=== PATIENT | male | born 1950 | race Caucasian/White ===

== ENCOUNTER 2021-09-25 11:48 | Inpatient (IN) | payer MEDICARE, MEDICAID, SELFPAY ==
--- NOTE | ~2021-09-25 | US_ITS ---
EXAMINATION: US RETROPERITONEAL LIMITED (RENAL ONLY) CLINICAL INFORMATION: UTI. COMPARISON: None TECHNIQUE: Multiple 2-D grayscale and duplex Doppler ultrasound images of the kidneys were obtained. FINDINGS: RIGHT KIDNEY: 10.8 x 6.7 x 6.2 cm (SAG x AP x TRV). An interpolar cyst measures 1.9 x 1.9 x 1.8 cm. Color Doppler showed no abnormal vascular flow. No hydronephrosis or nephrolithiasis. LEFT KIDNEY: 11.7 x 4.6 x 5.0 cm (SAG x AP x TRV). An exophytic cyst in the lower pole measures 3.2 x 2.5 x 2.9 cm. Color Doppler showed no abnormal vascular flow. No hydronephrosis or nephrolithiasis. US/US renal BI IMPRESSION: Bilateral renal cysts demonstrate benign features. No other significant abnormality.
--- NOTE | ~2021-09-25 | CT_ITS ---
EXAMINATION: CT HEAD WITHOUT CONTRAST CLINICAL INFORMATION: Altered mental status. COMPARISON: None available. TECHNIQUE: Contiguous axial imaging was performed from the skull base to vertex without intravenous administration of contrast. This CT examination was performed using dose optimization techniques as appropriate, variously including the following: *Automated exposure control. *Adjustment of mA and/or kV according to patient size (this includes techniques or standardized protocols for targeted exams where dose is matched to indication/reason for exam; i.e. extremities or head). *Use of iterative reconstruction technique. DLP: 813 mGy-cm FINDINGS: There is no evidence of acute intracranial hemorrhage or edematous territorial infarction. Scattered hypoattenuation in the periventricular and deep white matter are consistent with mild to moderate microangiopathy. Gage-white matter differentiation is preserved. Proportional prominence of the ventricles and sulcal spaces. No evidence for obstructive hydrocephalus. No abnormal mass effect or midline shift. No extra-axial fluid collections. Calcific atherosclerotic disease of the intracranial internal carotid and vertebral arteries. No hyperdense vessel sign. No acute soft tissue or osseous abnormalities. The mastoid air cells and paranasal sinuses are clear. The patient is edentulous. CT/CT head/brain wo con IMPRESSION: 1. No evidence of acute intracranial hemorrhage or edematous territorial infarction. 2. Mild to moderate underlying microangiopathy and generalized cerebral volume loss.
--- NOTE | ~2021-09-25 | XR_ITS ---
EXAMINATION: XR CHEST CLINICAL INFORMATION: Altered mental status COMPARISON: None TECHNIQUE: Frontal view of the chest was obtained. FINDINGS: Cardiac silhouette is normal in size. The lungs are adequately aerated. There is no lobar consolidation. No pleural effusion or pneumothorax. Linear opacity of the lateral right lung base is nonspecific but may represent scarring. Moderate degenerative changes of the spine. XR/XR chest 1V IMPRESSION: No acute pulmonary pathology.
--- NOTE | 2021-09-25 11:53 | ED_ITS ---
HPI - Altered Mental Status General Chief Complaint: Altered Mental Status Stated Complaint: AMS Time Seen by Provider: 09/25/21 11:53 Source: EMS Mode of arrival: EMS Limitations: altered mental status History of Present Illness MD complaint: altered mental status and decreased responsiveness (usually talks but is not talking) Onset (ago): day(s) (3) Timing confirmed by: caregiver Severity: moderate Consistency of symptoms: constant Context: other (hx of schizophrenia) Associated symptoms: denies other symptoms Related Data Home Medications Medication Instructions Recorded Confirmed acetaminophen 325 mg tablet 650 mg PO Q6H PRN 09/25/21 09/25/21 acetaminophen 650 mg rectal 650 mg TX Q6H PRN 09/25/21 09/25/21 suppository aluminum-mag 30 ml PO Q6H PRN 09/25/21 09/25/21 hydroxide-simethicone 200 mg-200 mg-20 mg/5 mL oral susp amlodipine 10 mg tablet 10 mg PO DAILY 09/25/21 09/25/21 aripiprazole lauroxil 882 mg/3.2 882 mg IM QMONTH 09/25/21 09/25/21 mL suspension, ext.rel. IM syringe (Aristada) atorvastatin 40 mg tablet 40 mg PO BEDTIME 09/25/21 09/25/21 atropine 1 % eye drops 2 drp OPHTHALMIC (EYE) 09/25/21 09/25/21 BID@0900,1700 bisacodyl 10 mg rectal 10 mg TX DAILY PRN 09/25/21 09/25/21 suppository clonazepam 2 mg tablet 2 mg PO DAILY PRN 09/25/21 09/25/21 clozapine 200 mg tablet 200 mg PO BID 09/25/21 09/25/21 clozapine 50 mg tablet 50 mg PO DAILY 09/25/21 09/25/21 divalproex 250 mg tablet,delayed 250 mg PO BID@0900,1800 09/25/21 09/25/21 release famotidine 20 mg tablet 20 mg PO BID@0900,1800 09/25/21 09/25/21 guaifenesin 200 mg tablet 200 mg PO Q6H PRN 09/25/21 09/25/21 levothyroxine 88 mcg tablet 88 mcg PO DAILY@0630 09/25/21 09/25/21 loratadine 10 mg tablet 10 mg PO DAILY 09/25/21 09/25/21 lorazepam 1 mg tablet 1 mg PO BID@0900,1800 09/25/21 09/25/21 magnesium hydroxide 400 mg/5 mL 30 ml PO DAILY PRN 09/25/21 09/25/21 oral suspension (Milk of Magnesia) metoprolol tartrate 50 mg tablet 50 mg PO BID@0900,1800 09/25/21 09/25/21 mirtazapine 30 mg tablet 30 mg PO BEDTIME 09/25/21 09/25/21 multivitamin with minerals 1 tab PO DAILY 09/25/21 09/25/21 naloxone 0.4 mg/mL injection 0.4 mg IM Q1M PRN 09/25/21 09/25/21 solution tamsulosin 0.4 mg capsule 0.8 mg PO BEDTIME 09/25/21 09/25/21 Allergies Allergy/AdvReac Type Severity Reaction Status Date / Time azithromycin Allergy Unknown Verified 09/25/21 12:15 Barbiturates Allergy Unknown Verified 09/25/21 12:15 erythromycin base Allergy Unknown Verified 09/25/21 12:15 fluphenazine Allergy Unknown Verified 09/25/21 12:15 haloperidol [From Haldol] Allergy Unknown Verified 09/25/21 12:15 phenobarbital Allergy Unknown Verified 09/25/21 12:15 Review of Systems Verdana 4l Review of Systems: Verdana 4d ROS unable to be obtained Verdana 4d due to altered mental status Verdana 4d PMFSH Past Medical History Source: nursing notes reviewed Medical History Anemia, unspecified Anxiety disorder, unspecified Ataxic gait Benign prostatic hyperplasia without lower urinary tract symptoms Combined forms of age-related cataract, bilateral Corns and callosities COVID-19 Diabetes Essential (primary) hypertension Functional urinary incontinence Gastro-esophageal reflux disease without esophagitis Hallux valgus (acquired), unspecified foot History of falling Hyperlipidemia, unspecified Hypothyroidism, unspecified Insomnia, unspecified Mild cognitive impairment, so stated Muscle weakness (generalized) Nail dystrophy Need for assistance with personal care Other hammer toe(s) (acquired), unspecified foot Other reduced mobility Other seasonal allergic rhinitis Patient's other noncompliance with medication regimen Personal history of (healed) traumatic fracture Personal history of COVID-19 Presbyopia Restlessness and agitation Schizophrenia Slurred speech Suicidal ideations Tinea unguium Type 2 diabetes mellitus with other circulatory complications Unspecified astigmatism, unspecified eye Unspecified osteoarthritis, unspecified site Unsteadiness on feet Social History Social History Housing: Halfway Alcohol intake: unknown Patient Tobacco Use Status: Tobacco use Unknown Use of substances other than those prescribed or required for medical reasons: Unknown Advance Directives: Yes Advance Directives Information Provided: No Advance Directives on File: No Physical Exam Verdana 4l Vital Signs: Verdana 4d Verdana 4d Vital Signs: Verdana 4d Verdana 4Bd Last Vital Signs Verdana 4d Wardrobe Stylist New 4d Wardrobe Stylist New 4d Temp 97.5 F 09/25/21 11:56 Wardrobe Stylist New 4d Pulse 120 H 09/25/21 14:03 Wardrobe Stylist New 4d Resp 17 09/25/21 14:03 BP 136/110 H 09/25/21 14:03 Pulse Ox 94 09/25/21 14:03 BMI result Body Mass Index 24.3 Appearance: Lethargic opens eyes to voice, attempts to speak, MAEBs. Mild acute distress. Eyes: Pupils equal, round and reactive to light. ENT: Pharynx dry MM Neck: Normal inspection. Neck supple. CVS: tachycardic heart rate and rhythm. Pulses normal. Respiratory: No respiratory distress. Breath sounds normal. Abdomen: Soft and nontender. Does not grimace Skin: Skin warm and dry. Normal skin color. Normal skin turgor. Extremities: No lower extremity edema. No calf ttp Neuro: Does not talk, tracks with eyes, pulls away. No motor deficit. No sensory deficit. Course Course Course Narrative: sister confirmed to RN that the patient can talk and communicate and help with ADLs this is not his baseline will admit for encephalopathy did take his metoprolol in ED with ice cream but has not taken his meds in days per SNF reports - likely cause of his HTN/tachycardia MDM - Altered Mental Status MDM Narrative Medical decision making narrative: 71 yo male with hx of schizophrenia, HTN, HLD, DM here with c/o AMS and unable to speak x 3 days from local SNF at this time will need labs, cultures, lactic acid, CXR / UA for infection. Depakote level/ammonia level. CT head for ICH/stroke. Toxic, metabolic, infecious workup ordered. RN notes from facility very limited at this time. Dispo per results and findings. Lab Data Result diagrams: 09/25/21 12:24 09/25/21 12:24 Labs: Lab Results 09/25/21 09/25/21 09/25/21 Range/Units 12:24 12:24 12:24 WBC 9.2 (4.8-10.8) X10*3/uL RBC 5.61 (4.60-5.80) X10*6/uL Hgb 16.0 (14.0-18.0) g/dl Hct 49.2 (42.0-52.0) % MCV 87.7 (80.0-98.0) fL MCH 28.5 (27.0-33.0) pg MCHC 32.5 (31.0-36.0) g/dl RDW 15.0 (11.0-16.0) % Plt Count 203 (160-400) X10*3/uL MPV 10.4 (9.4-12.4) fL Immature Gran % (Auto) 0.2 (0.0-0.4) % Neut % (Auto) 67.0 (45-73) % Lymph % (Auto) 23.8 (20-40) % [place] % (Auto) 7.8 (2-11) % Eos % (Auto) 0.0 (0-4) % Baso % (Auto) 1.2 (0-2) % Lymph # (Auto) 2.2 (1.2-4.9) X10*3/uL [place] # (Auto) 0.7 (0.1-1.2) X10*3/uL Eos # (Auto) 0.0 (0.0-0.4) X10*3/uL Baso # (Auto) 0.1 (0.0-0.2) X10*3/uL Abs Immat Gran (auto) 0.02 (0.00-0.03) X10*3/uL Absolute Neuts (auto) 6.1 (2.0-8.3) x10*3/uL Absolute Nucleated RBC 0.000 (0.0-0.012) X10*3/uL Nucleated RBC % (auto) 0.0 (0.0-0.2) /100WBC Smear Tech's Comments VERIFIED PT (9.9-13.0) SEC INR (0.9-1.1) VBG pH (7.32-7.43) VBG pCO2 mmHg VBG pO2 mmHg VBG HCO3 (22-26) mmol/L VBG O2 Saturation % VBG Base Excess mmol/L Sodium 142 (135-145) mmol/L Potassium 4.2 (3.3-5.1) mmol/L Chloride 106 (96-108) mmol/L Carbon Dioxide 21 L (22-29) mmol/L Anion Gap 19 (12-20) BUN 23 H (9-16) mg/dL Creatinine 0.95 (0.5-1.4) mg/dL Estim Creat Clear Calc 84.1 Estimated GFR > 60 Random Glucose 97 (60-115) mg/dL Lactic Acid (0.5-2.0) mmol/L Calcium 10.1 (8.4-10.2) mg/dL Magnesium 1.8 (1.6-2.6) mg/dL Total Bilirubin 0.6 (0.0-1.0) mg/dL Direct Bilirubin 0.2 (0.0-0.5) mg/dL AST 13 (5-37) U/L ALT 17 (0-40) U/L Alkaline Phosphatase 134 H (39-117) U/L Ammonia 32 (13-55) umol/L Troponin I High Sens (<3.5-35.0) ng/L Total Protein 8.4 H (6.5-8.0) g/dL Albumin 4.8 (3.5-5.0) g/dL Lipase 16 (8-78) U/L TSH 2.82 (0.32-4.0) uIU/mL Urine Color Urine Appearance Urine pH (5.0-8.0) Ur Specific [place] (1.005-1.025) Urine Protein (NEG-TRACE) MG/DL Urine Glucose (UA) (NEG) MG/DL Urine Ketones (NEG) MG/DL Urine Blood (NEG) Urine Nitrite (NEG) Ur Leukocyte Esterase (NEG) Urine RBC (0) /HPF Urine WBC (0-4) /HPF Ur Squamous Epith Cells /LPF Urine Bacteria /LPF COVID-19 ([facility]CRUZ) (Negative) COVID-19 Clin Com 09/25/21 09/25/21 09/25/21 Range/Units 12:24 12:24 12:24 WBC (4.8-10.8) X10*3/uL RBC (4.60-5.80) X10*6/uL Hgb (14.0-18.0) g/dl Hct (42.0-52.0) % MCV (80.0-98.0) fL MCH (27.0-33.0) pg MCHC (31.0-36.0) g/dl RDW (11.0-16.0) % Plt Count (160-400) X10*3/uL MPV (9.4-12.4) fL Immature Gran % (Auto) (0.0-0.4) % Neut % (Auto) (45-73) % Lymph % (Auto) (20-40) % [place] % (Auto) (2-11) % Eos % (Auto) (0-4) % Baso % (Auto) (0-2) % Lymph # (Auto) (1.2-4.9) X10*3/uL [place] # (Auto) (0.1-1.2) X10*3/uL Eos # (Auto) (0.0-0.4) X10*3/uL Baso # (Auto) (0.0-0.2) X10*3/uL Abs Immat Gran (auto) (0.00-0.03) X10*3/uL Absolute Neuts (auto) (2.0-8.3) x10*3/uL Absolute Nucleated RBC (0.0-0.012) X10*3/uL Nucleated RBC % (auto) (0.0-0.2) /100WBC Smear Tech's Comments PT (9.9-13.0) SEC INR (0.9-1.1) VBG pH (7.32-7.43) VBG pCO2 mmHg VBG pO2 mmHg VBG HCO3 (22-26) mmol/L VBG O2 Saturation % VBG Base Excess mmol/L Sodium (135-145) mmol/L Potassium (3.3-5.1) mmol/L Chloride (96-108) mmol/L Carbon Dioxide (22-29) mmol/L Anion Gap (12-20) BUN (9-16) mg/dL Creatinine (0.5-1.4) mg/dL Estim Creat Clear Calc Estimated GFR Random Glucose (60-115) mg/dL Lactic Acid 1.6 (0.5-2.0) mmol/L Calcium (8.4-10.2) mg/dL Magnesium (1.6-2.6) mg/dL Total Bilirubin (0.0-1.0) mg/dL Direct Bilirubin (0.0-0.5) mg/dL AST (5-37) U/L ALT (0-40) U/L Alkaline Phosphatase (39-117) U/L Ammonia (13-55) umol/L Troponin I High Sens 8.4 (<3.5-35.0) ng/L Total Protein (6.5-8.0) g/dL Albumin (3.5-5.0) g/dL Lipase (8-78) U/L TSH (0.32-4.0) uIU/mL Urine Color Urine Appearance Urine pH (5.0-8.0) Ur Specific [place] (1.005-1.025) Urine Protein (NEG-TRACE) MG/DL Urine Glucose (UA) (NEG) MG/DL Urine Ketones (NEG) MG/DL Urine Blood (NEG) Urine Nitrite (NEG) Ur Leukocyte Esterase (NEG) Urine RBC (0) /HPF Urine WBC (0-4) /HPF Ur Squamous Epith Cells /LPF Urine Bacteria /LPF COVID-19 ([facility]CRUZ) Negative (Negative) COVID-19 Clin Com See Note 09/25/21 09/25/21 09/25/21 Range/Units 12:28 13:26 14:00 WBC (4.8-10.8) X10*3/uL RBC (4.60-5.80) X10*6/uL Hgb (14.0-18.0) g/dl Hct (42.0-52.0) % MCV (80.0-98.0) fL MCH (27.0-33.0) pg MCHC (31.0-36.0) g/dl RDW (11.0-16.0) % Plt Count (160-400) X10*3/uL MPV (9.4-12.4) fL Immature Gran % (Auto) (0.0-0.4) % Neut % (Auto) (45-73) % Lymph % (Auto) (20-40) % [place] % (Auto) (2-11) % Eos % (Auto) (0-4) % Baso % (Auto) (0-2) % Lymph # (Auto) (1.2-4.9) X10*3/uL [place] # (Auto) (0.1-1.2) X10*3/uL Eos # (Auto) (0.0-0.4) X10*3/uL Baso # (Auto) (0.0-0.2) X10*3/uL Abs Immat Gran (auto) (0.00-0.03) X10*3/uL Absolute Neuts (auto) (2.0-8.3) x10*3/uL Absolute Nucleated RBC (0.0-0.012) X10*3/uL Nucleated RBC % (auto) (0.0-0.2) /100WBC Smear Tech's Comments PT 11.4 (9.9-13.0) SEC INR 1.0 (0.9-1.1) VBG pH 7.44 H (7.32-7.43) VBG pCO2 25 mmHg VBG pO2 59 mmHg VBG HCO3 17 L (22-26) mmol/L VBG O2 Saturation 88.0 % VBG Base Excess -4.3 mmol/L Sodium (135-145) mmol/L Potassium (3.3-5.1) mmol/L Chloride (96-108) mmol/L Carbon Dioxide (22-29) mmol/L Anion Gap (12-20) BUN (9-16) mg/dL Creatinine (0.5-1.4) mg/dL Estim Creat Clear Calc Estimated GFR Random Glucose (60-115) mg/dL Lactic Acid (0.5-2.0) mmol/L Calcium (8.4-10.2) mg/dL Magnesium (1.6-2.6) mg/dL Total Bilirubin (0.0-1.0) mg/dL Direct Bilirubin (0.0-0.5) mg/dL AST (5-37) U/L ALT (0-40) U/L Alkaline Phosphatase (39-117) U/L Ammonia (13-55) umol/L Troponin I High Sens (<3.5-35.0) ng/L Total Protein (6.5-8.0) g/dL Albumin (3.5-5.0) g/dL Lipase (8-78) U/L TSH (0.32-4.0) uIU/mL Urine Color YELLOW Urine Appearance HAZY Urine pH 6.0 (5.0-8.0) Ur Specific [place] >= 1.030 H (1.005-1.025) Urine Protein TRACE (NEG-TRACE) MG/DL Urine Glucose (UA) NEG (NEG) MG/DL Urine Ketones >=80 (NEG) MG/DL Urine Blood 1+ H (NEG) Urine Nitrite POS H (NEG) Ur Leukocyte Esterase TRACE H (NEG) Urine RBC 0-2 (0) /HPF Urine WBC 30-49 H (0-4) /HPF Ur Squamous Epith Cells TRACE /LPF Urine Bacteria 4+ /LPF COVID-19 ([facility]) (Negative) COVID-19 Clin Com ECG Data ECG #1: Attestation: I personally reviewed and interpreted this ECG as follows: ECG interpretation date: 09/25/21 ECG interpretation time: 12:10 Interpretation: Rate: 121 Rhythm: sinus tachycardia with PVCs [place]: normal Normal P waves. Normal MILLA. Normal QRS complex. ST T wave : nonspecific no JAM qTC: normal prior studies: no acute ischemia The study has been interpreted contemporaneously by me. . Discharge Plan Discharge Clinical Impression: Acute UTI, Encephalopathy due to infection Patient Disposition: Admitted As Inpatient
[2021-09-25 11:56] VITALS: BP 150/95; BP 150/96; PULSE 119; PULSE 123; RESP 19; TEMP 36.4; O2SAT 96; O2SAT 97; BMI 24.3
--- NOTE | 2021-09-25 12:00 | ECG_ITS ---
Test Reason : AMS Blood Pressure : / mmHG Vent. Rate : 121 BPM Atrial Rate : 121 BPM P-R Int : 160 ms QRS Dur : 090 ms QT Int : 308 ms P-R-T Axes : 061 008 103 degrees QTc Int : 437 ms Sinus tachycardia with frequent Premature ventricular complexes Abnormal QRS-T angle, consider primary T wave abnormality Abnormal ECG No previous ECGs available Referred By: Peg Blackburn Electronically Signed By:Benedicto Lorenzo
[2021-09-25] MEDS: 0.9 % Sodium Chloride 1,000 ML 999 ML IVCONT (12:26)
[2021-09-25 12:35] LABS: VBG Base Excess -4.3 mmol/L; VBG HCO3 17 mmol/L (22-26); VBG pCO2 25 mmHg; VBG pH 7.44 (7.32-7.43); VBG pO2 59 mmHg
[2021-09-25 12:36] LABS: Basophils Absolute Auto 0.1 X10*3/uL (0.0-0.2); Basophils Percent Auto 1.2 % (0-2); Hematocrit 49.2 % (42.0-52.0); Imm Gran Abs Auto 0.02 X10*3/uL (0.00-0.03); Imm Gran Pct Auto 0.2 % (0.0-0.4); Lymphocytes Absolute Auto 2.2 X10*3/uL (1.2-4.9); Lymphocytes Percent Auto 23.8 % (20-40); MANUAL DIFF FLAG SCAN; Mean Corpuscular HGB Conc 32.5 g/dl (31.0-36.0); Mean Corpuscular Hemoglobin 28.5 pg (27.0-33.0); Mean Corpuscular Volume 87.7 fL (80.0-98.0); Mean Platelet Volume 10.4 fL (9.4-12.4); Monocytes Absolute Auto 0.7 X10*3/uL (0.1-1.2); Monocytes Percent Auto 7.8 % (2-11); Neutrophils Absolute Auto 6.1 x10*3/uL (2.0-8.3); PLT CLUMP 1; Red Blood Count 5.61 X10*6/uL (4.60-5.80); SCAN SMEAR FLAG 1
[2021-09-25 12:40] LABS: Venous Blood Gas Refer to POC result
--- NOTE | 2021-09-25 12:40 | PC.NURSE ---
pt arousable to name, vss, night monitor applied, 18G L AC placed by EMS, labs drawn, fluids started.
[2021-09-25 12:46] LABS: Ammonia 32 umol/L (13-55)
[2021-09-25 12:49] LABS: Lactic Acid 1.6 mmol/L (0.5-2.0)
[2021-09-25 12:52] LABS: White Blood Count 9.2 X10*3/uL (4.8-10.8)
[2021-09-25 12:53] LABS: Platelet Count 203 X10*3/uL (160-400); SLIDE REVIEW VERIFIED
[2021-09-25 12:54] LABS: Alanine Aminotransferase 17 U/L (0-40); Albumin Level 4.8 g/dL (3.5-5.0); Alkaline Phosphatase 134 U/L (39-117); Anion Gap 19 (12-20); Aspartate Amino Transferase 13 U/L (5-37); Bilirubin Direct 0.2 mg/dL (0.0-0.5); Bilirubin Total 0.6 mg/dL (0.0-1.0); Blood Urea Nitrogen 23 mg/dL (9-16); Calcium 10.1 mg/dL (8.4-10.2); Carbon Dioxide 21 mmol/L (22-29); Chloride 106 mmol/L (96-108); Creatinine Clr Calc Pharmacy 84.1; Estimated Glomerular Filt Rate > 60; Glucose Random 97 mg/dL (60-115); Lipase 16 U/L (8-78); Magnesium 1.8 mg/dL (1.6-2.6); Potassium 4.2 mmol/L (3.3-5.1); Sodium 142 mmol/L (135-145); Total Protein 8.4 g/dL (6.5-8.0)
[2021-09-25 12:55] LABS: COVID-19 Test Negative (Negative); IDNOW Serial# 55D5AD1C
[2021-09-25 13:00] LABS: Troponin-I High Sensitivity 8.4 ng/L (<3.5-35.0)
--- NOTE | 2021-09-25 13:24 | PHA.MEDREC ---
Pharmacy Consult ? Medication Reconciliation Pharmacy has completed the medication reconciliation. List obtained from [facility]. Patients total daily dose of Clozaril is 450 mg with last dose taken on 09/24/21. Pt is due for Aristada injection on 10/06/21.
[2021-09-25 13:40] LABS: Appearance Urine HAZY; Color Urine YELLOW; Glucose Urine UA NEG (NEG); Leukocyte Esterase Urine TRACE (NEG); Nitrite Urine POS (NEG); Specific Gravity - Urine >= 1.030 (1.005-1.025); UACC Culture Trigger YES; Urine Blood 1+ (NEG); Urine Ketones >=80 MG/DL (NEG); Urine Protein TRACE MG/DL (NEG-TRACE)
[2021-09-25 13:48] LABS: Bacteria Urine 4+ /LPF; WBC Urine 30-49 /HPF (0-4)
[2021-09-25 13:49] LABS: RBC Urine 0-2 /HPF (0); Squamous Epithelial Cell Urine TRACE /LPF
--- NOTE | 2021-09-25 13:56 | PC.NURSE ---
spoke w sister, + UTI, starting antibiotics, normally communicative per sister, so non verbal is abnormal, no further questions.
[2021-09-25 14:03] VITALS: BP 136/110; PULSE 120; RESP 17; O2SAT 94
[2021-09-25] MEDS: Metoprolol Tartrate 25 MG TABLET PO (14:07)
[2021-09-25] MEDS: cefTRIAXone sodium 1 GM in 0.9 % Sodium Chloride 50 ML IV (14:07)
--- NOTE | 2021-09-25 14:10 | PC.NURSE ---
medicated per provider order, pt took medication in ice cream. vss, sinus tach on monitor w occ PVCs.
[2021-09-25 14:16] LABS: Prothrombin Time 11.4 SEC (9.9-13.0)
[2021-09-25 15:23] VITALS: BP 139/95; PULSE 109; RESP 20; O2SAT 95
--- NOTE | 2021-09-25 15:25 | PM.IMHP ---
History of Present Illness Date of Service: 09/25/21 Chief Complaint: altered mental status Mr Portillo is a 71 year-old man with schizophrenia who is a long-term resident of [facility]. Per his sister Bing, with whom I spoke by telephone, at baseline, he is verbal and able to do most of his ADLs; however, today he was sent by EMS due to becoming nonverbal and non-ambulatory over the last 3 days. He has also been incontinent of urine several times, which is atypical for prior episodes of near-catatonia, which he has had. He has BPH but no known history of UTIs. He is on an alpha-terrance. No fever, cough, shortness of breath, vomiting, or diarrhea. I am unable to obtain a history from him due to his mental status. He is awake and alert but non-verbal. Workup in the ED showed no acute changes on CT head; just chronic microvascular disease. Urianlysis showed nitrituria, pyuria, and bacteruria. He is not septic. He was given 1 dose of ceftriaxone IV and IV normal saline. Review of Systems Review of Systems: Yes Unobtainable due to mental status [facility] Medical History Anemia, unspecified Anxiety disorder, unspecified Ataxic gait Benign prostatic hyperplasia without lower urinary tract symptoms Combined forms of age-related cataract, bilateral Corns and callosities COVID-19 Diabetes Essential (primary) hypertension Functional urinary incontinence Gastro-esophageal reflux disease without esophagitis Hallux valgus (acquired), unspecified foot History of falling Hyperlipidemia, unspecified Hypothyroidism, unspecified Insomnia, unspecified Mild cognitive impairment, so stated Muscle weakness (generalized) Nail dystrophy Need for assistance with personal care Other hammer toe(s) (acquired), unspecified foot Other reduced mobility Other seasonal allergic rhinitis Patient's other noncompliance with medication regimen Personal history of (healed) traumatic fracture Personal history of COVID-19 Presbyopia Restlessness and agitation Schizophrenia Slurred speech Suicidal ideations Tinea unguium Type 2 diabetes mellitus with other circulatory complications Unspecified astigmatism, unspecified eye Unspecified osteoarthritis, unspecified site Unsteadiness on feet Pertinent family history: Colon CA in mother Social History Housing: Senior Living Alcohol intake: unknown Patient Tobacco Use Status: Tobacco use Unknown Use of substances other than those prescribed or required for medical reasons: Unknown Advance Directives: Yes Advance Directives Information Provided: No Advance Directives on File: No Meds Allergies Allergy/AdvReac Type Severity Reaction Status Date / Time azithromycin Allergy Unknown Verified 09/25/21 12:15 Barbiturates Allergy Unknown Verified 09/25/21 12:15 erythromycin base Allergy Unknown Verified 09/25/21 12:15 fluphenazine Allergy Unknown Verified 09/25/21 12:15 haloperidol [From Haldol] Allergy Unknown Verified 09/25/21 12:15 phenobarbital Allergy Unknown Verified 09/25/21 12:15 Active Medications: Current Medications Al Hydroxide/Mg Hydroxide (Magnesium Hydrox/Alum Hydrox 30 Ml Oral.Susp) 30 ml PO Q6H PRN PRN Reason: Indigestion Amlodipine Besylate (Amlodipine Besylate 10 Mg Tablet) 10 mg PO DAILY [facility]; Protocol Atorvastatin Calcium (Atorvastatin Calcium 40 Mg Tablet) 40 mg PO BEDTIME [facility] Atropine Sulfate (Atropine Sulfate 1 % Ophth Agnieszka 2 Ml Bottle) 2 drop EYE-BOTH BID@0900,1700 [facility] Bisacodyl (Bisacodyl 10 Mg Supp.Rect) 10 mg [place] DAILY PRN PRN Reason: Constipation Clonazepam (Clonazepam 1 Mg Tablet) 2 mg PO DAILY PRN PRN Reason: Anxiety Clozapine (Clozapine 25 Mg Tablet) 50 mg PO DAILY [facility] Clozapine (Clozapine 100 Mg Tablet) 200 mg PO BID [facility] Divalproex Sodium (Divalproex Sodium 250 Mg Tablet.Dr) 250 mg PO BID@0900,1800 [facility] Famotidine (Famotidine 20 Mg Tablet) 20 mg PO BID@0900,1800 [facility] Ceftriaxone Sodium 1 gm/ (Sodium Chloride) 50 mls @ 100 mls/hr IV Q24H [facility] Levothyroxine Sodium (Levothyroxine Sodium 88 Mcg Tablet) 88 mcg PO DAILY@0600 [facility] Loratadine (Loratadine 10 Mg Tablet) 10 mg PO DAILY [facility] Lorazepam (Lorazepam 1 Mg Tablet) 1 mg PO BID@0900,1800 [facility] Magnesium Hydroxide (Milk Of Magnesia 30 Ml Oral.Susp) 30 ml PO DAILY PRN PRN Reason: Constipation Metoprolol Tartrate (Metoprolol Tartrate 50 Mg Tablet) 50 mg PO BID@0900,1800 [facility]; Protocol Mirtazapine (Mirtazapine 30 Mg Tablet) 30 mg PO BEDTIME [facility] Multivitamins/Vitamin C (Multivitamin Tablet) 1 tab PO DAILY [facility] Naloxone HCl (Naloxone Hcl 0.4 Mg/Ml Vial) 0.4 mg IM Q1M PRN PRN Reason: suspected overdose Pharmacy Consult (Consult Rx Perform Med Rec) 1 each MISCELLANE ONCE PRN PRN Reason: Consult order Tamsulosin HCl (Tamsulosin Hcl 0.4 Mg Capsule) 0.8 mg PO BEDTIME [facility] Home Medications Medication Instructions Recorded Confirmed Last Taken Type acetaminophen 325 mg tablet 650 mg PO Q6H PRN 09/25/21 09/25/21 Unknown History acetaminophen 650 mg rectal 650 mg [place] Q6H PRN 09/25/21 09/25/21 Unknown History suppository aluminum-mag hydroxide-simethicone 30 ml PO Q6H PRN 09/25/21 09/25/21 Unknown History 200 mg-200 mg-20 mg/5 mL oral susp amlodipine 10 mg tablet 10 mg PO DAILY 09/25/21 09/25/21 09/24/21 History aripiprazole lauroxil 882 mg/3.2 882 mg IM QMONTH 09/25/21 09/25/21 09/08/21 History mL suspension, ext.rel. IM syringe ([place]) atorvastatin 40 mg tablet 40 mg PO BEDTIME 09/25/21 09/25/21 09/24/21 History atropine 1 % eye drops 2 drp OPHTHALMIC (EYE) 09/25/21 09/25/21 09/24/21 History BID@0900,1700 bisacodyl 10 mg rectal suppository 10 mg [place] DAILY PRN 09/25/21 09/25/21 Unknown History clonazepam 2 mg tablet 2 mg PO DAILY PRN 09/25/21 09/25/21 Unknown History clozapine 200 mg tablet 200 mg PO BID 09/25/21 09/25/21 09/24/21 History clozapine 50 mg tablet 50 mg PO DAILY 09/25/21 09/25/21 09/24/21 History divalproex 250 mg tablet,delayed 250 mg PO BID@0900,1800 09/25/21 09/25/21 09/24/21 History release famotidine 20 mg tablet 20 mg PO BID@0900,1800 09/25/21 09/25/21 09/24/21 History guaifenesin 200 mg tablet 200 mg PO Q6H PRN 09/25/21 09/25/21 Unknown History levothyroxine 88 mcg tablet 88 mcg PO DAILY@0630 09/25/21 09/25/21 09/25/21 History loratadine 10 mg tablet 10 mg PO DAILY 09/25/21 09/25/21 09/24/21 History lorazepam 1 mg tablet 1 mg PO BID@0900,1800 09/25/21 09/25/21 09/24/21 History magnesium hydroxide 400 mg/5 mL 30 ml PO DAILY PRN 09/25/21 09/25/21 Unknown History oral suspension (Milk of Magnesia) metoprolol tartrate 50 mg tablet 50 mg PO BID@0900,1800 09/25/21 09/25/21 09/24/21 History mirtazapine 30 mg tablet 30 mg PO BEDTIME 09/25/21 09/25/21 09/24/21 History multivitamin with minerals 1 tab PO DAILY 09/25/21 09/25/21 09/24/21 History naloxone 0.4 mg/mL injection 0.4 mg IM Q1M PRN 09/25/21 09/25/21 Unknown History solution tamsulosin 0.4 mg capsule 0.8 mg PO BEDTIME 09/25/21 09/25/21 09/24/21 History Physical Exam Vital Signs and Narrative: Vital Signs: Last Vital Signs Temp 97.5 F 09/25/21 11:56 Pulse 120 H 09/25/21 14:03 Resp 17 09/25/21 14:03 BP 136/110 H 09/25/21 14:03 Pulse Ox 94 09/25/21 14:03 BMI result Body Mass Index 24.3 Gen: in no acute distress but nonverbal, near-catatonic HEENT: sclera anicteric, moist mucus membranes Neck: supple Lungs: clear to auscultation bilaterally Heart: tachycardic, no murmurs Abd: soft, non-tender, non-distended Ext: no edema Skin: warm/well-perfused Neuro: alert, unable to assess orientation Psych: bizarre affect Results Labs CBC and Chem 7: 09/25/21 12:24 09/25/21 12:24 Labs: Laboratory Results - last 24 hr 0209/25/21 09/25/21 12:24 12:24 12:24 MCV 87.7 MCH 28.5 MCHC 32.5 RDW 15.0 Plt Count 203 MPV 10.4 Immature Gran % (Auto) 0.2 Neut % (Auto) 67.0 Lymph % (Auto) 23.8 [place] % (Auto) 7.8 Eos % (Auto) 0.0 Baso % (Auto) 1.2 Lymph # (Auto) 2.2 [place] # (Auto) 0.7 Eos # (Auto) 0.0 Baso # (Auto) 0.1 Abs Immat Gran (auto) 0.02 Absolute Neuts (auto) 6.1 Absolute Nucleated RBC 0.000 Nucleated RBC % (auto) 0.0 Smear Tech's Comments VERIFIED PT INR VBG pH VBG pCO2 VBG pO2 VBG HCO3 VBG O2 Saturation VBG Base Excess Anion Gap 19 Estim Creat Clear Calc 84.1 Estimated GFR > 60 Random Glucose 97 Lactic Acid Calcium 10.1 Magnesium 1.8 Total Bilirubin 0.6 Direct Bilirubin 0.2 AST 13 ALT 17 Alkaline Phosphatase 134 H Ammonia 32 Total Protein 8.4 H Albumin 4.8 Lipase 16 Urine Color Urine Appearance Urine pH Ur Specific [place] Urine Protein Urine Glucose (UA) Urine Ketones Urine Blood Urine Nitrite Ur Leukocyte Esterase Urine RBC Urine WBC Ur Squamous Epith Cells Urine Bacteria COVID-19 ([facility]) COVID-19 Clin Com 09/25/21 09/25/21 09/25/21 12:24 12:24 12:28 MCV MCH MCHC RDW Plt Count MPV Immature Gran % (Auto) Neut % (Auto) Lymph % (Auto) [place] % (Auto) Eos % (Auto) Baso % (Auto) Lymph # (Auto) [place] # (Auto) Eos # (Auto) Baso # (Auto) Abs Immat Gran (auto) Absolute Neuts (auto) Absolute Nucleated RBC Nucleated RBC % (auto) Smear Tech's Comments PT INR VBG pH 7.44 H VBG pCO2 25 VBG pO2 59 VBG HCO3 17 L VBG O2 Saturation 88.0 VBG Base Excess -4.3 Anion Gap Estim Creat Clear Calc Estimated GFR Random Glucose Lactic Acid 1.6 Calcium Magnesium Total Bilirubin Direct Bilirubin AST ALT Alkaline Phosphatase Ammonia Total Protein Albumin Lipase Urine Color Urine Appearance Urine pH Ur Specific [place] Urine Protein Urine Glucose (UA) Urine Ketones Urine Blood Urine Nitrite Ur Leukocyte Esterase Urine RBC Urine WBC Ur Squamous Epith Cells Urine Bacteria COVID-19 ([facility]) Negative COVID-19 Clin Com See Note 09/25/21 09/25/21 13:26 14:00 MCV MCH MCHC RDW Plt Count MPV Immature Gran % (Auto) Neut % (Auto) Lymph % (Auto) [place] % (Auto) Eos % (Auto) Baso % (Auto) Lymph # (Auto) [place] # (Auto) Eos # (Auto) Baso # (Auto) Abs Immat Gran (auto) Absolute Neuts (auto) Absolute Nucleated RBC Nucleated RBC % (auto) Smear Tech's Comments PT 11.4 INR 1.0 VBG pH VBG pCO2 VBG pO2 VBG HCO3 VBG O2 Saturation VBG Base Excess Anion Gap Estim Creat Clear Calc Estimated GFR Random Glucose Lactic Acid Calcium Magnesium Total Bilirubin Direct Bilirubin AST ALT Alkaline Phosphatase Ammonia Total Protein Albumin Lipase Urine Color YELLOW Urine Appearance HAZY Urine pH 6.0 Ur Specific [place] >= 1.030 H Urine Protein TRACE Urine Glucose (UA) NEG Urine Ketones >=80 Urine Blood 1+ H Urine Nitrite POS H Ur Leukocyte Esterase TRACE H Urine RBC 0-2 Urine WBC 30-49 H Ur Squamous Epith Cells TRACE Urine Bacteria 4+ COVID-19 ([facility]) COVID-19 Clin Com Imaging Radiologist's Impressions: Impressions Head CT 09/25/21 12:53 IMPRESSION: 1. No evidence of acute intracranial hemorrhage or edematous territorial infarction. 2. Mild to moderate underlying microangiopathy and generalized cerebral volume loss. Chest X-Ray 09/25/21 13:24 IMPRESSION: No acute pulmonary pathology. Assessment and Plan (1) Acute UTI: Status: Acute (2) Encephalopathy due to infection: Status: Acute Plan Mr Portillo is a 71 year-old man with schizophrenia who is a long-term [facility] resident sent in with near-catatonia over the past 3 days, found to have evidence of UTI and being admitted for concern of encephalopathy from the UTI. # UTI - admit to M/S, give IV ceftriaxone, follow UCx/BCx # encephalopathy, toxic-metabolic vs. catatonia - treat medical condition as above [ABX for UTI]. check VPA level. if fails to respond, involve Psychiatry for concern of catatonia. # BPH - continue tamsulosin # HTN - continue amlodipine, metoprolol # HLD - continue atorvastatin # hypothyroidism - TSH therapeutic, continue LT4 # DM2 - check A1c, give correction-dose lispro # schizophrenia - continue VPA, clozapine [pt also on depot aripiprazole], lorazepam, clonazepam, mirtazapine # VTE ppx - LMWH # code - full Quality Stroke Does the patient have a stroke diagnosis?: No VTE Prior VTE?: No VTE Risk Level:: Medical - moderate - high VTE Device Contraindication: N/A - Device Ordered VTE Drug Contraindication: N/A - Med Ordered
[2021-09-25 15:38] LABS: Thyroid Stimulating Hormone 2.82 uIU/mL (0.32-4.0)
[2021-09-25 16:00] VITALS: BP 147/96; PULSE 113; RESP 18; TEMP 36.7; O2SAT 96
[2021-09-25 16:35] LABS: Estimated Average Glucose 117 mg/dL; Hemoglobin A1c % 5.7 %
--- NOTE | 2021-09-25 16:48 | PC.NURSE ---
patient awake, non verbal to staff, monitor tech sinus tach, vss, repeat flu swab performed, will continue to monitor
--- NOTE | 2021-09-25 16:53 | PC.NURSE ---
called floor to give report, rn to call ed back
--- NOTE | 2021-09-25 17:08 | PC.NURSE ---
report given to floor
[2021-09-25 17:09] LABS: Influenza A Negative (Negative); Influenza B2 Negative (Negative)
[2021-09-25 17:58] LABS: Valproate 3.2 mcg/mL (50.0-100.0)
[2021-09-25 18:14] LABS: Glucose, Whole Blood 108 mg/dL (60-115)
[2021-09-25] MEDS: Enoxaparin Sodium 40 MG/0.4 ML SYRINGE SUBCUT (18:27)
[2021-09-25] MEDS: 0.9 % Sodium Chloride Flush 3 ML SYRINGE IVFLUSH (18:27)
--- NOTE | 2021-09-25 18:59 | PC.NURSE ---
This nurse recieved pt. from ED. This nurse set up room and transferred pt from stretcher to bed. Pt. would not respond to this nurses admission questions and didn't follow commands easily. Pt. held eye contact and this nurse attempted to give meds crushed with ice cream, but pt. refused by saying No . This nurse was able give lovenox. Will continue to monitor.
[2021-09-25 19:49] VITALS: BP 142/86; PULSE 117; RESP 18; TEMP 37.2; O2SAT 95
[2021-09-25 20:04] LABS: Glucose, Whole Blood 114 mg/dL (60-115)
[2021-09-25 23:30] VITALS: BP 141/89; PULSE 116; RESP 20; TEMP 36.5; O2SAT 96
[2021-09-26] VITALS (7 sets, daily range): BP systolic 113–160; BP diastolic 57–94; PULSE 79–119; RESP 17–20; TEMP 36.3–37.2; O2SAT 94–95
[2021-09-26] MEDS: 0.9 % Sodium Chloride Flush 3 ML SYRINGE IVFLUSH ×3 (06:15→19:50)
[2021-09-26] MEDS: Divalproex Sodium 250 MG TABLET.DR PO ×2 (07:24→16:59)
[2021-09-26] MEDS: amLODIPine Besylate 10 MG TABLET PO (07:28)
[2021-09-26] MEDS: Metoprolol Tartrate 50 MG TABLET PO ×2 (07:28→16:59)
[2021-09-26] MEDS: cloZAPine 25 MG TABLET 50 MG PO (07:28)
[2021-09-26] MEDS: Multivitamin TABLET 1 TAB PO (07:28)
[2021-09-26] MEDS: Famotidine 20 MG TABLET PO ×2 (07:28→16:59)
[2021-09-26] MEDS: cloZAPine 100 MG TABLET 200 MG PO ×2 (07:28→19:49)
[2021-09-26 07:29] LABS: Glucose, Whole Blood 103 mg/dL (60-115)
[2021-09-26] MEDS: Atropine Sulfate 1 % Ophth Sol 2 ML BOTTLE 2 DROP EYE-BOTH (07:29)
[2021-09-26] MEDS: LORazepam 1 MG TABLET PO ×2 (07:29→16:59)
[2021-09-26] MEDS: Loratadine 10 MG TABLET PO (07:29)
--- NOTE | 2021-09-26 09:11 | HO.PM.IMPN ---
Subjective Subjective Date of Service: 09/26/21 Interval History: More verbal now though not really answering questions appropriately Denies pain Eating now Review of Systems Review of Systems: Yes all other systems are reviewed and are negative Physical Exam Vital Signs: Vital Signs: Last Vital Signs Temp 98.2 F 09/26/21 08:00 Pulse 119 H 09/26/21 08:00 Resp 19 09/26/21 08:00 BP 134/94 H 09/26/21 08:00 Pulse Ox 95 09/26/21 08:00 BMI result Body Mass Index 24.3 Gen: in no acute distress HEENT: sclera anicteric, moist mucus membranes Neck: supple Lungs: clear to auscultation bilaterally Heart: regular, rapid, no murmurs Abd: soft, non-tender, non-distended Ext: no edema Skin: warm/well-perfused Neuro: alert but unable to assesss orientation Psych: bizarre affect Objective Data Active Medications Acetaminophen (Acetaminophen 325 Mg Tablet) 650 mg PO Q6H PRN PRN Reason: Pain, Mild (Pain Scale 1-3) Al Hydroxide/Mg Hydroxide (Magnesium Hydrox/Alum Hydrox 30 Ml Oral.Susp) 30 ml PO Q6H PRN PRN Reason: Indigestion Amlodipine Besylate (Amlodipine Besylate 10 Mg Tablet) 10 mg PO DAILY [facility]; Protocol Last Admin: 09/26/21 07:28 Dose: 10 mg Documented by: SARAN Atorvastatin Calcium (Atorvastatin Calcium 40 Mg Tablet) 40 mg PO BEDTIME [facility] Last Admin: 09/25/21 20:37 Dose: Not Given Documented by: ALEXANDRA Non-Admin Reason: Patient Refused Atropine Sulfate (Atropine Sulfate 1 % [facility] Agnieszka 2 Ml Bottle) 2 drop EYE-BOTH BID@0900,1700 [facility] Last Admin: 09/26/21 07:29 Dose: 2 drop Documented by: SARAN Bisacodyl (Bisacodyl 10 Mg Supp.Rect) 10 mg OR DAILY PRN PRN Reason: Constipation Clonazepam (Clonazepam 1 Mg Tablet) 2 mg PO DAILY PRN PRN Reason: Anxiety Clozapine (Clozapine 25 Mg Tablet) 50 mg PO DAILY [facility] Last Admin: 09/26/21 07:28 Dose: 50 mg Documented by: SARAN Clozapine (Clozapine 100 Mg Tablet) 200 mg PO BID [facility] Last Admin: 09/26/21 07:28 Dose: 200 mg Documented by: SARAN Dextrose (Dextrose 50 % 25 Gm/50 Ml Syringe) 25 gm IVPUSH Q15M PRN; Protocol PRN Reason: per Hypoglycemia Standing Ord. Divalproex Sodium (Divalproex Sodium 250 Mg Tablet.Dr) 250 mg PO BID@0900,1800 [facility] Last Admin: 09/26/21 07:24 Dose: 250 mg Documented by: SARAN Enoxaparin Sodium (Enoxaparin Sodium 40 Mg/0.4 Ml Syringe) 40 mg SUBCUT Q24H [facility] Last Admin: 09/25/21 18:27 Dose: 40 mg Documented by: RIRI Famotidine (Famotidine 20 Mg Tablet) 20 mg PO BID@0900,1800 [facility] Last Admin: 09/26/21 07:28 Dose: 20 mg Documented by: SARAN Glucose (Glucose Gel 15 Gm Gel..Gram.) 15 gm PO Q15M PRN; Protocol PRN Reason: per Hypoglycemia Standing Ord. Ceftriaxone Sodium 1 gm/ (Sodium Chloride) 50 mls @ 100 mls/hr IV Q24H [facility] Lactated Ringer's (Lr) 1,000 mls @ 125 mls/hr IVCONT .Q8H [facility] Stop: 09/26/21 15:44 Insulin Human Lispro (Insulin Lispro 100 Unit/Ml 3 Ml Vial) 0 unit SUBCUT QIDACHS [facility]; Protocol Last Admin: 09/26/21 07:25 Dose: Not Given Documented by: SARAN Non-Admin Reason: No Insulin Coverage Levothyroxine Sodium (Levothyroxine Sodium 88 Mcg Tablet) 88 mcg PO DAILY@0600 [facility] Last Admin: 09/26/21 06:15 Dose: Not Given Documented by: ALEXANDRA Non-Admin Reason: Patient Refused Loratadine (Loratadine 10 Mg Tablet) 10 mg PO DAILY [facility] Last Admin: 09/26/21 07:29 Dose: 10 mg Documented by: SARAN Lorazepam (Lorazepam 1 Mg Tablet) 1 mg PO BID@0900,1800 [facility] Last Admin: 09/26/21 07:29 Dose: 1 mg Documented by: SARAN Magnesium Hydroxide (Milk Of Magnesia 30 Ml Oral.Susp) 30 ml PO DAILY PRN PRN Reason: Constipation Metoprolol Tartrate (Metoprolol Tartrate 50 Mg Tablet) 50 mg PO BID@0900,1800 [facility]; Protocol Last Admin: 09/26/21 07:28 Dose: 50 mg Documented by: SARAN Mirtazapine (Mirtazapine 30 Mg Tablet) 30 mg PO BEDTIME [facility] Last Admin: 09/25/21 20:38 Dose: Not Given Documented by: ALEXANDRA Non-Admin Reason: Patient Refused Multivitamins/Vitamin C (Multivitamin Tablet) 1 tab PO DAILY [facility] Last Admin: 09/26/21 07:28 Dose: 1 tab Documented by: SARAN Naloxone HCl (Naloxone Hcl 0.4 Mg/Ml Vial) 0.4 mg IM Q1M PRN PRN Reason: suspected overdose Ondansetron HCl (Ondansetron Hcl 4 Mg/2 Ml Vial) 4 mg IVPUSH Q8H PRN PRN Reason: Nausea and Vomiting Pharmacy Consult (Consult Rx Perform Med Rec) 1 each MISCELLANE ONCE PRN PRN Reason: Consult order Sodium Chloride (0.9 % Sodium Chloride Flush 3 Ml Syringe) 3 ml IVFLUSH QSHIFT [facility] Last Admin: 09/26/21 07:16 Dose: 3 ml Documented by: SARAN Tamsulosin HCl (Tamsulosin Hcl 0.4 Mg Capsule) 0.8 mg PO BEDTIME [facility] Last Admin: 09/25/21 20:38 Dose: Not Given Documented by: ALEXANDRA Non-Admin Reason: Patient Refused Labs CBC & Chem 7: 09/25/21 12:24 09/25/21 12:24 Labs: Laboratory Results - last 24 hr 09/25/21 09/25/21 09/25/21 12:24 12:24 12:24 MCV 87.7 MCH 28.5 MCHC 32.5 RDW 15.0 Plt Count 203 MPV 10.4 Immature Gran % (Auto) 0.2 Neut % (Auto) 67.0 Lymph % (Auto) 23.8 Wood % (Auto) 7.8 Eos % (Auto) 0.0 Baso % (Auto) 1.2 Lymph # (Auto) 2.2 Wood # (Auto) 0.7 Eos # (Auto) 0.0 Baso # (Auto) 0.1 Abs Immat Gran (auto) 0.02 Absolute Neuts (auto) 6.1 Absolute Nucleated RBC 0.000 Nucleated RBC % (auto) 0.0 Smear Tech's Comments VERIFIED PT INR VBG pH VBG pCO2 VBG pO2 VBG HCO3 VBG O2 Saturation VBG Base Excess Anion Gap 19 Estim Creat Clear Calc 84.1 Estimated GFR > 60 POC Glucose Random Glucose 97 Estimat Average Glucose Hemoglobin A1c % Lactic Acid Calcium 10.1 Magnesium 1.8 Total Bilirubin 0.6 Direct Bilirubin 0.2 AST 13 ALT 17 Alkaline Phosphatase 134 H Ammonia 32 Total Protein 8.4 H Albumin 4.8 Lipase 16 TSH 2.82 Urine Color Urine Appearance Urine pH Ur Specific [place] Urine Protein Urine Glucose (UA) Urine Ketones Urine Blood Urine Nitrite Ur Leukocyte Esterase Urine RBC Urine WBC Ur Squamous Epith Cells Urine Bacteria Valproic Acid COVID-19 ([facility]CRUZ) COVID-19 Clin Com Influenza Type A (MADDI) Influenza Type B (MADDI) Influenza A & B Note 09/25/21 09/25/21 09/25/21 12:24 12:24 12:24 MCV MCH MCHC RDW Plt Count MPV Immature Gran % (Auto) Neut % (Auto) Lymph % (Auto) Wood % (Auto) Eos % (Auto) Baso % (Auto) Lymph # (Auto) Wood # (Auto) Eos # (Auto) Baso # (Auto) Abs Immat Gran (auto) Absolute Neuts (auto) Absolute Nucleated RBC Nucleated RBC % (auto) Smear Tech's Comments PT INR VBG pH VBG pCO2 VBG pO2 VBG HCO3 VBG O2 Saturation VBG Base Excess Anion Gap Estim Creat Clear Calc Estimated GFR POC Glucose Random Glucose Estimat Average Glucose Hemoglobin A1c % Lactic Acid 1.6 Calcium Magnesium Total Bilirubin Direct Bilirubin AST ALT Alkaline Phosphatase Ammonia Total Protein Albumin Lipase TSH Urine Color Urine Appearance Urine pH Ur Specific [place] Urine Protein Urine Glucose (UA) Urine Ketones Urine Blood Urine Nitrite Ur Leukocyte Esterase Urine RBC Urine WBC Ur Squamous Epith Cells Urine Bacteria Valproic Acid COVID-19 ([facility]CRUZ) Negative COVID-19 Clin Com See Note Influenza Type A (MADDI) Cancelled Influenza Type B (MADDI) Cancelled Influenza A & B Note Cancelled 09/25/21 09/25/21 09/25/21 12:24 12:28 13:26 MCV MCH MCHC RDW Plt Count MPV Immature Gran % (Auto) Neut % (Auto) Lymph % (Auto) Wood % (Auto) Eos % (Auto) Baso % (Auto) Lymph # (Auto) Wood # (Auto) Eos # (Auto) Baso # (Auto) Abs Immat Gran (auto) Absolute Neuts (auto) Absolute Nucleated RBC Nucleated RBC % (auto) Smear Tech's Comments PT INR VBG pH 7.44 H VBG pCO2 25 VBG pO2 59 VBG HCO3 17 L VBG O2 Saturation 88.0 VBG Base Excess -4.3 Anion Gap Estim Creat Clear Calc Estimated GFR POC Glucose Random Glucose Estimat Average Glucose 117 Hemoglobin A1c % 5.7 Lactic Acid Calcium Magnesium Total Bilirubin Direct Bilirubin AST ALT Alkaline Phosphatase Ammonia Total Protein Albumin Lipase TSH Urine Color YELLOW Urine Appearance HAZY Urine pH 6.0 Ur Specific [place] >= 1.030 H Urine Protein TRACE Urine Glucose (UA) NEG Urine Ketones >=80 Urine Blood 1+ H Urine Nitrite POS H Ur Leukocyte Esterase TRACE H Urine RBC 0-2 Urine WBC 30-49 H Ur Squamous Epith Cells TRACE Urine Bacteria 4+ Valproic Acid COVID-19 ([facility]CRUZ) COVID-19 Clin Com Influenza Type A (MADDI) Influenza Type B (MADDI) Influenza A & B Note 09/25/21 09/25/21 09/25/21 14:00 16:39 16:48 MCV MCH MCHC RDW Plt Count MPV Immature Gran % (Auto) Neut % (Auto) Lymph % (Auto) Wood % (Auto) Eos % (Auto) Baso % (Auto) Lymph # (Auto) Wood # (Auto) Eos # (Auto) Baso # (Auto) Abs Immat Gran (auto) Absolute Neuts (auto) Absolute Nucleated RBC Nucleated RBC % (auto) Smear Tech's Comments PT 11.4 INR 1.0 VBG pH VBG pCO2 VBG pO2 VBG HCO3 VBG O2 Saturation VBG Base Excess Anion Gap Estim Creat Clear Calc Estimated GFR POC Glucose Random Glucose Estimat Average Glucose Hemoglobin A1c % Lactic Acid Calcium Magnesium Total Bilirubin Direct Bilirubin AST ALT Alkaline Phosphatase Ammonia Total Protein Albumin Lipase TSH Urine Color Urine Appearance Urine pH Ur Specific [place] Urine Protein Urine Glucose (UA) Urine Ketones Urine Blood Urine Nitrite Ur Leukocyte Esterase Urine RBC Urine WBC Ur Squamous Epith Cells Urine Bacteria Valproic Acid 3.2 L COVID-19 ([facility]UZ) COVID-19 Clin Com Influenza Type A (MADDI) Negative Influenza Type B (MADDI) Negative Influenza A & B Note See Note 02/07/22 02/07/22 02/08/22 18:06 19:53 07:25 MCV MCH MCHC RDW Plt Count MPV Immature Gran % (Auto) Neut % (Auto) Lymph % (Auto) Wood % (Auto) Eos % (Auto) Baso % (Auto) Lymph # (Auto) Wood # (Auto) Eos # (Auto) Baso # (Auto) Abs Immat Gran (auto) Absolute Neuts (auto) Absolute Nucleated RBC Nucleated RBC % (auto) Smear Tech's Comments PT INR VBG pH VBG pCO2 VBG pO2 VBG HCO3 VBG O2 Saturation VBG Base Excess Anion Gap Estim Creat Clear Calc Estimated GFR POC Glucose 108 114 103 Random Glucose Estimat Average Glucose Hemoglobin A1c % Lactic Acid Calcium Magnesium Total Bilirubin Direct Bilirubin AST ALT Alkaline Phosphatase Ammonia Total Protein Albumin Lipase TSH Urine Color Urine Appearance Urine pH Ur Specific [place] Urine Protein Urine Glucose (UA) Urine Ketones Urine Blood Urine Nitrite Ur Leukocyte Esterase Urine RBC Urine WBC Ur Squamous Epith Cells Urine Bacteria Valproic Acid COVID-19 ([facility]CRUZ) COVID-19 Clin Com Influenza Type A (MADDI) Influenza Type B (MADDI) Influenza A & B Note Impressions Head CT 09/25/21 12:53 IMPRESSION: 1. No evidence of acute intracranial hemorrhage or edematous territorial infarction. 2. Mild to moderate underlying microangiopathy and generalized cerebral volume loss. Chest X-Ray 09/25/21 13:24 IMPRESSION: No acute pulmonary pathology. Renal Ultrasound 09/25/21 15:44 IMPRESSION: Bilateral renal cysts demonstrate benign features. No other significant abnormality. Assessment and Plan (1) Acute UTI: Status: Acute (2) Encephalopathy due to infection: Status: Acute Plan hospital d#2 71 yo M LT SNF resident sent in with near-catatonia over the past 3 days, found to have evidence of UTI and admitted for concern of encephalopathy from the UTI. # UTI - IV ceftriaxone d#2, follow UCx/BCx # encephalopathy due to infection vs. catatonia - treat medical condition as above [ABX for UTI].? if fails to respond, involve Psychiatry for concern of catatonia. # BPH - continue tamsulosin # HTN - continue amlodipine, metoprolol # HLD - continue atorvastatin # hypothyroidism - TSH therapeutic, continue LT4 # DM2, A1c 5.7 - DM diet, correction-dose lispro # schizophrenia - continue VPA, clozapine [pt also on depot aripiprazole], lorazepam, clonazepam, mirtazapine # VTE ppx - LMWH Quality Stroke Does the patient have a stroke diagnosis?: No VTE Prior VTE?: No VTE Risk Level:: Medical - moderate - high VTE Device Contraindication: N/A - Device Ordered VTE Drug Contraindication: N/A - Med Ordered
[2021-09-26] MEDS: Lactated Ringers 1,000 ML 125 ML IVCONT (09:15)
--- NOTE | 2021-09-26 10:43 | PC.NURSE ---
Pt took 100% of his morning meds crushed in ice cream . Pt ate less then 25% of breakfast . Pt alert and answering simple questions with Yes and No.
[2021-09-26 11:26] LABS: Glucose, Whole Blood 117 mg/dL (60-115)
[2021-09-26] MEDS: cefTRIAXone sodium 1 GM in 0.9 % Sodium Chloride 50 ML IV (13:23)
--- NOTE | 2021-09-26 13:47 | MHC.CM.PN ---
IMM 09/26/21, EMR REVIEWED, PT ADMITTED FROM [facility] W/UTI & ENCEPHALOPATHY, CM ATTEMPTED TO MEEET W/PT WHO IS ALER AND ORIENTED TO NAME ONLY, CM ATTEMPTED TO CONTACT PT'S SISTER GIGI WHO IS PT'S GUARDIAN AND MEDICAL REP HOWEVER NO ANSWER AND MAILBOX FULL, CM CONTACTED PT'S SISTER KELVIN WHO IS POA, , NO ANSWER AND MESSAGE LEFT W/CM CONTACT INFO. PCP: SUAD TAMEZ GUARDIAN/MED REP: GIGI JALEEL [phone] POA: KELVIN JALEEL [phone]
--- NOTE | 2021-09-26 14:40 | MHC.CM.PN ---
cm received callback from Andreina Portillo, MERRITT reviewed as well as antic plan, per Andreina BANG emailed to
[2021-09-26 15:43] LABS: Glucose, Whole Blood 122 mg/dL (60-115)
[2021-09-26] MEDS: Enoxaparin Sodium 40 MG/0.4 ML SYRINGE SUBCUT (16:59)
[2021-09-26 19:40] LABS: Glucose, Whole Blood 119 mg/dL (60-115)
[2021-09-26] MEDS: clonazePAM 1 MG TABLET 2 MG PO (19:49)
[2021-09-26] MEDS: Atorvastatin Calcium 40 MG TABLET PO (19:49)
[2021-09-26] MEDS: Mirtazapine 30 MG TABLET PO (19:49)
[2021-09-26] MEDS: Tamsulosin HCL 0.4 MG CAPSULE 0.8 MG PO (19:49)
[2021-09-27 03:31] VITALS: BP 156/72; PULSE 103; RESP 18; TEMP 36.6; O2SAT 96
[2021-09-27] MEDS: vancomycin HCL 1,250 MG in 0.9 % Sodium Chloride 250 ML 166.67 MG IV (05:48)
[2021-09-27] MEDS: Levothyroxine Sodium 88 MCG TABLET PO (05:49)
[2021-09-27 06:01] LABS: Hematocrit 39.1 % (42.0-52.0); Mean Corpuscular HGB Conc 33.2 g/dl (31.0-36.0); Mean Corpuscular Hemoglobin 29.1 pg (27.0-33.0); Mean Corpuscular Volume 87.5 fL (80.0-98.0); Mean Platelet Volume 10.7 fL (9.4-12.4); Platelet Count 197 X10*3/uL (160-400); Red Blood Count 4.47 X10*6/uL (4.60-5.80); Red Cell Distribution Width 15.1 % (11.0-16.0); White Blood Count 7.7 X10*3/uL (4.8-10.8)
--- NOTE | 2021-09-27 06:30 | PM.EVENT ---
Event Note Date of Service: 09/27/21 Event Note: pt has positive blood culture with gram posisitve cocci in clusters - started vanco - rpting cultures
[2021-09-27 06:31] LABS: Anion Gap 12 (12-20); Blood Urea Nitrogen 32 mg/dL (9-16); C Reactive Protein 4.78 mg/dL (< or = 0.50); Calcium 9.1 mg/dL (8.4-10.2); Carbon Dioxide 26 mmol/L (22-29); Chloride 108 mmol/L (96-108); Creatinine Clr Calc Pharmacy 99.8; Estimated Glomerular Filt Rate > 60; Glucose Random 109 mg/dL (60-115); Potassium 3.7 mmol/L (3.3-5.1); Sodium 142 mmol/L (135-145)
--- NOTE | 2021-09-27 07:18 | PHA.PROG ---
Admission Date/Time: September 25, 2021 15:23 Indication: Weight in k kg Adjusted body weight in K.72 [place] body weight in K.2 Obesity Dosing Indication % IBW:104% Serum Creatinine - Last 168 Hours 09/25/21 09/27/21 12:24 05:18 Creatinine 0.95 0.80 Estimated CrCl and GFR - Last 168 Hours 09/25/21 09/27/21 12:24 05:18 Estim Creat Clear Calc 84.1 99.8 Estimated GFR > 60 > 60 Vancomycin Loading Dose: 1250 Current Vancomycin Dosing Regimen: 1500 Q 24 Vancomycin Monitoring using AUC goal of 400 - 600 range with trough as surrogate marker: 435MG/L HR Date and Time for next Vancomycin Level to be drawn: 09/29 @ 0500 Pharmacist Comments on Vancomycin Plan: Vancomycin dosing will take advantage of [employer] as a clinical decision support tool that uses Bayesian modeling to calculate individual patient's pharmacokinetic parameters and forecast the patient's drug concentration time course with the target goal AUC 24 range of 400 - 600 mg/L/hr.
[2021-09-27 07:36] LABS: Glucose, Whole Blood 106 mg/dL (60-115)
[2021-09-27 07:41] VITALS: BP 133/81; PULSE 91; RESP 17; TEMP 36.7; O2SAT 95
[2021-09-27] MEDS: Multivitamin TABLET 1 TAB PO (07:46)
[2021-09-27] MEDS: Loratadine 10 MG TABLET PO (07:46)
[2021-09-27] MEDS: Metoprolol Tartrate 50 MG TABLET PO ×2 (07:46→17:03)
[2021-09-27] MEDS: amLODIPine Besylate 10 MG TABLET PO (07:46)
[2021-09-27] MEDS: cloZAPine 100 MG TABLET 200 MG PO ×2 (07:46→20:30)
[2021-09-27] MEDS: LORazepam 1 MG TABLET PO ×2 (07:46→17:08)
[2021-09-27] MEDS: Famotidine 20 MG TABLET PO ×2 (07:47→17:03)
[2021-09-27] MEDS: 0.9 % Sodium Chloride Flush 3 ML SYRINGE IVFLUSH ×3 (07:47→20:30)
[2021-09-27] MEDS: cloZAPine 25 MG TABLET 50 MG PO (07:47)
[2021-09-27] MEDS: Divalproex Sodium 250 MG TABLET.DR PO ×2 (07:47→17:03)
[2021-09-27 11:13] VITALS: BP 133/70; PULSE 82; RESP 18; TEMP 36.3; O2SAT 95
[2021-09-27 11:22] LABS: Glucose, Whole Blood 112 mg/dL (60-115)
--- NOTE | 2021-09-27 11:36 | MHC.CM.PN ---
EMR REVIEWED, PT REMAINS ON IV ABX AND IV FLUIDS, NO PLAN FOR D/C TODAY. ANTIC PT WILL D/C BY SATURDAY ON ORAL ABX, CM WILL CONT TO FOLLOW D/C NEEDS.
[2021-09-27] MEDS: cefTRIAXone sodium 1 GM in 0.9 % Sodium Chloride 50 ML IV (13:25)
--- NOTE | 2021-09-27 15:11 | P.PNIM_ITS ---
Subjective Subjective Date of Service: 09/27/21 Interval History: More awake but not really able to assess orientation. Pt denies pain but that's about all I can get out of him re: ROS 1 of 2 admission BCx grew GPCs in clusters; was started on vancomycin overnight Review of Systems Review of Systems: Yes Unobtainable due to mental status Physical Exam Vital Signs: Vital Signs: Last Vital Signs Temp 97.4 F 09/27/21 11:13 Pulse 82 09/27/21 11:13 Resp 18 09/27/21 11:13 BP 133/70 09/27/21 11:13 Pulse Ox 95 09/27/21 11:13 BMI result Body Mass Index 24.3 Gen: in no acute distress HEENT: sclera anicteric, moist mucus membranes Neck: supple Lungs: clear to auscultation bilaterally Heart: regular, rapid, no murmurs Abd: soft, non-tender, non-distended Ext: no edema Skin: warm/well-perfused Neuro: alert but unable to assesss orientation Psych: bizarre affect Objective Data Active Medications Acetaminophen (Acetaminophen 325 Mg Tablet) 650 mg PO Q6H PRN PRN Reason: Pain, Mild (Pain Scale 1-3) Al Hydroxide/Mg Hydroxide (Magnesium Hydrox/Alum Hydrox 30 Ml Oral.Susp) 30 ml PO Q6H PRN PRN Reason: Indigestion Amlodipine Besylate (Amlodipine Besylate 10 Mg Tablet) 10 mg PO DAILY [facility]; Protocol Last Admin: 09/27/21 07:46 Dose: 10 mg Documented by: SARAN Atorvastatin Calcium (Atorvastatin Calcium 40 Mg Tablet) 40 mg PO BEDTIME [facility] Last Admin: 09/26/21 19:49 Dose: 40 mg Documented by: RAHEEM Atropine Sulfate (Atropine Sulfate 1 % Ophth Agnieszka 2 Ml Bottle) 2 drop EYE-BOTH BID@0900,1700 [facility] Last Admin: 09/27/21 07:53 Dose: Not Given Documented by: SARAN Non-Admin Reason: Patient Refused Bisacodyl (Bisacodyl 10 Mg Supp.Rect) 10 mg MO DAILY PRN PRN Reason: Constipation Clonazepam (Clonazepam 1 Mg Tablet) 2 mg PO DAILY PRN PRN Reason: Anxiety Last Admin: 09/26/21 19:49 Dose: 2 mg Documented by: RAHEEM Clozapine (Clozapine 25 Mg Tablet) 50 mg PO DAILY [facility] Last Admin: 09/27/21 07:47 Dose: 50 mg Documented by: SARAN Clozapine (Clozapine 100 Mg Tablet) 200 mg PO BID [facility] Last Admin: 09/27/21 07:46 Dose: 200 mg Documented by: SARAN Dextrose (Dextrose 50 % 25 Gm/50 Ml Syringe) 25 gm IVPUSH Q15M PRN; Protocol PRN Reason: per Hypoglycemia Standing Ord. Divalproex Sodium (Divalproex Sodium 250 Mg Tablet.Dr) 250 mg PO BID@0900,1800 [facility] Last Admin: 09/27/21 07:47 Dose: 250 mg Documented by: SARAN Enoxaparin Sodium (Enoxaparin Sodium 40 Mg/0.4 Ml Syringe) 40 mg SUBCUT Q24H [facility] Last Admin: 09/26/21 16:59 Dose: 40 mg Documented by: SARAN Famotidine (Famotidine 20 Mg Tablet) 20 mg PO BID@0900,1800 [facility] Last Admin: 09/27/21 07:47 Dose: 20 mg Documented by: SARAN Glucose (Glucose Gel 15 Gm Gel..Gram.) 15 gm PO Q15M PRN; Protocol PRN Reason: per Hypoglycemia Standing Ord. Ceftriaxone Sodium 1 gm/ (Sodium Chloride) 50 mls @ 100 mls/hr IV Q24H [facility] Last Infusion: 09/27/21 13:57 Dose: 0 mls/hr Documented by: SARAN Vancomycin HCl 1,500 mg/ (Sodium Chloride) 500 mls @ 333.333 mls/hr IV Q24H [facility] Insulin Human Lispro (Insulin Lispro 100 Unit/Ml 3 Ml Vial) 0 unit SUBCUT QIDACHS [facility]; Protocol Last Admin: 09/27/21 11:39 Dose: Not Given Documented by: SARAN Non-Admin Reason: No Insulin Coverage Levothyroxine Sodium (Levothyroxine Sodium 88 Mcg Tablet) 88 mcg PO DAILY@0600 [facility] Last Admin: 09/27/21 05:49 Dose: 88 mcg Documented by: RAHEEM Loratadine (Loratadine 10 Mg Tablet) 10 mg PO DAILY [facility] Last Admin: 09/27/21 07:46 Dose: 10 mg Documented by: SARAN Lorazepam (Lorazepam 1 Mg Tablet) 1 mg PO BID@0900,1800 [facility] Last Admin: 09/27/21 07:46 Dose: 1 mg Documented by: SARAN Magnesium Hydroxide (Milk Of Magnesia 30 Ml Oral.Susp) 30 ml PO DAILY PRN PRN Reason: Constipation Metoprolol Tartrate (Metoprolol Tartrate 50 Mg Tablet) 50 mg PO BID@0900,1800 [facility]; Protocol Last Admin: 09/27/21 07:46 Dose: 50 mg Documented by: SARAN Mirtazapine (Mirtazapine 30 Mg Tablet) 30 mg PO BEDTIME [facility] Last Admin: 09/26/21 19:49 Dose: 30 mg Documented by: RAHEEM Multivitamins/Vitamin C (Multivitamin Tablet) 1 tab PO DAILY [facility] Last Admin: 09/27/21 07:46 Dose: 1 tab Documented by: SARAN Naloxone HCl (Naloxone Hcl 0.4 Mg/Ml Vial) 0.4 mg IM Q1M PRN PRN Reason: suspected overdose Ondansetron HCl (Ondansetron Hcl 4 Mg/2 Ml Vial) 4 mg IVPUSH Q8H PRN PRN Reason: Nausea and Vomiting Pharmacy Consult (Consult Rx Perform Med Rec) 1 each MISCELLANE ONCE PRN PRN Reason: Consult order Pharmacy Consult (Consult Rx Vancomycin Dosing) 1 each MISCELLANE DAILY PRN PRN Reason: Consult order Sodium Chloride (0.9 % Sodium Chloride Flush 3 Ml Syringe) 3 ml IVFLUSH QSHIFT [facility] Last Admin: 09/27/21 13:28 Dose: 3 ml Documented by: SARAN Tamsulosin HCl (Tamsulosin Hcl 0.4 Mg Capsule) 0.8 mg PO BEDTIME [facility] Last Admin: 09/26/21 19:49 Dose: 0.8 mg Documented by: RAHEEM Labs CBC & Chem 7: 09/27/21 05:18 09/27/21 05:18 Labs: Laboratory Results - last 24 hr 09/26/21 09/26/21 09/27/21 15:37 19:35 05:18 MCV 87.5 MCH 29.1 MCHC 33.2 RDW 15.1 Plt Count 197 MPV 10.7 Absolute Nucleated RBC 0.000 Nucleated RBC % (auto) 0.0 Anion Gap Estim Creat Clear Calc Estimated GFR POC Glucose 122 H 119 H Random Glucose Calcium C-Reactive Protein 09/27/21 09/27/21 09/27/21 05:18 07:17 11:09 MCV MCH MCHC RDW Plt Count MPV Absolute Nucleated RBC Nucleated RBC % (auto) Anion Gap 12 Estim Creat Clear Calc 99.8 Estimated GFR > 60 POC Glucose 106 112 Random Glucose 109 Calcium 9.1 D C-Reactive Protein 4.78 H Microbiology 09/25/21 12:24 Blood - Venous Blood Culture - Preliminary No growth after 48 hours. 09/27/21 05:39 Blood - Venous Blood Culture - Preliminary 09/25/21 00:00 Urine Catheterized - Straight Catheter Urine Culture - Final Klebsiella pneumoniae 09/25/21 12:24 Blood - Venous Blood Culture - Preliminary Prelim: GPC Gram Stain only Microbiology Microbiology Results: Microbiology 09/25/21 12:24 Blood Culture - Preliminary Blood - Venous No growth after 48 hours. 09/27/21 05:39 Blood Culture - Preliminary Blood - Venous 09/25/21 00:00 Urine Culture - Final Urine Catheterized - Straight Catheter Klebsiella pneumoniae 09/25/21 12:24 Blood Culture - Preliminary Blood - Venous Prelim: GPC Gram Stain only Assessment and Plan (1) Acute UTI: Status: Acute (2) Encephalopathy due to infection: Status: Acute Plan hospital d#3 71 yo M LTC SNF resident sent in with near-catatonia over the past 3 days, found to have evidence of UTI and admitted for concern of encephalopathy from the UTI. # UTI, Klebsiella pneumoniae [R to ampicillin, I to nitrofurantoin] - IV ceftriaxone d#3, transition to cefuroxime or cefdinir upon discharge # possible GPC bacteremia - on vancomycin pending identification from BCx # encephalopathy due to infection vs. catatonia - treat medical condition as above [ABX for UTI].? if fails to respond, involve Psychiatry for concern of catatonia. # BPH - continue tamsulosin # HTN - continue amlodipine, metoprolol # HLD - continue atorvastatin # hypothyroidism - TSH therapeutic, continue LT4 # DM2, A1c 5.7 - DM diet, correction-dose lispro # schizophrenia - continue VPA, clozapine [pt also on depot aripiprazole], lorazepam, clonazepam, mirtazapine # VTE ppx - LMWH # dispo - eventual return to [facility] Quality Stroke Does the patient have a stroke diagnosis?: No VTE Prior VTE?: No VTE Risk Level:: Medical - moderate - high VTE Device Contraindication: N/A - Device Ordered VTE Drug Contraindication: N/A - Med Ordered
[2021-09-27 15:30] VITALS: BP 131/75; PULSE 92; RESP 16; TEMP 36.2; O2SAT 93
[2021-09-27 16:46] LABS: Glucose, Whole Blood 97 mg/dL (60-115)
[2021-09-27] MEDS: Enoxaparin Sodium 40 MG/0.4 ML SYRINGE SUBCUT (17:03)
[2021-09-27 19:42] VITALS: BP 111/74; PULSE 75; RESP 18; TEMP 36.6; O2SAT 97
[2021-09-27 20:20] LABS: Glucose, Whole Blood 123 mg/dL (60-115)
[2021-09-27] MEDS: Atorvastatin Calcium 40 MG TABLET PO (20:30)
[2021-09-27] MEDS: Tamsulosin HCL 0.4 MG CAPSULE 0.8 MG PO (20:30)
[2021-09-27] MEDS: Mirtazapine 30 MG TABLET PO (20:30)
[2021-09-27 23:20] VITALS: BP 104/71; PULSE 85; RESP 14; TEMP 36.5; O2SAT 98
[2021-09-28 03:39] VITALS: BP 111/68; PULSE 106; RESP 18; TEMP 36.6; O2SAT 97
[2021-09-28] MEDS: vancomycin HCL 1,500 MG in 0.9 % Sodium Chloride 500 ML 333.33 MG IV (06:11)
[2021-09-28] MEDS: Levothyroxine Sodium 88 MCG TABLET PO (06:11)
[2021-09-28 07:19] LABS: Glucose, Whole Blood 84 mg/dL (60-115)
[2021-09-28 07:26] VITALS: BP 119/71; PULSE 78; RESP 18; TEMP 36.7; O2SAT 98
[2021-09-28] MEDS: amLODIPine Besylate 10 MG TABLET PO (07:58)
[2021-09-28] MEDS: LORazepam 1 MG TABLET PO (07:58)
[2021-09-28] MEDS: cloZAPine 25 MG TABLET 50 MG PO (07:58)
[2021-09-28] MEDS: cloZAPine 100 MG TABLET 200 MG PO (07:58)
[2021-09-28] MEDS: Divalproex Sodium 250 MG TABLET.DR PO (07:58)
[2021-09-28] MEDS: Multivitamin TABLET 1 TAB PO (07:58)
[2021-09-28] MEDS: Famotidine 20 MG TABLET PO (07:58)
[2021-09-28] MEDS: Metoprolol Tartrate 50 MG TABLET PO (07:58)
[2021-09-28] MEDS: Loratadine 10 MG TABLET PO (07:59)
[2021-09-28] MEDS: 0.9 % Sodium Chloride Flush 3 ML SYRINGE IVFLUSH (07:59)
[2021-09-28 08:28] LABS: Creatinine Clr Calc Pharmacy 101.1; Estimated Glomerular Filt Rate > 60
--- NOTE | 2021-09-28 10:26 | HE.PHANOTE ---
VANCOMYCIN DOSING ADDENDUM BASED ON LABS 09/28 VANCO DOSE CONTINUED AT 1500 Q 24H. NEXT TROUGH 09/29 @ 0500
[2021-09-28 11:07] LABS: Glucose, Whole Blood 90 mg/dL (60-115)
[2021-09-28 11:09] VITALS: BP 112/57; PULSE 66; RESP 16; TEMP 36.5; O2SAT 95
--- NOTE | 2021-09-28 12:04 | P.DS_ITS ---
DS: Providers Provider Date of Service: 09/28/21 Date of admission: 09/25/21 15:23 Date of discharge: 09/28/21 Primary care physician: Mary Yu MD DS: Diagnosis Discharge Diagnosis (1) Acute UTI: Status: Acute (2) Encephalopathy due to infection: Status: Acute DS: Summary Hospital Course Hospital Course: Mr Portillo is a 71 year-old man with schizophrenia who is a long-term resident of [facility].? Per his sister Bing, with whom I spoke by telephone, at baseline, he is verbal and able to do most of his ADLs; however, today he was sent by EMS due to becoming nonverbal and non-ambulatory over the last 3 days.? He has also been incontinent of urine several times, which is atypical for prior episodes of near-catatonia, which he has had.???Workup in the ED showed no acute changes on CT head; just chronic microvascular disease.? Urianlysis showed nitrituria, pyuria, and bacteruria.? He is not septic.? He was given 1 dose of ceftriaxone IV and IV normal saline. Hospital Course Admitted on CTX/Vanco as initial BC 1/2 GPC. Repeat BCs negative. Urine grew Klebsiella sensitive to CTX(Ceftin). MS markedly improved over next 48-72 hrs. Saff verified with sister pt now back to baseline. Medically acceptable for transfer back to SNF Time Spent with Patient Time attestation: Total time spent providing and/or coordinating discharge services: Discharge coordination time: Greater than 30 minutes Quality: Stroke Does the patient have a stroke diagnosis?: No Physical Exam Vital Signs: Vital Signs: Last Vital Signs Temp 97.7 F 09/28/21 11:09 Pulse 66 09/28/21 11:09 Resp 16 09/28/21 11:09 BP 112/57 L 09/28/21 11:09 Pulse Ox 95 09/28/21 11:09 BMI result Body Mass Index 24.3 Const: Other: NAD Resp: Other: Clear A/P Cardio: Other: +S1/S2 no MRG Extrem: Other: no edema DS: Data Data Completed and Pending Labs on day of discharge: Laboratory Results - last 24 hr 09/27/21 09/27/21 09/28/21 16:38 19:46 07:16 Creatinine Estim Creat Clear Calc Estimated GFR POC Glucose 97 123 H 84 09/28/21 09/28/21 07:43 10:59 Creatinine 0.79 Estim Creat Clear Calc 101.1 Estimated GFR > 60 POC Glucose 90 Preliminary micro results at discharge 09/25/21 12:24 Blood Culture - Preliminary Blood - Venous Staphylococcus species 09/27/21 05:39 Blood Culture - Preliminary Blood - Venous 09/27/21 05:45 Blood Culture - Preliminary Blood - Venous No growth after 24 hours. 09/25/21 12:24 Blood Culture - Preliminary Blood - Venous No growth after 48 hours. Discharge Plan Discharge Patient Disposition: er [facility] Discharge Diagnosis: UTI(Klebsiella) Referrals: [facility] [Other] - 1 Week Mary Yu MD [Primary Care Provider] - 1 Week Discharge Medications: New cefuroxime axetil 500 mg tablet 500 mg PO BID 7 Days Qty: 14 0RF Continued atorvastatin 40 mg Tablet 40 mg PO BEDTIME 0RF divalproex 250 mg Tablet,Delayed Release (Dr/Ec) 250 mg PO BID@0900,1800 0RF levothyroxine 88 mcg Tablet 88 mcg PO DAILY@0630 0RF famotidine 20 mg Tablet 20 mg PO BID@0900,1800 0RF tamsulosin 0.4 mg Capsule 0.8 mg PO BEDTIME 0RF amlodipine 10 mg Tablet 10 mg PO DAILY 0RF mirtazapine 30 mg Tablet 30 mg PO BEDTIME 0RF metoprolol tartrate 50 mg Tablet 50 mg PO BID@0900,1800 0RF lorazepam 1 mg Tablet 1 mg PO BID@0900,1800 0RF multivitamin with minerals Tablet 1 tab PO DAILY 0RF atropine 1 % Drops 2 drp OPHTHALMIC (EYE) BID@0900,1700 0RF loratadine 10 mg Tablet 10 mg PO DAILY 0RF clozapine 50 mg Tablet 50 mg PO DAILY 0RF Rx Instructions: TOTAL DAILY DOSE = 450 MG ( 250 MG IN AM AND 200 MG AT BEDTIME) clozapine 200 mg Tablet 200 mg PO BID 0RF Rx Instructions: TOTAL DAILY DOSE = 450 MG ( 250 MG IN AM AND 200 MG AT BEDTIME) Aristada 882 mg/3.2 mL Suspension,Extended Rel Syring 882 mg IM QMONTH 0RF Rx Instructions: DUE 10/06/21 acetaminophen 325 mg Tablet 650 mg PO Q6H PRN (Reason: fever/pain) 0RF acetaminophen 650 mg Suppository 650 mg IL Q6H PRN (Reason: fever/pain) 0RF naloxone 0.4 mg/mL Solution 0.4 mg IM Q1M PRN (Reason: suspected overdose) 0RF Rx Instructions: NTExceed 10 mg total dose/episode guaifenesin 200 mg Tablet 200 mg PO Q6H PRN (Reason: Cough) 0RF magnesium hydroxide [Milk of Magnesia] 400 mg/5 mL Suspension 30 ml PO DAILY PRN (Reason: Constipation) 0RF bisacodyl 10 mg Suppository 10 mg IL DAILY PRN (Reason: Constipation) 0RF clonazepam 2 mg Tablet 2 mg PO DAILY PRN (Reason: Anxiety) 0RF alum-mag hydroxide-simeth 200-200-20 mg/5 mL Suspension 30 ml PO Q6H PRN (Reason: Indigestion) 0RF Discharge Orders: Discharge Order (Routine); Ordered 09/28/21 Ordered By: Ben Santo Diet: advance to usual diet Activity on Discharge: As tolerated Stand Alone Forms: Patient Portal Discharge page Care Plan Goals: Complete 7 day course of Ceftin as ordered Health Concerns: Resume care as per SNF Plan of Treatment: as outlined Assessment: See discharge summary
== END 2021-09-28 14:50 | DRG 689 ==
LOC: HO.ED 14:35 → HO.EDOVER 15:36 → HO.S3 15:54
PROVIDERS: Admitting Provider Family Medicine; Emergency Provider Emergency Medicine; PCP Internal Medicine; Visit Provider Hospitalist
DX: N39.0 Urinary tract infection, site not specified (principal); G92.8 Other toxic encephalopathy; F20.2 Catatonic schizophrenia; B96.1 Klebsiella pneumoniae [K. pneumoniae] as the cause of diseases classified elsewhere; E03.9 Hypothyroidism, unspecified; N40.0 Benign prostatic hyperplasia without lower urinary tract symptoms; E78.5 Hyperlipidemia, unspecified; E11.9 Type 2 diabetes mellitus without complications; Z91.14 Patient's other noncompliance with medication regimen; Z20.822 Contact with and (suspected) exposure to COVID-19; Z79.890 Hormone replacement therapy; Z79.899 Other long term (current) drug therapy
CPT/HCPCS: 36415; 70450; 71045; 76775; 80048; 80076; 80164; 81001; 82140; 82565; 82803; 82947; 83036; 83605; 83690; 83735; 84443; 84484; 85025; 85027; 85610; 86140; 87040; 87086; 87088; 87147; 87186; 87205; 87502; 87635; 93005; 96361; 96365; 99285; J0696; J1650; J3370

== ENCOUNTER 2022-01-16 11:12 | Inpatient (IN) | payer MEDICARE, MEDICAID, SELFPAY ==
[2022-01-16] VITALS (7 sets, daily range): BP systolic 132–166; BP diastolic 65–94; PULSE 123–128; RESP 18–28; TEMP 36.8–37.4; O2SAT 95–97; BMI 30.6
--- NOTE | ~2022-01-16 | CT_ITS ---
EXAMINATION: CT ABDOMEN AND PELVIS WITHOUT CONTRAST CLINICAL INFORMATION: Infected urine with hematuria COMPARISON: Ultrasound kidneys 09/25/2021 TECHNIQUE: Multidetector volumetric imaging was performed from the superior aspect of the liver through the pubic symphysis. Sagittal and coronal reformatted images were obtained on the technologist's workstation. This CT examination was performed using dose optimization techniques as appropriate, variously including the following: *Automated exposure control *Adjustment of mA and/or kV according to patient size (this includes techniques or standardized protocols for targeted exams where dose is matched to indication/reason for exam; i.e. extremities or head) *Use of iterative reconstruction technique DLP: 1052 mGy-cm FINDINGS: LUNG BASES: The visualized lung bases are unremarkable. Marked respiratory artifact obscures detail. Coronary calcifications are present. LIVER, GALLBLADDER, AND BILIARY TREE: The liver is normal in size, shape, and attenuation. No focal hepatic lesion or biliary ductal dilatation is present. The gallbladder contains multiple gallstones but otherwise is unremarkable with no evidence gallbladder wall thickening, or obvious pericholecystic inflammatory changes. PANCREAS: Unremarkable. SPLEEN: Unremarkable. ADRENAL GLANDS: Unremarkable. KIDNEYS AND URETERS: The kidneys are normal in size, shape, and attenuation. Multiple Bosniak class I bilateral renal cysts are present. A single 3.3 cm cyst in the left kidney medially has some mild mural calcification (Bosniak class II). No solid renal masses. No hydronephrosis, hydroureter, or calculi seen. There is nonspecific bilateral perinephric stranding. BLADDER: There is asymmetric thickening of the bladder wall. A small amount of air is present within the bladder which can be seen with cystitis. GASTROINTESTINAL TRACT: The small and large bowel are unremarkable. The appendix is unremarkable. ABDOMINAL WALL: No significant hernia is appreciated. Small inguinal hernias are seen containing only fat. LYMPH NODES: Multiple small periportal lymph nodes are seen. Prominent peripancreatic lymph nodes are seen largest measuring 3.0 x 1.2 x 2.3 cm (3:34). Bilateral prominent iliac nodes are seen the largest on the right measuring 2.1 x 1.4 x 2.7 cm and the largest on the left measuring 1.9 x 1.4 x 3.7 cm. A left external iliac lymph node measures 2.3 x 1.8 x 2.8 cm. VASCULAR: Calcific atherosclerotic changes present in the aorta and iliofemoral vessels artery aneurysm. PELVIC VISCERA: There is mild BPH with prostate measuring 5.3 x 4.0 x 5.6 cm. Seminal vesicles appear normal OSSEOUS STRUCTURES: Mild degenerative changes are present throughout the spine. An intramedullary aysha and screw are present in the right hip. No bony destructive lesions. CT/CT abdomen pelvis wo con IMPRESSION: 1. Benign Bosniak class I and class II renal cysts. No further imaging or follow-up is needed. 2. Thick walled bladder with some air bubbles which may be within the wall. Findings can be seen with cystitis and correlate with urinalysis and urine culture. A prior catheterization of the bladder could also introduce air. 3. Prominent peripancreatic/portal, inguinal and iliac lymph nodes without gross retroperitoneal lymphadenopathy. Fleischner guidelines were followed.
--- NOTE | ~2022-01-16 | CT_ITS ---
EXAMINATION: CT HEAD WITHOUT CONTRAST CLINICAL INFORMATION: Encephalopathy. COMPARISON: Head CT dated 09/25/2021. TECHNIQUE: Contiguous axial imaging was performed from the skull base to vertex without intravenous administration of contrast. This CT examination was performed using dose optimization techniques as appropriate, variously including the following: *Automated exposure control *Adjustment of mA and/or kV according to patient size (this includes techniques or standardized protocols for targeted exams where dose is matched to indication/reason for exam; i.e. extremities or head) *Use of iterative reconstruction technique DLP: 997 mGy-cm FINDINGS: There is no evidence of acute intracranial hemorrhage or territorial infarction. No abnormal mass effect or midline shift is seen. Gage to white matter differentiation is well preserved. No extra-axial fluid collections are identified. There is stable generalized parenchymal volume loss and mild chronic white matter microangiopathy. The osseous structures and soft tissues are normal. The mastoid air cells and visualized portions of the paranasal sinuses are well aerated. CT/CT head/brain wo con IMPRESSION: No acute intracranial pathology.
--- NOTE | ~2022-01-16 | XR_ITS ---
EXAMINATION: XR CHEST CLINICAL INFORMATION: Generalized weakness. COMPARISON: 09/25/2021 chest radiograph. TECHNIQUE: Frontal view of the chest was obtained. FINDINGS: No significant abnormality is noted involving the heart, lungs, mediastinum, bony thorax or soft tissues. XR/XR chest 1V IMPRESSION: No acute cardiopulmonary process.
--- NOTE | 2022-01-16 11:30 | ECG_ITS ---
Test Reason : TACHYCARDIA Blood Pressure : / mmHG Vent. Rate : 128 BPM Atrial Rate : 128 BPM P-R Int : 158 ms QRS Dur : 094 ms QT Int : 300 ms P-R-T Axes : 063 017 087 degrees QTc Int : 438 ms Sinus tachycardia with Fusion complexes Otherwise normal ECG When compared with ECG of 25-SEP-2021 12:05, Fusion complexes are now Present Premature ventricular complexes are no longer Present Referred By: Julee Hernadez Electronically Signed By:DEVIN OLEA MD
--- NOTE | 2022-01-16 11:31 | ED_ITS ---
HPI - General Adult General Chief complaint: General Medical Stated complaint: INC WEAKNESS FROM SNF PER EMS Time Seen by Provider: 01/16/22 11:29 Source: EMS Mode of arrival: EMS Limitations: other (Patient is giving history) History of Present Illness HPI narrative: 71 year-old male history of schizophrenia who is a long-term resident of [facility] as per staff at the [facility] patient normally is verbal and able to do most of the daily activity today patient is nonverbal and nonambulatory since today, patient had history of near catatonia in the past, patient in the emergency room answer question sporadically but overall patient prefer not to talk or regards examiner, patient had a prior episode of similar symptoms and was admitted for UTI that resolved after few days. Patient with known history of schizophrenia. Related Data Home Medications Medication Instructions Recorded Confirmed amlodipine 10 mg tablet 10 mg PO DAILY 09/25/21 01/16/22 aripiprazole lauroxil 882 mg/3.2 882 mg IM QMONTH 09/25/21 01/16/22 mL suspension, ext.rel. IM syringe (Bridget) atorvastatin 40 mg tablet 40 mg PO BEDTIME 09/25/21 01/16/22 clozapine 200 mg tablet 200 mg PO BID 09/25/21 01/16/22 clozapine 50 mg tablet 50 mg PO DAILY 09/25/21 01/16/22 divalproex 250 mg tablet,delayed 250 mg PO BID@0900,1800 09/25/21 01/16/22 release levothyroxine 88 mcg tablet 88 mcg PO DAILY@0630 09/25/21 01/16/22 loratadine 10 mg tablet 10 mg PO DAILY 09/25/21 01/16/22 lorazepam 1 mg tablet 1 mg PO BID@0900,1800 09/25/21 01/16/22 metoprolol tartrate 50 mg tablet 50 mg PO BID@0900,1800 09/25/21 01/16/22 mirtazapine 30 mg tablet 30 mg PO BEDTIME 09/25/21 01/16/22 multivitamin with minerals 1 tab PO DAILY 09/25/21 01/16/22 tamsulosin 0.4 mg capsule 0.8 mg PO BEDTIME 09/25/21 01/16/22 pantoprazole 40 mg tablet,delayed 40 mg PO DAILY@62901/16/22 01/16/22 release Allergies Allergy/AdvReac Type Severity Reaction Status Date / Time azithromycin Allergy Unknown Verified 09/25/21 12:15 Barbiturates Allergy Unknown Verified 09/25/21 12:15 erythromycin base Allergy Unknown Verified 09/25/21 12:15 fluphenazine Allergy Unknown Verified 09/25/21 12:15 haloperidol [From Haldol] Allergy Unknown Verified 09/25/21 12:15 phenobarbital Allergy Unknown Verified 09/25/21 12:15 Review of Systems Review of Systems: All other systems are reviewed and are negative Constitutional: Reports as per HPI and Reports no additional constitutional complaints Eyes: Reports as per HPI and Reports no additional eye complaints Reports system reviewed and no additional complaints, except as documented Cardiovascular: Reports as per HPI and Reports no additional cardiovascular complaints Respiratory: Reports as per HPI and Reports no additional respiratory complaints Gastrointestinal: Reports as per HPI and Reports no additional gastrointestinal complaints Genitourinary: Reports no additional female genitourinary complaints Musculoskeletal: Reports no additional musculoskeletal complaints Skin/Breast: Reports system reviewed and no additional complaints, except as docu Psychiatric: Reports no additional psychiatric complaints Endocrine: Reports no additional endocrine complaints Hematologic/Lymphatic: Reports no additional hematologic/lymphatic complaints Allergic/Immunologic: Reports no additional allergic/immunologic complaints Reports system reviewed and no additional complaints, except as documented and Reports Abnormal speech present [facility] Past Medical History Medical History (Updated 01/16/22 @ 16:45 by Angela Titus NP) Anemia, unspecified Anxiety disorder, unspecified Ataxic gait Benign prostatic hyperplasia without lower urinary tract symptoms Combined forms of age-related cataract, bilateral Corns and callosities COVID-19 Diabetes Essential (primary) hypertension Functional urinary incontinence Gastro-esophageal reflux disease without esophagitis Hallux valgus (acquired), unspecified foot History of falling Hyperlipidemia, unspecified Hypothyroidism, unspecified Insomnia, unspecified Mild cognitive impairment, so stated Muscle weakness (generalized) Nail dystrophy Other seasonal allergic rhinitis Personal history of (healed) traumatic fracture Presbyopia Schizophrenia Slurred speech Suicidal ideations Tinea unguium Type 2 diabetes mellitus with other circulatory complications Unspecified astigmatism, unspecified eye Unspecified osteoarthritis, unspecified site Social History Social History Household Members: Unknown / Unable to assess Housing: Residential Unable to assess alcohol history related to: Unknown Alcohol intake: unknown Patient Tobacco Use Status: Tobacco use Unknown Advance Directives: Yes Advance Directives on File: Yes Advance Directives Date on File: 09/25/21 service: No Current occupational status: disabled Physical Exam ED Vital Signs: Vital Signs - 24 hr 01/16/22 11:36 01/16/22 12:03 01/16/22 14:30 Temperature 98.2 F Pulse Rate 125 H 123 H 127 H Respiratory Rate 19 18 23 H Blood Pressure 135/76 135/86 166/94 H Pulse Oximetry 95 97 96 01/16/22 14:46 Temperature Pulse Rate 126 H Respiratory Rate 20 Blood Pressure 156/91 H Pulse Oximetry BMI result Body Mass Index 30.6 Vital signs have been reviewed as appeared to be correct. Blood pressure normal. Heart rate normal. Respiration rate normal. Temperature normal. Oxygen saturation normal. Appearance: Alert. Oriented , nonverbal, near catatonic, follow commands intermittently Head: Normal external exam. Normocephalic. Atraumatic. No Leong signs noted. No raccoon eyes noted Eyes: PERRLA. EOMI. Conjunctiva and sclera normal. Eyelids normal. ENT: TM's Normal. Pharynx normal. Uvula midline. Moist mucous membranes. No trismus noted. No drooling noted. No muffled voice noted. Neck: Normal inspection. Neck supple. FROM. No adenopathy. Thyroid Normal. No meningeal signs. No neck mass noted. CVS: Normal heart rate and rhythm. Heart sound normal. No murmurs noted. Pulses normal throughout. Respiratory: No respiratory distress. Painless inspiration. Breath sounds normal. No wheezes/rales/rhonchi noted. Chest nontender. No accessory muscle usage noted or decreased air movement noted. Abdomen: Soft and nontender. Bowel sounds normal in all 4 quadrants. No dist ention noted. No organomegaly noted. No visible injury noted. Back: No CVA tenderness. Full range of motion noted. Skin: Skin warm and dry. Normal skin color. Normal skin turgor. No rashes/lesi ons/lacerations noted. Extremities: No lower extremity edema. Extremities exhibit normal range of motion. Extremities nontender. Neuro: Near catatonia Cranial nerve exam: II-XII are grossly intact No motor deficit. No sensory deficit. Reflexes normal. Course Course Course Narrative: Assessment and plan. 71 year-old male came in for evaluation of near catatonia patient with history of schizophrenia, came in from a [facility] for change mental status and having near catatonia, patient had previous episode of similar symptoms when he had UTI, patient is sustaining UTI with SIRS but no severe sepsis or septic shock. Admit, IV hydration, IV antibiotic. Medical Decision Making Lab Data Lab results reviewed: Yes I reviewed the patient's lab results. Result diagrams: 01/16/22 12:00 01/16/22 12:00 Labs: Lab Results 01/16/22 01/16/22 01/16/22 Range/Units 12:00 12:00 12:00 WBC 12.0 H (4.8-10.8) X10*3/uL RBC 4.65 (4.60-5.80) X10*6/uL Hgb 13.5 L (14.0-18.0) g/dl Hct 41.1 L (42.0-52.0) % MCV 88.4 (80.0-98.0) fL MCH 29.0 (27.0-33.0) pg MCHC 32.8 (31.0-36.0) g/dl RDW 14.2 (11.0-16.0) % Plt Count 232 (160-400) X10*3/uL MPV 9.7 (9.4-12.4) fL Immature Gran % (Auto) 0.3 (0.0-0.4) % Neut % (Auto) 73.7 H (45-73) % Lymph % (Auto) 17.3 L (20-40) % [place] % (Auto) 7.9 (2-11) % Eos % (Auto) 0.0 (0-4) % Baso % (Auto) 0.8 (0-2) % Lymph # (Auto) 2.1 (1.2-4.9) X10*3/uL [place]ball # (Auto) 1.0 (0.1-1.2) X10*3/uL Eos # (Auto) 0.0 (0.0-0.4) X10*3/uL Baso # (Auto) 0.1 (0.0-0.2) X10*3/uL Abs Immat Gran (auto) 0.04 H (0.00-0.03) X10*3/uL Absolute Neuts (auto) 8.8 H (2.0-8.3) x10*3/uL Absolute Nucleated RBC 0.000 (0.0-0.012) X10*3/uL Nucleated RBC % (auto) 0.0 (0.0-0.2) /100WBC Sodium 141 (135-145) mmol/L Potassium 4.1 (3.3-5.1) mmol/L Chloride 105 (96-108) mmol/L Carbon Dioxide 22 (22-29) mmol/L Anion Gap 18 (12-20) BUN 20 H (9-16) mg/dL Creatinine 0.91 (0.5-1.4) mg/dL Estim Creat Clear Calc 96.2 Estimated GFR > 60 Random Glucose 96 (60-115) mg/dL Calcium 9.5 (8.4-10.2) mg/dL Total Bilirubin 0.5 (0.0-1.0) mg/dL Direct Bilirubin 0.2 (0.0-0.5) mg/dL AST 13 (5-37) U/L ALT 16 (0-40) U/L Alkaline Phosphatase 136 H (39-117) U/L Troponin I High Sens 5.5 (<3.5-35.0) ng/L B-Natriuretic Peptide 26 (<100) pg/mL Total Protein 7.7 (6.5-8.0) g/dL Albumin 4.2 (3.5-5.0) g/dL Lipase 7 L (8-78) U/L Urine Color Urine Appearance Urine pH (5.0-8.0) Ur Specific [place] (1.005-1.025) Urine Protein (NEG-TRACE) MG/DL Urine Glucose (UA) (NEG) MG/DL Urine Ketones (NEG) MG/DL Urine Blood (NEG) Urine Nitrite (NEG) Ur Leukocyte Esterase (NEG) Urine RBC (0) /HPF Urine WBC (0-4) /HPF Ur Squamous Epith Cells /LPF Urine Bacteria /LPF Influenza Type A (PCR) (Negative) Influenza Type B (PCR) (Negative) RSV RNA Qual (PCR) (Negative) SARS-CoV-2 RNA (RT-PCR) (Negative) 01/16/22 01/16/22 Range/Units 12:00 14:06 WBC (4.8-10.8) X10*3/uL RBC (4.60-5.80) X10*6/uL Hgb (14.0-18.0) g/dl Hct (42.0-52.0) % MCV (80.0-98.0) fL MCH (27.0-33.0) pg MCHC (31.0-36.0) g/dl RDW (11.0-16.0) % Plt Count (160-400) X10*3/uL MPV (9.4-12.4) fL Immature Gran % (Auto) (0.0-0.4) % Neut % (Auto) (45-73) % Lymph % (Auto) (20-40) % [place]ball % (Auto) (2-11) % Eos % (Auto) (0-4) % Baso % (Auto) (0-2) % Lymph # (Auto) (1.2-4.9) X10*3/uL [place] # (Auto) (0.1-1.2) X10*3/uL Eos # (Auto) (0.0-0.4) X10*3/uL Baso # (Auto) (0.0-0.2) X10*3/uL Abs Immat Gran (auto) (0.00-0.03) X10*3/uL Absolute Neuts (auto) (2.0-8.3) x10*3/uL Absolute Nucleated RBC (0.0-0.012) X10*3/uL Nucleated RBC % (auto) (0.0-0.2) /100WBC Sodium (135-145) mmol/L Potassium (3.3-5.1) mmol/L Chloride (96-108) mmol/L Carbon Dioxide (22-29) mmol/L Anion Gap (12-20) BUN (9-16) mg/dL Creatinine (0.5-1.4) mg/dL Estim Creat Clear Calc Estimated GFR Random Glucose (60-115) mg/dL Calcium (8.4-10.2) mg/dL Total Bilirubin (0.0-1.0) mg/dL Direct Bilirubin (0.0-0.5) mg/dL AST (5-37) U/L ALT (0-40) U/L Alkaline Phosphatase (39-117) U/L Troponin I High Sens (<3.5-35.0) ng/L B-Natriuretic Peptide (<100) pg/mL Total Protein (6.5-8.0) g/dL Albumin (3.5-5.0) g/dL Lipase (8-78) U/L Urine Color YELLOW Urine Appearance CLOUDY Urine pH 6.0 (5.0-8.0) Ur Specific [place] >= 1.030 H (1.005-1.025) Urine Protein 2+ H (NEG-TRACE) MG/DL Urine Glucose (UA) NEG (NEG) MG/DL Urine Ketones >=80 (NEG) MG/DL Urine Blood 3+ H (NEG) Urine Nitrite NEG (NEG) Ur Leukocyte Esterase 2+ H (NEG) Urine RBC TNTC H (0) /HPF Urine WBC 50-75 H (0-4) /HPF Ur Squamous Epith Cells TRACE /LPF Urine Bacteria 2+ /LPF Influenza Type A (PCR) NEGATIVE (Negative) Influenza Type B (PCR) NEGATIVE (Negative) RSV RNA Qual (PCR) NEGATIVE (Negative) SARS-CoV-2 RNA (RT-PCR) NEGATIVE (Negative) Imaging Data Chest x-ray: Attestation: I personally reviewed and interpreted this imaging study as follows: Radiologist's impression: No acute cardiopulmonary process. CT scan - abdomen: Attestation: I personally reviewed and interpreted this imaging study as follows: Radiologist's impression: .? Benign Bosniak class I and class II renal cysts. No further imaging or follow-up is needed. 2.? Thick walled bladder with some air bubbles which may be within the wall. Findings can be seen with cystitis and correlate with urinalysis and urine culture. A prior catheterization of the bladder could also introduce air. 3.? Prominent peripancreatic/portal, inguinal and iliac lymph nodes without gross retroperitoneal lymphadenopathy. ECG Data Attestation: I personally reviewed and interpreted this ECG as follows: Interpretation: Sinus tachycardia at 128 beats per minutes, normal intervals, no ST-T ischemic changes. Discharge Plan Discharge Clinical Impression: Acute UTI, SIRS (systemic inflammatory response syndrome) Patient Disposition: Admitted As Inpatient
[2022-01-16 12:07] LABS: MANUAL DIFF FLAG NO
[2022-01-16 12:18] LABS: Basophils Absolute Auto 0.1 X10*3/uL (0.0-0.2); Basophils Percent Auto 0.8 % (0-2); Hematocrit 41.1 % (42.0-52.0); Hemoglobin 13.5 g/dl (14.0-18.0); Imm Gran Abs Auto 0.04 X10*3/uL (0.00-0.03); Imm Gran Pct Auto 0.3 % (0.0-0.4); Lymphocytes Absolute Auto 2.1 X10*3/uL (1.2-4.9); Lymphocytes Percent Auto 17.3 % (20-40); Mean Corpuscular HGB Conc 32.8 g/dl (31.0-36.0); Mean Corpuscular Volume 88.4 fL (80.0-98.0); Mean Platelet Volume 9.7 fL (9.4-12.4); Monocytes Percent Auto 7.9 % (2-11); Neutrophils Absolute Auto 8.8 x10*3/uL (2.0-8.3); Neutrophils Percent Auto 73.7 % (45-73); Platelet Count 232 X10*3/uL (160-400); Red Blood Count 4.65 X10*6/uL (4.60-5.80); Red Cell Distribution Width 14.2 % (11.0-16.0)
[2022-01-16 12:30] LABS: Alanine Aminotransferase 16 U/L (0-40); Albumin Level 4.2 g/dL (3.5-5.0); Alkaline Phosphatase 136 U/L (39-117); Anion Gap 18 (12-20); Aspartate Amino Transferase 13 U/L (5-37); Bilirubin Direct 0.2 mg/dL (0.0-0.5); Bilirubin Total 0.5 mg/dL (0.0-1.0); Blood Urea Nitrogen 20 mg/dL (9-16); Calcium 9.5 mg/dL (8.4-10.2); Carbon Dioxide 22 mmol/L (22-29); Chloride 105 mmol/L (96-108); Creatinine Clr Calc Pharmacy 96.2; Estimated Glomerular Filt Rate > 60; Glucose Random 96 mg/dL (60-115); Lipase 7 U/L (8-78); Potassium 4.1 mmol/L (3.3-5.1); Sodium 141 mmol/L (135-145); Total Protein 7.7 g/dL (6.5-8.0)
[2022-01-16 12:33] LABS: B Type Natriuretic Peptide 26 pg/mL (<100); Troponin-I High Sensitivity 5.5 ng/L (<3.5-35.0)
[2022-01-16 12:50] LABS: Influenza A PCR NEGATIVE (Negative); Influenza B PCR NEGATIVE (Negative); Resp Syncy Virus RNA Qual PCR NEGATIVE (Negative); SARS COV2 PCR INHOUSE NEGATIVE (Negative)
--- NOTE | 2022-01-16 13:53 | PC.NURSE ---
Pt straight catheterized per MD orders, minimal to no urine output in catheter bag. MD Buckner and RADHA Hurtado aware.
--- NOTE | 2022-01-16 13:57 | PHA.MEDREC ---
Pharmacy Consult ? Medication Reconciliation Pharmacy has completed the medication reconciliation. Patient came from [facility] with medication list. Courtney Acosta, [email or web address]
[2022-01-16 14:33] LABS: Appearance Urine CLOUDY; Color Urine YELLOW; Glucose Urine UA NEG (NEG); Leukocyte Esterase Urine 2+ (NEG); Nitrite Urine NEG (NEG); Specific Gravity - Urine >= 1.030 (1.005-1.025); UACC Culture Trigger YES; Urine Blood 3+ (NEG); Urine Ketones >=80 MG/DL (NEG); Urine Protein 2+ MG/DL (NEG-TRACE)
--- NOTE | 2022-01-16 14:47 | PC.NURSE ---
pt resting in the stretcher in no distress, pt was able to say zelda he was at a hospital, denies pain, respirations even and unlabored, sinus tach on the monitor at the 120's bp stable
[2022-01-16 15:09] LABS: Bacteria Urine 2+ /LPF; RBC Urine TNTC /HPF (0); Squamous Epithelial Cell Urine TRACE /LPF; WBC Urine 50-75 /HPF (0-4)
--- NOTE | 2022-01-16 15:47 | P.HPHOSP_ITS ---
History of Present Illness Date of Service: 01/16/22 <Angela Titus NP - Last Filed: 01/16/22 16:48> Attending physician on admission: Omari Monson <Angela Titus NP - Last Filed: 01/16/22 16:48> Chief Complaint: mental status change <Angela Titus NP - Last Filed: 01/16/22 16:48> 71-year-old man presenting from [facility] with mental status changes. He does have a history of schizophrenia and has had recent episodes of catatonia especially when he has had an infection. It appears similar today that he is speaking very little but able to make eye contact. When asked if he had pain he said now. Other than that he did not participate in the initial interview. His urinalysis is positive, chest x-ray negative for consolidation or effusion, abdominal CT pending. Tachycardia noted with no fever or leukocytosis. He was discharged from [facility] in September of 2021 for very similar presentation and treated for Klebsiella UTI. He received a dose of Rocephin in the ER. Will be admitted for further management and treatment of sirs secondary to urinary tract infection. <Angela Titus NP - Last Filed: 01/16/22 16:48> Review of Systems Review of Systems: Yes Unobtainable due to mental status <Angela Titus NP - Last Filed: 01/16/22 16:48> FOR[facility]LY [facility] Medical History: Medical History Anemia, unspecified Anxiety disorder, unspecified Ataxic gait Benign prostatic hyperplasia without lower urinary tract symptoms Combined forms of age-related cataract, bilateral Corns and callosities COVID-19 Diabetes Essential (primary) hypertension Functional urinary incontinence Gastro-esophageal reflux disease without esophagitis Hallux valgus (acquired), unspecified foot History of falling Hyperlipidemia, unspecified Hypothyroidism, unspecified Insomnia, unspecified Mild cognitive impairment, so stated Muscle weakness (generalized) Nail dystrophy Other seasonal allergic rhinitis Personal history of (healed) traumatic fracture Presbyopia Schizophrenia Slurred speech Suicidal ideations Tinea unguium Type 2 diabetes mellitus with other circulatory complications Unspecified astigmatism, unspecified eye Unspecified osteoarthritis, unspecified site <Angela Titus NP - Last Filed: 01/16/22 16:48> Pertinent family history: Unable to obtain as patient is nonverbal at this time <Angela Titus NP - Last Filed: 01/16/22 16:48> Social History: Social History Household Members: Caregiver Housing: Alf Unable to assess alcohol history related to: Unknown Alcohol intake: unknown Patient Tobacco Use Status: Tobacco use Unknown Advance Directives Date on File: 09/25/21 service: No Current occupational status: disabled <Angela Titus NP - Last Filed: 01/16/22 16:48> Meds Allergies/Adverse reactions: Allergies Allergy/AdvReac Type Severity Reaction Status Date / Time azithromycin Allergy Unknown Verified 09/25/21 12:15 Barbiturates Allergy Unknown Verified 09/25/21 12:15 erythromycin base Allergy Unknown Verified 09/25/21 12:15 fluphenazine Allergy Unknown Verified 09/25/21 12:15 haloperidol [From Haldol] Allergy Unknown Verified 09/25/21 12:15 phenobarbital Allergy Unknown Verified 09/25/21 12:15 <Angela Titus NP - Last Filed: 01/16/22 16:48> Active Medications: Current Medications Acetaminophen (Acetaminophen 325 Mg Tablet) 650 mg PO Q6H PRN PRN Reason: Pain, Mild (Pain Scale 1-3) Heparin Sodium (Porcine) (Heparin Sodium,Porcine 5,000 Unit/Ml Vial) 5,000 unit SUBCUT Q12H ANGELLA Sodium Chloride (Ns) 1,000 mls @ 100 mls/hr IVCONT .Q10H ANGELLA Ceftriaxone Sodium 1 gm/ (Sodium Chloride) 50 mls @ 100 mls/hr IV Q24H ANGELLA Ondansetron HCl (Ondansetron Hcl 4 Mg/2 Ml Vial) 4 mg IVPUSH Q8H PRN PRN Reason: Nausea and Vomiting Pharmacy Consult (Consult Rx Perform Med Rec) 1 each MISCELLANE ONCE PRN PRN Reason: Consult order Sodium Chloride (0.9 % Sodium Chloride Flush 3 Ml Syringe) 3 ml IVFLUSH QSHIFT ANGELLA <Angela Titus NP - Last Filed: 01/16/22 16:48> Home medications: Home Medications Medication Instructions Recorded Confirmed Last Taken Type amlodipine 10 mg tablet 10 mg PO DAILY 09/25/21 01/16/22 09/24/21 History aripiprazole lauroxil 882 mg/3.2 882 mg IM QMONTH 09/25/21 01/16/22 01/11/22 History mL suspension, ext.rel. IM syringe ([facility], [place]) atorvastatin 40 mg tablet 40 mg PO BEDTIME 09/25/21 01/16/22 09/24/21 History clozapine 200 mg tablet 200 mg PO BID 09/25/21 01/16/22 09/24/21 History clozapine 50 mg tablet 50 mg PO DAILY 09/25/21 01/16/22 09/24/21 History divalproex 250 mg tablet,delayed 250 mg PO BID@0900,1800 09/25/21 01/16/22 09/24/21 History release levothyroxine 88 mcg tablet 88 mcg PO DAILY@62909/25/21 01/16/22 09/25/21 History loratadine 10 mg tablet 10 mg PO DAILY 09/25/21 01/16/22 09/24/21 History lorazepam 1 mg tablet 1 mg PO BID@0900,1800 09/25/21 01/16/22 09/24/21 History metoprolol tartrate 50 mg tablet 50 mg PO BID@0900,1800 09/25/21 01/16/22 09/24/21 History mirtazapine 30 mg tablet 30 mg PO BEDTIME 09/25/21 01/16/22 09/24/21 History multivitamin with minerals 1 tab PO DAILY 09/25/21 01/16/22 09/24/21 History tamsulosin 0.4 mg capsule 0.8 mg PO BEDTIME 09/25/21 01/16/22 09/24/21 History pantoprazole 40 mg tablet,delayed 40 mg PO DAILY@62901/16/22 01/16/22 Unknown History release <Angela Titus NP - Last Filed: 01/16/22 16:48> Physical Exam Vital Signs and Narrative: Vital Signs: Last Vital Signs Temp 98.2 F 01/16/22 11:36 Pulse 126 H 01/16/22 14:46 Resp 20 01/16/22 14:46 BP 156/91 H 01/16/22 14:46 Pulse Ox 96 01/16/22 14:30 BMI result Body Mass Index 30.6 <Angela Titus NP - Last Filed: 01/16/22 16:48> Appearing in no acute distress head is normocephalic atraumatic eyes pupils are PERRLA sclera is anicteric mouth throat mucous membranes are intact and moist lung sounds are clear to auscultation heart regular rate rhythm, clear S1, S2 positive bowel sounds, abdomen is soft, nontender neuro patient is alert opens eyes to name, mostly nonverbal <Angela Titus NP - Last Filed: 01/16/22 16:48> Results Labs CBC and Chem 7: : 01/17/22 05:44 01/18/22 08:22 <Angela Titus NP - Last Filed: 01/16/22 16:48> Labs: Laboratory Results - last 24 hr 01/16/22 01/16/22 01/16/22 12:00 12:00 12:00 MCV 88.4 MCH 29.0 MCHC 32.8 RDW 14.2 Plt Count 232 MPV 9.7 Immature Gran % (Auto) 0.3 Neut % (Auto) 73.7 H Lymph % (Auto) 17.3 L [place] % (Auto) 7.9 Eos % (Auto) 0.0 Baso % (Auto) 0.8 Lymph # (Auto) 2.1 [place] # (Auto) 1.0 Eos # (Auto) 0.0 Baso # (Auto) 0.1 Abs Immat Gran (auto) 0.04 H Absolute Neuts (auto) 8.8 H Absolute Nucleated RBC 0.000 Nucleated RBC % (auto) 0.0 Anion Gap 18 Estim Creat Clear Calc 96.2 Estimated GFR > 60 Random Glucose 96 Calcium 9.5 Total Bilirubin 0.5 Direct Bilirubin 0.2 AST 13 ALT 16 Alkaline Phosphatase 136 H Troponin I High Sens 5.5 B-Natriuretic Peptide 26 Total Protein 7.7 Albumin 4.2 Lipase 7 L Urine Color Urine Appearance Urine pH Ur Specific Dante Urine Protein Urine Glucose (UA) Urine Ketones Urine Blood Urine Nitrite Ur Leukocyte Esterase Urine RBC Urine WBC Ur Squamous Epith Cells Urine Bacteria Influenza Type A (PCR) Influenza Type B (PCR) RSV RNA Qual (PCR) SARS-CoV-2 RNA (RT-PCR) 01/16/22 01/16/22 12:00 14:06 MCV MCH MCHC RDW Plt Count MPV Immature Gran % (Auto) Neut % (Auto) Lymph % (Auto) [place] % (Auto) Eos % (Auto) Baso % (Auto) Lymph # (Auto) [place] # (Auto) Eos # (Auto) Baso # (Auto) Abs Immat Gran (auto) Absolute Neuts (auto) Absolute Nucleated RBC Nucleated RBC % (auto) Anion Gap Estim Creat Clear Calc Estimated GFR Random Glucose Calcium Total Bilirubin Direct Bilirubin AST ALT Alkaline Phosphatase Troponin I High Sens B-Natriuretic Peptide Total Protein Albumin Lipase Urine Color YELLOW Urine Appearance CLOUDY Urine pH 6.0 Ur Specific Dante >= 1.030 H Urine Protein 2+ H Urine Glucose (UA) NEG Urine Ketones >=80 Urine Blood 3+ H Urine Nitrite NEG Ur Leukocyte Esterase 2+ H Urine RBC TNTC H Urine WBC 50-75 H Ur Squamous Epith Cells TRACE Urine Bacteria 2+ Influenza Type A (PCR) NEGATIVE Influenza Type B (PCR) NEGATIVE RSV RNA Qual (PCR) NEGATIVE SARS-CoV-2 RNA (RT-PCR) NEGATIVE <Angela Titus NP - Last Filed: 01/16/22 16:48> Imaging Radiologist's Impressions: Impressions Chest X-Ray 01/16/22 11:55 IMPRESSION: No acute cardiopulmonary process. <Angela Titus NP - Last Filed: 01/16/22 16:48> Assessment and Plan (1) SIRS (systemic inflammatory response syndrome): Status: Acute <Angela Titus NP - Last Filed: 01/16/22 16:48> (2) Acute UTI: Status: Acute <Angela Titus NP - Last Filed: 01/16/22 16:48> Plan 71-year-old man admitted from [facility] with sirs secondary to urinary tract infection with some degree of catatonia with a history of similar prese ntation last admission Sirs secondary to UTI noted catatonia, apparently this happens when he has an infection Start Rocephin Follow cultures Supportive care IV fluids Hypertension. Stable blood pressure Continue amlodipine BPH continue tamsulosin Schizophrenia Continue baseline medications Hypothyroidism Continue levothyroxine Normocytic anemia No bleeding Follow CBC DVT prophylaxis with heparin Attending Dr. Monson Full code <Angela Titus NP - Last Filed: 01/16/22 16:48> Quality Stroke Does the patient have a stroke diagnosis?: No <Angela Titus NP - Last Filed: 01/16/22 16:48> VTE Prior VTE?: No <Angela Titus NP - Last Filed: 01/16/22 16:48> VTE Risk Level:: Medical - moderate - high <Angela Titus NP - Last Filed: 01/16/22 16:48> VTE Device Contraindication: Treatment Not Indicated <Angela Titus NP - Last Filed: 01/16/22 16:48> VTE Drug Contraindication: N/A - Med Ordered <Angela Titus NP - Last Filed: 01/16/22 16:48>
[2022-01-16] MEDS: cefTRIAXone sodium 1 GM in 0.9 % Sodium Chloride 50 ML IV (16:10)
[2022-01-16 16:15] LABS: Lactic Acid 1.3 mmol/L (0.5-2.0)
[2022-01-16] MEDS: 0.9 % Sodium Chloride Flush 3 ML SYRINGE IVFLUSH (16:17)
[2022-01-16] MEDS: Heparin Sodium,Porcine 5,000 UNIT/ML VIAL 5000 UNIT SUBCUT (16:21)
[2022-01-16] MEDS: 0.9 % Sodium Chloride 1,000 ML 100 ML IVCONT (16:22)
--- NOTE | 2022-01-16 19:22 | P.EN_ITS ---
Event Note Date of Service: 01/16/22 Event Note: patient seen and examined with APC. patient came from [facility]: patient has history of schizophrenia, episode of catatonia before also. Patient has found to have abnormal UA as well as found to be SIRS criteria able to tell only his name and wiggle his hands and toes otherwise could not able to answer many questions. lab imaging reviewed in detail. WBC 12, BUN in20 ,cr : 0.9 CT abdomen reviewed: Possible cystitis Physical exam: coordinated in H&P not e. Assessment and plan coordinated in H&P note agree with the plan continue IV antibiotics for UTI,sirs urine and blood culture pending
--- NOTE | 2022-01-16 19:36 | PC.NURSE ---
Addendum entered by Cherrie Smith 01/17/22 02:28: report given to RADHA Child Original Note: report received from RADHA Cardoza. pt is alert and able to answer yes/no question. denies any pain or chest pain. pt on continuos cardiac monitoring. resting in bed comfortably
--- NOTE | 2022-01-16 21:59 | MHC.CM.PN ---
IMM 01/16. Message left with guardian/sister Bing Portillo ([phone]). Return call from Bing. Reviewed IMM, copy left at bedside. Guardianship on file. Connor's on file. Andreina Bandar/klaus/ [phone]). Pt was at [facility] and recently moved to [facility]. Per Bing, pt had [employer] and Medicare. Somehow, he doesn't have [employer] now. Family has meeting with [facility] on January 29 to correct this issue. Pt is disabled. Pt is unable to answer questions at this time. Normally is verbal. Pt is Full Code. D/C plan: Return to [facility]. Return referral placed in [facility]. Will need BLS transportation for safety. CM to follow for d/c needs.
[2022-01-17] VITALS: BP 138/93; PULSE 128; RESP 20; TEMP 36.8; O2SAT 97
[2022-01-17] MEDS: 0.9 % Sodium Chloride 1,000 ML 100 ML IVCONT ×2 (02:38→12:50)
[2022-01-17 02:56] VITALS: BMI 30.8
[2022-01-17] MEDS: Heparin Sodium,Porcine 5,000 UNIT/ML VIAL 5000 UNIT SUBCUT ×3 (04:08→15:45)
--- NOTE | 2022-01-17 05:54 | PC.NURSE ---
Assumed care at 0231, pt came from ED to rm [phone] on a stretcher, pt was alert and answered questions in few words, assisted to get up and wa able to pivot to bed, callbell instructed and within reach, bed alarm on.
[2022-01-17 06:19] LABS: MANUAL DIFF FLAG NO
[2022-01-17 06:41] LABS: Basophils Absolute Auto 0.1 X10*3/uL (0.0-0.2); Basophils Percent Auto 0.7 % (0-2); Hematocrit 40.5 % (42.0-52.0); Hemoglobin 13.3 g/dl (14.0-18.0); Imm Gran Abs Auto 0.06 X10*3/uL (0.00-0.03); Imm Gran Pct Auto 0.5 % (0.0-0.4); Lymphocytes Absolute Auto 1.8 X10*3/uL (1.2-4.9); Mean Corpuscular HGB Conc 32.8 g/dl (31.0-36.0); Mean Corpuscular Volume 88.4 fL (80.0-98.0); Mean Platelet Volume 10.1 fL (9.4-12.4); Monocytes Percent Auto 8.1 % (2-11); Neutrophils Absolute Auto 8.9 x10*3/uL (2.0-8.3); Neutrophils Percent Auto 75.7 % (45-73); Platelet Count 242 X10*3/uL (160-400); Red Blood Count 4.58 X10*6/uL (4.60-5.80); Red Cell Distribution Width 14.3 % (11.0-16.0); White Blood Count 11.7 X10*3/uL (4.8-10.8)
[2022-01-17 07:00] LABS: Anion Gap 17 (12-20); Blood Urea Nitrogen 21 mg/dL (9-16); Calcium 9.1 mg/dL (8.4-10.2); Carbon Dioxide 19 mmol/L (22-29); Chloride 107 mmol/L (96-108); Estimated Glomerular Filt Rate > 60; Glucose Random 104 mg/dL (60-115); Potassium 4.2 mmol/L (3.3-5.1); Sodium 139 mmol/L (135-145)
[2022-01-17 07:49] VITALS: BP 168/110; PULSE 131; RESP 20; TEMP 36.6; O2SAT 96
--- NOTE | 2022-01-17 08:29 | P.PNIM_ITS ---
Subjective Subjective Date of Service: 01/17/22 Interval History: toxic metabolic encephalopathy,uti Review of Systems patient is still able to say his name, he utters'' random words in between'' checked with the rehab- patient seems to be near his baseline but rehab said when here toes those random words in between more likely to during the time he has infection. otherwise moving his arms and legs Physical Exam Vital Signs: Vital Signs: Last Vital Signs Temp 97.8 F 01/17/22 07:49 Pulse 131 H 01/17/22 07:49 Resp 20 01/17/22 07:49 BP 168/110 H 01/17/22 07:49 Pulse Ox 96 01/17/22 07:49 BMI result Body Mass Index 30.8 Appearing in no acute distress ?head is normocephalic atraumatic ?lung sounds are clear to auscultation ?heart :rrr, clear? S1, S2 ?positive bowel sounds, abdomen is soft, nontender ?neuro patient is alert opens eyes to name, utter ''radom words'' moves ext Objective Data Active Medications Acetaminophen (Acetaminophen 325 Mg Tablet) 650 mg PO Q6H PRN PRN Reason: Pain, Mild (Pain Scale 1-3) Amlodipine Besylate (Amlodipine Besylate 10 Mg Tablet) 10 mg PO DAILY [facility]; Protocol Atorvastatin Calcium (Atorvastatin Calcium 40 Mg Tablet) 40 mg PO BEDTIME [facility] Clozapine (Clozapine 25 Mg Tablet) 50 mg PO DAILY [facility] Clozapine (Clozapine 100 Mg Tablet) 200 mg PO BID [facility] Divalproex Sodium (Divalproex Sodium 250 Mg Tablet.) 250 mg PO BID@0900,1800 [facility] Heparin Sodium (Porcine) (Heparin Sodium,Porcine 5,000 Unit/Ml Vial) 5,000 unit SUBCUT Q8H [facility] Sodium Chloride (Ns) 1,000 mls @ 100 mls/hr IVCONT .Q10H [facility] Last Admin: 01/17/22 02:38 Dose: 100 mls/hr Documented by: PRAVEENILDacia Ceftriaxone Sodium 1 gm/ (Sodium Chloride) 50 mls @ 100 mls/hr IV Q24H [facility] Levothyroxine Sodium (Levothyroxine Sodium 88 Mcg Tablet) 88 mcg PO DAILY@0630 [facility] Loratadine (Loratadine 10 Mg Tablet) 10 mg PO DAILY [facility] Lorazepam (Lorazepam 1 Mg Tablet) 1 mg PO BID@0900,1800 [facility] Metoprolol Tartrate (Metoprolol Tartrate 50 Mg Tablet) 50 mg PO BID@0900,1800 [facility]; Protocol Mirtazapine (Mirtazapine 30 Mg Tablet) 30 mg PO BEDTIME [facility] Multivitamins/Vitamin C (Multivitamin Tablet) 1 tab PO DAILY [facility] Non-Formulary Medication (Aripiprazole Lauroxil Er) 882 mg IM QMONTH [facility] Non-Formulary Medication (Pantoprazole) 40 mg PO DAILY@0630 [facility] Ondansetron HCl (Ondansetron Hcl 4 Mg/2 Ml Vial) 4 mg IVPUSH Q8H PRN PRN Reason: Nausea and Vomiting Pharmacy Consult (Consult Rx Perform Med Rec) 1 each MISCELLANE ONCE PRN PRN Reason: Consult order Sodium Chloride (0.9 % Sodium Chloride Flush 3 Ml Syringe) 3 ml IVFLUSH QSHIFT [facility] Last Admin: 01/16/22 23:16 Dose: Not Given Documented by: WILLIE-ANICL Non-Admin Reason: IV Running Tamsulosin HCl (Tamsulosin Hcl 0.4 Mg Capsule) 0.8 mg PO BEDTIME [facility] Labs CBC & Chem 7: 01/17/22 05:44 01/17/22 05:44 Labs: Laboratory Results - last 24 hr 01/16/22 01/16/22 01/16/22 12:00 12:00 12:00 MCV 88.4 MCH 29.0 MCHC 32.8 RDW 14.2 Plt Count 232 MPV 9.7 Immature Gran % (Auto) 0.3 Neut % (Auto) 73.7 H Lymph % (Auto) 17.3 L [place] % (Auto) 7.9 Eos % (Auto) 0.0 Baso % (Auto) 0.8 Lymph # (Auto) 2.1 [place] # (Auto) 1.0 Eos # (Auto) 0.0 Baso # (Auto) 0.1 Abs Immat Gran (auto) 0.04 H Absolute Neuts (auto) 8.8 H Absolute Nucleated RBC 0.000 Nucleated RBC % (auto) 0.0 Anion Gap 18 Estim Creat Clear Calc 96.2 Estimated GFR > 60 Random Glucose 96 Lactic Acid Calcium 9.5 Total Bilirubin 0.5 Direct Bilirubin 0.2 AST 13 ALT 16 Alkaline Phosphatase 136 H Troponin I High Sens 5.5 B-Natriuretic Peptide 26 Total Protein 7.7 Albumin 4.2 Lipase 7 L Urine Color Urine Appearance Urine pH Ur Specific [place] Urine Protein Urine Glucose (UA) Urine Ketones Urine Blood Urine Nitrite Ur Leukocyte Esterase Urine RBC Urine WBC Ur Squamous Epith Cells Urine Bacteria Influenza Type A (PCR) Influenza Type B (PCR) RSV RNA Qual (PCR) SARS-CoV-2 RNA (RT-PCR) 01/16/22 01/16/22 01/16/22 12:00 14:06 16:00 MCV MCH MCHC RDW Plt Count MPV Immature Gran % (Auto) Neut % (Auto) Lymph % (Auto) [place] % (Auto) Eos % (Auto) Baso % (Auto) Lymph # (Auto) [place] # (Auto) Eos # (Auto) Baso # (Auto) Abs Immat Gran (auto) Absolute Neuts (auto) Absolute Nucleated RBC Nucleated RBC % (auto) Anion Gap Estim Creat Clear Calc Estimated GFR Random Glucose Lactic Acid 1.3 Calcium Total Bilirubin Direct Bilirubin AST ALT Alkaline Phosphatase Troponin I High Sens B-Natriuretic Peptide Total Protein Albumin Lipase Urine Color YELLOW Urine Appearance CLOUDY Urine pH 6.0 Ur Specific [place] >= 1.030 H Urine Protein 2+ H Urine Glucose (UA) NEG Urine Ketones >=80 Urine Blood 3+ H Urine Nitrite NEG Ur Leukocyte Esterase 2+ H Urine RBC TNTC H Urine WBC 50-75 H Ur Squamous Epith Cells TRACE Urine Bacteria 2+ Influenza Type A (PCR) NEGATIVE Influenza Type B (PCR) NEGATIVE RSV RNA Qual (PCR) NEGATIVE SARS-CoV-2 RNA (RT-PCR) NEGATIVE 01/17/22 01/17/22 05:44 05:44 MCV 88.4 MCH 29.0 MCHC 32.8 RDW 14.3 Plt Count 242 MPV 10.1 Immature Gran % (Auto) 0.5 H Neut % (Auto) 75.7 H Lymph % (Auto) 15.0 L [place] % (Auto) 8.1 Eos % (Auto) 0.0 Baso % (Auto) 0.7 Lymph # (Auto) 1.8 [place] # (Auto) 1.0 Eos # (Auto) 0.0 Baso # (Auto) 0.1 Abs Immat Gran (auto) 0.06 H Absolute Neuts (auto) 8.9 H Absolute Nucleated RBC 0.000 Nucleated RBC % (auto) 0.0 Anion Gap 17 Estim Creat Clear Calc 114.0 Estimated GFR > 60 Random Glucose 104 Lactic Acid Calcium 9.1 Total Bilirubin Direct Bilirubin AST ALT Alkaline Phosphatase Troponin I High Sens B-Natriuretic Peptide Total Protein Albumin Lipase Urine Color Urine Appearance Urine pH Ur Specific [place] Urine Protein Urine Glucose (UA) Urine Ketones Urine Blood Urine Nitrite Ur Leukocyte Esterase Urine RBC Urine WBC Ur Squamous Epith Cells Urine Bacteria Influenza Type A (PCR) Influenza Type B (PCR) RSV RNA Qual (PCR) SARS-CoV-2 RNA (RT-PCR) Assessment and Plan (1) Acute UTI: Status: Acute (2) Encephalopathy due to infection: Status: Resolved Plan day-2 71-year-old [facility] with sirs secondary to urinary tract infection with some degree of catatonia with a history of similar presentation last admission toxic metabolic encephalopathy/Sirs secondary to UTI ct heda neg noted catatonia, apparently this happens when he has an infection Start Rocephin Follow cultures Supportive care IV fluids Hypertension.? Stable blood pressure Continue amlodipine BPH continue tamsulosin Schizophrenia Continue baseline medications psych eval- Hypothyroidism Continue levothyroxine Normocytic anemia No bleeding obesity:cut down calories and wieght loss encouraged DVT prophylaxis with heparin inpatient need: toxic metabolic Encephalopathy, UTI. Quality Stroke Does the patient have a stroke diagnosis?: No VTE Prior VTE?: No VTE Risk Level:: Medical - moderate - high VTE Device Contraindication: Treatment Not Indicated VTE Drug Contraindication: N/A - Med Ordered
[2022-01-17] MEDS: Multivitamin TABLET 1 TAB PO (09:09)
[2022-01-17] MEDS: amLODIPine Besylate 10 MG TABLET PO (09:09)
[2022-01-17] MEDS: Loratadine 10 MG TABLET PO (09:09)
[2022-01-17] MEDS: LORazepam 1 MG TABLET PO ×2 (09:09→17:41)
[2022-01-17] MEDS: Metoprolol Tartrate 50 MG TABLET PO ×2 (09:10→17:41)
[2022-01-17 09:31] LABS: Thyroid Stimulating Hormone 2.37 uIU/mL (0.32-4.0)
[2022-01-17] MEDS: cloZAPine 25 MG TABLET 50 MG PO (10:36)
[2022-01-17] MEDS: cloZAPine 100 MG TABLET 200 MG PO ×2 (10:36→20:47)
[2022-01-17] MEDS: Levothyroxine Sodium 88 MCG TABLET PO (10:36)
--- NOTE | 2022-01-17 11:16 | MHC.CARE ---
CARE Team responded to consult request to meet with this patient in room 357, has a history of Schizophrenia. He was lying in bed looking straight ahead, turned upon hearing his name took a moment to respond, words were slurred and patient was not able to answer any questions. Spoke to RN who reported this seems to be close to patient's baseline. Patient does not need a crisis evaluation for inpatient psychiatric treatment or referrals to providers.
[2022-01-17 12:00] VITALS: BP 161/84; PULSE 127; RESP 20; TEMP 37.2; O2SAT 96
[2022-01-17 12:31] LABS: Glucose, Whole Blood 107 mg/dL (60-115)
--- NOTE | 2022-01-17 13:37 | PM.PSYCN ---
History of Present Illness Date of Service: 01/17/22 Chief Complaint: SIRS,Uti Reason for Consult: schizophrenia / catonia Requesting physician: Omari Monson Discussed with referring provider: Yes Sources of Information: patient interviewed and chart reviewed Additional Sources of Information: Spoke with RADHA SOLIS Narrative: Patient is a 71-year-old male with PMH ofschizophrenia, admitted from [facility] facility with mental status changes. He had been here in September 2021 with similar presentation, treated at that time for Klebsiella UTI. He has been admitted for further care and treatment of sirs secondary to UTI. Psychiatry asked to consult due to AMS. Per chart review: Patient has longstanding history of schizophrenia. Transferred to [facility] at some point fairly recently from [facility] in [place]. Had presented here from [facility] with similar presentation in September of this year, treated with antibiotics, return to mental status baseline and transferred back to the facility after 3 days. Facility and his sister had reported that he was mostly independent with ADLs, able to speak at baseline. While he was here in September, he was a 1-2 person assist, similar AMS presentation. Per note dated 01/16/2022 at 14:47, he was able to state that he was at a hospital. Has sister as HCP. Another sister as POA. Received last injection of Aristada on 01/11/22. Receives clozapine 250 in a.m., 200 in p.m.. Lab work obtained today for clozapine and norclozapine levels, results pending. TSH today 2.37. Patient was resting in bed when I attempt to meet with him. He appeared to be comfortable, NAD. He was alert to self only. No lead pipe rigidity noted, no cogwheeling. Rambling, mostly unintelligible speech. Unable to complete review of systems are mental status exam due to AMS. Past Psychiatric History: [place], recently moved to [facility]. Medical Evaluation Reviewed: Yes Personal & Social History: Has guardian/sister Kandice Portillo ([phone]). Guardianship on file. Martino on file. Has POA Lashell Portillo/sister ([phone]). Family has meeting at [facility] on January 29 regarding insurance issues. Patient disabled. Review of Systems Review of Systems Yes Unobtainable due to mental condition and Unobtainable due to mental status [facility] Medical History Anemia, unspecified Anxiety disorder, unspecified Ataxic gait Benign prostatic hyperplasia without lower urinary tract symptoms Combined forms of age-related cataract, bilateral Corns and callosities COVID-19 Diabetes Essential (primary) hypertension Functional urinary incontinence Gastro-esophageal reflux disease without esophagitis Hallux valgus (acquired), unspecified foot History of falling Hyperlipidemia, unspecified Hypothyroidism, unspecified Insomnia, unspecified Mild cognitive impairment, so stated Muscle weakness (generalized) Nail dystrophy Other seasonal allergic rhinitis Personal history of (healed) traumatic fracture Presbyopia Schizophrenia Slurred speech Suicidal ideations Tinea unguium Type 2 diabetes mellitus with other circulatory complications Unspecified astigmatism, unspecified eye Unspecified osteoarthritis, unspecified site Family History: unknown Social History: Has two sisters, Kandice (PHP/guardian) and Andreina (POA). Patient disabled. Has guardianship on file, has Martino on file. Substance History: Unknown Trauma History: unknown Diagnostics Vital Signs (24Hr): Vital Signs - 24 hr 01/16/22 14:30 01/16/22 14:46 01/16/22 16:27 Temperature 99.4 F Pulse Rate 127 H 126 H 127 H Respiratory Rate 23 H 20 20 Blood Pressure 166/94 H 156/91 H 159/91 H Pulse Oximetry 96 96 01/16/22 19:35 01/16/22 23:22 01/17/22 00:00 Temperature 98.3 F 98.3 F Pulse Rate 128 H 124 H 128 H Respiratory Rate 24 H 28 H 20 Blood Pressure 137/65 132/70 138/93 H Pulse Oximetry 97 96 97 01/17/22 07:49 01/17/22 12:00 Temperature 97.8 F 98.9 F Pulse Rate 131 H 127 H Respiratory Rate 20 20 Blood Pressure 168/110 H 161/84 H Pulse Oximetry 96 96 BMI result Body Mass Index 30.8 Labs Results: 01/17/22 05:44 01/17/22 05:44 Labs: Laboratory Results - last 48 hr 01/16/22 01/16/22 01/16/22 12:00 12:00 12:00 WBC 12.0 H RBC 4.65 Hgb 13.5 L Hct 41.1 L MCV 88.4 MCH 29.0 MCHC 32.8 RDW 14.2 Plt Count 232 MPV 9.7 Immature Gran % (Auto) 0.3 Neut % (Auto) 73.7 H Lymph % (Auto) 17.3 L [place] % (Auto) 7.9 Eos % (Auto) 0.0 Baso % (Auto) 0.8 Lymph # (Auto) 2.1 [place] # (Auto) 1.0 Eos # (Auto) 0.0 Baso # (Auto) 0.1 Abs Immat Gran (auto) 0.04 H Absolute Neuts (auto) 8.8 H Absolute Nucleated RBC 0.000 Nucleated RBC % (auto) 0.0 Sodium 141 Potassium 4.1 Chloride 105 Carbon Dioxide 22 Anion Gap 18 BUN 20 H Creatinine 0.91 Estim Creat Clear Calc 96.2 Estimated GFR > 60 POC Glucose Random Glucose 96 Lactic Acid Calcium 9.5 Total Bilirubin 0.5 Direct Bilirubin 0.2 AST 13 ALT 16 Alkaline Phosphatase 136 H Troponin I High Sens 5.5 B-Natriuretic Peptide 26 Total Protein 7.7 Albumin 4.2 Lipase 7 L TSH Urine Color Urine Appearance Urine pH Ur Specific [place] Urine Protein Urine Glucose (UA) Urine Ketones Urine Blood Urine Nitrite Ur Leukocyte Esterase Urine RBC Urine WBC Ur Squamous Epith Cells Urine Bacteria Influenza Type A (PCR) Influenza Type B (PCR) RSV RNA Qual (PCR) SARS-CoV-2 RNA (RT-PCR) 01/16/22 01/16/22 01/16/22 12:00 14:06 16:00 WBC RBC Hgb Hct MCV MCH MCHC RDW Plt Count MPV Immature Gran % (Auto) Neut % (Auto) Lymph % (Auto) [place] % (Auto) Eos % (Auto) Baso % (Auto) Lymph # (Auto) [place] # (Auto) Eos # (Auto) Baso # (Auto) Abs Immat Gran (auto) Absolute Neuts (auto) Absolute Nucleated RBC Nucleated RBC % (auto) Sodium Potassium Chloride Carbon Dioxide Anion Gap BUN Creatinine Estim Creat Clear Calc Estimated GFR POC Glucose Random Glucose Lactic Acid 1.3 Calcium Total Bilirubin Direct Bilirubin AST ALT Alkaline Phosphatase Troponin I High Sens B-Natriuretic Peptide Total Protein Albumin Lipase TSH Urine Color YELLOW Urine Appearance CLOUDY Urine pH 6.0 Ur Specific [place] >= 1.030 H Urine Protein 2+ H Urine Glucose (UA) NEG Urine Ketones >=80 Urine Blood 3+ H Urine Nitrite NEG Ur Leukocyte Esterase 2+ H Urine RBC TNTC H Urine WBC 50-75 H Ur Squamous Epith Cells TRACE Urine Bacteria 2+ Influenza Type A (PCR) NEGATIVE Influenza Type B (PCR) NEGATIVE RSV RNA Qual (PCR) NEGATIVE SARS-CoV-2 RNA (RT-PCR) NEGATIVE 01/17/22 01/17/22 01/17/22 05:44 05:44 12:26 WBC 11.7 H RBC 4.58 L Hgb 13.3 L Hct 40.5 L MCV 88.4 MCH 29.0 MCHC 32.8 RDW 14.3 Plt Count 242 MPV 10.1 Immature Gran % (Auto) 0.5 H Neut % (Auto) 75.7 H Lymph % (Auto) 15.0 L [place] % (Auto) 8.1 Eos % (Auto) 0.0 Baso % (Auto) 0.7 Lymph # (Auto) 1.8 [place] # (Auto) 1.0 Eos # (Auto) 0.0 Baso # (Auto) 0.1 Abs Immat Gran (auto) 0.06 H Absolute Neuts (auto) 8.9 H Absolute Nucleated RBC 0.000 Nucleated RBC % (auto) 0.0 Sodium 139 Potassium 4.2 Chloride 107 Carbon Dioxide 19 L Anion Gap 17 BUN 21 H Creatinine 0.77 Estim Creat Clear Calc 114.0 Estimated GFR > 60 POC Glucose 107 Random Glucose 104 Lactic Acid Calcium 9.1 Total Bilirubin Direct Bilirubin AST ALT Alkaline Phosphatase Troponin I High Sens B-Natriuretic Peptide Total Protein Albumin Lipase TSH 2.37 Urine Color Urine Appearance Urine pH Ur Specific [place] Urine Protein Urine Glucose (UA) Urine Ketones Urine Blood Urine Nitrite Ur Leukocyte Esterase Urine RBC Urine WBC Ur Squamous Epith Cells Urine Bacteria Influenza Type A (PCR) Influenza Type B (PCR) RSV RNA Qual (PCR) SARS-CoV-2 RNA (RT-PCR) Imaging Radiology Impressions: ITS Impressions Chest X-Ray 01/16/22 11:55 IMPRESSION: No acute cardiopulmonary process. Abdomen/Pelvis CT 01/16/22 16:11 IMPRESSION: 1. Benign Bosniak class I and class II renal cysts. No further imaging or follow-up is needed. 2. Thick walled bladder with some air bubbles which may be within the wall. Findings can be seen with cystitis and correlate with urinalysis and urine culture. A prior catheterization of the bladder could also introduce air. 3. Prominent peripancreatic/portal, inguinal and iliac lymph nodes without gross retroperitoneal lymphadenopathy. Fleischner guidelines were followed. Head CT 01/17/22 11:57 IMPRESSION: No acute intracranial pathology. Mental Status Exam Mental Status Exam Narrative: Well-developed, well-nourished male, in NAD. Resting in bed. Dressed in hospital garb. Alert to self only. Able to state full name when asked, unable to answer any further questions. No cogwheeling, no lead pipe rigidity noted. Ambulation not observed. Patient Appearance: Fatigued and Appropriate Patient Orientation: Person Level of Consciousness: Disoriented Patient Behavior: Talkative (Rambling speech, mostly unintelligible.) and Poor Eye Contact Speech Pattern: Rambling Medications Medications Current Medications Acetaminophen (Acetaminophen 325 Mg Tablet) 650 mg PO Q6H PRN PRN Reason: Pain, Mild (Pain Scale 1-3) Amlodipine Besylate (Amlodipine Besylate 10 Mg Tablet) 10 mg PO DAILY [facility]; Protocol Last Admin: 01/17/22 09:09 Dose: 10 mg Documented by: Atorvastatin Calcium (Atorvastatin Calcium 40 Mg Tablet) 40 mg PO BEDTIME [facility] Clozapine (Clozapine 25 Mg Tablet) 50 mg PO DAILY [facility] Last Admin: 01/17/22 10:36 Dose: 50 mg Documented by: Clozapine (Clozapine 100 Mg Tablet) 200 mg PO BID [facility] Last Admin: 01/17/22 10:36 Dose: 200 mg Documented by: Divalproex Sodium (Divalproex Sodium 250 Mg Tablet.) 250 mg PO BID@0900,1800 [facility] Last Admin: 01/17/22 10:37 Dose: Not Given Documented by: Heparin Sodium (Porcine) (Heparin Sodium,Porcine 5,000 Unit/Ml Vial) 5,000 unit SUBCUT Q8H [facility] Last Admin: 01/17/22 09:10 Dose: 5,000 unit Documented by: Sodium Chloride (Ns) 1,000 mls @ 100 mls/hr IVCONT .Q10H [facility] Last Admin: 01/17/22 12:50 Dose: 100 mls/hr Documented by: Ceftriaxone Sodium 1 gm/ (Sodium Chloride) 50 mls @ 100 mls/hr IV Q24H [facility] Levothyroxine Sodium (Levothyroxine Sodium 88 Mcg Tablet) 88 mcg PO DAILY@0630 [facility] Last Admin: 01/17/22 10:36 Dose: 88 mcg Documented by: Loratadine (Loratadine 10 Mg Tablet) 10 mg PO DAILY [facility] Last Admin: 01/17/22 09:09 Dose: 10 mg Documented by: Lorazepam (Lorazepam 1 Mg Tablet) 1 mg PO BID@0900,1800 [facility] Last Admin: 01/17/22 09:09 Dose: 1 mg Documented by: Metoprolol Tartrate (Metoprolol Tartrate 50 Mg Tablet) 50 mg PO BID@0900,1800 [facility]; Protocol Last Admin: 01/17/22 09:10 Dose: 50 mg Documented by: Mirtazapine (Mirtazapine 30 Mg Tablet) 30 mg PO BEDTIME [facility] Multivitamins/Vitamin C (Multivitamin Tablet) 1 tab PO DAILY [facility] Last Admin: 01/17/22 09:09 Dose: 1 tab Documented by: Omeprazole (Omeprazole 20 Mg Capsule.) 20 mg PO DAILY@0630 [facility] Ondansetron HCl (Ondansetron Hcl 4 Mg/2 Ml Vial) 4 mg IVPUSH Q8H PRN PRN Reason: Nausea and Vomiting Pharmacy Consult (Consult Rx Perform Med Rec) 1 each MISCELLANE ONCE PRN PRN Reason: Consult order Sodium Chloride (0.9 % Sodium Chloride Flush 3 Ml Syringe) 3 ml IVFLUSH QSHIFT [facility] Last Admin: 01/17/22 09:15 Dose: Not Given Documented by: Tamsulosin HCl (Tamsulosin Hcl 0.4 Mg Capsule) 0.8 mg PO BEDTIME [facility] Allergies Allergies Allergy/AdvReac Type Severity Reaction Status Date / Time azithromycin Allergy Unknown Verified 09/25/21 12:15 Barbiturates Allergy Unknown Verified 09/25/21 12:15 erythromycin base Allergy Unknown Verified 09/25/21 12:15 fluphenazine Allergy Unknown Verified 09/25/21 12:15 haloperidol [From Haldol] Allergy Unknown Verified 09/25/21 12:15 phenobarbital Allergy Unknown Verified 09/25/21 12:15 Assessment & Plan Assessment & Plan (1) AMS (altered mental status): Status: Acute Code(s): R41.82 - Altered mental status, unspecified Assessment and Plan: Patient with history schizophrenia, on several antipsychotic medications. Has healthcare proxy/guardian, Martino in place. Presented to this hospital with mental status changes. Has been found to have UTI, currently receiving antibiotic therapy. Alert to self only. Per chart review, he has had similar presentation to this facility in September of this year. He appeared to return to baseline after receiving antibiotics for several days. Plan 1. Recommend lower clozapine at this time to 100 mg b.i.d., for several days. As patient's mentation improves (within several days), will be able to resume regular clozapine dosing. 2. Awaiting clozapine/norclozapine results. I have shared history amended patient with provider Dr. Omari Monson. Thank you. Psychiatry will follow along with patient while he is here. 2. I spent minutes with the patient and/or on the patient floor today, greater than?50% of which was spent counseling/coordinating care.
[2022-01-17 15:31] VITALS: BP 158/91; PULSE 118; RESP 18; TEMP 37.1; O2SAT 98
[2022-01-17] MEDS: cefTRIAXone sodium 1 GM in 0.9 % Sodium Chloride 50 ML IV (15:45)
[2022-01-17 15:50] LABS: Glucose, Whole Blood 93 mg/dL (60-115)
--- NOTE | 2022-01-17 16:17 | MHC.CM.PN ---
nurse ccase manager proposal ntoe electronic medical record reviewed along with case discussed with staff nurse , patient seen by the care team and psychiatry today per electronic medical fecord documentation ( patyient admitted from [facility] ;ltc with SIRS YTI AND SOME DEGREE OF CATONIA, TOXIC METABOLIC ENCEPHALOGRAPH SEC TO SIRS UTI CULTURES WERE OBTAIN AND AWAITING FINAL RESULTS, STARTED ON IV ROCEPHIN, IV FLUIDS CONTINUE HIS PREVIOUS MEDICATIONS AND BASELINE MEDICATIONS DISCHARGE PLAN RETURN BACK TO LTC AT [facility] [place] -CLINICAL UPDATES SENT 01/17/22 HAS WILL NEED RAPID COVID AT DISCHARGE
[2022-01-17] MEDS: Divalproex Sodium 250 MG TABLET.DR PO (17:41)
[2022-01-17 19:01] VITALS: BP 127/83; PULSE 120; RESP 18; TEMP 37; O2SAT 98
[2022-01-17 19:57] LABS: Glucose, Whole Blood 136 mg/dL (60-115)
[2022-01-17] MEDS: Tamsulosin HCL 0.4 MG CAPSULE 0.8 MG PO (20:47)
[2022-01-17] MEDS: Mirtazapine 30 MG TABLET PO (20:47)
[2022-01-17] MEDS: Atorvastatin Calcium 40 MG TABLET PO (20:47)
[2022-01-17 23:40] VITALS: BP 140/85; PULSE 106; RESP 18; TEMP 37.1; O2SAT 92
[2022-01-18] MEDS: Heparin Sodium,Porcine 5,000 UNIT/ML VIAL 5000 UNIT SUBCUT ×3 (00:30→16:20)
[2022-01-18] MEDS: 0.9 % Sodium Chloride 1,000 ML 100 ML IVCONT ×2 (00:30→09:41)
[2022-01-18 03:42] VITALS: BP 178/85; PULSE 104; RESP 17; TEMP 36.5; O2SAT 95
[2022-01-18] MEDS: Levothyroxine Sodium 88 MCG TABLET PO (05:32)
[2022-01-18] MEDS: Omeprazole 20 MG CAPSULE.DR PO (05:32)
[2022-01-18 07:27] VITALS: BP 123/78; PULSE 100; RESP 17; TEMP 36; O2SAT 95
[2022-01-18 07:53] LABS: Glucose, Whole Blood 95 mg/dL (60-115)
--- NOTE | 2022-01-18 08:00 | HO.PM.IMPN ---
Subjective Subjective Date of Service: 01/18/22 Interval History: uti Physical Exam Vital Signs: Vital Signs: Last Vital Signs Temp 96.8 F 01/18/22 07:27 Pulse 100 01/18/22 07:27 Resp 17 01/18/22 07:27 BP 123/78 01/18/22 07:27 Pulse Ox 95 01/18/22 07:27 BMI result Body Mass Index 30.8 Objective Data Active Medications Acetaminophen (Acetaminophen 325 Mg Tablet) 650 mg PO Q6H PRN PRN Reason: Pain, Mild (Pain Scale 1-3) Amlodipine Besylate (Amlodipine Besylate 10 Mg Tablet) 10 mg PO DAILY [facility]; Protocol Last Admin: 01/17/22 09:09 Dose: 10 mg Documented by: DEDRA Atorvastatin Calcium (Atorvastatin Calcium 40 Mg Tablet) 40 mg PO BEDTIME [facility] Last Admin: 01/17/22 20:47 Dose: 40 mg Documented by: LAITH Clozapine (Clozapine 25 Mg Tablet) 50 mg PO DAILY [facility] Last Admin: 01/17/22 10:36 Dose: 50 mg Documented by: DEDRA Clozapine (Clozapine 100 Mg Tablet) 200 mg PO BID [facility] Last Admin: 01/17/22 20:47 Dose: 200 mg Documented by: LAITH Divalproex Sodium (Divalproex Sodium 250 Mg Tablet.) 250 mg PO BID@0900,1800 [facility] Last Admin: 01/17/22 17:41 Dose: 250 mg Documented by: LAITH Heparin Sodium (Porcine) (Heparin Sodium,Porcine 5,000 Unit/Ml Vial) 5,000 unit SUBCUT Q8H [facility] Last Admin: 01/18/22 00:30 Dose: 5,000 unit Documented by: LAITH Sodium Chloride (Ns) 1,000 mls @ 100 mls/hr IVCONT .Q10H [facility] Last Admin: 01/18/22 00:30 Dose: 100 mls/hr Documented by: LAITH Ceftriaxone Sodium 1 gm/ (Sodium Chloride) 50 mls @ 100 mls/hr IV Q24H [facility] Last Infusion: 01/17/22 16:41 Dose: 100 mls/hr Documented by: LAITH Levothyroxine Sodium (Levothyroxine Sodium 88 Mcg Tablet) 88 mcg PO DAILY@0630 [facility] Last Admin: 01/18/22 05:32 Dose: 88 mcg Documented by: LAITH Loratadine (Loratadine 10 Mg Tablet) 10 mg PO DAILY [facility] Last Admin: 01/17/22 09:09 Dose: 10 mg Documented by: DEDRA Lorazepam (Lorazepam 1 Mg Tablet) 1 mg PO BID@0900,1800 [facility] Last Admin: 01/17/22 17:41 Dose: 1 mg Documented by: LAITH Metoprolol Tartrate (Metoprolol Tartrate 50 Mg Tablet) 50 mg PO BID@0900,1800 [facility]; Protocol Last Admin: 01/17/22 17:41 Dose: 50 mg Documented by: LAITH Mirtazapine (Mirtazapine 30 Mg Tablet) 30 mg PO BEDTIME [facility] Last Admin: 01/17/22 20:47 Dose: 30 mg Documented by: LAITH Multivitamins/Vitamin C (Multivitamin Tablet) 1 tab PO DAILY [facility] Last Admin: 01/17/22 09:09 Dose: 1 tab Documented by: DEDRA Omeprazole (Omeprazole 20 Mg Capsule.) 20 mg PO DAILY@0630 [facility] Last Admin: 01/18/22 05:32 Dose: 20 mg Documented by: LAITH Ondansetron HCl (Ondansetron Hcl 4 Mg/2 Ml Vial) 4 mg IVPUSH Q8H PRN PRN Reason: Nausea and Vomiting Pharmacy Consult (Consult Rx Perform Med Rec) 1 each MISCELLANE ONCE PRN PRN Reason: Consult order Sodium Chloride (0.9 % Sodium Chloride Flush 3 Ml Syringe) 3 ml IVFLUSH QSHIFT [facility] Last Admin: 01/18/22 00:32 Dose: Not Given Documented by: LAITH Non-Admin Reason: IV Running Tamsulosin HCl (Tamsulosin Hcl 0.4 Mg Capsule) 0.8 mg PO BEDTIME [facility] Last Admin: 01/17/22 20:47 Dose: 0.8 mg Documented by: LAITH Labs CBC & Chem 7: 01/17/22 05:44 01/18/22 08:22 Labs: Laboratory Results - last 24 hr 01/17/22 01/17/22 01/17/22 05:44 12:26 15:35 POC Glucose 107 93 TSH 2.37 01/17/22 01/18/22 19:00 07:28 POC Glucose 136 H 95 TSH Microbiology Microbiology Results: Microbiology 01/16/22 15:17 Urine Culture - Final Urine Catheterized - Straight Catheter Proteus mirabilis 01/16/22 16:09 Blood Culture - Preliminary Blood - Venous No growth after 24 hours. 01/16/22 16:00 Blood Culture - Preliminary Blood - Venous No growth after 24 hours. Assessment and Plan (1) Acute UTI: Status: Acute (2) Encephalopathy due to infection: Status: Resolved Plan day-3 71-year-old man [facility]? with sirs secondary to urinary tract infection with some degree of catatonia with a history of similar presentation last admission toxic metabolic encephalopathy/Sirs secondary to UTI ct head neg noted catatonia, apparently this happens when he has an infection Start Rocephin Follow cultures- Urine culture grew: Proteus mirabilis, blood culture at 24:00 hour negative Supportive care IV fluids, IV antibiotics Hypertension.? Stable blood pressure Continue amlodipine BPH continue tamsulosin Schizophrenia Continue baseline medications psych eval-noted .clozapine adjusted clozapine. Hypothyroidism Continue levothyroxine Normocytic anemia No bleeding obesity:cut down calories and wieght loss encouraged DVT prophylaxis with heparin inpatient need: toxic metabolic Encephalopathy, UTI. Quality Stroke Does the patient have a stroke diagnosis?: No VTE Prior VTE?: No VTE Risk Level:: Medical - moderate - high VTE Device Contraindication: Treatment Not Indicated VTE Drug Contraindication: N/A - Med Ordered
[2022-01-18 08:50] LABS: Anion Gap 12 (12-20); Blood Urea Nitrogen 19 mg/dL (9-16); Calcium 8.6 mg/dL (8.4-10.2); Carbon Dioxide 24 mmol/L (22-29); Chloride 108 mmol/L (96-108); Creatinine Clr Calc Pharmacy 118.6; Estimated Glomerular Filt Rate > 60; Glucose Random 114 mg/dL (60-115); Potassium 3.9 mmol/L (3.3-5.1); Sodium 140 mmol/L (135-145)
[2022-01-18] MEDS: amLODIPine Besylate 10 MG TABLET PO (09:41)
[2022-01-18] MEDS: LORazepam 1 MG TABLET PO ×2 (09:41→16:17)
[2022-01-18] MEDS: Loratadine 10 MG TABLET PO (09:41)
[2022-01-18] MEDS: Divalproex Sodium 250 MG TABLET.DR PO ×2 (09:41→16:17)
[2022-01-18] MEDS: Multivitamin TABLET 1 TAB PO (09:41)
[2022-01-18] MEDS: Metoprolol Tartrate 50 MG TABLET PO ×2 (09:41→16:17)
[2022-01-18 11:07] VITALS: BP 115/75; PULSE 85; RESP 17; TEMP 36.6; O2SAT 96
[2022-01-18 11:29] LABS: Glucose, Whole Blood 107 mg/dL (60-115)
[2022-01-18 15:30] VITALS: BP 135/71; PULSE 118; RESP 18; TEMP 36.6; O2SAT 97
[2022-01-18 15:56] LABS: Glucose, Whole Blood 95 mg/dL (60-115)
[2022-01-18] MEDS: cloZAPine 100 MG TABLET 200 MG PO (16:17)
[2022-01-18] MEDS: cefTRIAXone sodium 1 GM in 0.9 % Sodium Chloride 50 ML IV (16:20)
[2022-01-18 19:00] VITALS: BP 111/64; PULSE 87; RESP 18; TEMP 37.1; O2SAT 98
[2022-01-18] MEDS: Mirtazapine 30 MG TABLET PO (19:59)
[2022-01-18] MEDS: Tamsulosin HCL 0.4 MG CAPSULE 0.8 MG PO (19:59)
[2022-01-18] MEDS: 0.9 % Sodium Chloride Flush 3 ML SYRINGE IVFLUSH (19:59)
[2022-01-18] MEDS: Atorvastatin Calcium 40 MG TABLET PO (19:59)
[2022-01-18 20:50] LABS: Glucose, Whole Blood 132 mg/dL (60-115)
[2022-01-18 23:29] VITALS: BP 100/58; PULSE 90; RESP 17; TEMP 36.4; O2SAT 97
[2022-01-19] MEDS: Heparin Sodium,Porcine 5,000 UNIT/ML VIAL 5000 UNIT SUBCUT ×2 (00:29→08:35)
[2022-01-19 03:49] VITALS: BP 128/68; PULSE 89; RESP 18; TEMP 36.4; O2SAT 97
[2022-01-19] MEDS: Omeprazole 20 MG CAPSULE.DR PO (05:20)
[2022-01-19] MEDS: Levothyroxine Sodium 88 MCG TABLET PO (05:20)
[2022-01-19 07:45] LABS: Glucose, Whole Blood 111 mg/dL (60-115)
[2022-01-19 08:00] VITALS: BP 131/75; PULSE 102; RESP 18; TEMP 36.2; O2SAT 95
[2022-01-19] MEDS: amLODIPine Besylate 10 MG TABLET PO (08:34)
[2022-01-19] MEDS: Loratadine 10 MG TABLET PO (08:34)
[2022-01-19] MEDS: LORazepam 1 MG TABLET PO (08:34)
[2022-01-19] MEDS: Metoprolol Tartrate 50 MG TABLET PO (08:34)
[2022-01-19] MEDS: Multivitamin TABLET 1 TAB PO (08:34)
[2022-01-19] MEDS: Divalproex Sodium 250 MG TABLET.DR PO (08:34)
[2022-01-19] MEDS: cloZAPine 100 MG TABLET 200 MG PO (08:35)
[2022-01-19] MEDS: cloZAPine 25 MG TABLET 50 MG PO (08:35)
[2022-01-19] MEDS: 0.9 % Sodium Chloride Flush 3 ML SYRINGE IVFLUSH (08:45)
[2022-01-19 11:05] VITALS: BP 124/70; PULSE 100; RESP 17; TEMP 36.1; O2SAT 95
[2022-01-19 11:25] LABS: Glucose, Whole Blood 99 mg/dL (60-115)
--- NOTE | 2022-01-19 12:01 | MHC.CM.PN ---
NURSE SUPERVISOR CAB NOTE ELECTRONIC MEDICAL RECORD REVIEWED ALONG WITH CASE DISCUSSED WITH STAFF NURSE ANS THE HOSPITALIST . , PATIENT WILL BE DISCHARGED TODAY BACK TO [facility] , CONFIRMED ACCEPTANCE BACK. HE WILL BE TRANSPORTED [facility]IA [facility] TODAY 2PM, NOTIFIED PATIENTS HEALTH CARE PROXY ASHLEY RM [phone] [facility] WITH HER DISCHARGE PLAN [facility]N BACK TO [facility] CONFIRMED ACCEPTANCE AND TRANSPORT TIME TRANSPORTATION [facility] IMM UPDATED DISCHARGE PAPER WPROK SUMMARY/ORDERDS AND COVID TEST WILL BE SENT , FAMILY IS AWARE OF THE TRANSPEOTT BECK AND THERE COULD POSSIBLE BE DELAY IN AMBULANCE TIME , AND ACCEPTING PATIENT ALOS INFORMED
[2022-01-19 12:07] LABS: COVID-19 Test Negative (Negative)
--- NOTE | 2022-01-19 12:14 | PM.DS ---
DS: Providers Provider Date of Service: 01/19/22 Date of admission: 01/16/22 15:39 Primary care physician: Mary Yu MD Consults: 01/17/22 03:04 Consult to Care Team Routine Comment: Reason for consultation: psych history 01/17/22 08:31 Consult to Psychiatry Routine Consulting Provider: Psych Covering Reason for consultation: schizophrenia/catatonia Has provider been notified: No DS: Diagnosis Discharge Diagnosis (1) SIRS (systemic inflammatory response syndrome): Status: Acute (2) Acute UTI: Status: Acute DS: Summary Hospital Course Hospital Course: ?71-year-old man presenting from [facility] with mental status changes.? He does have a history of schizophrenia and has had recent episodes of catatonia especially when he has had an infection.? It appears similar today that he is speaking very little but able to make eye contact.? When asked if he had pain he said now.? Other than that he did not participate in the initial interview.? His urinalysis is positive, chest x-ray negative for consolidation or effusion, abdominal CT pending.? Tachycardia noted with no fever or leukocytosis.? He was discharged from [facility] in September of 2021 for very similar presentation and treated for Klebsiella UTI. ? He received a dose of Rocephin in the ER.? Will be admitted for further management and treatment of sirs secondary to urinary tract infection. Hospital course: Patient was admitted secondary to SIRS, UTI, toxic metabolic encephalopathy: Patient was given IV antibiotics seems to be improving- patient already got 3 days of IV antibiotic, Blood culture negative, urine culture grew Proteus mirabilis sensitive to ceftriaxone. patient has no fever and leukocytosis is trending down. patient was switched to p.o. Ceftin antibiotic upon discharge. His mental status is seems a at baseline, checked with the rehab. Assessment and plan coordination time spent 40 minutes. Time Spent with Patient Time attestation: Total time spent providing and/or coordinating discharge services: Discharge coordination time: Greater than 30 minutes Quality: Safe Use of Opioids Does Pt have an Active Cancer Diagnosis on the Problem List?: No Quality: Stroke Does the patient have a stroke diagnosis?: No Physical Exam Vital Signs: Vital Signs: Last Vital Signs Temp 96.9 F 01/19/22 11:05 Pulse 100 01/19/22 11:05 Resp 17 01/19/22 11:05 BP 124/70 01/19/22 11:05 Pulse Ox 95 01/19/22 11:05 BMI result Body Mass Index 30.8 Appearing in no acute distress ?head is normocephalic atraumatic ?lung sounds are clear to auscultation ?heart :rrr, clear? S1, S2 ?positive bowel sounds, abdomen is soft, nontender ?neuro : aox2 ,seems calm .seems his baseline . DS: Data Data Completed and Pending Labs on day of discharge: Laboratory Results - last 24 hr 01/18/22 01/18/22 01/19/22 15:33 19:02 07:33 POC Glucose 95 132 H 111 COVID-19 ([facility]CRU[facility]) COVID-19 Clin Com 01/19/22 01/19/22 11:03 11:35 POC Glucose 99 COVID-19 ([facility]) Negative COVID-19 Clin Com See Note Preliminary micro results at discharge 01/16/22 16:09 Blood Culture - Preliminary Blood - Venous No growth after 48 hours. 01/16/22 16:00 Blood Culture - Preliminary Blood - Venous No growth after 48 hours. Additional Comments Additional comments: CT/CT abdomen pelvis wo con IMPRESSION: 1.? Benign Bosniak class I and class II renal cysts. No further imaging or follow-up is needed. 2.? Thick walled bladder with some air bubbles which may be within the wall. Findings can be seen with cystitis and correlate with urinalysis and urine culture. A prior catheterization of the bladder could also introduce air. 3.? Prominent peripancreatic/portal, inguinal and iliac lymph nodes without gross retroperitoneal lymphadenopathy. CT/CT head/brain wo con IMPRESSION: No acute intracranial pathology. Discharge Plan Discharge Patient Disposition: er SNF Discharge Diagnosis: uti,sirs ,toxic metabolic encephalopathy [facility]Other[facility] - [facility] ([facility] ) Mary Yu MD [Primary Care Provider] - 1 Day ([facility],he will be transported via [facility] today family aware tram bakari sister /hcp) Discharge Medications: New cefuroxime axetil 500 mg tablet 500 mg PO BID Qty: 10 0RF Continued atorvastatin 40 mg Tablet 40 mg PO BEDTIME 0RF divalproex 250 mg Tablet,Delayed Release (Dr/Ec) 250 mg PO BID@0900,1800 0RF levothyroxine 88 mcg Tablet 88 mcg PO DAILY@0630 0RF tamsulosin 0.4 mg Capsule 0.8 mg PO BEDTIME 0RF amlodipine 10 mg Tablet 10 mg PO DAILY 0RF mirtazapine 30 mg Tablet 30 mg PO BEDTIME 0RF metoprolol tartrate 50 mg Tablet 50 mg PO BID@0900,1800 0RF lorazepam 1 mg Tablet 1 mg PO BID@0900,1800 0RF multivitamin with minerals Tablet 1 tab PO DAILY 0RF loratadine 10 mg Tablet 10 mg PO DAILY 0RF clozapine 50 mg Tablet 50 mg PO DAILY 0RF Rx Instructions: TOTAL DAILY DOSE = 450 MG ( 250 MG IN AM AND 200 MG AT BEDTIME) clozapine 200 mg Tablet 200 mg PO BID 0RF Rx Instructions: TOTAL DAILY DOSE = 450 MG ( 250 MG IN AM AND 200 MG AT BEDTIME) Aristada 882 mg/3.2 mL Suspension,Extended Rel Syring 882 mg IM QMONTH 0RF pantoprazole 40 mg Tablet,Delayed Release (Dr/Ec) 40 mg PO DAILY@0630 0RF Discharge Orders: Discharge Order (Routine); Ordered 01/19/22 Ordered By: Omari Monson Diet: advance to usual diet Activity on Discharge: As tolerated Stand Alone Forms: Patient Portal Discharge page Care Plan Goals: Patient was admitted secondary to SIRS, UTI, toxic metabolic encephalopathy: Patient was given IV antibiotics seems to be improving- patient already got 3 days of IV antibiotic, patient was switched to p.o. antibiotic upon discharge. His mental status is seems a at baseline, checked with the rehab. Health Concerns: As above. Plan of Treatment: As above. Assessment: As above.
--- NOTE | 2022-01-19 12:34 | PM.DS ---
DS: Providers Provider Date of Service: 01/19/22 Date of admission: 01/16/22 15:39 Primary care physician: Mary Yu MD Consults: 01/17/22 03:04 Consult to Care Team Routine Comment: Reason for consultation: psych history 01/17/22 08:31 Consult to Psychiatry Routine Consulting Provider: Psych Covering Reason for consultation: schizophrenia/catatonia Has provider been notified: No DS: Diagnosis Discharge Diagnosis (1) SIRS (systemic inflammatory response syndrome): Status: Acute (2) Acute UTI: Status: Acute DS: Summary Hospital Course Hospital Course: ?71-year-old man presenting from [facility] with mental status changes.? He does have a history of schizophrenia and has had recent episodes of catatonia especially when he has had an infection.? It appears similar today that he is speaking very little but able to make eye contact.? When asked if he had pain he said now.? Other than that he did not participate in the initial interview.? His urinalysis is positive, chest x-ray negative for consolidation or effusion, abdominal CT pending.? Tachycardia noted with no fever or leukocytosis.? He was discharged from [facility] in September of 2021 for very similar presentation and treated for Klebsiella UTI. ? He received a dose of Rocephin in the ER.? Will be admitted for further management and treatment of sirs secondary to urinary tract infection. Hospital course: Patient was admitted secondary to SIRS, UTI, toxic metabolic encephalopathy: Patient was given IV antibiotics seems to be improving- patient already got 3 days of IV antibiotic, Blood culture negative, urine culture grew Proteus mirabilis sensitive to ceftriaxone. ct abd shows possible cystitis (Please see detailed CT abdomen report below in imaging section.) patient has no fever and leukocytosis is trending down. patient was switched to p.o. Ceftin antibiotic upon discharge. history schizophrenia: on clozapine, His clozapine levels were checked this admission- which are still pending- follow-up outpatient with PCP. His mental status is seems a at baseline, checked with the rehab. Assessment and plan coordination time spent 40 minutes. Time Spent with Patient Time attestation: Total time spent providing and/or coordinating discharge services: Discharge coordination time: Greater than 30 minutes Quality: Safe Use of Opioids Does Pt have an Active Cancer Diagnosis on the Problem List?: No Quality: Stroke Does the patient have a stroke diagnosis?: No Physical Exam Vital Signs: Vital Signs: Last Vital Signs Temp 96.9 F 01/19/22 11:05 Pulse 100 01/19/22 11:05 Resp 17 01/19/22 11:05 BP 124/70 01/19/22 11:05 Pulse Ox 95 01/19/22 11:05 BMI result Body Mass Index 30.8 Appearing in no acute distress ?head is normocephalic atraumatic ?lung sounds are clear to auscultation ?heart :rrr, clear? S1, S2 ?positive bowel sounds, abdomen is soft, nontender ?neuro aox2 ,calm and comfortable (seems at his baseline) DS: Data Data Completed and Pending Labs on day of discharge: Laboratory Results - last 24 hr 01/18/22 01/18/22 01/19/22 15:33 19:02 07:33 POC Glucose 95 132 H 111 COVID-19 ([facility]) COVID-19 Clin Com 01/19/22 01/19/22 11:03 11:35 POC Glucose 99 COVID-19 ([facility]CRU[facility]) Negative COVID-19 Clin Com See Note Preliminary micro results at discharge 01/16/22 16:09 Blood Culture - Preliminary Blood - Venous No growth after 48 hours. 01/16/22 16:00 Blood Culture - Preliminary Blood - Venous No growth after 48 hours. Additional Comments Additional comments: CT/CT abdomen pelvis wo con IMPRESSION: 1.? Benign Bosniak class I and class II renal cysts. No further imaging or follow-up is needed. 2.? Thick walled bladder with some air bubbles which may be within the wall. Findings can be seen with cystitis and correlate with urinalysis and urine culture. A prior catheterization of the bladder could also introduce air. 3.? Prominent peripancreatic/portal, inguinal and iliac lymph nodes without gross retroperitoneal lymphadenopathy. CT/CT head/brain wo con IMPRESSION: No acute intracranial pathology. Discharge Plan Discharge Patient Disposition: [facility] Discharge Diagnosis: uti,sirs ,toxic metabolic encephalopathy [facility] - [facility] ) Mary Yu MD [Primary Care Provider] - 1 Day ([facility],he will be transported via [facility] today family aware tram bakari sister /hcp) Discharge Medications: New cefuroxime axetil 500 mg tablet 500 mg PO BID Qty: 10 0RF Continued atorvastatin 40 mg Tablet 40 mg PO BEDTIME 0RF divalproex 250 mg Tablet,Delayed Release (Dr/Ec) 250 mg PO BID@0900,1800 0RF levothyroxine 88 mcg Tablet 88 mcg PO DAILY@0630 0RF tamsulosin 0.4 mg Capsule 0.8 mg PO BEDTIME 0RF amlodipine 10 mg Tablet 10 mg PO DAILY 0RF mirtazapine 30 mg Tablet 30 mg PO BEDTIME 0RF metoprolol tartrate 50 mg Tablet 50 mg PO BID@0900,1800 0RF lorazepam 1 mg Tablet 1 mg PO BID@0900,1800 0RF multivitamin with minerals Tablet 1 tab PO DAILY 0RF loratadine 10 mg Tablet 10 mg PO DAILY 0RF clozapine 50 mg Tablet 50 mg PO DAILY 0RF Rx Instructions: TOTAL DAILY DOSE = 450 MG ( 250 MG IN AM AND 200 MG AT BEDTIME) clozapine 200 mg Tablet 200 mg PO BID 0RF Rx Instructions: TOTAL DAILY DOSE = 450 MG ( 250 MG IN AM AND 200 MG AT BEDTIME) Aristada 882 mg/3.2 mL Suspension,Extended Rel Syring 882 mg IM QMONTH 0RF pantoprazole 40 mg Tablet,Delayed Release (Dr/Ec) 40 mg PO DAILY@0630 0RF Discharge Orders: Discharge Order (Routine); Ordered 01/19/22 Ordered By: Omari Monson Diet: advance to usual diet Activity on Discharge: As tolerated Stand Alone Forms: Patient Portal Discharge page Care Plan Goals: Patient was admitted secondary to SIRS, UTI, toxic metabolic encephalopathy: Patient was given IV antibiotics seems to be improving- patient already got 3 days of IV antibiotic, patient was switched to p.o. antibiotic upon discharge. His mental status is seems a at baseline, checked with the rehab. Health Concerns: As above. Plan of Treatment: As above. Assessment: As above.
[2022-01-21 23:52] LABS: Clozapine (Clozaril) 373 mcg/L; Norclozapine 267 mcg/L (25-400)
== END 2022-01-19 16:28 | disposition skilled nursing facility (03) | DRG 689 ==
LOC: HO.ED 15:29 → HO.EDOVER 16:10 → HO.S3 01-17 00:56
PROVIDERS: Admitting Provider Nurse Practitioner Acute Care; Emergency Provider Emergency Medicine; PCP Internal Medicine; Visit Provider Internal Medicine
DX: N39.0 Urinary tract infection, site not specified (principal); G92.8 Other toxic encephalopathy; F41.9 Anxiety disorder, unspecified; N40.0 Benign prostatic hyperplasia without lower urinary tract symptoms; E03.9 Hypothyroidism, unspecified; D64.9 Anemia, unspecified; F20.9 Schizophrenia, unspecified; E66.9 Obesity, unspecified; Z68.30 Body mass index [BMI] 30.0-30.9, adult; F06.1 Catatonic disorder due to known physiological condition; B96.4 Proteus (mirabilis) (morganii) as the cause of diseases classified elsewhere; Z20.822 Contact with and (suspected) exposure to COVID-19; Z87.440 Personal history of urinary (tract) infections; Z88.1 Allergy status to other antibiotic agents; Z88.5 Allergy status to narcotic agent; Z88.8 Allergy status to other drugs, medicaments and biological substances; Z79.890 Hormone replacement therapy; Z79.899 Other long term (current) drug therapy
CPT/HCPCS: 0241U; 36415; 70450; 71045; 74176; 80048; 80076; 80159; 81001; 82947; 83605; 83690; 83880; 84443; 84484; 85025; 87040; 87086; 87088; 87186; 87635; 93005; 96365; 99284; 99285; J0696

== ENCOUNTER 2022-02-18 15:21 | Observation (INO) | payer MEDICARE, MEDICAID, SELFPAY ==
[2022-02-18] VITALS (7 sets, daily range): BP systolic 136–179; BP diastolic 74–104; PULSE 110–130; RESP 20–22; TEMP 36.3–36.8; O2SAT 95–98; BMI 27.6
--- NOTE | ~2022-02-18 | XR_ITS ---
EXAMINATION: XR CHEST CLINICAL INFORMATION: Weakness, rule out pneumonia. COMPARISON: 01/16/2022 chest radiograph. TECHNIQUE: Frontal view of the chest was obtained. FINDINGS: No significant abnormality is noted involving the heart, lungs, mediastinum, bony thorax or soft tissues. XR/XR chest 1V IMPRESSION: No acute cardiopulmonary process.
--- NOTE | ~2022-02-18 | CT_ITS ---
EXAMINATION: CT CHEST, ABDOMEN AND PELVIS WITHOUT CONTRAST CLINICAL INFORMATION: Altered mental status, tachycardia and fever COMPARISON: CT abdomen 01/16/2022 TECHNIQUE: Multidetector volumetric imaging was performed from the thoracic inlet through the pubic symphysis without IV contrast. Sagittal and coronal reformatted images were obtained on the technologist's workstation. This CT examination was performed using dose optimization techniques as appropriate, variously including the following: *Automated exposure control *Adjustment of mA and/or kV according to patient size (this includes techniques or standardized protocols for targeted exams where dose is matched to indication/reason for exam; i.e. extremities or head) *Use of iterative reconstruction technique DLP: 1245 mGy-cm FINDINGS: CHEST: Lung: Peribronchial thickening is present. No infiltrates, effusions or lung masses are seen. Mediastinum: The mediastinum is unremarkable. The central vascular structures are unremarkable. No hilar or mediastinal lymphadenopathy. Pericardium/Pleura: No significant effusion. No pleural mass or thickening. Chest Wall/Axilla: Unremarkable ABDOMEN/PELVIS: PERITONEAL SPACE: No significant free air or free fluid identified. LIVER, GALLBLADDER, AND BILIARY TREE: The liver is normal in size, shape, and attenuation. No focal hepatic lesion or biliary ductal dilatation is present. The gallbladder is again seen to contain multiple gallstones but otherwise is unremarkable with no evidence gallbladder wall thickening, or obvious pericholecystic inflammatory changes. PANCREAS: Unremarkable. SPLEEN: Unremarkable. ADRENAL GLANDS: Unremarkable. KIDNEYS AND URETERS: The kidneys are normal in size, shape, and attenuation. Multiple Bosniak class I bilateral renal cysts are present. A single 3.3 cm cyst in the left kidney medially has some mild mural calcification (Bosniak class II). No solid renal masses. No hydronephrosis, hydroureter, or calculi seen. There is nonspecific bilateral perinephric stranding. There has been no interval change when compared to the prior 01/16/2022 study BLADDER: Kim catheter is present in the bladder and the previously seen asymmetric thickening of the bladder wall is not appreciated. GASTROINTESTINAL TRACT: The small and large bowel are unremarkable. The appendix is unremarkable. ABDOMINAL WALL: No significant hernia is appreciated. Small inguinal hernias are seen containing only fat. LYMPH NODES: Again seen are prominent mildly enlarged periportal, peripancreatic, bilateral iliac lymph nodes, unchanged from prior. VASCULAR: Calcific atherosclerotic changes present in the aorta and iliofemoral vessels artery aneurysm. PELVIC VISCERA: Again seen is mild BPH OSSEOUS STRUCTURES: Mild degenerative changes are present throughout the spine. An intramedullary aysha and screw are present in the right hip. No bony destructive lesions. CT/CT abdomen pelvis wo con IMPRESSION: 1. Benign Bosniak class I and class II renal cysts. No further imaging or follow-up is needed. 2. Prominent peripancreatic/portal, inguinal and iliac lymph nodes without gross retroperitoneal lymphadenopathy, unchanged from prior. 3. A occult source for the patient's fever has not been found. Fleischner guidelines were followed.
--- NOTE | ~2022-02-18 | CT_ITS ---
EXAMINATION: CT HEAD WITHOUT CONTRAST CLINICAL INFORMATION: Acute mental status change COMPARISON: Head CT 01/17/2022 TECHNIQUE: Imaging was performed from the skull base to vertex without intravenous administration of contrast. This CT examination was performed using dose optimization techniques as appropriate, variously including the following: *Automated exposure control *Adjustment of mA and/or kV according to patient size (this includes techniques or standardized protocols for targeted exams where dose is matched to indication/reason for exam; i.e. extremities or head) *Use of iterative reconstruction technique Total exam dose length product: 821 mGy-cm FINDINGS: Exam quality degraded mildly by motion artifact. No intra or extra-axial fluid collection, hemorrhage, or mass. No ventriculomegaly. No midline shift or herniation. Basal cisterns are patent. Gage-white matter differentiation is maintained. No territorial encephalomalacia. Proportional prominence of the ventricles and sulcal spaces is consistent with mild volume loss, unchanged. There is no abnormal attenuation within the brain parenchyma. No calvarial fracture or soft tissue abnormality. The mastoid air cells and visualized portions of the paranasal sinuses are well aerated. CT/CT head/brain wo con IMPRESSION: 1. No acute intracranial pathology.
--- NOTE | 2022-02-18 15:58 | ED_ITS ---
HPI - Altered Mental Status General Chief Complaint: Altered Mental Status Stated Complaint: ? Sepsis Alert Time Seen by Provider: 02/18/22 15:49 Source: EMS and RN notes reviewed Mode of arrival: EMS Limitations: altered mental status History of Present Illness HPI narrative: 71-year-old male presents from longterm facility for altered mental status, decrease in responsiveness, and near catatonia. He was noted to have an elevated temperature of 101 degrees. Patient has had similar presentation in the past for UTI. Per baseline, patient is able to take care of himself, and speak without difficulty. MD complaint: altered mental status and decreased responsiveness Onset (ago): day(s) (1) Timing confirmed by: caregiver Severity: moderate Consistency of symptoms: constant Context: history of similar presentation Associated symptoms: fever Related Data Home Medications Medication Instructions Recorded Confirmed amlodipine 10 mg tablet 10 mg PO DAILY 09/25/21 02/18/22 aripiprazole lauroxil 882 mg/3.2 882 mg IM QMONTH 09/25/21 02/18/22 mL suspension, ext.rel. IM syringe (Ambrosiostada) atorvastatin 40 mg tablet 40 mg PO BEDTIME 09/25/21 02/18/22 clozapine 200 mg tablet 200 mg PO BID 09/25/21 02/18/22 clozapine 50 mg tablet 50 mg PO DAILY 09/25/21 02/18/22 divalproex 250 mg tablet,delayed 250 mg PO BID@0900,1800 09/25/21 02/18/22 release levothyroxine 88 mcg tablet 88 mcg PO DAILY@0630 09/25/21 02/18/22 loratadine 10 mg tablet 10 mg PO DAILY 09/25/21 02/18/22 lorazepam 1 mg tablet 1 mg PO BID@0900,1800 09/25/21 02/18/22 metoprolol tartrate 50 mg tablet 50 mg PO BID@0900,1800 09/25/21 02/18/22 mirtazapine 30 mg tablet 30 mg PO BEDTIME 09/25/21 02/18/22 multivitamin with minerals 1 tab PO DAILY 09/25/21 02/18/22 tamsulosin 0.4 mg capsule 0.4 mg PO BEDTIME 09/25/21 02/18/22 pantoprazole 40 mg tablet,delayed 40 mg PO DAILY@0630 01/16/22 02/18/22 release Allergies Allergy/AdvReac Type Severity Reaction Status Date / Time azithromycin Allergy Unknown Verified 09/25/21 12:15 Barbiturates Allergy Unknown Verified 09/25/21 12:15 erythromycin base Allergy Unknown Verified 09/25/21 12:15 fluphenazine Allergy Unknown Verified 09/25/21 12:15 haloperidol [From Haldol] Allergy Unknown Verified 09/25/21 12:15 phenobarbital Allergy Unknown Verified 09/25/21 12:15 Review of Systems Review of Systems: Yes Unobtainable due to mental status [facility] Past Medical History Attestation statement: The following information was validated with the patient. Source: old records reviewed Medical History Anemia, unspecified Anxiety disorder, unspecified Ataxic gait Benign prostatic hyperplasia without lower urinary tract symptoms Combined forms of age-related cataract, bilateral Corns and callosities COVID-19 Diabetes Essential (primary) hypertension Functional urinary incontinence Gastro-esophageal reflux disease without esophagitis Hallux valgus (acquired), unspecified foot History of falling Hyperlipidemia, unspecified Hypothyroidism, unspecified Insomnia, unspecified Mild cognitive impairment, so stated Muscle weakness (generalized) Nail dystrophy Other seasonal allergic rhinitis Personal history of (healed) traumatic fracture Presbyopia Schizophrenia Slurred speech Suicidal ideations Tinea unguium Type 2 diabetes mellitus with other circulatory complications Unspecified astigmatism, unspecified eye Unspecified osteoarthritis, unspecified site Social History Social History Household Members: Caregiver Housing: Longterm Unable to assess alcohol history related to: Unknown Alcohol intake: unknown Patient Tobacco Use Status: Tobacco use Unknown Advance Directives: Yes Advance Directives on File: Yes Advance Directives Date on File: 09/25/21 service: No Current occupational status: disabled Physical Exam ED Vital Signs: Vital Signs - 24 hr 02/18/22 15:39 02/18/22 16:34 02/18/22 17:36 Temperature 98.3 F 97.3 F Pulse Rate 112 H 113 H 115 H Respiratory Rate 20 22 H 20 Blood Pressure 179/97 H 173/98 H 171/96 H Pulse Oximetry 96 95 97 Oxygen Delivery Method Room Air Room Air Room Air 02/18/22 17:50 02/18/22 18:06 Temperature 97.3 F 97.3 F Pulse Rate 112 H 116 H Respiratory Rate 20 20 Blood Pressure 173/89 H 136/97 H Pulse Oximetry 98 97 Oxygen Delivery Method Room Air Room Air BMI result Body Mass Index 27.6 Appearance: Alert. Near catatonia. Eyes: Pupils equal, round and reactive to light. Sclera nonicteric. ENT: Pharynx normal. Dry mucous membranes. Neck: Normal inspection. Neck supple. No JVD. CVS: Tachycardic heart rate and rhythm. Apical pulse equal to pulses to extremities Respiratory: No respiratory distress. Lung sounds clear to auscultation, low lung volume secondary to patient unable to follow directions Abdomen: Soft and nontender. Skin: Skin warm and dry. Normal skin color. Normal skin turgor. Extremities: No lower extremity edema. Responsive to painful stimulus. Neuro: No motor deficit. No sensory deficit. Cranial nerves 2-12 grossly i ntact. Course Course Course Narrative: 71-year-old male presents from a longterm facility via EMS for elevated temperature, near catatonia, altered mental status, with suspicion of UTI. Tevin tomivon has had multiple presentations in the past consistent with his presentation today. Sepsis protocol followed. Patient did have a documented fever of 101 at the longterm facility, is tachycardic, and has significant altered mental status. Sepsis labs and protocol ordered by prior provider. 15:58 review of records indicates that patient has had prior cultures positive for Proteus mirabilis with sensitivity to ampicillin, ceftriaxone, and Levaquin. Dr. kulkarni ordered ceftriaxone with is sepsis fluid bundle. 16:57 urinalysis is clear, white count is 7.8, will order CT scan of head, chest, abdomen and pelvis, add on VBG, valproic acid and Clozaril levels. CT abdomen pelvis and head are negative for acute findings. 18:[address] Aviles, plan to admit for fever of unknown origin and altered mental status. Consultations Consultation #1: Dr. Aviles Time: 18:20 MDM - Altered Mental Status Differential Diagnosis Differential diagnosis: Likely altered mental status, delirium, encephalopathy, hypoglycemia, hyponatremia, renal failure and sepsis Medical Records Attestation: I reviewed the patient's medical records. Lab Data Attestation: I reviewed the patient's lab results. Result diagrams: 02/18/22 16:30 02/18/22 16:30 Labs: Lab Results 02/18/22 02/18/22 02/18/22 Range/Units 16:07 16:30 16:30 WBC 7.5 (4.8-10.8) X10*3/uL RBC 4.75 (4.60-5.80) X10*6/uL Hgb 13.4 L (14.0-18.0) g/dl Hct 41.2 L (42.0-52.0) % MCV 86.7 (80.0-98.0) fL MCH 28.2 (27.0-33.0) pg MCHC 32.5 (31.0-36.0) g/dl RDW 14.7 (11.0-16.0) % Plt Count 169 D (160-400) X10*3/uL MPV 9.5 (9.4-12.4) fL Immature Gran % (Auto) 0.3 (0.0-0.4) % Neut % (Auto) 67.2 (45-73) % Lymph % (Auto) 23.5 (20-40) % [place] % (Auto) 8.1 (2-11) % Eos % (Auto) 0.0 (0-4) % Baso % (Auto) 0.9 (0-2) % Lymph # (Auto) 1.8 (1.2-4.9) X10*3/uL [place] # (Auto) 0.6 (0.1-1.2) X10*3/uL Eos # (Auto) 0.0 (0.0-0.4) X10*3/uL Baso # (Auto) 0.1 (0.0-0.2) X10*3/uL Abs Immat Gran (auto) 0.02 (0.00-0.03) X10*3/uL Absolute Neuts (auto) 5.0 (2.0-8.3) x10*3/uL Absolute Nucleated RBC 0.000 (0.0-0.012) X10*3/uL Nucleated RBC % (auto) 0.0 (0.0-0.2) /100WBC PT 10.9 (10.0-13.1) SEC INR 1.0 (0.9-1.1) APTT 38.9 H (24.1-38.0) SEC VBG pH (7.32-7.43) VBG pCO2 mmHg VBG pO2 mmHg VBG HCO3 (22-26) mmol/L VBG O2 Saturation % VBG Base Excess mmol/L Sodium (135-145) mmol/L Potassium (3.3-5.1) mmol/L Chloride (96-108) mmol/L Carbon Dioxide (22-29) mmol/L Anion Gap (12-20) BUN (9-16) mg/dL Creatinine (0.5-1.4) mg/dL Estim Creat Clear Calc Estimated GFR Random Glucose (60-115) mg/dL Lactic Acid (0.5-2.0) mmol/L Calcium (8.4-10.2) mg/dL Total Bilirubin (0.0-1.0) mg/dL AST (5-37) U/L ALT (0-40) U/L Alkaline Phosphatase (39-117) U/L Troponin I High Sens (<3.5-35.0) ng/L Total Protein (6.5-8.0) g/dL Albumin (3.5-5.0) g/dL Urine Color Urine Appearance Urine pH (5.0-8.0) Ur Specific [place] (1.005-1.025) Urine Protein (NEG-TRACE) MG/DL Urine Glucose (UA) (NEG) MG/DL Urine Ketones (NEG) MG/DL Urine Blood (NEG) Urine Nitrite (NEG) Ur Leukocyte Esterase (NEG) Valproic Acid (50.0-100.0) mcg/mL COVID-19 ([facility]) Negative (Negative) COVID-19 Clin Com See Note 02/18/22 02/18/22 02/18/22 Range/Units 16:30 16:30 16:30 WBC (4.8-10.8) X10*3/uL RBC (4.60-5.80) X10*6/uL Hgb (14.0-18.0) g/dl Hct (42.0-52.0) % MCV (80.0-98.0) fL MCH (27.0-33.0) pg MCHC (31.0-36.0) g/dl RDW (11.0-16.0) % Plt Count (160-400) X10*3/uL MPV (9.4-12.4) fL Immature Gran % (Auto) (0.0-0.4) % Neut % (Auto) (45-73) % Lymph % (Auto) (20-40) % [place] % (Auto) (2-11) % Eos % (Auto) (0-4) % Baso % (Auto) (0-2) % Lymph # (Auto) (1.2-4.9) X10*3/uL [place] # (Auto) (0.1-1.2) X10*3/uL Eos # (Auto) (0.0-0.4) X10*3/uL Baso # (Auto) (0.0-0.2) X10*3/uL Abs Immat Gran (auto) (0.00-0.03) X10*3/uL Absolute Neuts (auto) (2.0-8.3) x10*3/uL Absolute Nucleated RBC (0.0-0.012) X10*3/uL Nucleated RBC % (auto) (0.0-0.2) /100WBC PT (10.0-13.1) SEC INR (0.9-1.1) APTT (24.1-38.0) SEC VBG pH (7.32-7.43) VBG pCO2 mmHg VBG pO2 mmHg VBG HCO3 (22-26) mmol/L VBG O2 Saturation % VBG Base Excess mmol/L Sodium 140 (135-145) mmol/L Potassium 3.9 (3.3-5.1) mmol/L Chloride 106 (96-108) mmol/L Carbon Dioxide 21 L (22-29) mmol/L Anion Gap 17 (12-20) BUN 15 (9-16) mg/dL Creatinine 0.80 (0.5-1.4) mg/dL Estim Creat Clear Calc 94.3 Estimated GFR > 60 Random Glucose 91 (60-115) mg/dL Lactic Acid 0.9 (0.5-2.0) mmol/L Calcium 8.8 (8.4-10.2) mg/dL Total Bilirubin 0.4 (0.0-1.0) mg/dL AST 17 (5-37) U/L ALT 24 (0-40) U/L Alkaline Phosphatase 126 H (39-117) U/L Troponin I High Sens 5.3 (<3.5-35.0) ng/L Total Protein 7.5 (6.5-8.0) g/dL Albumin 4.5 (3.5-5.0) g/dL Urine Color Urine Appearance Urine pH (5.0-8.0) Ur Specific [place] (1.005-1.025) Urine Protein (NEG-TRACE) MG/DL Urine Glucose (UA) (NEG) MG/DL Urine Ketones (NEG) MG/DL Urine Blood (NEG) Urine Nitrite (NEG) Ur Leukocyte Esterase (NEG) Valproic Acid (50.0-100.0) mcg/mL COVID-19 ([facility]) (Negative) COVID-19 Clin Com 02/18/22 02/18/22 02/18/22 Range/Units 16:44 17:47 17:51 WBC (4.8-10.8) X10*3/uL RBC (4.60-5.80) X10*6/uL Hgb (14.0-18.0) g/dl Hct (42.0-52.0) % MCV (80.0-98.0) fL MCH (27.0-33.0) pg MCHC (31.0-36.0) g/dl RDW (11.0-16.0) % Plt Count (160-400) X10*3/uL MPV (9.4-12.4) fL Immature Gran % (Auto) (0.0-0.4) % Neut % (Auto) (45-73) % Lymph % (Auto) (20-40) % [place] % (Auto) (2-11) % Eos % (Auto) (0-4) % Baso % (Auto) (0-2) % Lymph # (Auto) (1.2-4.9) X10*3/uL [place] # (Auto) (0.1-1.2) X10*3/uL Eos # (Auto) (0.0-0.4) X10*3/uL Baso # (Auto) (0.0-0.2) X10*3/uL Abs Immat Gran (auto) (0.00-0.03) X10*3/uL Absolute Neuts (auto) (2.0-8.3) x10*3/uL Absolute Nucleated RBC (0.0-0.012) X10*3/uL Nucleated RBC % (auto) (0.0-0.2) /100WBC PT (10.0-13.1) SEC INR (0.9-1.1) APTT (24.1-38.0) SEC VBG pH 7.32 (7.32-7.43) VBG pCO2 38 mmHg VBG pO2 55 mmHg VBG HCO3 20 L (22-26) mmol/L VBG O2 Saturation 80.0 % VBG Base Excess -5.3 mmol/L Sodium (135-145) mmol/L Potassium (3.3-5.1) mmol/L Chloride (96-108) mmol/L Carbon Dioxide (22-29) mmol/L Anion Gap (12-20) BUN (9-16) mg/dL Creatinine (0.5-1.4) mg/dL Estim Creat Clear Calc Estimated GFR Random Glucose (60-115) mg/dL Lactic Acid (0.5-2.0) mmol/L Calcium (8.4-10.2) mg/dL Total Bilirubin (0.0-1.0) mg/dL AST (5-37) U/L ALT (0-40) U/L Alkaline Phosphatase (39-117) U/L Troponin I High Sens (<3.5-35.0) ng/L Total Protein (6.5-8.0) g/dL Albumin (3.5-5.0) g/dL Urine Color YELLOW Urine Appearance CLEAR Urine pH 6.0 (5.0-8.0) Ur Specific [place] 1.015 (1.005-1.025) Urine Protein NEG (NEG-TRACE) MG/DL Urine Glucose (UA) NEG (NEG) MG/DL Urine Ketones 40 (NEG) MG/DL Urine Blood NEG (NEG) Urine Nitrite NEG (NEG) Ur Leukocyte Esterase NEG (NEG) Valproic Acid < 2.0 L (50.0-100.0) mcg/mL COVID-19 ([facility]) (Negative) COVID-19 Clin Com Imaging Data Chest x-ray: Attestation: I personally reviewed and interpreted this imaging study as follows: Radiologist's impression: EXAMINATION: XR CHEST CLINICAL INFORMATION: Weakness, rule out pneumonia. COMPARISON: 01/16/2022 chest radiograph. TECHNIQUE: Frontal view of the chest was obtained. FINDINGS: No significant abnormality is noted involving the heart, lungs, mediastinum, bony thorax or soft tissues. XR/XR chest 1V IMPRESSION: No acute cardiopulmonary process. CT scan - head: Attestation: I personally reviewed and interpreted this imaging study as follows: Radiologist's impression: FINDINGS: Exam quality degraded mildly by motion artifact. No intra or extra-axial fluid collection, hemorrhage, or mass. No ventriculomegaly. No midline shift or herniation. Basal cisterns are patent. Gage-white matter differentiation is maintained. No territorial encephalomalacia. ?Proportional prominence of the ventricles and sulcal spaces is consistent with mild volume loss, unchanged. There is no abnormal attenuation within the brain parenchyma. No calvarial fracture or soft tissue abnormality.? The mastoid air cells and visualized portions of the paranasal sinuses are well aerated. CT/CT head/brain wo con IMPRESSION: 1. No acute intracranial pathology. CT chest abdomen pelvis: Attestation: I personally reviewed and interpreted this imaging study as follows: Radiologist's impression: FINDINGS: CHEST: Lung: Peribronchial thickening is present. No infiltrates, effusions or lung masses are seen. Mediastinum: The mediastinum is unremarkable. The central vascular structures are unremarkable. No hilar or mediastinal lymphadenopathy. Pericardium/Pleura: No significant effusion. No pleural mass or thickening. Chest Wall/Axilla: Unremarkable ABDOMEN/PELVIS: PERITONEAL SPACE: No significant free air or free fluid identified. LIVER, GALLBLADDER, AND BILIARY TREE: The liver is normal in size, shape, and attenuation. No focal hepatic lesion or biliary ductal dilatation is present. The gallbladder is again seen to contain multiple gallstones but otherwise is unremarkable with no evidence gallbladder wall thickening, or obvious pericholecystic inflammatory changes.? PANCREAS: Unremarkable.? SPLEEN: Unremarkable.? ADRENAL GLANDS: Unremarkable.? KIDNEYS AND URETERS: The kidneys are normal in size, shape, and attenuation. Multiple Bosniak class I bilateral renal cysts are present. A single 3.3 cm cyst in the left kidney medially has some mild mural calcification (Bosniak class II). No solid renal masses. No hydronephrosis, hydroureter, or calculi seen. There is nonspecific bilateral perinephric stranding.? There has been no interval change when compared to the prior 01/16/2022 study BLADDER: Kim catheter is present in the bladder and the previously seen asymmetric thickening of the bladder wall is not appreciated.? GASTROINTESTINAL TRACT: The small and large bowel are unremarkable. The appendix is unremarkable.? ABDOMINAL WALL: No significant hernia is appreciated. Small inguinal hernias are seen containing only fat. LYMPH NODES: Again seen are prominent mildly enlarged periportal, peripancreatic, bilateral iliac lymph nodes, unchanged from prior. VASCULAR: Calcific atherosclerotic changes present in the aorta and iliofemoral vessels artery aneurysm. PELVIC VISCERA: Again seen is mild BPH? OSSEOUS STRUCTURES: Mild degenerative changes are present throughout the spine. An intramedullary aysha and screw are present in the right hip. No bony destructive lesions.? CT/CT chest wo con IMPRESSION: 1.? Benign Bosniak class I and class II renal cysts. No further imaging or follow-up is needed. 2.? Prominent peripancreatic/portal, inguinal and iliac lymph nodes without gross retroperitoneal lymphadenopathy, unchanged from prior. 3.? A occult source for the patient's fever has not been found. ECG Data ECG #1: Attestation: I personally reviewed and interpreted this ECG as follows: ECG interpretation date: 02/18/22 ECG interpretation time: 17:38 Prior ECG tracings: available for review Interpretation: Vent. rate 113 BPM MA interval 172 ms QRS duration 86 ms QT/QTc 336/460 ms P-R-T axes 71 19 75 Sinus tachycardia Possible Left atrial enlargement Borderline ECG When compared with ECG of 16-JAN-2022 11:39, Fusion complexes are no longer Present Discharge Plan Discharge Clinical Impression: AMS (altered mental status), Fever of unknown origin Patient Disposition: Admitted As Inpatient
[2022-02-18] MEDS: cefTRIAXone sodium 1 GM in 0.9 % Sodium Chloride 100 ML IV (16:28)
[2022-02-18 16:36] LABS: MANUAL DIFF FLAG NO
[2022-02-18 16:37] LABS: Basophils Absolute Auto 0.1 X10*3/uL (0.0-0.2); Basophils Percent Auto 0.9 % (0-2); Hematocrit 41.2 % (42.0-52.0); Hemoglobin 13.4 g/dl (14.0-18.0); Imm Gran Abs Auto 0.02 X10*3/uL (0.00-0.03); Imm Gran Pct Auto 0.3 % (0.0-0.4); Lymphocytes Absolute Auto 1.8 X10*3/uL (1.2-4.9); Lymphocytes Percent Auto 23.5 % (20-40); Mean Corpuscular HGB Conc 32.5 g/dl (31.0-36.0); Mean Corpuscular Hemoglobin 28.2 pg (27.0-33.0); Mean Corpuscular Volume 86.7 fL (80.0-98.0); Mean Platelet Volume 9.5 fL (9.4-12.4); Monocytes Absolute Auto 0.6 X10*3/uL (0.1-1.2); Monocytes Percent Auto 8.1 % (2-11); Neutrophils Percent Auto 67.2 % (45-73); Platelet Count 169 X10*3/uL (160-400); Red Blood Count 4.75 X10*6/uL (4.60-5.80); Red Cell Distribution Width 14.7 % (11.0-16.0); White Blood Count 7.5 X10*3/uL (4.8-10.8)
[2022-02-18 16:42] LABS: COVID-19 Test Negative (Negative); IDNOW Serial# 16C4AD1C
[2022-02-18 16:43] LABS: Prothrombin Time 10.9 SEC (10.0-13.1)
[2022-02-18 16:45] LABS: Partial Thromboplastin Time 38.9 SEC (24.1-38.0)
[2022-02-18 16:50] LABS: Appearance Urine CLEAR; Color Urine YELLOW; Glucose Urine UA NEG (NEG); Leukocyte Esterase Urine NEG (NEG); Nitrite Urine NEG (NEG); Specific Gravity - Urine 1.015 (1.005-1.025); Urine Blood NEG (NEG); Urine Ketones 40 MG/DL (NEG); Urine Protein NEG (NEG-TRACE)
[2022-02-18 16:54] LABS: Lactic Acid 0.9 mmol/L (0.5-2.0)
[2022-02-18 16:58] LABS: Alanine Aminotransferase 24 U/L (0-40); Albumin Level 4.5 g/dL (3.5-5.0); Alkaline Phosphatase 126 U/L (39-117); Anion Gap 17 (12-20); Aspartate Amino Transferase 17 U/L (5-37); Bilirubin Total 0.4 mg/dL (0.0-1.0); Blood Urea Nitrogen 15 mg/dL (9-16); Calcium 8.8 mg/dL (8.4-10.2); Carbon Dioxide 21 mmol/L (22-29); Chloride 106 mmol/L (96-108); Creatinine Clr Calc Pharmacy 94.3; Estimated Glomerular Filt Rate > 60; Glucose Random 91 mg/dL (60-115); Potassium 3.9 mmol/L (3.3-5.1); Sodium 140 mmol/L (135-145); Total Protein 7.5 g/dL (6.5-8.0)
--- NOTE | 2022-02-18 17:11 | ECG_ITS ---
Test Reason : tachycardia Blood Pressure : / mmHG Vent. Rate : 113 BPM Atrial Rate : 113 BPM P-R Int : 172 ms QRS Dur : 086 ms QT Int : 336 ms P-R-T Axes : 071 019 075 degrees QTc Int : 460 ms Sinus tachycardia Possible Left atrial enlargement Borderline ECG When compared with ECG of 16-JAN-2022 11:39, No significant changes seen Referred By: Altagracia Koenig Electronically Signed By:KIANNA HAMPTON
[2022-02-18 17:51] LABS: Troponin-I High Sensitivity 5.3 ng/L (<3.5-35.0)
[2022-02-18 17:55] LABS: Venous Blood Gas Refer to POC result
[2022-02-18 17:56] LABS: VBG Base Excess -5.3 mmol/L; VBG HCO3 20 mmol/L (22-26); VBG pCO2 38 mmHg; VBG pH 7.32 (7.32-7.43); VBG pO2 55 mmHg
--- NOTE | 2022-02-18 18:10 | PHA.MEDREC ---
Addendum entered by Saritha Ye [facility] 02/18/22 18:59: Spoke to grinding room supervisor, patient actually missed Atorvastatin, amlodipine, clozaril and depakote for the past two days. Per grinding room supervisor a sheet of MAR was missing. Dr. Gutierrez contacted and will restart at a lower dose. Original Note: Pharmacy Consult ? Medication Reconciliation Pharmacy has completed the medication reconciliation. Verified clozapine dose and last given was 7/3 am
[2022-02-18 18:29] LABS: Valproate < 2.0 mcg/mL (50.0-100.0)
--- NOTE | 2022-02-18 18:37 | P.HPHOSP_ITS ---
History of Present Illness Date of Service: 02/18/22 Chief Complaint: Altered mentation a 71 years old male with PMH of schizophrenia< hypertension< catatonic events who presents to the hospital with altered mentation From [facility], The patient is unable to provide any meaningful history> He was found altered mentation and repetitive movement by the nursing staff who decided to send him over to the emergency> Reported fever but never febrile in the emergency> Blood work seems within normal> He tends to have similar episodes of altered mentation and catatonia upon getting infection that usually improved in few days of treatment> Images including CT scan of head< chest abdomen and pelvis were all negative for any acute findings> Urinalysis clear> He received a dose of ceftriaxone in the emergency as empirical management He will be admitted for observation overnight. Review of Systems Review of Systems: Yes Unobtainable due to mental status [facility] Medical History Anemia, unspecified Anxiety disorder, unspecified Ataxic gait Benign prostatic hyperplasia without lower urinary tract symptoms Combined forms of age-related cataract, bilateral Corns and callosities COVID-19 Diabetes Essential (primary) hypertension Functional urinary incontinence Gastro-esophageal reflux disease without esophagitis Hallux valgus (acquired), unspecified foot History of falling Hyperlipidemia, unspecified Hypothyroidism, unspecified Insomnia, unspecified Mild cognitive impairment, so stated Muscle weakness (generalized) Nail dystrophy Other seasonal allergic rhinitis Personal history of (healed) traumatic fracture Presbyopia Schizophrenia Slurred speech Suicidal ideations Tinea unguium Type 2 diabetes mellitus with other circulatory complications Unspecified astigmatism, unspecified eye Unspecified osteoarthritis, unspecified site Social History Household Members: Caregiver Housing: [facility] Unable to assess alcohol history related to: Unknown Alcohol intake: unknown Patient Tobacco Use Status: Tobacco use Unknown Advance Directives: Yes Advance Directives on File: Yes Advance Directives Date on File: 09/25/21 service: No Current occupational status: disabled Meds Allergies Allergy/AdvReac Type Severity Reaction Status Date / Time azithromycin Allergy Unknown Verified 09/25/21 12:15 Barbiturates Allergy Unknown Verified 09/25/21 12:15 erythromycin base Allergy Unknown Verified 09/25/21 12:15 fluphenazine Allergy Unknown Verified 09/25/21 12:15 haloperidol [From Haldol] Allergy Unknown Verified 09/25/21 12:15 phenobarbital Allergy Unknown Verified 09/25/21 12:15 Active Medications: Current Medications Acetaminophen (Acetaminophen 325 Mg Tablet) 650 mg PO Q6H PRN PRN Reason: Pain, Mild (Pain Scale 1-3) Amlodipine Besylate (Amlodipine Besylate 10 Mg Tablet) 10 mg PO DAILY [facility]; Protocol Atorvastatin Calcium (Atorvastatin Calcium 40 Mg Tablet) 40 mg PO BEDTIME [facility] Clozapine (Clozapine 25 Mg Tablet) 50 mg PO DAILY [facility] Clozapine (Clozapine 100 Mg Tablet) 100 mg PO BID [facility] Divalproex Sodium (Divalproex Sodium 250 Mg Tablet.) 250 mg PO BID@0900,1800 [facility] Enoxaparin Sodium (Enoxaparin Sodium 40 Mg/0.4 Ml Syringe) 40 mg SUBCUT Q12H [facility] Ceftriaxone Sodium 1 gm/ (Sodium Chloride) 50 mls @ 100 mls/hr IV Q24H [facility] Levothyroxine Sodium (Levothyroxine Sodium 88 Mcg Tablet) 88 mcg PO DAILY@0630 [facility] Lorazepam (Lorazepam 1 Mg Tablet) 0.25 mg PO BID@0900,1800 [facility] Metoprolol Tartrate (Metoprolol Tartrate 50 Mg Tablet) 50 mg PO BID@0900,1800 [facility]; Protocol Mirtazapine (Mirtazapine 30 Mg Tablet) 30 mg PO BEDTIME [facility] Multivitamins/Vitamin C (Multivitamin Tablet) 1 tab PO DAILY [facility] Omeprazole (Omeprazole 20 Mg Capsule.) 20 mg PO DAILY@0630 [facility] Ondansetron HCl (Ondansetron Hcl 4 Mg/2 Ml Vial) 4 mg IVPUSH Q8H PRN PRN Reason: Nausea and Vomiting Pharmacy Consult (Consult Rx Perform Med Rec) 1 each MISCELLANE ONCE STA Stop: 02/18/22 16:29 Sodium Chloride (0.9 % Sodium Chloride Flush 3 Ml Syringe) 3 ml IVFLUSH QSHIFT [facility] Tamsulosin HCl (Tamsulosin Hcl 0.4 Mg Capsule) 0.4 mg PO BEDTIME [facility] Home Medications Medication Instructions Recorded Confirmed Last Taken Type amlodipine 10 mg tablet 10 mg PO DAILY 09/25/21 02/18/22 02/18/22 History aripiprazole lauroxil 882 mg/3.2 882 mg IM QMONTH 02/03/0902/18/22 02/18/22 His tory mL suspension, ext.rel. IM syringe ([place]) atorvastatin 40 mg tablet 40 mg PO BEDTIME 09/25/21 02/18/22 02/18/22 History clozapine 200 mg tablet 200 mg PO BID 09/25/21 02/18/22 02/18/22 History clozapine 50 mg tablet 50 mg PO DAILY 09/25/21 02/18/22 02/18/22 History divalproex 250 mg tablet,delayed 250 mg PO BID@0900,1800 09/25/21 02/18/22 02/18/22 History release levothyroxine 88 mcg tablet 88 mcg PO DAILY@0630 09/25/21 02/18/22 02/18/22 History loratadine 10 mg tablet 10 mg PO DAILY 09/25/21 02/18/22 02/18/22 History lorazepam 1 mg tablet 1 mg PO BID@0900,1800 09/25/21 02/18/22 02/18/22 History metoprolol tartrate 50 mg tablet 50 mg PO BID@0900,1800 09/25/21 02/18/22 02/18/22 History mirtazapine 30 mg tablet 30 mg PO BEDTIME 09/25/21 02/18/22 02/18/22 History multivitamin with minerals 1 tab PO DAILY 09/25/21 02/18/22 02/18/22 History tamsulosin 0.4 mg capsule 0.4 mg PO BEDTIME 09/25/21 02/18/22 02/18/22 History pantoprazole 40 mg tablet,delayed 40 mg PO DAILY@0630 01/16/22 02/18/22 02/18/22 History release Physical Exam Vital Signs and Narrative: Vital Signs: Last Vital Signs Temp 97.3 F 02/18/22 18:06 Pulse 116 H 02/18/22 18:06 Resp 20 02/18/22 18:06 BP 136/97 H 02/18/22 18:06 Pulse Ox 97 02/18/22 18:06 O2 Del Method 02/18/22 18:06 BMI result Body Mass Index 27.6 Const: Other: Constitutional : Alert With stimulation but confused, not in distress Neck : Normal inspection, Supple Cardiovascular : RRR, no JVP, no lower extremity edema Respiratory : fair bilateral air entry, no crackles, wheezes or rhonchi Gastrointestinal: soft, lax, Normal bowel sounds, Non tender Skin : Warm, Dry Neurological : Alert with stimulation< confused to time and place, No focal deficit , not following commands< left upper extremity tremors and repetitive movement> At rest Results Labs CBC and Chem 7: 02/18/22 16:30 02/18/22 16:30 Labs: Laboratory Results - last 24 hr 02/18/22 02/18/22 02/18/22 16:07 16:30 16:30 MCV 86.7 MCH 28.2 MCHC 32.5 RDW 14.7 Plt Count 169 D MPV 9.5 Immature Gran % (Auto) 0.3 Neut % (Auto) 67.2 Lymph % (Auto) 23.5 [place] % (Auto) 8.1 Eos % (Auto) 0.0 Baso % (Auto) 0.9 Lymph # (Auto) 1.8 [place] # (Auto) 0.6 Eos # (Auto) 0.0 Baso # (Auto) 0.1 Abs Immat Gran (auto) 0.02 Absolute Neuts (auto) 5.0 Absolute Nucleated RBC 0.000 Nucleated RBC % (auto) 0.0 PT 10.9 INR 1.0 APTT 38.9 H VBG pH VBG pCO2 VBG pO2 VBG HCO3 VBG O2 Saturation VBG Base Excess Anion Gap Estim Creat Clear Calc Estimated GFR Random Glucose Lactic Acid Calcium Total Bilirubin AST ALT Alkaline Phosphatase Troponin I High Sens Total Protein Albumin Urine Color Urine Appearance Urine pH Ur Specific [place] Urine Protein Urine Glucose (UA) Urine Ketones Urine Blood Urine Nitrite Ur Leukocyte Esterase Valproic Acid COVID-19 ([facility]) Negative COVID-19 Clin Com See Note 02/18/22 02/18/22 02/18/22 16:30 16:30 16:30 MCV MCH MCHC RDW Plt Count MPV Immature Gran % (Auto) Neut % (Auto) Lymph % (Auto) [place] % (Auto) Eos % (Auto) Baso % (Auto) Lymph # (Auto) [place] # (Auto) Eos # (Auto) Baso # (Auto) Abs Immat Gran (auto) Absolute Neuts (auto) Absolute Nucleated RBC Nucleated RBC % (auto) PT INR APTT VBG pH VBG pCO2 VBG pO2 VBG HCO3 VBG O2 Saturation VBG Base Excess Anion Gap 17 Estim Creat Clear Calc 94.3 Estimated GFR > 60 Random Glucose 91 Lactic Acid 0.9 Calcium 8.8 Total Bilirubin 0.4 AST 17 ALT 24 Alkaline Phosphatase 126 H Troponin I High Sens 5.3 Total Protein 7.5 Albumin 4.5 Urine Color Urine Appearance Urine pH Ur Specific [place] Urine Protein Urine Glucose (UA) Urine Ketones Urine Blood Urine Nitrite Ur Leukocyte Esterase Valproic Acid COVID-19 ([facility]) COVID-19 Clin Com 02/18/22 02/18/22 02/18/22 16:44 17:47 17:51 MCV MCH MCHC RDW Plt Count MPV Immature Gran % (Auto) Neut % (Auto) Lymph % (Auto) [place] % (Auto) Eos % (Auto) Baso % (Auto) Lymph # (Auto) [place] # (Auto) Eos # (Auto) Baso # (Auto) Abs Immat Gran (auto) Absolute Neuts (auto) Absolute Nucleated RBC Nucleated RBC % (auto) PT INR APTT VBG pH 7.32 VBG pCO2 38 VBG pO2 55 VBG HCO3 20 L VBG O2 Saturation 80.0 VBG Base Excess -5.3 Anion Gap Estim Creat Clear Calc Estimated GFR Random Glucose Lactic Acid Calcium Total Bilirubin AST ALT Alkaline Phosphatase Troponin I High Sens Total Protein Albumin Urine Color YELLOW Urine Appearance CLEAR Urine pH 6.0 Ur Specific [place] 1.015 Urine Protein NEG Urine Glucose (UA) NEG Urine Ketones 40 Urine Blood NEG Urine Nitrite NEG Ur Leukocyte Esterase NEG Valproic Acid < 2.0 L COVID-19 ([facility]) COVID-19 Clin Com Imaging Radiologist's Impressions: Impressions Chest X-Ray 02/18/22 15:56 IMPRESSION: No acute cardiopulmonary process. Head CT 02/18/22 17:37 IMPRESSION: 1. No acute intracranial pathology. Chest CT 02/18/22 17:39 IMPRESSION: 1. Benign Bosniak class I and class II renal cysts. No further imaging or follow-up is needed. 2. Prominent peripancreatic/portal, inguinal and iliac lymph nodes without gross retroperitoneal lymphadenopathy, unchanged from prior. 3. A occult source for the patient's fever has not been found. Fleischner guidelines were followed. Abdomen/Pelvis CT 02/18/22 17:40 IMPRESSION: 1. Benign Bosniak class I and class II renal cysts. No further imaging or follow-up is needed. 2. Prominent peripancreatic/portal, inguinal and iliac lymph nodes without gross retroperitoneal lymphadenopathy, unchanged from prior. 3. A occult source for the patient's fever has not been found. Fleischner guidelines were followed. Assessment and Plan (1) AMS (altered mental status): Status: Acute Plan a 71 years old male with PMH of schizophrenia< hypertension< catatonic events who presents to the hospital with altered mentation From [facility], toxic metabolic encephalopathy Unclear etiology< could be viral infection Started on empirical ceftriaxone for history of UTI eyes Recurrent reorientation Repetitive movement More alert but has abnormal repetitive movement in his upper extremities at rest To give a dose of lorazepam continue his home medications Hypertension Continue Amlodipine BPH continue tamsulosin Schizophrenia Continue baseline medications Decrease the dose of clozapine for tonight Hypothyroidism Continue levothyroxine DVT prophylaxis Lovenox Quality Stroke Does the patient have a stroke diagnosis?: No VTE Prior VTE?: No VTE Risk Level:: Medical - moderate - high VTE Device Contraindication: Treatment Not Indicated VTE Drug Contraindication: N/A - Med Ordered
[2022-02-18] MEDS: Enoxaparin Sodium 40 MG/0.4 ML SYRINGE SUBCUT (20:49)
--- NOTE | 2022-02-18 20:54 | PC.NURSE ---
attempted to medicate patient with ordered PO medications, but was unable. Pt unable to follow basic commands. Making random unrelated statements. Given Lovenox as ordered. aware.
--- NOTE | 2022-02-18 22:00 | PC.NURSE ---
Remeron & Clozapine unavailable in ED pyxis. ([facility]) aware. Will attempt to medicate upon arrival from Pharmacy. Spoke with Pharmacist Teja.
[2022-02-18] MEDS: Mirtazapine 30 MG TABLET PO (23:30)
[2022-02-18] MEDS: cloZAPine 25 MG TABLET PO (23:30)
[2022-02-19] VITALS (8 sets, daily range): BP systolic 116–140; BP diastolic 73–89; PULSE 77–125; RESP 16–24; TEMP 36.3–37.5; O2SAT 92–99
[2022-02-19] MEDS: 0.9 % Sodium Chloride Flush 3 ML SYRINGE IVFLUSH ×4 (01:00→23:44)
[2022-02-19] MEDS: Levothyroxine Sodium 88 MCG TABLET PO (07:07)
[2022-02-19] MEDS: Omeprazole 20 MG CAPSULE.DR PO (07:07)
--- NOTE | 2022-02-19 07:08 | PC.NURSE ---
Pt agreeable to take meds crushed in pudding.
[2022-02-19 08:33] LABS: Hemoglobin 13.5 g/dl (14.0-18.0); Mean Corpuscular HGB Conc 32.9 g/dl (31.0-36.0); Mean Corpuscular Hemoglobin 28.5 pg (27.0-33.0); Mean Corpuscular Volume 86.5 fL (80.0-98.0); Mean Platelet Volume 9.6 fL (9.4-12.4); Platelet Count 178 X10*3/uL (160-400); Red Blood Count 4.74 X10*6/uL (4.60-5.80); Red Cell Distribution Width 14.7 % (11.0-16.0); White Blood Count 8.7 X10*3/uL (4.8-10.8)
[2022-02-19 08:53] LABS: Anion Gap 16 (12-20); Blood Urea Nitrogen 14 mg/dL (9-16); Calcium 8.4 mg/dL (8.4-10.2); Carbon Dioxide 18 mmol/L (22-29); Chloride 109 mmol/L (96-108); Creatinine Clr Calc Pharmacy 103.3; Estimated Glomerular Filt Rate > 60; Glucose Random 96 mg/dL (60-115); Potassium 4.1 mmol/L (3.3-5.1); Sodium 139 mmol/L (135-145)
[2022-02-19] MEDS: Multivitamin TABLET 1 TAB PO (09:34)
[2022-02-19] MEDS: Metoprolol Tartrate 50 MG TABLET PO ×2 (09:34→17:33)
[2022-02-19] MEDS: amLODIPine Besylate 10 MG TABLET PO (09:34)
[2022-02-19] MEDS: LORazepam 1 MG TABLET PO ×2 (09:34→17:33)
[2022-02-19] MEDS: Divalproex Sodium 250 MG TABLET.DR PO ×2 (09:35→17:33)
--- NOTE | 2022-02-19 09:38 | PC.NURSE ---
Took pills crushed in pudding
--- NOTE | 2022-02-19 11:58 | P.PNIM_ITS ---
Subjective Subjective Date of Service: 02/19/22 Interval History: the patient was seen and evaluated this morning Laying in bed, remains altered, speaking to himself and having conversation Barely answering questions, confused overall One set of blood culture turned positive No reported other overnight events. Review of Systems Review of Systems: Yes Unobtainable due to mental status Physical Exam Vital Signs: Vital Signs: Last Vital Signs Temp 99.5 F 02/19/22 07:25 Pulse 120 H 02/19/22 09:33 Resp 19 02/19/22 09:33 BP 133/87 02/19/22 09:33 Pulse Ox 98 02/19/22 09:33 O2 Del Method 02/19/22 09:33 O2 Flow Rate 2 02/19/22 09:33 BMI result Body Mass Index 27.6 Const: Other: Constitutional : Alert With stimulation but confused, not in distress Neck : Normal inspection, Supple Cardiovascular : RRR, no JVP, no lower extremity edema Respiratory : fair bilateral air entry, no crackles, wheezes or rhonchi Gastrointestinal: soft, lax, Normal bowel sounds, Non tender Skin : Warm, Dry Neurological : Alert with stimulation< confused to time and place, No focal deficit , left upper extremity tremors and repetitive movement> Psych not following commands< speaking to himself, hallucinating Objective Data Active Medications Acetaminophen (Acetaminophen 325 Mg Tablet) 650 mg PO Q6H PRN PRN Reason: Pain, Mild (Pain Scale 1-3) Amlodipine Besylate (Amlodipine Besylate 10 Mg Tablet) 10 mg PO DAILY [facility]; Protocol Last Admin: 02/19/22 09:34 Dose: 10 mg Documented By: ARIADNA Atorvastatin Calcium (Atorvastatin Calcium 40 Mg Tablet) 40 mg PO BEDTIME [facility] Last Admin: 02/18/22 20:49 Dose: Not Given Documented By: MARIA DEL CARMEN Non-Admin Reason: Patient Refused Clozapine (Clozapine 25 Mg Tablet) 25 mg PO BEDTIME [facility] Last Admin: 02/18/22 23:30 Dose: 25 mg Documented By: MARIA DEL CARMEN Clozapine (Clozapine 100 Mg Tablet) 200 mg PO BID [facility] Divalproex Sodium (Divalproex Sodium 250 Mg Tablet.) 250 mg PO BID@0900,1800 [facility] Last Admin: 02/19/22 09:35 Dose: 250 mg Documented By: ARIADNA Enoxaparin Sodium (Enoxaparin Sodium 40 Mg/0.4 Ml Syringe) 40 mg SUBCUT Q24H [facility] Last Admin: 02/18/22 20:49 Dose: 40 mg Documented By: MARIA DEL CARMEN Ceftriaxone Sodium 1 gm/ (Sodium Chloride) 50 mls @ 100 mls/hr IV Q24H [facility] Levothyroxine Sodium (Levothyroxine Sodium 88 Mcg Tablet) 88 mcg PO DAILY@0630 [facility] Last Admin: 02/19/22 07:07 Dose: 88 mcg Documented By: ARON Lorazepam (Lorazepam 1 Mg Tablet) 1 mg PO BID@0900,1800 [facility] Last Admin: 02/19/22 09:34 Dose: 1 mg Documented By: ARIADNA Metoprolol Tartrate (Metoprolol Tartrate 50 Mg Tablet) 50 mg PO BID@0900,1800 [facility]; Protocol Last Admin: 02/19/22 09:34 Dose: 50 mg Documented By: ARIADNA Mirtazapine (Mirtazapine 30 Mg Tablet) 30 mg PO BEDTIME [facility] Last Admin: 02/18/22 23:30 Dose: 30 mg Documented By: MARIA DEL CARMEN Multivitamins/Vitamin C (Multivitamin Tablet) 1 tab PO DAILY [facility] Last Admin: 02/19/22 09:34 Dose: 1 tab Documented By: ARIADNA Omeprazole (Omeprazole 20 Mg Capsule.) 20 mg PO DAILY@0630 [facility] Last Admin: 02/19/22 07:07 Dose: 20 mg Documented By: ARON Ondansetron HCl (Ondansetron Hcl 4 Mg/2 Ml Vial) 4 mg IVPUSH Q8H PRN PRN Reason: Nausea and Vomiting Sodium Chloride (0.9 % Sodium Chloride Flush 3 Ml Syringe) 3 ml IVFLUSH QSHIFT [facility] Last Admin: 02/19/22 09:12 Dose: 3 ml Documented By: BONY Tamsulosin HCl (Tamsulosin Hcl 0.4 Mg Capsule) 0.4 mg PO BEDTIME [facility] Last Admin: 02/18/22 20:49 Dose: Not Given Documented By: MARIA DEL CARMEN Non-Admin Reason: Patient Refused Labs CBC & Chem 7: 02/19/22 08:13 02/19/22 08:14 Labs: Laboratory Results - last 24 hr 02/18/22 02/18/22 02/18/22 16:07 16:30 16:30 MCV 86.7 MCH 28.2 MCHC 32.5 RDW 14.7 Plt Count 169 D MPV 9.5 Immature Gran % (Auto) 0.3 Neut % (Auto) 67.2 Lymph % (Auto) 23.5 [place] % (Auto) 8.1 Eos % (Auto) 0.0 Baso % (Auto) 0.9 Lymph # (Auto) 1.8 [place] # (Auto) 0.6 Eos # (Auto) 0.0 Baso # (Auto) 0.1 Abs Immat Gran (auto) 0.02 Absolute Neuts (auto) 5.0 Absolute Nucleated RBC 0.000 Nucleated RBC % (auto) 0.0 PT 10.9 INR 1.0 APTT 38.9 H VBG pH VBG pCO2 VBG pO2 VBG HCO3 VBG O2 Saturation VBG Base Excess Anion Gap Estim Creat Clear Calc Estimated GFR Random Glucose Lactic Acid Calcium Total Bilirubin AST ALT Alkaline Phosphatase Troponin I High Sens Total Protein Albumin Urine Color Urine Appearance Urine pH Ur Specific [place] Urine Protein Urine Glucose (UA) Urine Ketones Urine Blood Urine Nitrite Ur Leukocyte Esterase Valproic Acid COVID-19 ([facility]) Negative COVID-19 Clin Com See Note 02/18/22 02/18/22 02/18/22 16:30 16:30 16:30 MCV MCH MCHC RDW Plt Count MPV Immature Gran % (Auto) Neut % (Auto) Lymph % (Auto) [place] % (Auto) Eos % (Auto) Baso % (Auto) Lymph # (Auto) [place] # (Auto) Eos # (Auto) Baso # (Auto) Abs Immat Gran (auto) Absolute Neuts (auto) Absolute Nucleated RBC Nucleated RBC % (auto) PT INR APTT VBG pH VBG pCO2 VBG pO2 VBG HCO3 VBG O2 Saturation VBG Base Excess Anion Gap 17 Estim Creat Clear Calc 94.3 Estimated GFR > 60 Random Glucose 91 Lactic Acid 0.9 Calcium 8.8 Total Bilirubin 0.4 AST 17 ALT 24 Alkaline Phosphatase 126 H Troponin I High Sens 5.3 Total Protein 7.5 Albumin 4.5 Urine Color Urine Appearance Urine pH Ur Specific [place] Urine Protein Urine Glucose (UA) Urine Ketones Urine Blood Urine Nitrite Ur Leukocyte Esterase Valproic Acid COVID-19 ([facility]) COVID-19 Clin Com 0702/18/22 02/18/22 16:44 17:47 17:51 MCV MCH MCHC RDW Plt Count MPV Immature Gran % (Auto) Neut % (Auto) Lymph % (Auto) [place] % (Auto) Eos % (Auto) Baso % (Auto) Lymph # (Auto) [place] # (Auto) Eos # (Auto) Baso # (Auto) Abs Immat Gran (auto) Absolute Neuts (auto) Absolute Nucleated RBC Nucleated RBC % (auto) PT INR APTT VBG pH 7.32 VBG pCO2 38 VBG pO2 55 VBG HCO3 20 L VBG O2 Saturation 80.0 VBG Base Excess -5.3 Anion Gap Estim Creat Clear Calc Estimated GFR Random Glucose Lactic Acid Calcium Total Bilirubin AST ALT Alkaline Phosphatase Troponin I High Sens Total Protein Albumin Urine Color YELLOW Urine Appearance CLEAR Urine pH 6.0 Ur Specific [place] 1.015 Urine Protein NEG Urine Glucose (UA) NEG Urine Ketones 40 Urine Blood NEG Urine Nitrite NEG Ur Leukocyte Esterase NEG Valproic Acid < 2.0 L COVID-19 ([facility]) COVID-[employer] 02/19/22 02/19/22 08:13 08:14 MCV 86.5 MCH 28.5 MCHC 32.9 RDW 14.7 Plt Count 178 MPV 9.6 Immature Gran % (Auto) Neut % (Auto) Lymph % (Auto) [place] % (Auto) Eos % (Auto) Baso % (Auto) Lymph # (Auto) [place] # (Auto) Eos # (Auto) Baso # (Auto) Abs Immat Gran (auto) Absolute Neuts (auto) Absolute Nucleated RBC 0.000 Nucleated RBC % (auto) 0.0 PT INR APTT VBG pH VBG pCO2 VBG pO2 VBG HCO3 VBG O2 Saturation VBG Base Excess Anion Gap 16 Estim Creat Clear Calc 103.3 Estimated GFR > 60 Random Glucose 96 Lactic Acid Calcium 8.4 Total Bilirubin AST ALT Alkaline Phosphatase Troponin I High Sens Total Protein Albumin Urine Color Urine Appearance Urine pH Ur Specific [place] Urine Protein Urine Glucose (UA) Urine Ketones Urine Blood Urine Nitrite Ur Leukocyte Esterase Valproic Acid COVID-19 ([facility]) COVID-19 [facility] Com Microbiology Microbiology Results: Microbiology 02/18/22 16:23 Blood Culture - Preliminary Blood - Venous Prelim: GPC Gram Stain only Assessment and Plan (1) AMS (altered mental status): Status: Acute (2) SIRS (systemic inflammatory response syndrome): Status: Acute (3) Positive blood culture: Status: Acute Plan a 71 years old male with PMH of schizophrenia< hypertension< catatonic events who presents to the hospital with altered mentation From [facility], toxic metabolic encephalopathy Unclear etiology< could be infection, medication, withdrawal Started on empirical ceftriaxone for history of UTI To restart his psych medications Recurrent reorientation Positive blood culture One set growing gram-positive cocci, likely contaminant With Keep on vancomycin empirically for now Repetitive movement More alert but has abnormal repetitive movement in his upper extremities at rest Continue lorazepam continue his home medications Hypertension Continue Amlodipine BPH continue tamsulosin Schizophrenia Patient is hallucinating, seems to be missing his medications for the last few days per the admission Continue baseline medications Discussed with Psychiatry, to start his home does clozapine Psychiatry consult pending Hypothyroidism Continue levothyroxine DVT prophylaxis Lovenox Quality Stroke Does the patient have a stroke diagnosis?: No VTE Prior VTE?: No VTE Risk Level:: Medical - moderate - high VTE Device Contraindication: Treatment Not Indicated VTE Drug Contraindication: N/A - Med Ordered
--- NOTE | 2022-02-19 12:42 | PHA.PROG ---
Admission Date/Time: February 18, 2022 18:31 Indication: Bactermia Weight in k.2 kg Adjusted body weight in K.4 kg [place] body weight in K.6 kg Obesity Dosing Indication % IBW: 118% Serum Creatinine - Last 168 Hours 02/18/22 02/19/22 16:30 08:14 Creatinine 0.80 0.73 Estimated CrCl and GFR - Last 168 Hours 02/18/22 02/19/22 16:30 08:14 Estim Creat Clear Calc 94.3 103.3 Estimated GFR > 60 > 60 Vancomycin Loading Dose: 2000 mg (21.6 mg/kg) Current Vancomycin Dosing Regimen: 1000 mg (10 mg/kg) Q12H Date and Time for next Vancomycin Level to be drawn: 02/20 @ 1200 Pharmacist Comments on Vancomycin Plan: Vancomycin 2000 mg loading dose to be giben 02/19 @ 1400. Maintenance dose 1000 mg Q12H to start 02/20 @ 0200. Expected AUC 437 with a trough of 13.6. Patient > 65 typically receive Q24H dosing, since patient is 6ft and 92.2 kg but not obese patient will need to be start at Q12H. Since we are starting with Q12H with his age, we will get a vancomycin level after 2 dose to access for patient safety. Pharmacy will monitor renal function daily. Courtney Acosta PharmD Vancomycin dosing will take advantage of [employer] as a clinical decision support tool that uses Bayesian modeling to calculate individual patient's pharmacokinetic parameters and forecast the patient's drug concentration time course with the target goal AUC 24 range of 400 - 600 mg/L/hr.
[2022-02-19] MEDS: cloZAPine 100 MG TABLET 200 MG PO (14:39)
--- NOTE | 2022-02-19 14:41 | PM.PSYCN ---
History of Present Illness Date of Service: 02/19/22 Chief Complaint: ? Sepsis Alert Reason for Consult: Clarification on clozapine dosing after missing 2 days. Discussed with referring provider: Yes Sources of Information: chart reviewed HPI Narrative: attempted to meet with patient in the ED area. He is alert. His talking to himself. Disorganized. Unclear baseline. Reviewed record and noted recent discharge 1 month ago from medical floor- Clozaril at that time consistent with current dosing i.e. 250 mg daytime and 200 mg at bedtime. Past Psychiatric History: Bryan Santiago, recently moved to [facility] Personal & Social History: [facility] Medical History (Updated 02/19/22 @ 12:06 by Michelle Aviles MD) Anemia, unspecified Anxiety disorder, unspecified Ataxic gait Benign prostatic hyperplasia without lower urinary tract symptoms Combined forms of age-related cataract, bilateral Corns and callosities COVID-19 Diabetes Essential (primary) hypertension Functional urinary incontinence Gastro-esophageal reflux disease without esophagitis Hallux valgus (acquired), unspecified foot History of falling Hyperlipidemia, unspecified Hypothyroidism, unspecified Insomnia, unspecified Mild cognitive impairment, so stated Muscle weakness (generalized) Nail dystrophy Other seasonal allergic rhinitis Personal history of (healed) traumatic fracture Presbyopia Schizophrenia Slurred speech Suicidal ideations Tinea unguium Type 2 diabetes mellitus with other circulatory complications Unspecified astigmatism, unspecified eye Unspecified osteoarthritis, unspecified site Family History: unknown Social History: Has two sisters, Kandice (PHP/guardian) and Andreina (POA). Patient disabled. Has guardianship on file, has Martino on file. Trauma History: unknown Diagnostics Vital Signs (24Hr): Vital Signs - 24 hr 02/18/22 15:39 02/18/22 16:34 02/18/22 17:36 Temperature 98.3 F 97.3 F Pulse Rate 112 H 113 H 115 H Respiratory Rate 20 22 H 20 Blood Pressure 179/97 H 173/98 H 171/96 H Pulse Oximetry 96 95 97 Oxygen Delivery Method Room Air Room Air Room Air Oxygen Flow Rate 02/18/22 17:50 02/18/22 18:06 02/18/22 20:34 Temperature 97.3 F 97.3 F 97.9 F Pulse Rate 112 H 116 H 113 H Respiratory Rate 20 20 20 Blood Pressure 173/89 H 136/97 H 153/91 H Pulse Oximetry 98 97 95 Oxygen Delivery Method Room Air Room Air Room Air Oxygen Flow Rate 02/18/22 20:20 02/19/22 05:30 02/19/22 06:09 Temperature 97.9 F 98.2 F 99.1 F Pulse Rate 110 H 120 H 125 H Respiratory Rate 22 H 18 16 Blood Pressure 157/74 H 123/87 129/89 Pulse Oximetry 97 99 98 Oxygen Delivery Method Room Air Room Air Nasal Cannula Oxygen Flow Rate 2 02/19/22 07:25 02/19/22 09:33 Temperature 99.5 F Pulse Rate 120 H 120 H Respiratory Rate 24 H 19 Blood Pressure 127/73 133/87 Pulse Oximetry 98 98 Oxygen Delivery Method Room Air Nasal Cannula Oxygen Flow Rate 2 BMI result Body Mass Index 27.6 Labs Results: 02/19/22 08:13 02/19/22 08:14 Labs: Laboratory Results - last 48 hr 02/18/22 02/18/22 02/18/22 16:07 16:30 16:30 WBC 7.5 RBC 4.75 Hgb 13.4 L Hct 41.2 L MCV 86.7 MCH 28.2 MCHC 32.5 RDW 14.7 Plt Count 169 D MPV 9.5 Immature Gran % (Auto) 0.3 Neut % (Auto) 67.2 Lymph % (Auto) 23.5 [place] % (Auto) 8.1 Eos % (Auto) 0.0 Baso % (Auto) 0.9 Lymph # (Auto) 1.8 [place] # (Auto) 0.6 Eos # (Auto) 0.0 Baso # (Auto) 0.1 Abs Immat Gran (auto) 0.02 Absolute Neuts (auto) 5.0 Absolute Nucleated RBC 0.000 Nucleated RBC % (auto) 0.0 PT 10.9 INR 1.0 APTT 38.9 H VBG pH VBG pCO2 VBG pO2 VBG HCO3 VBG O2 Saturation VBG Base Excess Sodium Potassium Chloride Carbon Dioxide Anion Gap BUN Creatinine Estim Creat Clear Calc Estimated GFR Random Glucose Lactic Acid Calcium Total Bilirubin AST ALT Alkaline Phosphatase Troponin I High Sens Total Protein Albumin Urine Color Urine Appearance Urine pH Ur Specific [place] Urine Protein Urine Glucose (UA) Urine Ketones Urine Blood Urine Nitrite Ur Leukocyte Esterase Valproic Acid COVID-19 ([facility]) Negative COVID-19 Clin Com See Note 02/18/22 02/18/22 02/18/22 16:30 16:30 16:30 WBC RBC Hgb Hct MCV MCH MCHC RDW Plt Count MPV Immature Gran % (Auto) Neut % (Auto) Lymph % (Auto) [place] % (Auto) Eos % (Auto) Baso % (Auto) Lymph # (Auto) [place] # (Auto) Eos # (Auto) Baso # (Auto) Abs Immat Gran (auto) Absolute Neuts (auto) Absolute Nucleated RBC Nucleated RBC % (auto) PT INR APTT VBG pH VBG pCO2 VBG pO2 VBG HCO3 VBG O2 Saturation VBG Base Excess Sodium 140 Potassium 3.9 Chloride 106 Carbon Dioxide 21 L Anion Gap 17 BUN 15 Creatinine 0.80 Estim Creat Clear Calc 94.3 Estimated GFR > 60 Random Glucose 91 Lactic Acid 0.9 Calcium 8.8 Total Bilirubin 0.4 AST 17 ALT 24 Alkaline Phosphatase 126 H Troponin I High Sens 5.3 Total Protein 7.5 Albumin 4.5 Urine Color Urine Appearance Urine pH Ur Specific [place] Urine Protein Urine Glucose (UA) Urine Ketones Urine Blood Urine Nitrite Ur Leukocyte Esterase Valproic Acid COVID-19 ([facility]) COVID-19 [facility] 02/18/22 02/18/22 02/18/22 16:44 17:47 17:51 WBC RBC Hgb Hct MCV MCH MCHC RDW Plt Count MPV Immature Gran % (Auto) Neut % (Auto) Lymph % (Auto) [place] % (Auto) Eos % (Auto) Baso % (Auto) Lymph # (Auto) [place] # (Auto) Eos # (Auto) Baso # (Auto) Abs Immat Gran (auto) Absolute Neuts (auto) Absolute Nucleated RBC Nucleated RBC % (auto) PT INR APTT VBG pH 7.32 VBG pCO2 38 VBG pO2 55 VBG HCO3 20 L VBG O2 Saturation 80.0 VBG Base Excess -5.3 Sodium Potassium Chloride Carbon Dioxide Anion Gap BUN Creatinine Estim Creat Clear Calc Estimated GFR Random Glucose Lactic Acid Calcium Total Bilirubin AST ALT Alkaline Phosphatase Troponin I High Sens Total Protein Albumin Urine Color YELLOW Urine Appearance CLEAR Urine pH 6.0 Ur Specific [place] 1.015 Urine Protein NEG Urine Glucose (UA) NEG Urine Ketones 40 Urine Blood NEG Urine Nitrite NEG Ur Leukocyte Esterase NEG Valproic Acid < 2.0 L COVID-19 ([facility]) COVID-19 [employer] Com 02/19/22 02/19/22 08:13 08:14 WBC 8.7 RBC 4.74 Hgb 13.5 L Hct 41.0 L MCV 86.5 MCH 28.5 MCHC 32.9 RDW 14.7 Plt Count 178 MPV 9.6 Immature Gran % (Auto) Neut % (Auto) Lymph % (Auto) [place] % (Auto) Eos % (Auto) Baso % (Auto) Lymph # (Auto) [place] # (Auto) Eos # (Auto) Baso # (Auto) Abs Immat Gran (auto) Absolute Neuts (auto) Absolute Nucleated RBC 0.000 Nucleated RBC % (auto) 0.0 PT INR APTT VBG pH VBG pCO2 VBG pO2 VBG HCO3 VBG O2 Saturation VBG Base Excess Sodium 139 Potassium 4.1 Chloride 109 H Carbon Dioxide 18 L Anion Gap 16 BUN 14 Creatinine 0.73 Estim Creat Clear Calc 103.3 Estimated GFR > 60 Random Glucose 96 Lactic Acid Calcium 8.4 Total Bilirubin AST ALT Alkaline Phosphatase Troponin I High Sens Total Protein Albumin Urine Color Urine Appearance Urine pH Ur Specific [place] Urine Protein Urine Glucose (UA) Urine Ketones Urine Blood Urine Nitrite Ur Leukocyte Esterase Valproic Acid COVID-19 ([facility]) COVID-19 Clin Com Imaging Radiology Impressions: ITS Impressions Chest X-Ray 02/18/22 15:56 IMPRESSION: No acute cardiopulmonary process. Head CT 02/18/22 17:37 IMPRESSION: 1. No acute intracranial pathology. Chest CT 02/18/22 17:39 IMPRESSION: 1. Benign Bosniak class I and class II renal cysts. No further imaging or follow-up is needed. 2. Prominent peripancreatic/portal, inguinal and iliac lymph nodes without gross retroperitoneal lymphadenopathy, unchanged from prior. 3. A occult source for the patient's fever has not been found. Fleischner guidelines were followed. Abdomen/Pelvis CT 02/18/22 17:40 IMPRESSION: 1. Benign Bosniak class I and class II renal cysts. No further imaging or follow-up is needed. 2. Prominent peripancreatic/portal, inguinal and iliac lymph nodes without gross retroperitoneal lymphadenopathy, unchanged from prior. 3. A occult source for the patient's fever has not been found. Fleischner guidelines were followed. Mental Status Exam Mental Status Exam Narrative: in bed. Alert. Disorganized speech. Internally preoccupied. Medications Medications Current Medications Acetaminophen (Acetaminophen 325 Mg Tablet) 650 mg PO Q6H PRN PRN Reason: Pain, Mild (Pain Scale 1-3) Amlodipine Besylate (Amlodipine Besylate 10 Mg Tablet) 10 mg PO DAILY [facility]; Protocol Last Admin: 02/19/22 09:34 Dose: 10 mg Atorvastatin Calcium (Atorvastatin Calcium 40 Mg Tablet) 40 mg PO BEDTIME [facility] Last Admin: 02/18/22 20:49 Dose: Not Given Clozapine (Clozapine 25 Mg Tablet) 25 mg PO BEDTIME [facility] Last Admin: 02/18/22 23:30 Dose: 25 mg Clozapine (Clozapine 100 Mg Tablet) 200 mg PO BID [facility] Last Admin: 02/19/22 14:39 Dose: 200 mg Divalproex Sodium (Divalproex Sodium 250 Mg Tablet.Dr) 250 mg PO BID@0900,1800 [facility] Last Admin: 02/19/22 09:35 Dose: 250 mg Enoxaparin Sodium (Enoxaparin Sodium 40 Mg/0.4 Ml Syringe) 40 mg SUBCUT Q24H [facility] Last Admin: 02/18/22 20:49 Dose: 40 mg Ceftriaxone Sodium 1 gm/ (Sodium Chloride) 50 mls @ 100 mls/hr IV Q24H [facility] Vancomycin HCl () 520 mls @ 260 mls/hr IV ONCE ONE Stop: 02/19/22 15:59 Last Admin: 02/19/22 14:39 Dose: 260 mls/hr Vancomycin HCl 1,000 mg/ (Sodium Chloride) 270 mls @ 270 mls/hr IV Q12H [facility] Levothyroxine Sodium (Levothyroxine Sodium 88 Mcg Tablet) 88 mcg PO DAILY@0630 [facility] Last Admin: 02/19/22 07:07 Dose: 88 mcg Lorazepam (Lorazepam 1 Mg Tablet) 1 mg PO BID@0900,1800 [facility] Last Admin: 02/19/22 09:34 Dose: 1 mg Metoprolol Tartrate (Metoprolol Tartrate 50 Mg Tablet) 50 mg PO BID@0900,1800 [facility]; Protocol Last Admin: 02/19/22 09:34 Dose: 50 mg Mirtazapine (Mirtazapine 30 Mg Tablet) 30 mg PO BEDTIME [facility] Last Admin: 02/18/22 23:30 Dose: 30 mg Multivitamins/Vitamin C (Multivitamin Tablet) 1 tab PO DAILY [facility] Last Admin: 02/19/22 09:34 Dose: 1 tab Omeprazole (Omeprazole 20 Mg Capsule.) 20 mg PO DAILY@0630 [facility] Last Admin: 02/19/22 07:07 Dose: 20 mg Ondansetron HCl (Ondansetron Hcl 4 Mg/2 Ml Vial) 4 mg IVPUSH Q8H PRN PRN Reason: Nausea and Vomiting Pharmacy Consult (Consult Rx Vancomycin Dosing) 1 each MISCELLANE DAILY PRN PRN Reason: Consult order Sodium Chloride (0.9 % Sodium Chloride Flush 3 Ml Syringe) 3 ml IVFLUSH QSHIFT [facility] Last Admin: 02/19/22 14:39 Dose: 3 ml Tamsulosin HCl (Tamsulosin Hcl 0.4 Mg Capsule) 0.4 mg PO BEDTIME [facility] Last Admin: 02/18/22 20:49 Dose: Not Given Allergies Allergies Allergy/AdvReac Type Severity Reaction Status Date / Time azithromycin Allergy Unknown Verified 09/25/21 12:15 Barbiturates Allergy Unknown Verified 09/25/21 12:15 erythromycin base Allergy Unknown Verified 09/25/21 12:15 fluphenazine Allergy Unknown Verified 09/25/21 12:15 haloperidol [From Haldol] Allergy Unknown Verified 09/25/21 12:15 phenobarbital Allergy Unknown Verified 09/25/21 12:15 Assessment & Plan Assessment & Plan (1) Schizophrenia: Status: Acute Code(s): F20.9 - Schizophrenia, unspecified Assessment and Plan: Established history of schizophrenia. Baseline unclear. On clozapine 200 mg morning and 250 mg at bedtime. Regarding reason for consult, Based off missing doses for 2-3 days can continue with clozapine dosing and no need to lower dose or titrate etc.. Will sign off case. Please re-consult if needed. I spent minutes with the patient and/or on the patient floor today, greater than?50% of which was spent counseling/coordinating care.
[2022-02-19] MEDS: cefTRIAXone sodium 1 GM in 0.9 % Sodium Chloride 50 ML IV (17:31)
[2022-02-19] MEDS: cloZAPine 100 MG TABLET 250 MG PO (21:41)
[2022-02-19] MEDS: Atorvastatin Calcium 40 MG TABLET PO (21:42)
[2022-02-19] MEDS: Tamsulosin HCL 0.4 MG CAPSULE PO (21:42)
[2022-02-19] MEDS: Mirtazapine 30 MG TABLET PO (21:42)
[2022-02-19] MEDS: Enoxaparin Sodium 40 MG/0.4 ML SYRINGE SUBCUT (21:46)
[2022-02-20] VITALS: RESP 18
[2022-02-20] MEDS: vancomycin HCL 1,000 MG in 0.9 % Sodium Chloride 250 ML 270 MG IV (02:17)
[2022-02-20 02:57] VITALS: BP 128/81; PULSE 95; RESP 19; TEMP 36.4; O2SAT 97
[2022-02-20 04:00] VITALS: RESP 20
[2022-02-20 06:18] LABS: Anion Gap 13 (12-20); Blood Urea Nitrogen 20 mg/dL (9-16); Calcium 8.7 mg/dL (8.4-10.2); Carbon Dioxide 24 mmol/L (22-29); Chloride 108 mmol/L (96-108); Creatinine Clr Calc Pharmacy 99.2; Estimated Glomerular Filt Rate > 60; Glucose Random 108 mg/dL (60-115); Sodium 141 mmol/L (135-145)
[2022-02-20] MEDS: Levothyroxine Sodium 88 MCG TABLET PO (06:57)
[2022-02-20] MEDS: Omeprazole 20 MG CAPSULE.DR PO (06:57)
[2022-02-20 07:57] VITALS: BP 124/53; PULSE 100; RESP 16; TEMP 36; O2SAT 98
--- NOTE | 2022-02-20 09:51 | MHC.CLN ---
Addendum entered by Ame Hutchins 02/20/22 09:56: GUARDIAN GIGI ([phone])AWARE OF PLANNED DC TODAY. SHE IS ALSO AWARE OF HIS OBSERVATION STATUS. Original Note: PATIENT IS IN FROM [facility] PLAN IS FOR HIS RETURN TODAY. GUARDIANSFELY AND IRVIN ON FILE AND VERIFIED MIL[facility] 02/20 TO RETURN TO FACILITY WITH FLO. COPY IN CHART. CASE MANAGEMENT TO SCHEDULE TRANSPORT ATTIME OF DC.
[2022-02-20] MEDS: Metoprolol Tartrate 50 MG TABLET PO (11:17)
[2022-02-20] MEDS: amLODIPine Besylate 10 MG TABLET PO (11:17)
[2022-02-20] MEDS: cloZAPine 100 MG TABLET 200 MG PO (11:17)
[2022-02-20] MEDS: Divalproex Sodium 250 MG TABLET.DR PO (11:18)
[2022-02-20] MEDS: 0.9 % Sodium Chloride Flush 3 ML SYRINGE IVFLUSH (11:18)
[2022-02-20] MEDS: LORazepam 1 MG TABLET PO (11:18)
[2022-02-20] MEDS: Multivitamin TABLET 1 TAB PO (11:18)
[2022-02-20 12:00] VITALS: BP 130/74; PULSE 97; RESP 16; TEMP 36.1; O2SAT 99
[2022-02-20 12:52] LABS: Vancomycin Random 11.6 mcg/mL (15-20)
--- NOTE | 2022-02-20 13:07 | PM.DS ---
DS: Providers Provider Date of Service: 02/20/22 Date of admission: 02/18/22 18:31 Primary care physician: Unknown Physician Consults: 02/18/22 19:06 Consult to Psychiatry Routine Consulting Provider: Psych Covering Reason for consultation: missed 2 days of Clozapime. for eval and titration DS: Diagnosis Discharge Diagnosis (1) Schizophrenia: Status: Acute (2) AMS (altered mental status): Status: Acute DS: Summary Hospital Course Hospital Course: Admission note HPI ?a 71 years old male with PMH of schizophrenia< hypertension< catatonic events who presents to the hospital with altered mentation? From [facility], ? The patient is unable to provide any meaningful history>? He was found altered mentation and repetitive movement by the nursing staff who decided to send him over to the emergency>? Reported fever but never febrile in the emergency>? Blood work seems within normal>? He tends to have similar episodes of altered mentation and catatonia upon getting infection that usually improved in few days of treatment> Images including CT scan of head< chest abdomen and pelvis were all negative for any acute findings>? Urinalysis clear> He received a dose of ceftriaxone in the emergency as empirical management He will be admitted for observation overnight. Hospital course The patient was admitted for evaluation of altered mentation and hallucinations. Reported that he did not receive any of his medications for the last few days. Restarted his home pills and discussed with psychiatry who evaluated the patient and recommended full dose of clozapine to be restarted. He was covered with IV antibiotics of ceftriaxone and vancomycin for history of AMS with infections. Urinalysis was negative for any infection. CT scan of head, chest, abdomen and pelvis were all negative for any acute findings. He did not spike any fever and his white blood cells were normal. Antibiotics were discontinued after 3 days after blood culture showed once set of coagulase negative Staph aureus which is a contaminant. The patient mentation improved back to baseline as he became more alert and interactive as reported as his baseline. No changes in home medications To be followed by Psychiatry as outpatient Time Spent with Patient Time attestation: Total time spent providing and/or coordinating discharge services: Discharge coordination time: Greater than 30 minutes Quality: Safe Use of Opioids Does Pt have an Active Cancer Diagnosis on the Problem List?: No Quality: Stroke Does the patient have a stroke diagnosis?: No Physical Exam Vital Signs: Vital Signs: Last Vital Signs Temp 96.9 F 02/20/22 12:00 Pulse 97 02/20/22 12:00 Resp 16 02/20/22 12:00 BP 130/74 02/20/22 12:00 Pulse Ox 99 02/20/22 12:00 O2 Del Method 02/20/22 12:00 O2 Flow Rate 2 02/20/22 12:00 BMI result Body Mass Index 27.6 Const: Other: Constitutional : Interactive, not in distress Neck : Normal inspection, Supple Cardiovascular : RRR, no JVP, no lower extremity edema Respiratory : fair bilateral air entry, no crackles, wheezes or rhonchi Gastrointestinal: soft, lax, Normal bowel sounds, Non tender Skin : Warm, Dry Neurological : Alert & oriented to self and place, No focal deficit Psych: Not interested in talking much, not hallucinating at time of interview, DS: Data Data Completed and Pending Labs on day of discharge: Laboratory Results - last 24 hr 02/20/22 02/20/22 02/20/22 05:31 05:31 12:04 Sodium 141 Potassium 4.0 Chloride 108 Carbon Dioxide 24 Anion Gap 13 BUN 20 H Creatinine Cancelled 0.76 Estim Creat Clear Calc Cancelled 99.2 Estimated GFR Cancelled > 60 Random Glucose 108 Calcium 8.7 Random Vancomycin 11.6 L Preliminary micro results at discharge 02/18/22 16:25 Blood Culture - Preliminary Blood - Venous No growth after [address] scan - head: Radiologist's impression: ITS Impressions Chest X-Ray 02/18/22 15:56 IMPRESSION: No acute cardiopulmonary process. Head CT 02/18/22 17:37 IMPRESSION: 1. No acute intracranial pathology. Chest CT 02/18/22 17:39 IMPRESSION: 1. Benign Bosniak class I and class II renal cysts. No further imaging or follow-up is needed. 2. Prominent peripancreatic/portal, inguinal and iliac lymph nodes without gross retroperitoneal lymphadenopathy, unchanged from prior. 3. A occult source for the patient's fever has not been found. Fleischner guidelines were followed. Abdomen/Pelvis CT 02/18/22 17:40 IMPRESSION: 1. Benign Bosniak class I and class II renal cysts. No further imaging or follow-up is needed. 2. Prominent peripancreatic/portal, inguinal and iliac lymph nodes without gross retroperitoneal lymphadenopathy, unchanged from prior. 3. A occult source for the patient's fever has not been found. Fleischner guidelines were followed. Discharge Plan Discharge Patient Disposition: er SNF Discharge Diagnosis: Toxic metabolic encephalopathy Referrals: Physician,Unknown J [Primary Care Provider] - 1 Week Discharge Medications: Continued atorvastatin 40 mg Tablet 40 mg PO BEDTIME divalproex 250 mg Tablet,Delayed Release (Dr/Ec) 250 mg PO BID@0900,1800 levothyroxine 88 mcg Tablet 88 mcg PO DAILY@0630 tamsulosin 0.4 mg Capsule 0.4 mg PO BEDTIME amlodipine 10 mg Tablet 10 mg PO DAILY mirtazapine 30 mg Tablet 30 mg PO BEDTIME metoprolol tartrate 50 mg Tablet 50 mg PO BID@0900,1800 lorazepam 1 mg Tablet 1 mg PO BID@0900,1800 multivitamin with minerals Tablet 1 tab PO DAILY loratadine 10 mg Tablet 10 mg PO DAILY clozapine 200 mg Tablet 200 mg PO BID Rx Instructions: TOTAL DAILY DOSE = 450 MG ( 250 MG IN AM AND 200 MG AT BEDTIME) Aristada 882 mg/3.2 mL Suspension,Extended Rel Syring 882 mg IM QMONTH pantoprazole 40 mg Tablet,Delayed Release (Dr/Ec) 40 mg PO DAILY@0630 Changed clozapine 50 mg Tablet 50 mg PO BEDTIME Qty: 30 0RF Rx Instructions: 250 MG IN AM Discharge Orders: Discharge Order (Routine); Ordered 02/20/22 Ordered By: Michelle Aviles Activity on Discharge: As tolerated Stand Alone Forms: Patient Portal Discharge page Care Plan Goals: Read below Health Concerns: Read below Plan of Treatment: Read below Assessment: You were admitted to the hospital for evaluation of altered mentation. No clear evidence of infection was found at time of presentation. You were covered with IV antibiotics for 3 days for possible urine infection. Your home medications were restarted as you were evaluated by psychiatry team who recommended full dose of clozapine. Your mentation improved back to reported baseline. No changes in your home medications To be followed by Psychiatry as outpatient
--- NOTE | 2022-02-20 13:20 | HE.PHANOTE ---
Vanco addendum Increased dose to 1250mg Q12H with predicted AUC 526mg/L. Trough came back at 11.6 on 02/20/22; will continue to monitor with next trough to be drawn on 02/21 @1200
--- NOTE | 2022-02-20 13:28 | MHC.CM.PN ---
DC TO [facility] AND RN AWARE OF PLAN. 1530 TRANSPORT REQUESTED
[2022-02-20 16:00] VITALS: BP 131/73; PULSE 87; RESP 17; TEMP 36.4; O2SAT 96
[2022-02-22 16:16] LABS: Clozapine (Clozaril) 204 mcg/L; Norclozapine 198 mcg/L (25-400)
== END 2022-02-20 16:45 | disposition skilled nursing facility (03) ==
LOC: HO.ED 18:29 → HO.EDOVER 18:58 → HO.IMC 02-19 13:09 → HO.S3 02-19 13:21
PROVIDERS: Nurse Practitioner Family; Admitting Provider Student in an Organized Health Care Education/Training Program; Emergency Provider Emergency Medicine Emergency Medical Services; PCP Internal Medicine; Visit Provider Student in an Organized Health Care Education/Training Program
DX: G92.8 Other toxic encephalopathy (principal); R41.82 Altered mental status, unspecified; F20.9 Schizophrenia, unspecified; R50.9 Fever, unspecified; R00.0 Tachycardia, unspecified; Q61.02 Congenital multiple renal cysts; I10 Essential (primary) hypertension; E11.9 Type 2 diabetes mellitus without complications; E78.5 Hyperlipidemia, unspecified; F41.9 Anxiety disorder, unspecified; K21.9 Gastro-esophageal reflux disease without esophagitis; N40.0 Benign prostatic hyperplasia without lower urinary tract symptoms; R45.851 Suicidal ideations; Z91.81 History of falling; Z20.822 Contact with and (suspected) exposure to COVID-19; Z79.02 Long term (current) use of antithrombotics/antiplatelets; Z79.899 Other long term (current) drug therapy
CPT/HCPCS: 36415; 70450; 71045; 71250; 74176; 80048; 80053; 80159; 80164; 80202; 81003; 82565; 82803; 83605; 84484; 85025; 85027; 85610; 85730; 87040; 87147; 87205; 87635; 93005; 96361; 96365; 96366; 96367; 96372; 96375; 99218; 99285; C1758; J0696; J1650; J3370

== ENCOUNTER 2022-06-09 17:24 | Emergency (ER) | payer MEDICARE, MEDICAID, SELFPAY ==
--- NOTE | ~2022-06-09 | CT_ITS ---
EXAMINATION: CT HEAD WITHOUT CONTRAST CLINICAL INFORMATION: Acute mental status change COMPARISON: Head CT 02/18/2022 TECHNIQUE: Imaging was performed from the skull base to vertex without intravenous administration of contrast. This CT examination was performed using dose optimization techniques as appropriate, variously including the following: *Automated exposure control *Adjustment of mA and/or kV according to patient size (this includes techniques or standardized protocols for targeted exams where dose is matched to indication/reason for exam; i.e. extremities or head) *Use of iterative reconstruction technique Total exam dose length product: 819 mGy-cm FINDINGS: No intra or extra-axial fluid collection, hemorrhage, or mass. No ventriculomegaly. No midline shift or herniation. Basal cisterns are patent. Gage-white matter differentiation is maintained. No territorial encephalomalacia. Proportional prominence of the ventricles and sulcal spaces is consistent with mild volume loss. There is no abnormal attenuation within the brain parenchyma. No calvarial fracture or soft tissue abnormality. The mastoid air cells and visualized portions of the paranasal sinuses are well aerated. CT/CT head/brain wo IV con IMPRESSION: No acute intracranial pathology.
--- NOTE | ~2022-06-09 | XR_ITS ---
EXAMINATION: XR CHEST CLINICAL INFORMATION: Rule out pneumonia COMPARISON: Chest x-ray 02/18/2022 TECHNIQUE: Frontal view of the chest was obtained. FINDINGS: The lungs are clear. No airspace consolidation, pleural effusion, or pneumothorax. The cardiomediastinal silhouette is within normal limits. No acute osseous injury. XR/XR chest 1V IMPRESSION: No acute pulmonary disease.
[2022-06-09 17:34] VITALS: BP 140/80; BP 142/90; PULSE 120; PULSE 121; RESP 22; TEMP 37.8; O2SAT 92; O2SAT 93; BMI 26.2
--- NOTE | 2022-06-09 17:34 | ECG_ITS ---
Test Reason : AMS Blood Pressure : / mmHG Vent. Rate : 115 BPM Atrial Rate : 115 BPM P-R Int : 160 ms QRS Dur : 092 ms QT Int : 332 ms P-R-T Axes : 065 020 075 degrees QTc Int : 459 ms Sinus tachycardia with frequent Premature ventricular complexes with occasional Premature atrial complexes Possible Left atrial enlargement Abnormal ECG When compared with ECG of 18-FEB-2022 17:38, Premature ventricular complexes are now Present Referred By: Bruna Rajput Electronically Signed By:ALINA DALY MD
--- NOTE | 2022-06-09 17:40 | ED_ITS ---
HPI - General Adult General Chief complaint: Altered Mental Status Stated complaint: AMS Time Seen by Provider: 06/09/22 17:27 Source: EMS Mode of arrival: EMS Limitations: altered mental status History of Present Illness HPI narrative: Patient comes to the emergency room via ambulance from [facility]. According to the EMS crew. The staff admission care reports that the patient is talking less than usual, not eating or drinking as much as he usually does. Patient is poor historian, unable to give any significant history, has no complaints at this time. Related Data Home Medications Medication Instructions Recorded Confirmed amlodipine 10 mg tablet 10 mg PO DAILY 09/25/21 02/18/22 aripiprazole lauroxil 882 mg/3.2 882 mg IM QMONTH 09/25/21 02/18/22 mL suspension, ext.rel. IM syringe (Aristada) atorvastatin 40 mg tablet 40 mg PO BEDTIME 09/25/21 02/18/22 clozapine 200 mg tablet 200 mg PO BID 09/25/21 02/18/22 divalproex 250 mg tablet,delayed 250 mg PO BID@0900,1800 09/25/21 02/18/22 release levothyroxine 88 mcg tablet 88 mcg PO DAILY@0630 09/25/21 02/18/22 loratadine 10 mg tablet 10 mg PO DAILY 09/25/21 02/18/22 lorazepam 1 mg tablet 1 mg PO BID@0900,1800 09/25/21 02/18/22 metoprolol tartrate 50 mg tablet 50 mg PO BID@0900,1800 09/25/21 02/18/22 mirtazapine 30 mg tablet 30 mg PO BEDTIME 09/25/21 02/18/22 multivitamin with minerals 1 tab PO DAILY 09/25/21 02/18/22 tamsulosin 0.4 mg capsule 0.4 mg PO BEDTIME 09/25/21 02/18/22 pantoprazole 40 mg tablet,delayed 40 mg PO DAILY@0630 01/16/22 02/18/22 release Previous Rx's Medication Instructions Recorded clozapine 50 mg tablet 50 mg PO BEDTIME #30 tabs 02/20/22 Allergies Allergy/AdvReac Type Severity Reaction Status Date / Time azithromycin Allergy Unknown Verified 09/25/21 12:15 Barbiturates Allergy Unknown Verified 09/25/21 12:15 erythromycin base Allergy Unknown Verified 09/25/21 12:15 fluphenazine Allergy Unknown Verified 09/25/21 12:15 haloperidol [From Haldol] Allergy Unknown Verified 09/25/21 12:15 phenobarbital Allergy Unknown Verified 09/25/21 12:15 Review of Systems Review of Systems: Psych : No Anxiety/Panic, No Depression, No SI/HI/AH/VH, No Social Issues, Heme/Lymph: No Bruising, No Bleeding,No Lymphadenopathy Endocrine : No Polyuria, No Polydipsia, No Temperature Intolerance Yes Unobtainable due to mental condition [facility] Past Medical History Medical History Anemia, unspecified Anxiety disorder, unspecified Ataxic gait Benign prostatic hyperplasia without lower urinary tract symptoms Combined forms of age-related cataract, bilateral Corns and callosities COVID-19 Diabetes Essential (primary) hypertension Functional urinary incontinence Gastro-esophageal reflux disease without esophagitis Hallux valgus (acquired), unspecified foot History of falling Hyperlipidemia, unspecified Hypothyroidism, unspecified Insomnia, unspecified Mild cognitive impairment, so stated Muscle weakness (generalized) Nail dystrophy Other seasonal allergic rhinitis Personal history of (healed) traumatic fracture Presbyopia Schizophrenia Slurred speech Suicidal ideations Tinea unguium Type 2 diabetes mellitus with other circulatory complications Unspecified astigmatism, unspecified eye Unspecified osteoarthritis, unspecified site Social History Social History Household Members: Caregiver Housing: Jail Unable to assess alcohol history related to: Unknown Alcohol intake: unknown Patient Tobacco Use Status: Tobacco use Unknown Use of substances other than those prescribed or required for medical reasons: Unable to respond Advance Directives: Yes Advance Directives on File: Yes Advance Directives Date on File: 09/25/21 service: No Current occupational status: disabled Physical Exam ED Vital Signs: Vital Signs - 24 hr 06/09/22 17:34 06/09/22 18:13 06/09/22 19:33 Temperature 100.0 F 97.4 F Pulse Rate 121 H 112 H 104 H Respiratory Rate 22 H 28 H 16 Blood Pressure 142/90 H 136/95 H 136/91 H Pulse Oximetry 93 95 96 Oxygen Delivery Method Room Air Room Air Room Air 06/09/22 20:35 06/09/22 20:49 06/09/22 21:59 Temperature 97.8 F 97.9 F Pulse Rate 117 H 108 H Respiratory Rate 30 H 19 Blood Pressure 139/97 H 133/91 H Pulse Oximetry 95 94 Oxygen Delivery Method Room Air Room Air BMI result Body Mass Index 26.2 Const Other: Appearance: Alert. Oriented x1 to person, no acute distress, seems weak Eyes: Pupils equal, round and reactive to light. ENT: Pharynx normal. Neck: Normal inspection. Neck supple. No lymph nodes noted. No crepitus CVS: Normal heart rate and rhythm. Pulses normal. Normal S1 and S2 Respiratory: No respiratory distress. Breath sounds normal. No Wheezing. No rales Abdomen: Soft and nontender. No rigidity. No distention. Skin: Skin warm and dry. Normal skin color. Normal skin turgor. Extremities: No lower extremity edema. No Lacerations. No Rash Neuro: History of chronic slurred speech, also patient has no denture, CN 2 through 12 grossly intact Psych: calm, cooperative, normal affect Course Course Course Narrative: Patient was sent to the emergency room for failure to thrive. All of patient's labs and imaging are pending. Patient's labs do not show any significant acute abnormality. Troponin negative, EKG does not show any acute abnormality, occasional PVCs. Urinalysis negative for UTI. Patient likely having a viral syndrome. COVID test is negative. CT scan negative Medical Decision Making Lab Data Result diagrams: 06/09/22 18:01 06/09/22 18:01 Labs: Lab Results 06/09/22 06/09/22 06/09/22 Range/Units 18:01 18:01 18:01 WBC 9.8 (4.8-10.8) X10*3/uL RBC 5.02 (4.60-5.80) X10*6/uL Hgb 14.0 (14.0-18.0) g/dl Hct 41.9 L (42.0-52.0) % MCV 83.5 (80.0-98.0) fL MCH 27.9 (27.0-33.0) pg MCHC 33.4 (31.0-36.0) g/dl RDW 15.6 (11.0-16.0) % Plt Count 248 D (160-400) X10*3/uL MPV 9.6 (9.4-12.4) fL Immature Gran % (Auto) Cancelled Neut % (Auto) Cancelled Lymph % (Auto) Cancelled Costilla % (Auto) Cancelled Eos % (Auto) Cancelled Baso % (Auto) Cancelled Lymph # (Auto) Cancelled Cost[place] # (Auto) Cancelled Eos # (Auto) Cancelled Baso # (Auto) Cancelled Abs Immat Gran (auto) Cancelled Absolute Neuts (auto) Cancelled Absolute Nucleated RBC 0.000 (0.0-0.012) X10*3/uL Nucleated RBC % (auto) 0.0 (0.0-0.2) /100WBC Neutrophils % (Manual) 75 H (45-73) % Lymphocytes % (Manual) 18 L (20-40) % Monocytes % (Manual) 5 (2-11) % Basophils % (Manual) 2 (0-2) % Abs Neuts (Manual) 7.4 (2.0-8.3) X10*3/uL Lymphocytes # (Manual) 1.8 (1.2-4.9) X10*3/uL Monocytes # (Manual) 0.5 (0.1-1.2) X10*3/uL Basophils # (Manual) 0.2 (0.0-0.2) X10*3/uL Platelet Estimate NORMAL (NORMAL) Plt Morphology Comment NORMAL RBC Morphology NORMAL PT 11.4 (10.0-13.1) SEC INR 1.0 (0.9-1.1) Sodium 140 (135-145) mmol/L Potassium 4.0 (3.3-5.1) mmol/L Chloride 104 (96-108) mmol/L Carbon Dioxide 23 (22-29) mmol/L Anion Gap 17 (12-20) BUN 20 H (9-16) mg/dL Creatinine 0.79 (0.5-1.4) mg/dL Estim Creat Clear Calc 94.1 Estimated GFR > 60 Random Glucose 111 (60-115) mg/dL Lactic Acid (0.5-2.0) mmol/L Calcium 9.2 (8.4-10.2) mg/dL Magnesium 1.7 (1.6-2.6) mg/dL Total Bilirubin 0.5 (0.0-1.0) mg/dL Direct Bilirubin 0.2 (0.0-0.5) mg/dL AST 25 D (5-37) U/L ALT 46 H (0-40) U/L Alkaline Phosphatase 134 H (39-117) U/L Troponin I High Sens (<3.5-35.0) ng/L Total Protein 7.3 (6.5-8.0) g/dL Albumin 4.3 (3.5-5.0) g/dL Lipase 16 (8-78) U/L TSH (0.32-4.0) uIU/mL Urine Color Urine Appearance Urine pH (5.0-9.0) Ur Specific Thelma (1.005-1.025) Urine Protein (Neg-Trace) mg/dL Urine Glucose (UA) (Negative) mg/dL Urine Ketones (Negative) mg/dL Urine Blood (Negative) Urine Nitrite (Negative) Ur Leukocyte Esterase (Negative) COVID-19 (MARYCRUZ) (Negative) COVID-19 Clin Com 06/09/22 06/09/22 06/09/22 Range/Units 18:01 18:01 18:01 WBC (4.8-10.8) X10*3/uL RBC (4.60-5.80) X10*6/uL Hgb (14.0-18.0) g/dl Hct (42.0-52.0) % MCV (80.0-98.0) fL MCH (27.0-33.0) pg MCHC (31.0-36.0) g/dl RDW (11.0-16.0) % Plt Count (160-400) X10*3/uL MPV (9.4-12.4) fL Immature Gran % (Auto) Neut % (Auto) Lymph % (Auto) Costilla % (Auto) Eos % (Auto) Baso % (Auto) Lymph # (Auto) Cost[place] # (Auto) Eos # (Auto) Baso # (Auto) Abs Immat Gran (auto) Absolute Neuts (auto) Absolute Nucleated RBC (0.0-0.012) X10*3/uL Nucleated RBC % (auto) (0.0-0.2) /100WBC Neutrophils % (Manual) (45-73) % Lymphocytes % (Manual) (20-40) % Monocytes % (Manual) (2-11) % Basophils % (Manual) (0-2) % Abs Neuts (Manual) (2.0-8.3) X10*3/uL Lymphocytes # (Manual) (1.2-4.9) X10*3/uL Monocytes # (Manual) (0.1-1.2) X10*3/uL Basophils # (Manual) (0.0-0.2) X10*3/uL Platelet Estimate (NORMAL) Plt Morphology Comment RBC Morphology PT (10.0-13.1) SEC INR (0.9-1.1) Sodium (135-145) mmol/L Potassium (3.3-5.1) mmol/L Chloride (96-108) mmol/L Carbon Dioxide (22-29) mmol/L Anion Gap (12-20) BUN (9-16) mg/dL Creatinine (0.5-1.4) mg/dL Estim Creat Clear Calc Estimated GFR Random Glucose (60-115) mg/dL Lactic Acid 1.7 (0.5-2.0) mmol/L Calcium (8.4-10.2) mg/dL Magnesium (1.6-2.6) mg/dL Total Bilirubin (0.0-1.0) mg/dL Direct Bilirubin (0.0-0.5) mg/dL AST (5-37) U/L ALT (0-40) U/L Alkaline Phosphatase (39-117) U/L Troponin I High Sens 5.8 (<3.5-35.0) ng/L Total Protein (6.5-8.0) g/dL Albumin (3.5-5.0) g/dL Lipase (8-78) U/L TSH (0.32-4.0) uIU/mL Urine Color Urine Appearance Urine pH (5.0-9.0) Ur Specific Thelma (1.005-1.025) Urine Protein (Neg-Trace) mg/dL Urine Glucose (UA) (Negative) mg/dL Urine Ketones (Negative) mg/dL Urine Blood (Negative) Urine Nitrite (Negative) Ur Leukocyte Esterase (Negative) COVID-19 (MRAYCRUZ) Negative (Negative) COVID-19 Clin Com See Note 06/09/22 06/09/22 Range/Units 18:01 20:48 WBC (4.8-10.8) X10*3/uL RBC (4.60-5.80) X10*6/uL Hgb (14.0-18.0) g/dl Hct (42.0-52.0) % MCV (80.0-98.0) fL MCH (27.0-33.0) pg MCHC (31.0-36.0) g/dl RDW (11.0-16.0) % Plt Count (160-400) X10*3/uL MPV (9.4-12.4) fL Immature Gran % (Auto) Neut % (Auto) Lymph % (Auto) Costilla % (Auto) Eos % (Auto) Baso % (Auto) Lymph # (Auto) [place] # (Auto) Eos # (Auto) Baso # (Auto) Abs Immat Gran (auto) Absolute Neuts (auto) Absolute Nucleated RBC (0.0-0.012) X10*3/uL Nucleated RBC % (auto) (0.0-0.2) /100WBC Neutrophils % (Manual) (45-73) % Lymphocytes % (Manual) (20-40) % Monocytes % (Manual) (2-11) % Basophils % (Manual) (0-2) % Abs Neuts (Manual) (2.0-8.3) X10*3/uL Lymphocytes # (Manual) (1.2-4.9) X10*3/uL Monocytes # (Manual) (0.1-1.2) X10*3/uL Basophils # (Manual) (0.0-0.2) X10*3/uL Platelet Estimate (NORMAL) Plt Morphology Comment RBC Morphology PT (10.0-13.1) SEC INR (0.9-1.1) Sodium (135-145) mmol/L Potassium (3.3-5.1) mmol/L Chloride (96-108) mmol/L Carbon Dioxide (22-29) mmol/L Anion Gap (12-20) BUN (9-16) mg/dL Creatinine (0.5-1.4) mg/dL Estim Creat Clear Calc Estimated GFR Random Glucose (60-115) mg/dL Lactic Acid (0.5-2.0) mmol/L Calcium (8.4-10.2) mg/dL Magnesium (1.6-2.6) mg/dL Total Bilirubin (0.0-1.0) mg/dL Direct Bilirubin (0.0-0.5) mg/dL AST (5-37) U/L ALT (0-40) U/L Alkaline Phosphatase (39-117) U/L Troponin I High Sens (<3.5-35.0) ng/L Total Protein (6.5-8.0) g/dL Albumin (3.5-5.0) g/dL Lipase (8-78) U/L TSH 3.64 (0.32-4.0) uIU/mL Urine Color Yellow Urine Appearance Cloudy Urine pH 7.0 (5.0-9.0) Ur Specific Thelma 1.020 (1.005-1.025) Urine Protein Negative (Neg-Trace) mg/dL Urine Glucose (UA) Negative (Negative) mg/dL Urine Ketones Negative (Negative) mg/dL Urine Blood Negative (Negative) Urine Nitrite Negative (Negative) Ur Leukocyte Esterase Negative (Negative) COVID-19 (MARYCRUZ) (Negative) COVID-19 Clin Com Imaging Data CT scan - head: Radiologist's impression: FINDINGS: No intra or extra-axial fluid collection, hemorrhage, or mass. No ventriculomegaly. No midline shift or herniation. Basal cisterns are patent. Gage-white matter differentiation is maintained. No territorial encephalomalacia. ?Proportional prominence of the ventricles and sulcal spaces is consistent with mild volume loss. There is no abnormal attenuation within the brain parenchyma. No calvarial fracture or soft tissue abnormality.? The mastoid air cells and visualized portions of the paranasal sinuses are well aerated. CT/CT head/brain wo IV con IMPRESSION: No acute intracranial pathology. ECG Data Attestation: I personally reviewed and interpreted this ECG as follows: (Sinus rhythm, heart rate 115, occasional PVCs, of the segment depressions or elev ations, T-wave inversions.) Discharge Plan Discharge Clinical Impression: Acute viral syndrome Patient Disposition: Home, Self-Care Instructions: Viral Syndrome (ED) Prescriptions: No Action atorvastatin 40 mg Tablet 40 mg PO BEDTIME divalproex 250 mg Tablet,Delayed Release (Dr/Ec) 250 mg PO BID@0900,1800 levothyroxine 88 mcg Tablet 88 mcg PO DAILY@0630 tamsulosin 0.4 mg Capsule 0.4 mg PO BEDTIME amlodipine 10 mg Tablet 10 mg PO DAILY mirtazapine 30 mg Tablet 30 mg PO BEDTIME metoprolol tartrate 50 mg Tablet 50 mg PO BID@0900,1800 lorazepam 1 mg Tablet 1 mg PO BID@0900,1800 multivitamin with minerals Tablet 1 tab PO DAILY loratadine 10 mg Tablet 10 mg PO DAILY clozapine 200 mg Tablet 200 mg PO BID Rx Instructions: TOTAL DAILY DOSE = 450 MG ( 250 MG IN AM AND 200 MG AT BEDTIME) Aristada 882 mg/3.2 mL Suspension,Extended Rel Syring 882 mg IM QMONTH pantoprazole 40 mg Tablet,Delayed Release (Dr/Ec) 40 mg PO DAILY@0630 clozapine 50 mg Tablet 50 mg PO BEDTIME Qty: 30 0RF Rx Instructions: 250 MG IN AM
--- OUTSIDE RECORDS SUMMARY | 2022-06-09 18:04 | XMS_ITS | Continuity of Care Document ---
:1950 Author Organization [facility] Address [address] [place] [id number] Care Team Providers Name Role Phone Mary Yu MD Primary Care Phys[id number] Date(s): 04/11/22 - 04/12/[address] [id number]- Encounter Diagnosis Altered mental status (Final) - 04/11/22 Chronic schizophrenia (Final) - 04/11/22 Discharge Disposition: C-A Attending Physician: César Zavala MD Admitting Physician: Zaire Arguello MD Referring Physician: Not on Staff, Referring MD Allergies, Adverse Reactions, Alerts Substance Reaction Severity Status haloperidol Active erythromycin Active azithromycin Active barbiturates Active FluPHENAZine Decanoate Active Medications Acephen 650 mg rectal suppository 1 supp = 650 mg, Rectally, Every 6 hours, PRN for fever 101F, Maintenance, 04/11/22 11:14:00 EDT, Suppository, ; Start Date: 04/11/22 Status: Orderedacetaminophen 325 mg oral tablet 650 mg, 2, tablet, By Mouth, Every 6 hours, PRN, Maintenance, pain/[id number], 04/11/22 11:14:00 EDT,; Start Date: 04/11/22 Status: Orderedaluminum hydroxide/magnesium hydroxide/simethicone 200 mg-200 mg- 20 mg/5 mL oral suspension 30 mL, By Mouth, Every 6 hours, PRN for control of stomach acid, Maintenance, 04/11/22 11:15:00 EDT,Suspension, ; Start Date: 04/11/22 Status: OrderedamLODIPine 10 mg oral tablet 10 mg, 1, tablet, By Mouth, Daily, Refills 0, Maintenance, 04/11/22 6:19:00 EDT, ; Start Date: 04/11/22 Status: OrderedAristada 882 mg/3.2 mL intramuscular suspension, extended release 3.2 mL = 882 mg, Intramuscular, Every 28 days, of the month, Maintenance, 04/11/22 11:06:00 EDT, ; Start Date: 04/11/22 Status: Orderedatorvastatin 40 mg oral tablet 1 tablet = 40 mg, By Mouth, Daily, 5 Refills, Maintenance, 04/11/22 6:19:00 EDT, Tablet, ; Start Date: 04/11/22 Status: Orderedclozapine 200 mg oral tablet 1 tablet = 200 mg, By Mouth, Daily at bedtime, 9pm, Maintenance, 04/11/22 11:13:00 EDT, ; Start Date: 04/11/22 Status: Orderedclozapine 200 mg oral tablet 1 tablet = 200 mg, By Mouth, Daily in AM, TOTAL Dose 250 mg Daily Monitoring of WBC count and absolute neutrophil count required prior to delivery of next medication supply, 0 Refills, Maintenance, 04/11/22 6:20:00 EDT, Tablet, ; Start Date: 04/11/22 Status: Orderedclozapine 50 mg oral tablet 1 tablet = 50 mg, By Mouth, Daily in AM, Total Dose 250 mg daily, Maintenance, 04/11/22 11:08:00 EDT, Tablet, ; Start Date: 04/11/22 Status: OrderedDepakote 250 mg oral enteric coated tablet 1 tablet = 250 mg, By Mouth, 2 times a day, 5 Refills, Maintenance, 04/11/22 6:20:00 EDT, ; Start Date: 04/11/22 Status: OrderedFleet Enema 19 gm-7 gm rectal enema 1 each, Rectally, Once, PRN for constipation, Maintenance, 04/11/22 11:16:00 EDT, Enema, ; Start Date: 04/11/22 Status: OrderedguaiFENesin 200 mg oral tablet 1 tablet = 200 mg, By Mouth, Every 6 hours, PRN Cough, Maintenance, 04/11/22 11:18:00 EDT, Tablet, ; Start Date: 04/11/22 Status: Orderedlevothyroxine 0.088 mg oral tablet 1 tablet = 88 mcg, By Mouth, Daily, 6am, 0 Refills, Maintenance, 04/11/22 6:21:00 EDT, Tablet, ; Start Date: 04/11/22 Status: Orderedloratadine 10 mg oral capsule 1 capsule = 10 mg, By Mouth, Daily, 0 Refills, Maintenance, 04/11/22 6:22:00 EDT, Capsule, ; Start Date: 04/11/22 Status: OrderedLORazepam 1 mg oral tablet 1 tablet = 1 mg, By Mouth, 2 times a day, 0 Refills, Maintenance, 04/11/22 6:21:00 EDT, Tablet, ; Start Date: 04/11/22 Status: Orderedmetoprolol 50 mg oral tablet 50 mg, 1, tablet, By Mouth, 2 times a day, Refills 0, Maintenance, 04/11/22 6:22:00 EDT, ; Start Date: 04/11/22 Status: OrderedMultivit Therapeutic/Minerals Tablet By Mouth, Daily, 0 Refills, Maintenance, 04/11/22 6:22:00 EDT, ; Start Date: 04/11/22 Status: OrderedNarcan 4 mg/0.1 mL nasal spray = 4 mg, Naris, Left, Once, PRN as needed, Maintenance, 04/11/22 11:22:00 EDT, ; Start Date: 04/11/22 Status: OrderedNarcan Inj = 0.4 mg, Subcutaneous Injection, Once, PRN as needed, Maintenance, 04/11/22 11:21:00 EDT, Injection, ; Start Date: 04/11/22 Status: Orderedpantoprazole 40 mg oral delayed release tablet 1 tablet = 40 mg, By Mouth, Daily, 0 Refills, Maintenance, 04/11/22 6:21:00 EDT, EC Tablet Start Date: 04/11/22 Status: OrderedRemeron 30 mg oral tablet 1 tablet = 30 mg, By Mouth, Daily at bedtime, 0 Refills, Maintenance, 04/11/22 6:22:00 EDT, Tablet, ; Start Date: 04/11/22 Status: Orderedtamsulosin 0.4 mg oral capsule 0.4 mg, 1, capsule, By Mouth, Daily at bedtime, Refills 0, Maintenance, 04/11/22 6:22:00 EDT, Par; Start Date: 04/11/22 Status: Ordered Results Orders for Microbiology Reports Name Date Blood Culture 04/10/22 Blood Culture #2 04/10/22 Microbiology Reports TEST:Blood Culture STATUS:Unauthenticated BODY SITE: SOURCE:Blood COLLECTED DATE/TIME:04/10/22 11:06 PMBlood Culture SPECIMEN DESCRIPTION : BLOOD RT ARM SPECIAL REQUESTS : NONE CULTURE : NO GROWTH AFTER 24 HOURS REPORT STATUS : PRELIMINARY REPORT TEST:Blood Culture, Second Order STATUS:Unauthenticated BODY SITE: SOURCE:Blood COLLECTED DATE/TIME:04/10/22 11:06 PMBlood Culture, Second Order SPECIMEN DESCRIPTION : BLOOD L ARM SPECIAL REQUESTS : NONE CULTURE : NO GROWTH AFTER 24 HOURS REPORT STATUS : PRELIMINARY REPORT Radiology Reports Exam Date Time Procedure Performing Provider Status 04/10/22 11:37 PM Chest Portable Leilani Enciso; Auth (Verified) Notes:(Chest Portable) Reason For Exam: Shortness of BreathRESULT: Chest Portable Chest Portable Hx of Present Illness: from snf, staff there reporting ams and lethergy. no indication on basline. pt not answering questions; Reason: Shortness of Breath; Clinical Question(s): CHF COMPARISON: None. FINDINGS: LINES AND TUBES: None. LUNGS AND PLEURA: Congested vasculature without tawny pulmonary edema, accentuated by low lung volumes and bronchovascular crowding. No effusion, consolidation, or pneumothorax. HEART, MEDIASTINUM AND CATRACHO: Heart is normal in size. Normal upper mediastinal and hilar contour. BONES AND SOFT TISSUES: No acute abnormality. IMPRESSION: Congested vasculature without tawny pulmonary edema. WSN: [id number] Ordering Physician: Carlotta Thomas Dictated By: Meet Alicia MD Dictated Date/Time: 04/10/22 11:40 p Reviewed By: Meet Alicia MD Signed By: Meet Alicia MD Signed Date/Time: 04/10/22 11:40 pm Transcribed By: RADHA Transcribed Date/Time: 04/10/22 11:39 pm Vital Signs Most recent to oldest 1 2 3 [Reference Range]: Oxygen Saturation [94-100 %] 98 % 97 % 96 % (04/12/22 2:06 PM) (04/12/22 11:59 AM) (04/12/22 9: 15 AM) Pulse Rate [55-90 bpm] 80 bpm 84 bpm 100 bpm (04/12/22 2:06 PM) (04/12/22 11:59 AM) *H* (04/12/22 9:15 AM ) Blood Pressure [90-138/55-84 111/67 mm Hg 100/78 mm Hg 127 /78 mm Hg mm Hg] (04/12/22 2:06 PM) (04/12/22 11:59 AM) (04/12/22 9: 15 AM) Respiratory Rate [16-30 16 br/min 15 br/min 16 br/mi n br/min] (04/12/22 2:06 PM) *L* (04/12/22 9:15 AM) (04/12/22 11:59 AM) Temperature [96.8-100.4 DegF] 97.9 DegF 96.6 DegF 97 .3 DegF (04/12/22 8:30 AM) *L* (04/11/22 8:04 PM) (04/12/22 3:16 AM) Mode of Delivery (Oxygen) Room air Room air Room a ir (04/12/22 2:06 PM) (04/12/22 11:59 AM) (04/12/22 9: 15 AM) Blood pressure sites Arm, left Arm, left Arm, left (04/12/22 2:06 PM) (04/12/22 11:59 AM) (04/12/22 9: 15 AM) Temperature Route Oral Axillary Oral (04/12/22 8:30 AM) (04/12/22 3:16 AM) (04/11/22 8:0 4 PM) Portable XR Chest Views BHSPowerscribe , CIS S: TRANSCRIJANI Alicia MD, Meet J: VERIFY Event Display: Result: Authored Date: Chest Portable Hx of Present Illness: from snf, staff there reporting ams and lethergy. no indication on basline. pt not answering questions; Reason: Shortness of Breath; Clinical Question(s): CHF COMPARISON: None. FINDINGS: LINES AND TUBES: None. LUNGS AND PLEURA: Congested vasculature without tawny pulmonary edema, accentuated by low lung volumes and bronchovascular crowding. No effusion, consolidation, or pneumothorax. HEART, MEDIASTINUM AND CATRACHO: Heart is normal in size. Normal upper mediastinal and hilar contour. BONES AND SOFT TISSUES: No acute abnormality. IMPRESSION: Congested vasculature without tawny pulmonary edema. WSN: [id number] Ordering Physician: Carlotat Thomas Dictated By: Meet Alicia MD Dictated Date/Time: 04/10/22 11:40 p Reviewed By: Meet Alicia MD Signed By: Meet Alicia MD Signed Date/Time: 04/10/22 11:40 pm Transcribed By: RADHA Transcribed Date/Time: 04/10/22 11:39 pm Care Team PersonnelName: Mary Yu MD Address: [address] [place] [address]
[2022-06-09] MEDS: 0.9 % Sodium Chloride 1,000 ML 999 ML IVCONT (18:12)
[2022-06-09 18:13] VITALS: BP 136/95; PULSE 112; RESP 28; O2SAT 95
[2022-06-09 18:14] LABS: Hematocrit 41.9 % (42.0-52.0); Mean Corpuscular HGB Conc 33.4 g/dl (31.0-36.0); Mean Corpuscular Hemoglobin 27.9 pg (27.0-33.0); Mean Corpuscular Volume 83.5 fL (80.0-98.0); Mean Platelet Volume 9.6 fL (9.4-12.4); Platelet Count 248 X10*3/uL (160-400); Red Blood Count 5.02 X10*6/uL (4.60-5.80); Red Cell Distribution Width 15.6 % (11.0-16.0)
[2022-06-09 18:17] LABS: Prothrombin Time 11.4 SEC (10.0-13.1); WBC ABN SCTR FOR CBC 1; White Blood Count 9.8 X10*3/uL (4.8-10.8)
[2022-06-09 18:22] LABS: Lactic Acid 1.7 mmol/L (0.5-2.0)
[2022-06-09 18:28] LABS: Alanine Aminotransferase 46 U/L (0-40); Albumin Level 4.3 g/dL (3.5-5.0); Alkaline Phosphatase 134 U/L (39-117); Anion Gap 17 (12-20); Aspartate Amino Transferase 25 U/L (5-37); Bilirubin Direct 0.2 mg/dL (0.0-0.5); Bilirubin Total 0.5 mg/dL (0.0-1.0); Blood Urea Nitrogen 20 mg/dL (9-16); Calcium 9.2 mg/dL (8.4-10.2); Carbon Dioxide 23 mmol/L (22-29); Chloride 104 mmol/L (96-108); Creatinine Clr Calc Pharmacy 94.1; Estimated Glomerular Filt Rate > 60; Glucose Random 111 mg/dL (60-115); Lipase 16 U/L (8-78); Magnesium 1.7 mg/dL (1.6-2.6); Sodium 140 mmol/L (135-145); Total Protein 7.3 g/dL (6.5-8.0)
[2022-06-09 18:30] LABS: Troponin-I High Sensitivity 5.8 ng/L (<3.5-35.0)
[2022-06-09 18:35] LABS: Basophils Abs Manual 0.2 X10*3/uL (0.0-0.2); Basophils Percent Manual 2 % (0-2); Lymphocytes Absolute Manual 1.8 X10*3/uL (1.2-4.9); Lymphocytes Percent Manual 18 % (20-40); Monocytes Absolute Manual 0.5 X10*3/uL (0.1-1.2); Monocytes Percent Manual 5 % (2-11); Neutrophils Percent Manual 75 % (45-73); Platelet Estimate NORMAL (NORMAL); Platelet Morphology Comment NORMAL; RBC Morphology NORMAL
[2022-06-09 18:39] LABS: COVID-19 Test Negative (Negative)
[2022-06-09 18:44] LABS: TSH reflex Free T4 3.64 uIU/mL (0.32-4.0)
[2022-06-09 18:56] LABS: Neutrophils Absolute Manual 7.4 X10*3/uL (2.0-8.3)
[2022-06-09 19:33] VITALS: BP 136/91; PULSE 104; RESP 16; TEMP 36.3; O2SAT 96
[2022-06-09 20:35] VITALS: O2SAT 95
--- NOTE | 2022-06-09 20:43 | PC.NURSE ---
Pt is sinus Tachy, BP is stable, Pt was straight cath and urine was sent to the lab with the assistance of the tech. Pt based line is AMS, not able to speak, pt non verbal was a 10, rn will notify the doc. Pt is diaphoresis, afribile, urine was yellow, clear and no faul smell. Pt is rigid, and requires 2 assistance to clean up. Pt is mild cognitive impaired. will continue to monitor.
[2022-06-09 20:49] VITALS: BP 139/97; PULSE 117; RESP 30; TEMP 36.6
[2022-06-09 21:04] LABS: Appearance Urine Cloudy; Color Urine Yellow; Glucose Urine UA Negative (Negative); Leukocyte Esterase Urine Negative (Negative); Nitrite Urine Negative (Negative); Urine Blood Negative (Negative); Urine Ketones Negative (Negative); Urine Protein Negative (Neg-Trace)
[2022-06-09 21:59] VITALS: BP 133/91; PULSE 108; RESP 19; TEMP 36.6; O2SAT 94
[2022-06-10] VITALS: BP 136/88; PULSE 107; RESP 16; TEMP 36.7; O2SAT 98
--- NOTE | 2022-06-10 00:26 | PC.NURSE ---
@ 0020 CALL PLACED TO [facility] 1ST CALL FOR BLS TX OF THIS PT BACK TO [facility]=WENT STRAIGHT TO [employer] TO LEAVE MESSAGE-MESSAGE LEFT CALL THEN PLACED TO [facility] 2ND CALL FOR BLS TX BACK TO [facility] FOR [facility] PT= WENT STRAIGHT TO [employer]-MESSAGE LEFT CALL THEN PLACED TO [facility] 3RD CALL/MALDEN NUMBER FOR BLS TX BACK TO [facility] FOR THIS PT MARJ ANSWERS, TAKES PT INFO THEN GIVES AN ETA OF AFTER 7AM 06/10/22-MIXING MACHINE ATTENDANT NICK MADE AWARE
--- NOTE | 2022-06-10 02:38 | PC.NURSE ---
PATIENT WAS INC OF URINE ,INCONIENT CARE GIVEN ,[place] CAT[facility]THER IN PLACE ,PT IS SLEEPING .
[2022-06-10 05:34] VITALS: BP 150/84; PULSE 100; RESP 16; TEMP 36.5; O2SAT 98
[2022-06-10 08:25] VITALS: BP 118/74; PULSE 100; RESP 24; TEMP 38.5; O2SAT 99
[2022-06-10 08:38] VITALS: TEMP 36.6
== END 2022-06-10 08:50 | disposition skilled nursing facility (03) ==
PROVIDERS: Emergency Provider Emergency Medicine
DX: B34.9 Viral infection, unspecified (principal); R41.82 Altered mental status, unspecified; Z20.822 Contact with and (suspected) exposure to COVID-19; E11.9 Type 2 diabetes mellitus without complications; I10 Essential (primary) hypertension; E78.5 Hyperlipidemia, unspecified; R62.7 Adult failure to thrive; Z68.26 Body mass index [BMI] 26.0-26.9, adult; Z91.81 History of falling; Z79.02 Long term (current) use of antithrombotics/antiplatelets; Z79.899 Other long term (current) drug therapy
CPT/HCPCS: 36415; 51701; 70450; 71045; 80048; 80076; 81003; 83605; 83690; 83735; 84443; 84484; 85007; 85027; 85610; 87040; 87635; 93005; 96360; 99284; 99285

== ENCOUNTER 2022-09-30 21:07 | Emergency (ER) | payer MEDICARE, MEDICAID, SELFPAY ==
--- NOTE | ~2022-09-30 | CT_ITS ---
EXAMINATION: NONCONTRAST HEAD CT NONCONTRAST CERVICAL SPINE CT INDICATION INFORMATION: Pain status post fall COMPARISON: Head CT 06/09/2022 TECHNIQUE: Separate noncontrast CT examinations of the head and cervical spine were performed. Coronal and sagittal images were created for each examination at the technologist workstation. This CT examination was performed using dose optimization techniques as appropriate, variously including the following: *Automated exposure control *Adjustment of mA and/or kV according to patient size (this includes techniques or standardized protocols for targeted exams where dose is matched to indication/reason for exam; i.e. extremities or head) *Use of iterative reconstruction technique DLP: 1361 mGy-cm FINDINGS: HEAD: Exam quality degraded slightly by mild motion artifact through a portion of the study. No intra or extra-axial fluid collection, hemorrhage, or mass. No ventriculomegaly. No midline shift or herniation. Basal cisterns are patent. Gage-white matter differentiation is maintained. No territorial encephalomalacia. Proportional prominence of the ventricles and sulcal spaces is consistent with mild volume loss. There is no abnormal attenuation within the brain parenchyma. Posterior scalp swelling/small hematoma and small bubbles of gas suggesting accompanying laceration. Correlate clinically. No calvarial fracture identified allowing for mild motion artifact. The mastoid air cells and visualized portions of the paranasal sinuses are well aerated. CERVICAL SPINE: Alignment: Normal. No subluxation. Vertebra: No acute fracture. No prevertebral soft tissue swelling. Degenerative disc disease: Mild to moderate cervical spondylosis at C3-C4 through C5-C6 with disc height loss, endplate sclerosis and proliferative change. Milder disc degenerative change at C2-C3, C6-C7 and T1-T2. Bilateral uncovertebral osteoarthritis at C4-C6. Other findings: Visualized extreme lung apices grossly clear, limited assessment. Visualized thyroid gland is unremarkable. There are enlarged right-sided submandibular lymph nodes, measuring up to 1.6 cm in short axis dimension with otherwise scattered smaller cervical lymph nodes, largest a left lower cervical lymph node measuring 1.1 cm in short axis dimension. CT/CT cervical spine wo IV con IMPRESSION: 1. No intracranial hemorrhage, calvarial fracture, or other acute intracranial abnormality. 2. Posterior scalp swelling/hematoma and suspected laceration. 3. No traumatic subluxation or acute cervical spine fracture. 4. UNEXPECTED FINDING: Enlarged right submandibular lymph nodes measuring up to 1.6 cm in short axis dimension and borderline enlarged left lower cervical lymph node. Findings are not entirely specific but raise concern for possible cristiane metastasis of uncertain primary or alternatively lymphoma/lymphoproliferative process. Correlate clinically and suggest additional imaging workup as clinically indicated.
--- NOTE | ~2022-09-30 | CT_ITS ---
EXAMINATION: CT CHEST WITHOUT CONTRAST CT ABDOMEN AND PELVIS WITHOUT CONTRAST CLINICAL INFORMATION: Abnormal finding on cervical spine CT. Question of malignancy. COMPARISON: 02/18/2022 TECHNIQUE: Multidetector volumetric imaging was performed through the chest, abdomen and pelvis without contrast. Sagittal and coronal reformatted images were obtained on the technologist's workstation. Axial MIP volume rendering provided. This CT examination was performed using dose optimization techniques as appropriate, variously including the following: *Automated exposure control *Adjustment of mA and/or kV according to patient size (this includes techniques or standardized protocols for targeted exams where dose is matched to indication/reason for exam; i.e. extremities or head) *Use of iterative reconstruction technique DLP: 1701 mGy-cm. FINDINGS: CHEST: Lungs: The central airways are patent. Motion limits evaluation of the lungs. Dependent atelectasis. No dense consolidation. No pulmonary nodules are definitively identified. No pneumothorax or pleural effusion. Mediastinum: The heart is of normal size. There is no pericardial effusion. Central vascular structures are unremarkable. No hilar or mediastinal lymphadenopathy. Coronary Artery Calcification: Present. Chest Wall/Axilla: No lymphadenopathy. No chest wall mass. ABDOMEN/PELVIS: Liver, Gallbladder, Biliary Tree: The liver is normal in size, shape, and attenuation. No biliary ductal dilatation. There are a few subcentimeter hypoattenuating liver lesions identified which are unchanged from previous imaging.. Cholelithiasis. No wall thickening or adjacent inflammation. Pancreas: Unremarkable. Spleen: Unremarkable. Adrenal Glands: Unremarkable. Kidneys and Ureters: Motion limits evaluation. The kidneys are normal in size, shape, and attenuation. No hydronephrosis, hydroureter or calculi seen. No perinephric stranding. Simple bilateral renal cysts for which no specific follow-up is recommended. Bladder: Distended without wall thickening. Gastrointestinal Tract: The stomach and small bowel appear unremarkable. No dilated loops of bowel or evidence of obstruction. No diverticulosis. No colonic wall thickening or adjacent inflammatory changes. Moderate colonic stool burden. No free air or free fluid. The appendix is unremarkable. Abdominal Wall: Small fat-containing right inguinal hernia. Lymphovascular Structures: Lymph nodes: Normal. Vascular: Normal caliber aorta with moderate to severe atherosclerotic calcification. Pelvic Viscera: The prostate and seminal vesicles are unremarkable. OSSEOUS STRUCTURES: No suspicious sclerotic or lytic bone lesions are identified. Mild degenerative change throughout the spine. Degenerative changes in both hips. Partially visualized right femoral fusion hardware. There is a healing left lateral eighth rib fracture. Callus formation present. No definite associated lesion. CT/CT abdomen pelvis wo IV con IMPRESSION: 1. No suspicious findings to suggest malignancy. No lymphadenopathy. 2. Motion limits evaluation of the lungs. 3. Healing left lateral eighth rib fracture. 4. Cholelithiasis.
[2022-09-30 21:28] VITALS: BP 142/82; BP 155/81; PULSE 74; PULSE 78; RESP 14; TEMP 36.4; O2SAT 97; O2SAT 98
--- NOTE | 2022-09-30 21:39 | ECG_ITS ---
Test Reason : FALL Blood Pressure : / mmHG Vent. Rate : 077 BPM Atrial Rate : 077 BPM P-R Int : 206 ms QRS Dur : 092 ms QT Int : 406 ms P-R-T Axes : 072 041 077 degrees QTc Int : 459 ms Sinus rhythm with Fusion complexes Otherwise normal ECG When compared with ECG of 09-JUN-2022 17:47, Fusion complexes are now Present Premature ventricular complexes are no longer Present Premature atrial complexes are no longer Present Vent. rate has decreased BY 38 BPM Referred By: Julee Hernadez Electronically Signed By:Benedicto Lorenzo
--- NOTE | 2022-09-30 21:41 | ED.FALL ---
HPI - Fall General Chief Complaint: Fall Stated Complaint: Fall Time Seen by Provider: 09/30/22 21:30 Source: patient, EMS and old records reviewed Mode of arrival: EMS Limitations: no limitations History of Present Illness HPI Narrative: 72-year-old male came in from a long-term facility for evaluation after having what thought to be a mechanical fall. Patient think he fell because he lost balance and he had a weak legs, patient pad his head and sustained a laceration on the occipital area, no neck pain, no chest pain, no abdominal pain, no LOC, patient is able to move 4 extremities with no obvious deformity. Patient in the emergency department is at his baseline. Related Data Home Medications Medication Instructions Recorded Confirmed amlodipine 10 mg tablet 10 mg PO DAILY 09/25/21 02/18/22 aripiprazole lauroxil 882 mg/3.2 882 mg IM QMONTH 09/25/21 02/18/22 mL suspension, ext.rel. [facility] atorvastatin 40 mg tablet 40 mg PO BEDTIME 09/25/21 02/18/22 clozapine 200 mg tablet 200 mg PO BID 09/25/21 02/18/22 divalproex 250 mg tablet,delayed 250 mg PO BID@0900,1800 09/25/21 02/18/22 release levothyroxine 88 mcg tablet 88 mcg PO DAILY@0630 09/25/21 02/18/22 loratadine 10 mg tablet 10 mg PO DAILY 09/25/21 02/18/22 lorazepam 1 mg tablet 1 mg PO BID@0900,1800 09/25/21 02/18/22 metoprolol tartrate 50 mg tablet 50 mg PO BID@0900,1800 09/25/21 02/18/22 mirtazapine 30 mg tablet 30 mg PO BEDTIME 09/25/21 02/18/22 multivitamin with minerals 1 tab PO DAILY 09/25/21 02/18/22 tamsulosin 0.4 mg capsule 0.4 mg PO BEDTIME 09/25/21 02/18/22 pantoprazole 40 mg tablet,delayed 40 mg PO DAILY@0630 01/16/22 02/18/22 release Previous Rx's Medication Instructions Recorded clozapine 50 mg tablet 50 mg PO BEDTIME #30 tabs 02/20/22 Allergies Allergy/AdvReac Type Severity Reaction Status Date / Time azithromycin Allergy Unknown Verified 09/25/21 12:15 Barbiturates Allergy Unknown Verified 09/25/21 12:15 erythromycin base Allergy Unknown Verified 09/25/21 12:15 fluphenazine Allergy Unknown Verified 09/25/21 12:15 haloperidol [From Haldol] Allergy Unknown Verified 09/25/21 12:15 phenobarbital Allergy Unknown Verified 09/25/21 12:15 Review of Systems Review of Systems: All other systems are reviewed and are negative Constitutional: Reports as per HPI and Reports no additional constitutional complaints Eyes: Reports as per HPI and Reports no additional eye complaints Reports system reviewed and no additional complaints, except as documented Cardiovascular: Reports as per HPI and Reports no additional cardiovascular complaints Respiratory: Reports as per HPI and Reports no additional respiratory complaints Gastrointestinal: Reports as per HPI and Reports no additional gastrointestinal complaints Genitourinary: Reports no additional female genitourinary complaints Musculoskeletal: Reports no additional musculoskeletal complaints Skin/Breast: Reports system reviewed and no additional complaints, except as docu Psychiatric: Reports no additional psychiatric complaints Endocrine: Reports no additional endocrine complaints Hematologic/Lymphatic: Reports no additional hematologic/lymphatic complaints Allergic/Immunologic: Reports no additional allergic/immunologic complaints Reports system reviewed and no additional complaints, except as documented and Reports Abnormal speech present PMFSH Past Medical History Medical History Anemia, unspecified Anxiety disorder, unspecified Ataxic gait Benign prostatic hyperplasia without lower urinary tract symptoms Combined forms of age-related cataract, bilateral Corns and callosities COVID-19 Diabetes Essential (primary) hypertension Functional urinary incontinence Gastro-esophageal reflux disease without esophagitis Hallux valgus (acquired), unspecified foot History of falling Hyperlipidemia, unspecified Hypothyroidism, unspecified Insomnia, unspecified Mild cognitive impairment, so stated Muscle weakness (generalized) Nail dystrophy Other seasonal allergic rhinitis Personal history of (healed) traumatic fracture Presbyopia Schizophrenia Slurred speech Suicidal ideations Tinea unguium Type 2 diabetes mellitus with other circulatory complications Unspecified astigmatism, unspecified eye Unspecified osteoarthritis, unspecified site Social History Social History Household Members: Caregiver Housing: Senior Living Unable to assess alcohol history related to: Unknown Alcohol intake: never Patient Tobacco Use Status: Tobacco use Unknown Smoked in Last 30 Days: No Use of substances other than those prescribed or required for medical reasons: No Advance Directives: Yes Advance Directives on File: Yes Advance Directives Date on File: 09/25/21 service: No Current occupational status: disabled Physical Exam Vital Signs: Vital Signs: Last Vital Signs Temp 97.6 F 10/01/22 02:00 Pulse 77 10/01/22 02:00 Resp 16 10/01/22 02:00 BP 129/93 H 10/01/22 02:00 Pulse Ox 98 10/01/22 02:00 O2 Del Method 10/01/22 02:00 BMI result Body Mass Index 20.0 Vital signs have been reviewed as appeared to be correct. Blood pressure normal. Heart rate normal. Respiration rate normal. Temperature normal. Oxygen saturation normal. Appearance: Alert. Oriented, No acute distress. Head: Normal external exam. 1 cm laceration on the occipital area no active bleeding.. No Leong signs noted. No raccoon eyes noted Eyes: PERRLA. EOMI. Conjunctiva and sclera normal. Eyelids normal. ENT: TM's Normal. Pharynx normal. Uvula midline. Moist mucous membranes. No trismus noted. No drooling noted. No muffled voice noted. Neck: Normal inspection. Neck supple. FROM. No adenopathy. Thyroid Normal. No meningeal signs. No neck mass noted. CVS: Normal heart rate and rhythm. Heart sound normal. No murmurs noted. Pulses normal throughout. Respiratory: No respiratory distress. Painless inspiration. Breath sounds normal. No wheezes/rales/rhonchi noted. Chest nontender. No accessory muscle usage noted or decreased air movement noted. Abdomen: Soft and nontender. Bowel sounds normal in all 4 quadrants. No distention noted. No organomegaly noted. No visible injury noted. Back: No CVA tenderness. Full range of motion noted. Skin: Skin warm and dry. Normal skin color. Normal skin turgor. No rashes/lesions/lacerations noted. Extremities: No lower extremity edema. Extremities exhibit normal range of motion. Extremities nontender. Neuro: Oriented X 3. Cranial nerve exam: II-XII are grossly intact No motor deficit. No sensory deficit. Reflexes normal. Course Course Course Narrative: 72-year-old male from long-term presented after sustained a mechanical fall, had a head CT showed no intracranial pathology, incidental finding on the C-spine CT revealed enlarged right submandibular lymph node measuring up to 1.8 cm which was a concern of the radiologist this might be secondary to malignancy and metastatic disease therefore a screening CT of the chest and abdomen was preformed in the emergency department show no concern of malignancy however patient will need to follow up with his PCP for further evaluation. Medications Administered Discontinued Medications Generic Name Dose Route Start Last Admin Trade Name Freq PRN Reason Stop Dose Admin Lidocaine HCl 2 ml 10/01/22 02:35 10/01/22 02:39 Lidocaine Hcl 1 % Mpf 2 Ml Vial INFILTRATI 10/01/22 02:36 2 ml ONCE ONE Administration Medical Decision Making Differential Diagnosis Differential Diagnoses: The differential diagnosis associated with the presentation includes (Mechanical fall, intracranial bleeding, cervical spine injury, metastatic disease.) Lab Data MDM Lab Attestation statement: I reviewed the patient's lab results. 09/30/22 22:43 Labs: Lab Results 09/30/22 09/30/22 09/30/22 Range/Units 22:43 22:43 22:43 PT 11.2 (10.0-13.1) SEC INR 1.0 (0.9-1.1) APTT 38.4 H (26.0-36.4) SEC Sodium 141 (135-145) mmol/L Potassium 4.0 (3.3-5.1) mmol/L Chloride 108 (96-108) mmol/L Carbon Dioxide 20 L (22-29) mmol/L Anion Gap 17 (12-20) BUN 26 H (9-16) mg/dL Creatinine 0.93 (0.5-1.4) mg/dL Estim Creat Clear Calc 74.7 Estimated GFR > 60 Random Glucose 107 (60-115) mg/dL Calcium 9.2 (8.4-10.2) mg/dL Troponin I High Sens < 3.5 (<3.5-35.0) ng/L Independent Interpretation I performed an independent interpretation of an: CT Scan (Head/C-spine/chest/abdomen and pelvis.) Radiology Impression Discussion of test interpretation with radiology: I have reviewed the radiologist's reading. Discharge Plan Discharge Clinical Impression: Fall, Head injury, Concern about cancer without diagnosis Patient Disposition: Xfer [facility] Instructions: Head Injury (ED) Additional Instructions: Cervical spine CT showed incidental enlarged lymph node that has a concern of malignancy and metastatic disease, patient needs to be worked up for cancer screening please schedule an appointment with PCP to evaluate. Prescriptions: No Action atorvastatin 40 mg Tablet 40 mg PO BEDTIME divalproex 250 mg Tablet,Delayed Release (Dr/Ec) 250 mg PO BID@0900,1800 levothyroxine 88 mcg Tablet 88 mcg PO DAILY@0630 tamsulosin 0.4 mg Capsule 0.4 mg PO BEDTIME amlodipine 10 mg Tablet 10 mg PO DAILY mirtazapine 30 mg Tablet 30 mg PO BEDTIME metoprolol tartrate 50 mg Tablet 50 mg PO BID@0900,1800 lorazepam 1 mg Tablet 1 mg PO BID@0900,1800 multivitamin with minerals Tablet 1 tab PO DAILY loratadine 10 mg Tablet 10 mg PO DAILY clozapine 200 mg Tablet 200 mg PO BID Rx Instructions: TOTAL DAILY DOSE = 450 MG ( 250 MG IN AM AND 200 MG AT BEDTIME) Aristada 882 mg/3.2 mL Suspension,Extended Rel Syring 882 mg IM QMONTH pantoprazole 40 mg Tablet,Delayed Release (Dr/Ec) 40 mg PO DAILY@0630 clozapine 50 mg Tablet 50 mg PO BEDTIME Qty: 30 0RF Rx Instructions: 250 MG IN AM Referrals: Physician,Unknown J [Primary Care Provider] -
[2022-09-30 22:20] VITALS: BP 131/78; PULSE 77; RESP 13; TEMP 36.8; O2SAT 94
[2022-09-30 22:55] LABS: Prothrombin Time 11.2 SEC (10.0-13.1)
[2022-09-30 22:58] LABS: Partial Thromboplastin Time 38.4 SEC (26.0-36.4)
[2022-09-30 23:17] LABS: Troponin-I High Sensitivity < 3.5 ng/L (<3.5-35.0)
[2022-09-30 23:41] VITALS: BP 138/87; PULSE 79; RESP 20; TEMP 36.4; O2SAT 97
[2022-10-01 01:19] LABS: Anion Gap 17 (12-20); Blood Urea Nitrogen 26 mg/dL (9-16); Calcium 9.2 mg/dL (8.4-10.2); Carbon Dioxide 20 mmol/L (22-29); Chloride 108 mmol/L (96-108); Creatinine Clr Calc Pharmacy 74.7; Estimated Glomerular Filt Rate > 60; Glucose Random 107 mg/dL (60-115); Sodium 141 mmol/L (135-145)
[2022-10-01 02:00] VITALS: BP 129/93; PULSE 77; RESP 16; TEMP 36.4; O2SAT 98
--- NOTE | 2022-10-01 02:00 | PC.NURSE ---
assumed care of pt
[2022-10-01] MEDS: Lidocaine HCl 1 % MPF 2 ML VIAL INFILTRATI (02:39)
--- NOTE | 2022-10-01 02:42 | PC.NURSE ---
pt requested food and refreshments per provider can give-provided
[2022-10-01 03:45] VITALS: BP 129/93; PULSE 83
--- NOTE | 2022-10-01 03:53 | MHC.EDTECH ---
Gagan called at [phone] for a Bls transfer back to [facility] per .Eta within 30Mins
--- NOTE | 2022-10-01 04:29 | PC.NURSE ---
RN to RN report given to Elizabeth at [facility]. Pt returning via EMS.
== END 2022-10-01 04:31 | disposition skilled nursing facility (03) ==
PROVIDERS: Emergency Provider Emergency Medicine
DX: S09.90XA Unspecified injury of head, initial encounter (principal); M54.2 Cervicalgia; R51.9 Headache, unspecified; M54.6 Pain in thoracic spine; R10.2 Pelvic and perineal pain; R07.89 Other chest pain; W18.30XA Fall on same level, unspecified, initial encounter; Y93.9 Activity, unspecified; Y92.9 Unspecified place or not applicable; Y99.9 Unspecified external cause status; Z79.899 Other long term (current) drug therapy
CPT/HCPCS: 36415; 70450; 71250; 72125; 74176; 80048; 84484; 85610; 85730; 93005; 99285

== ENCOUNTER 2023-05-10 07:36 | Inpatient (IN) | payer MEDICARE, MEDICAID, SELFPAY ==
--- NOTE | ~2023-05-10 | CT_ITS ---
EXAMINATION: CT HEAD WITHOUT CONTRAST CLINICAL INFORMATION: Change in mental status COMPARISON: CT head from 09/30/2022 TECHNIQUE: Contiguous axial imaging was performed from the skull base to vertex without intravenous administration of contrast. This CT examination was performed using dose optimization techniques as appropriate, variously including the following: *Automated exposure control *Adjustment of mA and/or kV according to patient size (this includes techniques or standardized protocols for targeted exams where dose is matched to indication/reason for exam; i.e. extremities or head) *Use of iterative reconstruction technique DLP: 1367 mGy-cm FINDINGS: There is no evidence of acute intracranial hemorrhage or territorial infarction. Chronic white matter small vessel ischemic changes. No abnormal mass effect or midline shift is seen. Gage to white matter differentiation is well preserved. No extra-axial fluid collections are identified. The ventricles are normal in size. There is no abnormal attenuation within the brain parenchyma. The osseous structures and soft tissues are normal. The mastoid air cells and visualized portions of the paranasal sinuses are well aerated. Vertebrobasilar atherosclerotic calcifications. CT/CT head/brain wo IV con IMPRESSION: 1. No acute intracranial pathology. 2. Chronic white matter small vessel ischemic changes.
--- NOTE | ~2023-05-10 | CT_ITS ---
EXAMINATION: CT ANGIOGRAM OF THE CHEST WITH CONTRAST (CT PULMONARY ANGIOGRAM FOR PE) CLINICAL INFORMATION: Reason for Exam hypoxia, evaluate for PE COMPARISON: Chest CT from 10/01/2022 TECHNIQUE: Prior to contrast administration, noncontrast localization images were obtained. Subsequently, multidetector volumetric imaging was performed from the thoracic inlet to below the diaphragms following the administration of 65 mL on the intravenous contrast. No contrast reaction reported. Sagittal, coronal, and MIP oblique sagittal reformatted images were obtained on the CT workstation, uploaded to PACS, and reviewed. This CT examination was performed using dose optimization techniques as appropriate, variously including the following: *Automated exposure control *Adjustment of mA and/or kV according to patient size (this includes techniques or standardized protocols for targeted exams where dose is matched to indication/reason for exam; i.e. extremities or head) *Use of iterative reconstruction technique DLP: Total exam dose-length product 495.88 mGy-cm for the CT PE chest exam (1367 mGy-cm total, for the topograms as well as CT exams of head and chest) FINDINGS: LUNGS AND PLEURA: Mild respiratory motion on the images through the chest. Bronchial lainez are diffusely thickened as may be observed in patients with asthma or bronchitis. There appear to be secretions within some of the left lower lobe bronchi. Mild atelectasis in the lingula and lower lobes. No consolidation. No pleural effusion or pneumothorax. QUALITY OF STUDY/CONTRAST BOLUS: Satisfactory. PULMONARY ARTERIES: The pulmonary arteries are normal in size. No embolic filling defects within the main, lobar or segmental vessels. OTHER CARDIOVASCULAR: The heart size is normal. No pericardial effusion. Mild atherosclerotic calcification of coronary arteries is present. Also, mild atherosclerosis of thoracic aorta without aneurysm or dissection. MEDIASTINUM/LOWER NECK: No mediastinal mass. The esophagus and thyroid gland are unremarkable. LYMPHATICS: Note that this patient had neck lymphadenopathy on the CT cervical spine from 09/30/2022. The largest lymph node in the region of the medial left supraclavicular fossa is 1.5 cm in short axis dimension. The right and left axillary lymph nodes are chronically mildly enlarged. Also, there is mild prominence of lymph nodes within the mediastinum, including a lymph node of 1 cm short axis dimension in the prevascular space. UPPER ABDOMEN: Splenomegaly is noted. Spleen measures up to at least 13.8 cm maximum dimension. No focal splenic lesion. Adrenal glands are normal. Simple cysts of the upper pole of each kidney. No renal imaging follow-up is recommended for a simple cyst. Cholelithiasis. A few small simple cysts of the liver are detected. Chronic lymphadenopathy in the periportal region, largest lymph node 1.9 cm short axis dimension (1.6 cm on 10/01/2022). OSSEOUS STRUCTURES: Old healed left lateral eighth rib fracture. Skeletal hyperostosis with presence of bulky flowing anterior ligament ossification of the mildly degenerated thoracic spine. No acute or suspicious osseous abnormality. CT/CT angio chest PE protocol IMPRESSION: * No evidence of pulmonary embolism. * Bronchial lainez are diffusely thickened as may be observed in patients with asthma or bronchitis. Mild atelectasis is present in the lingula and lower lobes. No pneumonia. * Chronic lymphadenopathy in the visualized neck, axilla and periportal region. Also, splenomegaly is present. Lymphadenopathy in the neck was observed on 09/30/2022. Query if the patient has already undergone workup for the lymphadenopathy. Differential diagnosis includes lymphoma. * Cholelithiasis.
--- NOTE | ~2023-05-10 | XR_ITS ---
EXAMINATION: XR CHEST CLINICAL INFORMATION: Hypoxia, hypotension. Evaluate for pneumonia. COMPARISON: CXR from 06/09/2022 TECHNIQUE: Frontal view of the chest was obtained. FINDINGS: Lungs are adequately expanded and without evidence of acute disease. No consolidation or pleural effusion. Cardiac silhouette has normal size and contour. EKG wires overlie the chest. Multilevel osteophyte formation at/or enthesophyte formation of the thoracic spine. XR/XR chest 1V IMPRESSION: No evidence of pneumonia. No acute cardiopulmonary abnormality compared to 06/09/2022.
--- NOTE | 2023-05-10 07:40 | ED.SOB ---
HPI - SOB/Dyspnea General Chief Complaint: Upper Respiratory Symptoms Stated Complaint: ams, tachy, possible sepsis, per ems Time Seen by Provider: 05/10/23 07:39 Source: EMS Mode of arrival: EMS Limitations: altered mental status History of Present Illness HPI Narrative: [id number]: 72-year-old male resident of [facility] with history of diabetes, GERD, BPH, hyperlipidemia, hypertension, cognitive impairment, anxiety, hypothyroidism, ataxic gait, anemia, schizophrenic who was brought to emergency department by BLS for evaluation of altered mental status, hypoxia and hypotension. According to EMS, nursing facility reports that the patient became altered sometime this morning and appeared worse at change of shift therefore an ambulance was called. Paramedics report that the patient was altered, not answering questions, could not tell them his name, blood pressure was 70/48 with a heart rate varying of from 120-150 with an O2 saturation of 82-85% on room air. Related Data Home Medications Medication Instructions Recorded Confirmed amlodipine 10 mg tablet 10 mg PO DAILY 09/25/21 02/18/22 aripiprazole lauroxil 882 mg/3.2 882 mg IM QMONTH 09/25/21 02/18/22 mL suspension, ext.rel. IM syringe ([place]) atorvastatin 40 mg tablet 40 mg PO BEDTIME 09/25/21 02/18/22 clozapine 200 mg tablet 200 mg PO BID 09/25/21 02/18/22 divalproex 250 mg tablet,delayed 250 mg PO BID@0900,1800 09/25/21 02/18/22 release levothyroxine 88 mcg tablet 88 mcg PO DAILY@0630 09/25/21 02/18/22 loratadine 10 mg tablet 10 mg PO DAILY 09/25/21 02/18/22 lorazepam 1 mg tablet 1 mg PO BID@0900,1800 09/25/21 02/18/22 metoprolol tartrate 50 mg tablet 50 mg PO BID@0900,1800 09/25/21 02/18/22 mirtazapine 30 mg tablet 30 mg PO BEDTIME 09/25/21 02/18/22 multivitamin with minerals 1 tab PO DAILY 09/25/21 02/18/22 tamsulosin 0.4 mg capsule 0.4 mg PO BEDTIME 09/25/21 02/18/22 pantoprazole 40 mg tablet,delayed 40 mg PO DAILY@0630 01/16/22 02/18/22 release Previous Rx's Medication Instructions Recorded clozapine 50 mg tablet 50 mg PO BEDTIME #30 tabs 02/20/22 Allergies Allergy/AdvReac Type Severity Reaction Status Date / Time azithromycin Allergy Unknown Verified 09/25/21 12:15 Barbiturates Allergy Unknown Verified 09/25/21 12:15 erythromycin base Allergy Unknown Verified 09/25/21 12:15 fluphenazine Allergy Unknown Verified 09/25/21 12:15 haloperidol [From Haldol] Allergy Unknown Verified 09/25/21 12:15 phenobarbital Allergy Unknown Verified 09/25/21 12:15 Review of Systems Review of Systems: Yes Unobtainable due to mental status [facility] Past Medical History [facility] Narrative: social history: The patient is a resident of [facility] Medical History Presbyopia Unspecified astigmatism, unspecified eye Combined forms of age-related cataract, bilateral Corns and callosities Nail dystrophy Tinea unguium Type 2 diabetes mellitus with other circulatory complications Hallux valgus (acquired), unspecified foot Other seasonal allergic rhinitis Insomnia, unspecified History of falling Slurred speech Suicidal ideations Functional urinary incontinence Personal history of (healed) traumatic fracture Gastro-esophageal reflux disease without esophagitis Benign prostatic hyperplasia without lower urinary tract symptoms Hyperlipidemia, unspecified Essential (primary) hypertension Mild cognitive impairment, so stated Unspecified osteoarthritis, unspecified site Muscle weakness (generalized) Anxiety disorder, unspecified Hypothyroidism, unspecified Ataxic gait Anemia, unspecified Diabetes COVID-19 Schizophrenia Social History Social History Household Members: Caregiver Housing: Shelter Unable to assess alcohol history related to: Unknown Alcohol intake: never Patient Tobacco Use Status: Tobacco use Unknown Advance Directives: Yes Advance Directives on File: Yes Advance Directives Date on File: 09/25/21 service: No Current occupational status: disabled Physical Exam Vital Signs: Vital Signs: Last Vital Signs Temp 100.0 F 05/10/23 08:23 Pulse 111 H 05/10/23 09:30 Resp 20 05/10/23 09:30 BP 136/56 L 05/10/23 09:30 Pulse Ox 98 05/10/23 09:30 O2 Del Method Oxymask 05/10/23 09:30 O2 Flow Rate 3 05/10/23 09:30 Oxygen Flow Rate 15 05/10/23 07:49 BMI result Body Mass Index 25.2 Medications Administered Discontinued Medications Generic Name Dose Route Start Last Admin Trade Name Navin PRN Reason Stop Dose Admin Sodium Chloride 2,604 mls @ 2,604 mls/hr 05/10/23 07:54 05/10/23 09:30 Ns 30 ml/kg infuse over 1 hr (2604 ml) 05/10/23 08:53 Infused IV Infusion .Q1H STA Piperacillin Sod/Tazobactam 100 mls @ 200 mls/hr 05/10/23 07:54 05/10/23 08:52 Sod 4.5 gm/ Sodium Chloride IV 05/10/23 08:23 Infused ONCE ONE Infusion Iohexol 65 ml 05/10/23 10:09 05/10/23 10:10 Iohexol 350 Mg/Ml 100 Ml Infus..Btl IV 05/10/23 10:10 65 ml ONCE ONE Administration Medical Decision Making Medical Decision Making MDM Narrative: 72-year-old male resident of [facility] with history of diabetes, GERD, BPH, hyperlipidemia, hypertension, cognitive impairment, anxiety, hypothyroidism, ataxic gait, anemia, schizophrenic who was brought to emergency department by BLS for evaluation of altered mental status, hypoxia and hypotension. According to EMS, nursing facility reports that the patient became altered sometime this morning and appeared worse at change of shift therefore an ambulance was called. Paramedics report that the patient was altered, not answering questions, could not tell them his name, blood pressure was 70/48 with a heart rate varying of from 120-150 with an O2 saturation of 82-85% on room air. examination did reveal diffuse rhonchorous sounds, patient was hypoxic with O2 saturation of 82% on room improved with OxyMask. I ordered the following evaluation / treatments: CBC, CMP, BNP, troponin, PT/INR, PTT, lipase, blood cultures x2, urinalysis, chest x-ray one view, Kim catheter for fluid management, 30 cc/kilogram normal saline bolus, Zosyn 4.5 g IV 0938: Patient's laboratory evaluation revealed a normal BNP of 28, CBC was unremarkable- WBC is pending however, high sensitive troponin I was detectable at 11.9 but not elevated. Lactic acid was elevated 2.1. COVID-19 was negative chest x-ray did not reveal any clear infiltrates to explain the patient's hypoxia I ordered a CT scan of the brain evaluate the patient's altered mental status, CT pulmonary angiogram PE protocol to further evaluate the patient's hypoxia patient will get a repeat troponin at 10:45 hours 1118: CT scan of brain was unremarkable The CT pulmonary angiogram PE protocol did not reveal any pulmonary embolism, patient does have do a wall thickening suggesting that he has a respiratory infection. Blood pressures improved I will discuss admission with the covering hospitalist. Differential Diagnosis Differential Diagnoses: The differential diagnosis associated with the presentation includes differential diagnosis includes was not limited to congestive heart failure, pneumonia, myocardial infarction, myocardial ischemia, stroke, intracranial bleed, urinary tract infection, electrolyte abnormality, anemia Admission/Observation Consideration of admission/observation: Escalation of care including admission/observation considered Consult Healthcare Provider Management of the patient was discussed with: Hospitalist Lab Data Laboratory evaluation revealed a normal CBC. BUN was elevated 23, 0.9. Lactic acid was elevated at 2.1. Patient's COVID-19 was negative. Urinalysis/microscopic was negative for infection. COVID-19 was negative. Influenza is pending. High sensitive troponin I was detectable but not elevated 11.9-repeat pending. 05/10/23 07:47 05/10/23 07:47 Labs: Lab Results 05/10/23 05/10/23 05/10/23 Range/Units 07:47 07:47 08:27 WBC 11.8 H (4.8-10.8) X10*3/uL RBC 5.04 (4.60-5.80) X10*6/uL Hgb 14.8 (14.0-18.0) g/dl Hct 43.7 (42.0-52.0) % MCV 86.7 (80.0-98.0) fL MCH 29.4 (27.0-33.0) pg MCHC 33.9 (31.0-36.0) g/dl RDW 14.8 (11.0-16.0) % Plt Count 167 D (160-400) X10*3/uL MPV 10.5 (9.4-12.4) fL Immature Gran % (Auto) Cancelled Neut % (Auto) Cancelled Lymph % (Auto) Cancelled [place] % (Auto) Cancelled Eos % (Auto) Cancelled Baso % (Auto) Cancelled Lymph # (Auto) Cancelled [place] # (Auto) Cancelled Eos # (Auto) Cancelled Baso # (Auto) Cancelled Abs Immat Gran (auto) Cancelled Absolute Neuts (auto) Cancelled Absolute Nucleated RBC 0.000 (0.0-0.012) X10*3/uL Nucleated RBC % (auto) 0.0 (0.0-0.2) /100WBC Neutrophils % (Manual) 72 (45-73) % Band Neutrophils % 7 H (3-5) % Lymphocytes % (Manual) 13 L (20-40) % Monocytes % (Manual) 8 (2-11) % Abs Neuts (Manual) 9.3 H (2.0-8.3) X10*3/uL Lymphocytes # (Manual) 1.5 (1.2-4.9) X10*3/uL Monocytes # (Manual) 0.9 (0.1-1.2) X10*3/uL Platelet Estimate NORMAL (NORMAL) Plt Morphology Comment NORMAL RBC Morphology NOTED Ovalocytes 2+ (15-30) /OIF Joellen Cells 2+ (3-5) /OIF Acanthocytes (Spur) 1+ (0-2) /OIF Sodium 140 (135-145) mmol/L Potassium 4.5 (3.3-5.1) mmol/L Chloride 104 (96-108) mmol/L Carbon Dioxide 20 L (22-29) mmol/L Anion Gap 21 H (12-20) BUN 23 H (9-16) mg/dL Creatinine 0.98 (0.5-1.4) mg/dL Estim Creat Clear Calc 78.1 Estimated GFR > 60 Random Glucose 144 H (60-115) mg/dL Lactic Acid 2.1 H* (0.5-2.0) mmol/L Calcium 9.9 D (8.4-10.2) mg/dL Total Bilirubin 0.5 (0.0-1.0) mg/dL AST 21 (5-37) U/L ALT 16 (0-40) U/L Alkaline Phosphatase 103 (39-117) U/L Troponin I High Sens 11.9 D (<3.5-35.0) ng/L B-Natriuretic Peptide 28 (<100) pg/mL Total Protein 8.4 H (6.5-8.0) g/dL Albumin 4.3 (3.5-5.0) g/dL Lipase 19 (8-78) U/L TSH 4.49 H Cancelled (0.32-4.0) uIU/mL Free T4 0.80 (0.71-1.85) ng/dL Urine Color Yellow Urine Appearance Clear Urine pH 5.5 (5.0-9.0) Ur Specific [place] 1.020 (1.005-1.025) Urine Protein 30 (1+) H (Neg-Trace) mg/dL Urine Glucose (UA) Negative (Negative) mg/dL Urine Ketones 15 (Negative) mg/dL Urine Blood Negative (Negative) Urine Nitrite Negative (Negative) Ur Leukocyte Esterase Trace H (Negative) Urine RBC 6-10 H (0-2) /HPF Urine WBC 0-5 (0-5) /HPF Ur Squamous Epith Cells 0-2 (0-2) /HPF Urine Bacteria None Seen (None Seen) Hyaline Casts 0-2 (0-2) /LPF Independent Interpretation I performed an independent interpretation of an: EKG Interpretation: my independent interpretation patient's 12 EKG done at 08:06 hours is as follows: Sinus tachycardia with rate of 129, normal KS interval, QRS duration, QTC interval, no ST segment elevation, no ST segment depression, no PACs, no PVCs. My independent interpretation patient's chest x-ray is as follows: No acute disease Radiology Impression Discussion of test interpretation with radiology: I have reviewed the radiologist's reading. Radiologist Impression: XR chest 1V IMPRESSION: No evidence of pneumonia. No acute cardiopulmonary abnormality compared to 06/09/2022. Dictated By: Tushar Tyson MD CT head/brain wo IV con IMPRESSION: 1. No acute intracranial pathology. 2. Chronic white matter small vessel ischemic changes. Dictated By: Vance Matson MD CT angio chest PE protocol IMPRESSION: * No evidence of pulmonary embolism. * Bronchial lainez are diffusely thickened as may be observed in patients with asthma or bronchitis. Mild atelectasis is present in the lingula and lower lobes. No pneumonia. * Chronic lymphadenopathy in the visualized neck, axilla and periportal region. Also, splenomegaly is present. Lymphadenopathy in the neck was observed on 09/30/2022. Query if the patient has already undergone workup for the lymphadenopathy. Differential diagnosis includes lymphoma. * Cholelithiasis. Dictated By: Tushar Tyson MD Critical Care Time Critical Care Time Critical Care Time: Yes Total Critical Care Time: 45 Attestation: Critical Care: The patient was critically ill with a high probability of imminent or life threatening deterioration. I spent greater than 30 minutes of discontinuous time evaluating the patient,delivering critical care at the bedside, discussing and evaluating pertinent data with consultants. Critical care time does not include time spent performing separately billable procedures or teaching. Total time spent performing critical care was 45 minutes. Discharge Plan Discharge Clinical Impression: Hypoxic, Acute hypotension Pneumonia Qualifiers: Laterality: unspecified laterality Patient Disposition: Admitted As Inpatient Prescriptions: No Action atorvastatin 40 mg Tablet 40 mg PO BEDTIME divalproex 250 mg Tablet,Delayed Release (Dr/Ec) 250 mg PO BID@0900,1800 levothyroxine 88 mcg Tablet 88 mcg PO DAILY@0630 tamsulosin 0.4 mg Capsule 0.4 mg PO BEDTIME amlodipine 10 mg Tablet 10 mg PO DAILY mirtazapine 30 mg Tablet 30 mg PO BEDTIME metoprolol tartrate 50 mg Tablet 50 mg PO BID@0900,1800 lorazepam 1 mg Tablet 1 mg PO BID@0900,1800 multivitamin with minerals Tablet 1 tab PO DAILY loratadine 10 mg Tablet 10 mg PO DAILY clozapine 200 mg Tablet 200 mg PO BID Rx Instructions: TOTAL DAILY DOSE = 450 MG ( 250 MG IN AM AND 200 MG AT BEDTIME) Aristada 882 mg/3.2 mL Suspension,Extended Rel Syring 882 mg IM QMONTH pantoprazole 40 mg Tablet,Delayed Release (Dr/Ec) 40 mg PO DAILY@0630 clozapine 50 mg Tablet 50 mg PO BEDTIME Qty: 30 0RF Rx Instructions: 250 MG IN AM
--- NOTE | 2023-05-10 07:45 | ECG_ITS ---
Test Reason : hypoxic Blood Pressure : / mmHG Vent. Rate : 129 BPM Atrial Rate : 129 BPM P-R Int : 160 ms QRS Dur : 086 ms QT Int : 300 ms P-R-T Axes : 066 014 083 degrees QTc Int : 439 ms Sinus tachycardia Possible Left atrial enlargement Borderline ECG When compared with ECG of 30-SEP-2022 22:18, Fusion complexes are no longer Present Vent. rate has increased BY 52 BPM Referred By: Farhat Barajas Electronically Signed By:AUTUMN DEL RIO
[2023-05-10 07:49] VITALS: BP 112/78; BP 70/62; PULSE 134; RESP 20; TEMP 37.2; O2SAT 89; O2SAT 98; BMI 25.2
[2023-05-10 08:12] LABS: Hematocrit 43.7 % (42.0-52.0); Hemoglobin 14.8 g/dl (14.0-18.0); Mean Corpuscular HGB Conc 33.9 g/dl (31.0-36.0); Mean Corpuscular Hemoglobin 29.4 pg (27.0-33.0); Mean Corpuscular Volume 86.7 fL (80.0-98.0); Mean Platelet Volume 10.5 fL (9.4-12.4); Platelet Count 167 X10*3/uL (160-400); Red Blood Count 5.04 X10*6/uL (4.60-5.80); Red Cell Distribution Width 14.8 % (11.0-16.0); WBC ABN SCTR FOR CBC 1
[2023-05-10 08:22] LABS: Lactic Acid 2.1 mmol/L (0.5-2.0)
[2023-05-10] MEDS: Piperacillin Sodium/Tazobactam 4.5 GM in 0.9 % Sodium Chloride 100 ML IV (08:22)
[2023-05-10 08:23] VITALS: BP 110/77; PULSE 121; RESP 24; TEMP 37.8; O2SAT 98
[2023-05-10 08:34] LABS: Troponin-I High Sensitivity 11.9 ng/L (<3.5-35.0)
[2023-05-10 08:34] LABS: Appearance Urine Clear; Color Urine Yellow; Glucose Urine UA Negative (Negative); Leukocyte Esterase Urine Trace (Negative); Nitrite Urine Negative (Negative); PH 5.5 (5.0-9.0); UMIC TRIGGER UACC YES; Urine Blood Negative (Negative); Urine Ketones 15 mg/dL (Negative); Urine Protein 30 (1+) mg/dL (Neg-Trace)
[2023-05-10 08:39] LABS: B Type Natriuretic Peptide 28 pg/mL (<100)
[2023-05-10 08:44] LABS: Alanine Aminotransferase 16 U/L (0-40); Albumin Level 4.3 g/dL (3.5-5.0); Alkaline Phosphatase 103 U/L (39-117); Anion Gap 21 (12-20); Aspartate Amino Transferase 21 U/L (5-37); Bilirubin Total 0.5 mg/dL (0.0-1.0); Blood Urea Nitrogen 23 mg/dL (9-16); Calcium 9.9 mg/dL (8.4-10.2); Carbon Dioxide 20 mmol/L (22-29); Chloride 104 mmol/L (96-108); Creatinine Clr Calc Pharmacy 78.1; Estimated Glomerular Filt Rate > 60; Glucose Random 144 mg/dL (60-115); Lipase 19 U/L (8-78); Potassium 4.5 mmol/L (3.3-5.1); Sodium 140 mmol/L (135-145); Total Protein 8.4 g/dL (6.5-8.0)
[2023-05-10 08:47] LABS: Bacteria Urine None Seen (None Seen); Hyaline Casts Urine 0-2 /LPF (0-2); Squamous Epithelial Cell Urine 0-2 /HPF (0-2); WBC Urine 0-5 /HPF (0-5)
[2023-05-10 08:58] LABS: TSH reflex Free T4 4.49 uIU/mL (0.32-4.0)
[2023-05-10 09:30] VITALS: BP 136/56; PULSE 111; RESP 20; O2SAT 98
[2023-05-10 09:44] LABS: Band Neutrophils Percent 7 % (3-5); Lymphocytes Percent Manual 13 % (20-40); Monocytes Percent Manual 8 % (2-11); Neutrophils Percent Manual 72 % (45-73)
[2023-05-10 09:46] LABS: Platelet Estimate NORMAL (NORMAL); Platelet Morphology Comment NORMAL; RBC Morphology NOTED
[2023-05-10 09:48] LABS: Acanthocytes 1+ (0-2) /OIF; Ovalocytes 2+ (15-30) /OIF
[2023-05-10 09:49] LABS: Burr Cells 2+ (3-5) /OIF
[2023-05-10 09:54] LABS: Reflex Lactate? Lactic Acid Added
[2023-05-10] MEDS: iohexoL 350 MG/ML 100 ML INFUS..BTL 65 ML IV (10:10)
[2023-05-10 10:46] LABS: Lymphocytes Absolute Manual 1.5 X10*3/uL (1.2-4.9); Monocytes Absolute Manual 0.9 X10*3/uL (0.1-1.2); Neutrophils Absolute Manual 9.3 X10*3/uL (2.0-8.3); White Blood Count 11.8 X10*3/uL (4.8-10.8)
[2023-05-10 11:12] LABS: INTERNATIONAL NORM RATIO 1.1 (0.9-1.1); Prothrombin Time 12.8 SEC (11.1-13.3)
[2023-05-10 11:15] LABS: Partial Thromboplastin Time 27.5 SEC (26.0-36.4)
[2023-05-10 11:19] LABS: COVID-19 Test Negative (Negative); IDNOW Serial# BCCEAD1C
[2023-05-10 11:22] LABS: ~Lactic Acid-LAB USE ONLY 2.2 mmol/L (0.5-2.0)
[2023-05-10 11:24] LABS: IDNOW Serial# 9DB6401D; Influenza A Negative (Negative); Influenza B2 Negative (Negative)
[2023-05-10 11:25] LABS: Troponin-I High Sensitivity 15.3 ng/L (<3.5-35.0)
[2023-05-10 12:51] LABS: Reflex Lactate? 2 Y
[2023-05-10 12:54] LABS: VBG Base Excess -0.8 mmol/L; VBG HCO3 18 mmol/L (22-26); VBG pCO2 20 mmHg; VBG pH 7.57 (7.32-7.43); VBG pO2 175 mmHg
[2023-05-10 12:55] LABS: Venous Blood Gas Refer to POC result
[2023-05-10 13:53] VITALS: BP 125/78; PULSE 113; RESP 18; O2SAT 99
--- NOTE | 2023-05-10 14:13 | P.HPHOSP_ITS ---
<Statement entered by Michelle Aviles MD - 05/11/23 14:00> the patient was seen and evaluated with RANJANA Heredia. I agree with his note, assessment and plan with the following. In summary, a 72 years old male with PMH of HLD, HTN, BPH, GERD, hypothyroidism, cognitive impairment, anxiety and schizophrenia who presents from [facility] with AMS, hypoxia, and hypotension. Acute toxic metabolic encephalopathy 2/2 possible infx, seizure? Hypoxia and Sepsis 2/2 possible aspiration vs atelactasis empiric antibiotic with Zosyn swallow evaluation Monitor mentation Titrate supplemental O2, wean as tolerated Rest of evaluations by RANJANA note. History of Present Illness Date of Service: 05/10/23 Attending physician on admission: Michelle Aviles Chief Complaint: AMS, hypoxia, hypotension Pt is a 72-year-old male resident of [facility] with a PMH significant for?HLD, HTN, BPH, GERD, hypothyroidism, cognitive impairment, anxiety and schizophrenia who presents to the ED from [facility] for evaluation of altered mental status, hypoxia, and hypotension. Patient continues to be altered and unable to state his name, he is status incapable of providing accurate HPI which is instead obtained from chart and provider review. Nursing staff at [facility] found the patient this morning altered and appearing worse as the day progressed, thus prompting call to EMS. Paramedics report that patient was not answering questions and could not even tell them his name. Was hypotensive at 70/48 and tachycardic as high as 150s with an O2 saturation of 82-85% on RA. Of note, patient has presented to the hospital in the past with similar episodes of altered mentation and catatonia upon getting an infection that usually improves any few days after antibiotic treatment. In the ED patient with temperatures of 100.0, tachycardia up to 134, tachypnea to 24, soft BP is low as 136/56, and satting as low as 82% on RA. Patient improved to O2 sat of 98% on OxyMask 10L. Labs were significant for leukocytosis of 11.8, VBG with pH 7.57, lactic acid 2.1 repeat 2.2. H&H stable. Electrolytes largely WNL. Renal function baseline. Hepatic function baseline. Initial troponin 11.9 with repeat flat at 15.3. BNP 28. CXR showed no evidence of pneumonia or acute cardiopulmonary abnormality when compared to prior on 06/09/2022. CTA found no evidence of pulmonary embolism or pneumonia, but did show bronchial wall diffusely thickened?possibly secondary to asthma or bronchitis, with mild atelectasis in lingula and lower lobes. CTA also showed chronic lymphadenopathy. CT of head found no acute intracranial pathology but showed chronic white matter small-vessel ischemic changes. EKG demonstrated sinus tachycardia no evidence of ST elevations or depressions. Pt was treated with IVF and Zosyn. Pt will be admitted to the hospital for treatment and further evaluation of acute toxic metabolic encephalopathy and acute hypoxic respiratory failure in setting of possible aspiration pneumonia. Review of Systems 2 Review of Systems: Unable to obtain due to patient's mentation [facility] Medical History Presbyopia Unspecified astigmatism, unspecified eye Combined forms of age-related cataract, bilateral Corns and callosities Nail dystrophy Tinea unguium Type 2 diabetes mellitus with other circulatory complications Hallux valgus (acquired), unspecified foot Other seasonal allergic rhinitis Insomnia, unspecified History of falling Slurred speech Suicidal ideations Functional urinary incontinence Personal history of (healed) traumatic fracture Gastro-esophageal reflux disease without esophagitis Benign prostatic hyperplasia without lower urinary tract symptoms Hyperlipidemia, unspecified Essential (primary) hypertension Mild cognitive impairment, so stated Unspecified osteoarthritis, unspecified site Muscle weakness (generalized) Anxiety disorder, unspecified Hypothyroidism, unspecified Ataxic gait Anemia, unspecified Diabetes COVID-19 Schizophrenia Social History Household Members: Caregiver Housing: Detention Unable to assess alcohol history related to: Unknown Alcohol intake: never Patient Tobacco Use Status: Tobacco use Unknown Advance Directives: Yes Advance Directives on File: Yes Advance Directives Date on File: 09/25/21 service: No Current occupational status: disabled Meds Allergies Allergy/AdvReac Type Severity Reaction Status Date / Time azithromycin Allergy Unknown Verified 09/25/21 12:15 Barbiturates Allergy Unknown Verified 09/25/21 12:15 erythromycin base Allergy Unknown Verified 09/25/21 12:15 fluphenazine Allergy Unknown Verified 09/25/21 12:15 haloperidol [From Haldol] Allergy Unknown Verified 09/25/21 12:15 phenobarbital Allergy Unknown Verified 09/25/21 12:15 Home Medications Medication Instructions Recorded Confirmed Last Taken Type aripiprazole lauroxil 882 mg/3.2 882 mg IM QMONTH 09/25/21 05/10/23 02/18/22 History mL suspension, ext.rel. [facility] atorvastatin 40 mg tablet 40 mg PO BEDTIME 09/25/21 05/10/23 02/18/22 History clozapine 200 mg tablet 200 mg PO BID 09/25/21 05/10/23 02/18/22 History loratadine 10 mg tablet 10 mg PO DAILY 09/25/21 05/10/23 02/18/22 History lorazepam 1 mg tablet 1 mg PO BID@0900,1800 09/25/21 05/10/23 02/18/22 History metoprolol tartrate 50 mg tablet 50 mg PO BID@0900,1800 09/25/21 05/10/23 02/18/22 History mirtazapine 30 mg tablet 30 mg PO BEDTIME 09/25/21 05/10/23 02/18/22 History multivitamin with minerals 1 tab PO DAILY 09/25/21 05/10/23 02/18/22 History tamsulosin 0.4 mg capsule 0.4 mg PO BEDTIME 09/25/21 05/10/23 02/18/22 History pantoprazole 40 mg tablet,delayed 40 mg PO DAILY@0630 01/16/22 05/10/23 02/18/22 History release amlodipine 5 mg tablet 5 mg PO DAILY 05/10/23 05/10/23 Unknown History clozapine 50 mg tablet 50 mg PO DAILY 05/10/23 05/10/23 Unknown History divalproex 250 mg tablet,extended 250 mg PO DAILY 05/10/23 05/10/23 Unknown History release 24 hr divalproex 500 mg tablet,extended 1,000 mg PO BEDTIME 05/10/23 05/10/23 Unknown History release 24 hr (Depakote ER) levothyroxine 100 mcg tablet 100 mcg PO DAILY 05/10/23 05/10/23 Unknown History Physical Exam 2 Vital Signs and Narrative: Vital Signs: Last Vital Signs Temp 100.0 F 05/10/23 08:23 Pulse 113 H 05/10/23 13:53 Resp 18 05/10/23 13:53 BP 125/78 05/10/23 13:53 Pulse Ox 99 05/10/23 13:53 O2 Del Method Oxymask 05/10/23 13:53 O2 Flow Rate 3 05/10/23 13:53 Oxygen Flow Rate 15 05/10/23 07:49 BMI result Body Mass Index 25.2 General: Alert, disheveled, confused, incapable of providing name, no acute distress Resp: Diffuse expiratory rhonchi bilaterally CVS: S1, S2, tachycardic GI: +BS, NT, no distention Skin: Warm, dry Neuro: Cranial nerves II-XII grossly intact bilaterally. Motor grossly intact bilaterally Extremities: No edema Results Labs 05/10/23 07:47 05/10/23 07:47 Labs: Laboratory Results - last 24 hr 05/10/23 05/10/23 05/10/23 07:47 07:47 08:27 MCV 86.7 MCH 29.4 MCHC 33.9 RDW 14.8 Plt Count 167 D MPV 10.5 Immature Gran % (Auto) Cancelled Neut % (Auto) Cancelled Lymph % (Auto) Cancelled [place] % (Auto) Cancelled Eos % (Auto) Cancelled Baso % (Auto) Cancelled Lymph # (Auto) Cancelled [place] # (Auto) Cancelled Eos # (Auto) Cancelled Baso # (Auto) Cancelled Abs Immat Gran (auto) Cancelled Absolute Neuts (auto) Cancelled Absolute Nucleated RBC 0.000 Nucleated RBC % (auto) 0.0 Neutrophils % (Manual) 72 Band Neutrophils % 7 H Lymphocytes % (Manual) 13 L Monocytes % (Manual) 8 Abs Neuts (Manual) 9.3 H Lymphocytes # (Manual) 1.5 Monocytes # (Manual) 0.9 Platelet Estimate NORMAL Plt Morphology Comment NORMAL RBC Morphology NOTED Ovalocytes 2+ (15-30) [place] Cells 2+ (3-5) Acanthocytes (Spur) 1+ (0-2) PT INR APTT VBG pH VBG pCO2 VBG pO2 VBG HCO3 VBG O2 Saturation VBG Base Excess Anion Gap 21 H Estim Creat Clear Calc 78.1 Estimated GFR > 60 Random Glucose 144 H Lactic Acid 2.1 H* Lactic Acid F/U @ 2Hr Calcium 9.9 D Total Bilirubin 0.5 AST 21 ALT 16 Alkaline Phosphatase 103 B-Natriuretic Peptide 28 Total Protein 8.4 H Albumin 4.3 Lipase 19 TSH 4.49 H Cancelled Free T4 0.80 Urine Color Yellow Urine Appearance Clear Urine pH 5.5 Ur Specific [place] 1.020 Urine Protein 30 (1+) H Urine Glucose (UA) Negative Urine Ketones 15 Urine Blood Negative Urine Nitrite Negative Ur Leukocyte Esterase Trace H Urine RBC 6-10 H Urine WBC 0-5 Ur Squamous Epith Cells 0-2 Urine Bacteria None Seen Hyaline Casts 0-2 COVID-19 (MARYCRUZ) COVID-19 Clin Com Influenza Type A (MADDI) Influenza Type B (MADDI) Influenza A & B Note 05/10/23 05/10/23 05/10/23 10:12 10:40 10:41 MCV MCH MCHC RDW Plt Count MPV Immature Gran % (Auto) Neut % (Auto) Lymph % (Auto) [place] % (Auto) Eos % (Auto) Baso % (Auto) Lymph # (Auto) [place] # (Auto) Eos # (Auto) Baso # (Auto) Abs Immat Gran (auto) Absolute Neuts (auto) Absolute Nucleated RBC Nucleated RBC % (auto) Neutrophils % (Manual) Band Neutrophils % Lymphocytes % (Manual) Monocytes % (Manual) Abs Neuts (Manual) Lymphocytes # (Manual) Monocytes # (Manual) Platelet Estimate Plt Morphology Comment RBC Morphology Ovalocytes Joellen Cells Acanthocytes (Spur) PT 12.8 INR 1.1 APTT 27.5 D VBG pH VBG pCO2 VBG pO2 VBG HCO3 VBG O2 Saturation VBG Base Excess Anion Gap Estim Creat Clear Calc Estimated GFR Random Glucose Lactic Acid Lactic Acid F/U @ 2Hr 2.2 H* Calcium Total Bilirubin AST ALT Alkaline Phosphatase B-Natriuretic Peptide Total Protein Albumin Lipase TSH Free T4 Urine Color Urine Appearance Urine pH Ur Specific [place] Urine Protein Urine Glucose (UA) Urine Ketones Urine Blood Urine Nitrite Ur Leukocyte Esterase Urine RBC Urine WBC Ur Squamous Epith Cells Urine Bacteria Hyaline Casts COVID-19 (MARYCRUZ) Negative COVID-19 Clin Com See Note Influenza Type A (MADDI) Negative Influenza Type B (MADDI) Negative Influenza A & B Note See Note 05/10/23 12:49 MCV MCH MCHC RDW Plt Count MPV Immature Gran % (Auto) Neut % (Auto) Lymph % (Auto) [place] % (Auto) Eos % (Auto) Baso % (Auto) Lymph # (Auto) [place] # (Auto) Eos # (Auto) Baso # (Auto) Abs Immat Gran (auto) Absolute Neuts (auto) Absolute Nucleated RBC Nucleated RBC % (auto) Neutrophils % (Manual) Band Neutrophils % Lymphocytes % (Manual) Monocytes % (Manual) Abs Neuts (Manual) Lymphocytes # (Manual) Monocytes # (Manual) Platelet Estimate Plt Morphology Comment RBC Morphology Ovalocytes Joellen Cells Acanthocytes (Spur) PT INR APTT VBG pH 7.57 H VBG pCO2 20 VBG pO2 175 VBG HCO3 18 L VBG O2 Saturation 99.0 VBG Base Excess -0.8 Anion Gap Estim Creat Clear Calc Estimated GFR Random Glucose Lactic Acid Lactic Acid F/U @ 2Hr Calcium Total Bilirubin AST ALT Alkaline Phosphatase B-Natriuretic Peptide Total Protein Albumin Lipase TSH Free T4 Urine Color Urine Appearance Urine pH Ur Specific [place] Urine Protein Urine Glucose (UA) Urine Ketones Urine Blood Urine Nitrite Ur Leukocyte Esterase Urine RBC Urine WBC Ur Squamous Epith Cells Urine Bacteria Hyaline Casts COVID-19 (MARYCRUZ) COVID-19 Clin Com Influenza Type A (MADDI) Influenza Type B (MADDI) Influenza A & B Note Imaging Radiologist's Impressions: Impressions Chest X-Ray 05/10/23 09:00 IMPRESSION: No evidence of pneumonia. No acute cardiopulmonary abnormality compared to 06/09/2022. Chest CTA 05/10/23 10:10 IMPRESSION: * No evidence of pulmonary embolism. * Bronchial lainez are diffusely thickened as may be observed in patients with asthma or bronchitis. Mild atelectasis is present in the lingula and lower lobes. No pneumonia. * Chronic lymphadenopathy in the visualized neck, axilla and periportal region. Also, splenomegaly is present. Lymphadenopathy in the neck was observed on 09/30/2022. Query if the patient has already undergone workup for the lymphadenopathy. Differential diagnosis includes lymphoma. * Cholelithiasis. Head CT 05/10/23 10:10 IMPRESSION: 1. No acute intracranial pathology. 2. Chronic white matter small vessel ischemic changes. Assessment and Plan (1) Hypoxic: Status: Acute (2) Acute hypotension: Status: Acute (3) Acute encephalopathy: Status: Acute Plan Pt is a 72-year-old male resident of [facility] with a PMH significant for?HLD, HTN, BPH, GERD, hypothyroidism, cognitive impairment, anxiety and schizophrenia who presents to the ED from [facility] for evaluation of altered mental status, hypoxia, and hypotension. Pt will be admitted to the hospital for treatment and further evaluation of acute toxic metabolic encephalopathy and acute hypoxic respiratory failure in setting of possible aspiration pneumonia. Acute toxic metabolic encephalopathy Unclear etiology: No clear source of infection: CXR negative, CTA negative, UA negative Patient meets severe sepsis criteria: Likely infection, tachycardia, tachypnea, lactic acid 2.1 Patient given sepsis IVF bolus in the ED, started on empiric antibiotic coverage with Zosyn, begun 05/10/2023 Will keep NPO for now pending swallow evaluation Monitor mentation Follow CBC Acute hypoxic respiratory failure in the setting of possible aspiration pneumonia Patient with acute hypoxia, diffuse expiratory rhonchi bilaterally Possibly secondary to aspiration pneumonia Will cover empirically with Zosyn, start date 10/08/2022 Titrate supplemental O2 >92, wean as tolerated Monitor respiratory status Hypotension EMS reports patient hypotensive as low as 70/48 Patient has received IVF in ED Hold antihypertensives for now Monitor BP Tachycardia Patient with sinus tachycardia up to 130s Will give metoprolol 5mg IV q.6 Monitor on telemetry BPH Will hold tamsulosin for now due to hypotension GERD PPI Hypothyroidism Continue levothyroxine Full Code Attending:?Dr. Aviles DVT Prophylaxis: Lovenox Pt will require a hospitalization of at least two nights for treatment and further evaluation of acute toxic metabolic encephalopathy and acute hypoxic respiratory failure in the setting of possible aspiration pneumonia. Time Spent With Patient Time: Total time managing care of this patient today ____ minutes. Quality Stroke Does the patient have a stroke diagnosis?: No VTE Prior VTE?: No VTE Risk Level:: Medical - moderate - high VTE Device Contraindication: Treatment Not Indicated VTE Drug Contraindication: N/A - Med Ordered
--- NOTE | 2023-05-10 14:31 | PHA.MEDREC ---
Pharmacy Consult ? Medication Reconciliation Pharmacy has completed the medication reconciliation. Used used form facility
--- NOTE | 2023-05-10 16:11 | MHC.CM.PN ---
Pt admitted w/septic PNA: unable to participate in meaningful conversation at this time: Call placed to [facility] who state pt is normally alert and communicative w/periods of confusion. He has two co-guardians (his sisters) who are very involved. Gunner order on file, full code status. Pt uses a walker and is able to feed self w/supervision. He is a emt intermediate care resident and will return when medically stable. IMM completed - pt will need BLS transport to [facility].
[2023-05-10 17:59] LABS: Valproate < 12.5 mcg/mL (50.0-100.0)
--- NOTE | 2023-05-10 18:09 | MHC.SLORD ---
Speech Language Pathology Order Status: INFORMATICS NURSE SPECIALIST attempted to see pt for swallow eval in ED. Pt lethargic, opening his eyes when asked, but immediately closing them. Not following commands, rolling in bed, pt sounds very wet and gurgly, is on Oxymask. Unable to perform bedside swallow eval. INFORMATICS NURSE SPECIALIST called and spoke w/ staff from [facility] where pt is a LTC resident. Per staff, at baseline prior to this hospitalization, pt was eating a regular texture diet with thin liquids, took pills whole, and was feeding himself. Discussed w/ Dr. Aviles via [email or web address] Message. Based on pt's lethargic state and altered mentation, it appears safest is to keep NPO at this time. INFORMATICS NURSE SPECIALIST is available for call-in through [employer] over the weekend.
[2023-05-10 18:39] VITALS: BMI 25.4
[2023-05-10] MEDS: Piperacillin Sodium/Tazobactam 3.375 GM in 0.9 % Sodium Chloride 50 ML IV (19:41)
[2023-05-10] MEDS: Enoxaparin Sodium 40 MG/0.4 ML SYRINGE SUBCUT (19:42)
[2023-05-10] MEDS: Metoprolol Tartrate 5 MG/5 ML VIAL IVPUSH (19:42)
--- NOTE | 2023-05-10 19:48 | HE.PHANOTE ---
pt last recieved clozaril on 05/09/23 9am
[2023-05-10 20:00] VITALS: BP 129/60; PULSE 100; RESP 20; TEMP 37; O2SAT 96
--- NOTE | 2023-05-10 20:32 | PC.NURSE ---
Pt arrived to unit approx 1815 slide to bed with staff assist. Pt alert to self only able to follow simple commands. LOVE 4/5 sensation intact, +pp bilat no edema noted. LS rhonchi on 3L via oxymask able to oral pharyngeal suction with some thick secretions pt unable to cough to clear. BS+X4 abdomen soft non-tender incont of small amount stool on pad. Remains strict NPO. Skin intact. Denies pain/discomfort. Kim cath in place not documented from worklist by ED. vitals stable. 1600 zosyn and lovenox not given in ED call placed to pharmacy and Dr Quiroga order for Metoprolol changed to IV push ZOsyn and lovenox given late 1999 notified pharebekah and MD times rescheduled. Bed in lowest locked position alarm for safety. Camera in room. Will continue to monitor and report changes
[2023-05-11] VITALS (7 sets, daily range): BP systolic 104–178; BP diastolic 68–88; PULSE 80–127; RESP 18–22; TEMP 36.3–37.2; O2SAT 92–98
[2023-05-11] MEDS: Metoprolol Tartrate 5 MG/5 ML VIAL IVPUSH ×4 (03:05→21:09)
[2023-05-11] MEDS: 0.9 % Sodium Chloride Flush 3 ML SYRINGE IVFLUSH ×3 (03:05→13:36)
[2023-05-11] MEDS: Piperacillin Sodium/Tazobactam 3.375 GM in 0.9 % Sodium Chloride 50 ML IV ×4 (03:05→20:30)
[2023-05-11 07:12] LABS: Hematocrit 36.1 % (42.0-52.0); Mean Corpuscular HGB Conc 33.2 g/dl (31.0-36.0); Mean Corpuscular Hemoglobin 29.3 pg (27.0-33.0); Mean Corpuscular Volume 88.3 fL (80.0-98.0); Mean Platelet Volume 10.9 fL (9.4-12.4); Platelet Count 149 X10*3/uL (160-400); Red Blood Count 4.09 X10*6/uL (4.60-5.80); Red Cell Distribution Width 15.1 % (11.0-16.0); White Blood Count 10.1 X10*3/uL (4.8-10.8)
[2023-05-11 07:37] LABS: Anion Gap 16 (12-20); Blood Urea Nitrogen 23 mg/dL (9-16); Calcium 8.7 mg/dL (8.4-10.2); Carbon Dioxide 22 mmol/L (22-29); Chloride 106 mmol/L (96-108); Creatinine Clr Calc Pharmacy 95.7; Estimated Glomerular Filt Rate > 60; Glucose Random 113 mg/dL (60-115); Potassium 3.8 mmol/L (3.3-5.1); Sodium 140 mmol/L (135-145)
[2023-05-11] MEDS: Levothyroxine Sodium 100 MCG TABLET PO (10:21)
[2023-05-11] MEDS: Multivitamin TABLET 1 TAB PO (10:22)
[2023-05-11] MEDS: cloZAPine 100 MG TABLET 200 MG PO ×2 (10:22→21:18)
[2023-05-11] MEDS: Loratadine 10 MG TABLET PO (10:22)
[2023-05-11] MEDS: cloZAPine 25 MG TABLET 50 MG PO (10:22)
[2023-05-11] MEDS: LORazepam 1 MG TABLET PO ×2 (10:22→18:08)
--- NOTE | 2023-05-11 12:28 | HO.PM.IMPN ---
Subjective Subjective Date of Service: 05/11/23 Interval History: Seen and evaluated this morning more alert and interactive passed swallowing test Still on oxygen supplement, blood pressure better controlled No other overnight events Review of Systems Review of Systems: Yes Unobtainable due to mental condition Physical Exam Vital Signs: Vital Signs: Last Vital Signs Temp 98.8 F 05/11/23 12:00 Pulse 102 H 05/11/23 12:00 Resp 18 05/11/23 12:00 BP 131/77 05/11/23 12:00 Pulse Ox 93 05/11/23 12:00 O2 Del Method Oxymask 05/11/23 12:00 O2 Flow Rate 3 05/11/23 12:00 Oxygen Flow Rate 15 05/10/23 07:49 BMI result Body Mass Index 25.4 Const: Other: Constitutional : Awake, confused not in distress Neck : Normal inspection, Supple Cardiovascular : RRR, no lower extremity edema Respiratory : fair bilateral air entry, scattered expiratory wheezes Gastrointestinal: soft, lax, Normal bowel sounds, Non tender Skin : Warm, Dry Neurological : Alert , unable to assess Objective Data Active Medications Acetaminophen (Acetaminophen 325 Mg Tablet) 650 mg PO Q6H PRN PRN Reason: Pain, Mild (Pain Scale 1-3) Atorvastatin Calcium (Atorvastatin Calcium 40 Mg Tablet) 40 mg PO BEDTIME [facility] Last Admin: 05/10/23 19:43 Dose: Not Given Documented By: HOLLI Non-Admin Reason: NPO Clozapine (Clozapine 25 Mg Tablet) 50 mg PO DAILY [facility] Last Admin: 05/11/23 10:22 Dose: 50 mg Documented By: BK Clozapine (Clozapine 100 Mg Tablet) 200 mg PO BID [facility] Last Admin: 05/11/23 10:22 Dose: 200 mg Documented By: BK Divalproex Sodium (Divalproex Sodium Er 500 Mg Tab.Er.24h) 1,000 mg PO BEDTIME [facility] Last Admin: 05/10/23 19:51 Dose: Not Given Documented By: HOLLI Non-Admin Reason: NPO Divalproex Sodium (Divalproex Sodium Er 250 Mg Tab.Er.24h) 250 mg PO DAILY [facility] Last Admin: 05/11/23 10:38 Dose: Not Given Documented By: BK Non-Admin Reason: Patient Refused Docusate Sodium (Docusate Sodium 100 Mg Capsule) 100 mg PO DAILY PRN PRN Reason: Constipation Enoxaparin Sodium (Enoxaparin Sodium 40 Mg/0.4 Ml Syringe) 40 mg SUBCUT Q24H [facility] Piperacillin Sod/Tazobactam (Sod 3.375 gm/ Sodium Chloride) 50 mls @ 100 mls/hr IV Q6H [facility] Last Infusion: 05/11/23 08:25 Dose: Infused Documented By: BK Levothyroxine Sodium (Levothyroxine Sodium 100 Mcg Tablet) 100 mcg PO DAILY [facility] Last Admin: 05/11/23 10:21 Dose: 100 mcg Documented By: BK Loratadine (Loratadine 10 Mg Tablet) 10 mg PO DAILY [facility] Last Admin: 05/11/23 10:22 Dose: 10 mg Documented By: BK Lorazepam (Lorazepam 1 Mg Tablet) 1 mg PO BID@0900,1800 [facility] Last Admin: 05/11/23 10:22 Dose: 1 mg Documented By: BK Metoprolol Tartrate (Metoprolol Tartrate 5 Mg/5 Ml Vial) 5 mg IVPUSH Q6H [facility] Last Admin: 05/11/23 07:46 Dose: 5 mg Documented By: BK Mirtazapine (Mirtazapine 30 Mg Tablet) 30 mg PO BEDTIME [facility] Last Admin: 05/10/23 19:51 Dose: Not Given Documented By: HOLLI Non-Admin Reason: NPO Multivitamins/Vitamin C (Multivitamin Tablet) 1 tab PO DAILY [facility] Last Admin: 05/11/23 10:22 Dose: 1 tab Documented By: BK Omeprazole (Omeprazole 20 Mg Capsule.Dr) 20 mg PO DAILY@0630 [facility] Last Admin: 05/11/23 05:26 Dose: Not Given Documented By: ALESSIA Non-Admin Reason: NPO Ondansetron HCl (Ondansetron Hcl 4 Mg/2 Ml Vial) 4 mg IVPUSH Q8H PRN PRN Reason: Nausea and Vomiting Sodium Chloride (0.9 % Sodium Chloride Flush 3 Ml Syringe) 3 ml IVFLUSH QSHIFT [facility] Last Admin: 05/11/23 07:46 Dose: 3 ml Documented By: BK Tamsulosin HCl (Tamsulosin Hcl 0.4 Mg Capsule) 0.4 mg PO BEDTIME [facility] Last Admin: 05/10/23 19:52 Dose: Not Given Documented By: HOLLI Non-Admin Reason: NPO Labs 05/11/23 05:45 05/11/23 05:45 Labs: Laboratory Results - last 24 hr 05/10/23 05/10/23 05/11/23 12:49 17:20 05:45 MCV 88.3 MCH 29.3 MCHC 33.2 RDW 15.1 Plt Count 149 L MPV 10.9 Absolute Nucleated RBC 0.000 Nucleated RBC % (auto) 0.0 VBG pH 7.57 H VBG pCO2 20 VBG pO2 175 VBG HCO3 18 L VBG O2 Saturation 99.0 VBG Base Excess -0.8 Anion Gap 16 Estim Creat Clear Calc 95.7 Estimated GFR > 60 Random Glucose 113 Calcium 8.7 D Valproic Acid < 12.5 L Microbiology Microbiology Results: Microbiology 05/10/23 07:51 Blood Culture - Preliminary Blood - Venous No growth after 24 hours. 05/10/23 07:47 Blood Culture - Preliminary Blood - Venous Prelim: GPC Gram Stain only Assessment and Plan (1) Acute encephalopathy: Status: Acute (2) Acute atelectasis: Status: Acute (3) Acute hypotension: Status: Acute (4) Hypoxic: Status: Acute Plan Pt is a 72-year-old male resident of [facility] with a PMH significant for?HLD, HTN, BPH, GERD, hypothyroidism, cognitive impairment, anxiety and schizophrenia who presents to the ED from [facility] for evaluation of altered mental status, hypoxia, and hypotension. Pt will be admitted to the hospital for treatment and further evaluation of acute toxic metabolic encephalopathy and acute hypoxic respiratory failure in setting of possible aspiration pneumonia. Acute toxic metabolic encephalopathy 2/2 possible infection, Seizure breakthrough ? Level of Valproate is too low , to give bolus and continue PO monitor reponse Acute hypoxic respiratory failure 2/2 Sepsis from possible Atelactasis and possible aspiration Pending cultures Images not showing clear infiltrates but has atelactasis on empiric antibiotic coverage with Zosyn, begun 05/10/2023 start diet, passed bedside eval Titrate supplemental O2 >92, wean as tolerated Monitor respiratory status Hypotension Resolved Patient has received IVF in ED Hold antihypertensives for now Monitor BP Tachycardia Patient with sinus tachycardia restart home Metoprolol telemetry BPH tamsulosin GERD PPI Hypothyroidism Continue levothyroxine Full Code DVT Prophylaxis: Lovenox Pt will require a hospitalization overnight for treatment and further evaluation of acute toxic metabolic encephalopathy and acute hypoxic respiratory failure in the setting of possible pneumonitic Time Spent With Patient Time: Total time managing care of this patient today ____ minutes. Quality Stroke Does the patient have a stroke diagnosis?: No VTE Prior VTE?: No VTE Risk Level:: Medical - moderate - high VTE Device Contraindication: Treatment Not Indicated VTE Drug Contraindication: N/A - Med Ordered
[2023-05-11] MEDS: Valproic Acid (as Sodium Salt) 500 MG in Dextrose 5 % 50 ML 55 MG IV (14:11)
[2023-05-11] MEDS: Enoxaparin Sodium 40 MG/0.4 ML SYRINGE SUBCUT (20:35)
[2023-05-11] MEDS: Atorvastatin Calcium 40 MG TABLET PO (21:17)
[2023-05-11] MEDS: Divalproex Sodium ER 500 MG TAB.ER.24H 1000 MG PO (21:18)
[2023-05-11] MEDS: Mirtazapine 30 MG TABLET PO (21:18)
[2023-05-11] MEDS: Tamsulosin HCL 0.4 MG CAPSULE PO (21:30)
[2023-05-12] VITALS: BP 124/68; PULSE 104; RESP 20; TEMP 36.7; O2SAT 96
[2023-05-12] MEDS: Piperacillin Sodium/Tazobactam 3.375 GM in 0.9 % Sodium Chloride 50 ML IV ×4 (02:26→23:45)
[2023-05-12] MEDS: Metoprolol Tartrate 5 MG/5 ML VIAL IVPUSH ×4 (02:27→23:44)
[2023-05-12 03:08] VITALS: BP 111/64; PULSE 90; RESP 20; TEMP 36.4; O2SAT 96
--- NOTE | 2023-05-12 07:18 | PC.NURSE ---
Pt refused morning dose of omemprazole, stating he will not be taking any medication from us. Pt later refused blood draw by phlebotomy - MD maria.
[2023-05-12 08:00] VITALS: BP 126/74; PULSE 101; RESP 20; TEMP 37.1; O2SAT 93
[2023-05-12] MEDS: 0.9 % Sodium Chloride Flush 3 ML SYRINGE IVFLUSH ×2 (08:34→13:26)
[2023-05-12] MEDS: cloZAPine 100 MG TABLET 200 MG PO ×2 (08:39→23:46)
[2023-05-12] MEDS: cloZAPine 25 MG TABLET 50 MG PO (08:39)
[2023-05-12] MEDS: LORazepam 1 MG TABLET PO ×2 (08:39→18:04)
[2023-05-12] MEDS: Levothyroxine Sodium 100 MCG TABLET PO (08:39)
[2023-05-12] MEDS: Multivitamin TABLET 1 TAB PO (08:39)
[2023-05-12] MEDS: Loratadine 10 MG TABLET PO (08:39)
[2023-05-12] MEDS: vancomycin/NS 2,000 MG/500 ML PLAST..BAG 250 MG IV (09:06)
--- NOTE | 2023-05-12 11:59 | PHA.PROG ---
Admission Date/Time: May 10, 2023 15:04 Indication: Bacteremia Weight in k.3 kg Adjusted body weight in K.86 kg [place] body weight in K.9 kg Obesity Dosing Indication % IBW: 109% Serum Creatinine - Last 168 Hours 05/10/23 05/11/23 07:47 05:45 Creatinine 0.98 0.80 Estimated CrCl and GFR - Last 168 Hours 05/10/23 05/11/23 07:47 05:45 Estim Creat Clear Calc 78.1 95.7 Estimated GFR > 60 > 60 Vancomycin Loading Dose: 2000 mg Current Vancomycin Dosing Regimen: 1000 mg Q12H Date and Time for next Vancomycin Level to be drawn: 05/13 @ 1900 Pharmacist Comments on Vancomycin Plan: patient received an adequate load dose on @ 0906 Maintenance dose vancomycin 1000 mg Q12H is scheduled to start @ 2100. Expected AUC 496 with a trough of 15.8. Level will be drawn prior to 4th dose Pharmacy will monitor renal function daily Courtney Acosta PharmD Vancomycin dosing will take advantage of [employer] as a clinical decision support tool that uses Bayesian modeling to calculate individual patient's pharmacokinetic parameters and forecast the patient's drug concentration time course with the target goal AUC 24 range of 400 - 600 mg/L/hr.
[2023-05-12 12:00] VITALS: BP 141/81; PULSE 101; RESP 20; TEMP 36.9; O2SAT 97
--- NOTE | 2023-05-12 12:56 | HO.PM.IMPN ---
Subjective Subjective Date of Service: 05/12/23 Interval History: Seen and evaluated this morning more alert and interactive tolerating modified diet Still on oxygen supplement No other overnight events Review of Systems Review of Systems: Yes Unobtainable due to mental condition Physical Exam Vital Signs: Vital Signs: Last Vital Signs Temp 98.4 F 05/12/23 12:00 Pulse 101 H 05/12/23 12:00 Resp 20 05/12/23 12:00 BP 141/81 H 05/12/23 12:00 Pulse Ox 97 05/12/23 12:00 O2 Del Method Nasal Cannula 05/12/23 12:00 O2 Flow Rate 4 05/12/23 12:00 Oxygen Flow Rate 15 05/10/23 07:49 BMI result Body Mass Index 25.4 Const: Other: Constitutional : Awake, confused not in distress Neck : Normal inspection, Supple Cardiovascular : RRR, no lower extremity edema Respiratory : fair bilateral air entry, scattered expiratory wheezes Gastrointestinal: soft, lax, Normal bowel sounds, Non tender Skin : Warm, Dry Neurological : Alert , confused and unable to assess orientation as speech is compromised Objective Data Active Medications Acetaminophen (Acetaminophen 325 Mg Tablet) 650 mg PO Q6H PRN PRN Reason: Pain, Mild (Pain Scale 1-3) Atorvastatin Calcium (Atorvastatin Calcium 40 Mg Tablet) 40 mg PO BEDTIME [facility] Last Admin: 05/11/23 21:17 Dose: 40 mg Documented By: ADELINE Clozapine (Clozapine 25 Mg Tablet) 50 mg PO DAILY [facility] Last Admin: 05/12/23 08:39 Dose: 50 mg Documented By: BK Clozapine (Clozapine 100 Mg Tablet) 200 mg PO BID [facility] Last Admin: 05/12/23 08:39 Dose: 200 mg Documented By: BK Docusate Sodium (Docusate Sodium 100 Mg Capsule) 100 mg PO DAILY PRN PRN Reason: Constipation Enoxaparin Sodium (Enoxaparin Sodium 40 Mg/0.4 Ml Syringe) 40 mg SUBCUT Q24H [facility] Last Admin: 05/11/23 20:35 Dose: 40 mg Documented By: ADELINE Piperacillin Sod/Tazobactam (Sod 3.375 gm/ Sodium Chloride) 50 mls @ 100 mls/hr IV Q6H [facility] Last Infusion: 05/12/23 09:14 Dose: Infused Documented By: BK Vancomycin HCl 1,000 mg/ (Sodium Chloride) 270 mls @ 270 mls/hr IV Q12H [facility] Levothyroxine Sodium (Levothyroxine Sodium 100 Mcg Tablet) 100 mcg PO DAILY [facility] Last Admin: 05/12/23 08:39 Dose: 100 mcg Documented By: BK Loratadine (Loratadine 10 Mg Tablet) 10 mg PO DAILY [facility] Last Admin: 05/12/23 08:39 Dose: 10 mg Documented By: BK Lorazepam (Lorazepam 1 Mg Tablet) 1 mg PO BID@0900,1800 [facility] Last Admin: 05/12/23 08:39 Dose: 1 mg Documented By: BK Metoprolol Tartrate (Metoprolol Tartrate 5 Mg/5 Ml Vial) 5 mg IVPUSH Q6H [facility] Last Admin: 05/12/23 08:34 Dose: 5 mg Documented By: BK Mirtazapine (Mirtazapine 30 Mg Tablet) 30 mg PO BEDTIME [facility] Last Admin: 05/11/23 21:18 Dose: 30 mg Documented By: ADELINE Multivitamins/Vitamin C (Multivitamin Tablet) 1 tab PO DAILY [facility] Last Admin: 05/12/23 08:39 Dose: 1 tab Documented By: BK Omeprazole (Omeprazole/Na Bicarb Oral Susp 20 Mg/10 Ml Ud Cup) 20 mg PO DAILY@0630 [facility] Ondansetron HCl (Ondansetron Hcl 4 Mg/2 Ml Vial) 4 mg IVPUSH Q8H PRN PRN Reason: Nausea and Vomiting Pharmacy Consult (Consult Rx Vancomycin Dosing) 1 each MISCELLANE DAILY PRN PRN Reason: Consult order Sodium Chloride (0.9 % Sodium Chloride Flush 3 Ml Syringe) 3 ml IVFLUSH QSHIFT [facility] Last Admin: 05/12/23 08:34 Dose: 3 ml Documented By: BK Tamsulosin HCl (Tamsulosin Hcl 0.4 Mg Capsule) 0.4 mg PO BEDTIME [facility] Last Admin: 05/11/23 21:30 Dose: 0.4 mg Documented By: ADELINE Valproic Acid (Valproic Acid (As Sodium Salt) 250 Mg/5 Ml Solution) 315 mg PO QID [facility] Last Admin: 05/12/23 11:59 Dose: Not Given Documented By: BK Non-Admin Reason: Previously Administered Labs 05/11/23 05:45 05/11/23 05:45 Microbiology Microbiology Results: Microbiology 05/10/23 07:51 Blood Culture - Preliminary Blood - Venous No growth after 48 hours. 05/10/23 07:47 Blood Culture - Final Blood - Venous Coag negative Staphylococcus Assessment and Plan (1) Acute atelectasis: Status: Acute (2) Acute encephalopathy: Status: Acute (3) Hypoxic: Status: Acute Plan Pt is a 72-year-old male resident of [facility] with a PMH significant for?HLD, HTN, BPH, GERD, hypothyroidism, cognitive impairment, anxiety and schizophrenia who presents to the ED from [facility] for evaluation of altered mental status, hypoxia, and hypotension. Pt will be admitted to the hospital for treatment and further evaluation of acute toxic metabolic encephalopathy and acute hypoxic respiratory failure in setting of possible aspiration pneumonia. Acute toxic metabolic encephalopathy 2/2 possible infection, Seizure breakthrough ? continue Valproic acid after IV bolus mor alert and interactive Acute hypoxic respiratory failure 2/2 Sepsis from possible Atelactasis and possible aspiration negative cultures Images showed that he has atelactasis On Zosyn, begun 05/10/2023 tolerating diet, passed bedside eval Titrate supplemental O2 >92, wean as tolerated Monitor respiratory status Hypotension Resolved Patient has received IVF in ED Hold antihypertensives for now Monitor BP sinus tachycardia restart home Metoprolol telemetry Positive blood culture Contaminent with coag neg staph BPH tamsulosin GERD PPI Hypothyroidism Continue levothyroxine Full Code DVT Prophylaxis: Lovenox Pt will require a hospitalization overnight for treatment and further evaluation of acute toxic metabolic encephalopathy and acute hypoxic respiratory failure in the setting of pneumonia Time Spent With Patient Time: Total time managing care of this patient today ____ minutes. Quality Stroke Does the patient have a stroke diagnosis?: No VTE Prior VTE?: No VTE Risk Level:: Medical - moderate - high VTE Device Contraindication: Treatment Not Indicated VTE Drug Contraindication: N/A - Med Ordered
[2023-05-12 16:00] VITALS: BP 109/67; PULSE 94; RESP 16; TEMP 36.3; O2SAT 95
[2023-05-12 20:00] VITALS: BP 104/72; PULSE 102; RESP 20; TEMP 36.9; O2SAT 94
[2023-05-12] MEDS: vancomycin HCL 1,000 MG in 0.9 % Sodium Chloride 250 ML 270 MG IV (23:44)
[2023-05-12] MEDS: Enoxaparin Sodium 40 MG/0.4 ML SYRINGE SUBCUT (23:45)
[2023-05-12] MEDS: Atorvastatin Calcium 40 MG TABLET PO (23:46)
[2023-05-12] MEDS: Tamsulosin HCL 0.4 MG CAPSULE PO (23:46)
[2023-05-12] MEDS: Mirtazapine 30 MG TABLET PO (23:46)
[2023-05-13] VITALS: BP 116/69; PULSE 89; RESP 18; TEMP 36.6; O2SAT 97
[2023-05-13] MEDS: Metoprolol Tartrate 5 MG/5 ML VIAL IVPUSH ×2 (03:55→09:51)
[2023-05-13] MEDS: Piperacillin Sodium/Tazobactam 3.375 GM in 0.9 % Sodium Chloride 50 ML IV ×2 (03:56→09:50)
[2023-05-13 04:00] VITALS: BP 119/80; PULSE 83; RESP 20; TEMP 37.2; O2SAT 100
[2023-05-13 07:10] VITALS: BP 138/81; PULSE 83; RESP 16; TEMP 36.4; O2SAT 99
[2023-05-13 07:31] LABS: Creatinine Clr Calc Pharmacy 107.8; Estimated Glomerular Filt Rate > 60
[2023-05-13] MEDS: 0.9 % Sodium Chloride Flush 3 ML SYRINGE IVFLUSH ×2 (09:49)
[2023-05-13] MEDS: cloZAPine 25 MG TABLET 50 MG PO (09:51)
[2023-05-13] MEDS: Loratadine 10 MG TABLET PO (09:51)
[2023-05-13] MEDS: Multivitamin TABLET 1 TAB PO (09:51)
[2023-05-13] MEDS: cloZAPine 100 MG TABLET 200 MG PO (09:51)
[2023-05-13] MEDS: Levothyroxine Sodium 100 MCG TABLET PO (09:51)
[2023-05-13] MEDS: vancomycin HCL 1,000 MG in 0.9 % Sodium Chloride 250 ML 270 MG IV (10:30)
--- NOTE | 2023-05-13 10:50 | MHC.CM.PN ---
Addendum entered by Denise Son 05/13/23 12:02: [facility] IS READY FOR PTS RETURN CM CALLED PTS GUARDIAN, GIGI MARMOLEJO [phone] AND INFORMED HER OF DC SHE IS IN AGREEMENT WITH DC PLAN/TIME PT WILL DC [facility]IA [facility] AT 1300 Original Note: PER MD ROUNDS, PT IS READY TO DC HOWEVER STILL ON 2L 02 CM SENT UPDATES TO SNF AND INFORMED THEM THEY WOULD NEED TO CONTINUE O2 WEAN AWAITING RESPONSE FROM [facility]
[2023-05-13 11:06] VITALS: BP 113/73; PULSE 79; RESP 18; TEMP 36.5; O2SAT 96
--- NOTE | 2023-05-13 11:55 | PM.DS ---
DS: Providers Provider Date of Service: 05/13/23 Date of admission: 05/10/23 15:04 Primary care physician: LOYDA RODRIGUES DS: Diagnosis Discharge Diagnosis (1) Acute atelectasis: Status: Acute (2) Acute encephalopathy: Status: Acute (3) Hypoxic: Status: Acute (4) Pneumonia: Status: Acute (5) Acute hypotension: Status: Acute DS: Summary Hospital Course Hospital Course: Admission note HPI Pt is a 72-year-old male resident of [facility] with a PMH significant for?HLD, HTN, BPH, GERD, hypothyroidism, cognitive impairment, anxiety and schizophrenia who presents to the ED from [facility] for evaluation of altered mental status, hypoxia, and hypotension. Patient continues to be altered and unable to state his name, he is status incapable of providing accurate HPI which is instead obtained from chart and provider review. Nursing staff at [facility] found the patient this morning altered and appearing worse as the day progressed, thus prompting call to EMS. Paramedics report that patient was not answering questions and could not even tell them his name. Was hypotensive at 70/48 and tachycardic as high as 150s with an O2 saturation of 82-85% on RA. Of note, patient has presented to the hospital in the past with similar episodes of altered mentation and catatonia upon getting an infection that usually improves any few days after antibiotic treatment. In the ED patient with temperatures of 100.0, tachycardia up to 134, tachypnea to 24, soft BP is low as 136/56, and satting as low as 82% on RA. Patient improved to O2 sat of 98% on OxyMask 10L. Labs were significant for leukocytosis of 11.8, VBG with pH 7.57, lactic acid 2.1 repeat 2.2. H&H stable. Electrolytes largely WNL. Renal function baseline. Hepatic function baseline. Initial troponin 11.9 with repeat flat at 15.3. BNP 28. CXR showed no evidence of pneumonia or acute cardiopulmonary abnormality when compared to prior on 06/09/2022. CTA found no evidence of pulmonary embolism or pneumonia, but did show bronchial wall diffusely thickened?possibly secondary to asthma or bronchitis, with mild atelectasis in lingula and lower lobes. CTA also showed chronic lymphadenopathy. CT of head found no acute intracranial pathology but showed chronic white matter small-vessel ischemic changes. EKG demonstrated sinus tachycardia no evidence of ST elevations or depressions. Pt was treated with IVF and Zosyn. Pt will be admitted to the hospital for treatment and further evaluation of acute toxic metabolic encephalopathy and acute hypoxic respiratory failure in setting of possible aspiration pneumonia. Hospital course Acute toxic metabolic encephalopathy secondary to likely aspiration pneumonia as images showed atelactasis and possible aspiration. Blood cultures were negative. Images showed that he has atelactasis. Treated with IV Zosyn, begun 05/10/2023. tolerating diet on NDD1 Pureed and [place] thick fluids. Titrated down his oxygen level To mid 90s on 2L O2. Noted to have Hypotension on admission which resolved with IV fluids. will hold his Amlodipine for now at discharge and can be monitored before restarting it. Had Positive blood culture but turned out to be a contaminant with coag neg staph. Continue Antibiotic as precribed Head elevated 45 degrees all the time Modified diet: NDD1 w nectar thick fluids Follow with speech therapy as outpatient Change long acting Valproic acid to short acting as long acting can not be crushed and patient could not swallow Time Spent with Patient Time attestation: Total time managing care of this patient today ____ minutes. Discharge coordination time: Greater than 30 minutes Quality: Safe Use of Opioids Does Pt have an Active Cancer Diagnosis on the Problem List?: No Quality: Stroke Does the patient have a stroke diagnosis?: No Physical Exam Vital Signs: Vital Signs: Last Vital Signs Temp 97.7 F 05/13/23 11:06 Pulse 79 05/13/23 11:06 Resp 18 05/13/23 11:06 BP 113/73 05/13/23 11:06 Pulse Ox 96 05/13/23 11:06 O2 Del Method Nasal Cannula 05/13/23 11:06 O2 Flow Rate 2 05/13/23 11:06 Oxygen Flow Rate 15 05/10/23 07:49 BMI result Body Mass Index 25.4 Const: Other: Constitutional : Awake, confused not in distress Neck : Normal inspection, Supple Cardiovascular : RRR, no lower extremity edema Respiratory : fair bilateral air entry, scattered expiratory wheezes Gastrointestinal: soft, lax, Normal bowel sounds, Non tender Skin : Warm, Dry Neurological : Alert , confused and unable to assess orientation as speech is compromised DS: Data Data Completed and Pending Labs on day of discharge: Laboratory Results - last 24 hr 05/13/23 06:09 Creatinine 0.71 Estim Creat Clear Calc 107.8 Estimated GFR > 60 Preliminary micro results at discharge 05/10/23 07:51 Blood Culture - Preliminary Blood - Venous No growth after 48 hours. Imaging Chest x-ray: Radiologist's impression: ITS Impressions Chest X-Ray 05/10/23 09:00 IMPRESSION: No evidence of pneumonia. No acute cardiopulmonary abnormality compared to 06/09/2022. Chest CTA 05/10/23 10:10 IMPRESSION: * No evidence of pulmonary embolism. * Bronchial lainez are diffusely thickened as may be observed in patients with asthma or bronchitis. Mild atelectasis is present in the lingula and lower lobes. No pneumonia. * Chronic lymphadenopathy in the visualized neck, axilla and periportal region. Also, splenomegaly is present. Lymphadenopathy in the neck was observed on 09/30/2022. Query if the patient has already undergone workup for the lymphadenopathy. Differential diagnosis includes lymphoma. * Cholelithiasis. Head CT 05/10/23 10:10 IMPRESSION: 1. No acute intracranial pathology. 2. Chronic white matter small vessel ischemic changes. Discharge Plan Discharge Anticipated Discharge Date/Time: 05/13/23 11:16 Patient Disposition: Xfer LT Discharge Diagnosis: Hypoxia secondary to pneumonia Referrals: [facility] [Outside] LOYDA RODRIGUES [Primary Care Provider] - 1 Week Discharge Medications: New valproic acid (as sodium salt) 250 mg/5 mL (5 mL) Solution 315 mg PO QID 30 Days Qty: 756 0RF amoxicillin-pot clavulanate 400-57 mg/5 mL suspension for reconstitution 10 ml PO BID Qty: 100 0RF Continued atorvastatin 40 mg Tablet 40 mg PO BEDTIME tamsulosin 0.4 mg Capsule 0.4 mg PO BEDTIME mirtazapine 30 mg Tablet 30 mg PO BEDTIME metoprolol tartrate 50 mg Tablet 50 mg PO BID@0900,1800 lorazepam 1 mg Tablet 1 mg PO BID@0900,1800 multivitamin with minerals Tablet 1 tab PO DAILY loratadine 10 mg Tablet 10 mg PO DAILY clozapine 200 mg Tablet 200 mg PO BID Rx Instructions: TOTAL DAILY DOSE = 450 MG ( 250 MG IN AM AND 200 MG AT BEDTIME) [place] 882 mg/3.2 mL Suspension,Extended Rel Syring 882 mg IM QMONTH pantoprazole 40 mg Tablet,Delayed Release (Dr/Ec) 40 mg PO DAILY@0630 levothyroxine 100 mcg Tablet 100 mcg PO DAILY divalproex [Depakote ER] 500 mg Tablet Extended Release 24 Hr 1,000 mg PO BEDTIME clozapine 50 mg tablet 50 mg PO DAILY Rx Instructions: 250 MG IN AM Held amlodipine 5 mg Tablet 5 mg PO DAILY Hold Instructions: Monitor BP for 1 week before restarting Discontinued divalproex 250 mg Tablet Extended Release 24 Hr 250 mg PO DAILY Discharge Orders: Discharge Order (Routine); Ordered 05/13/23 Ordered By: Michelle Aviles Diet: NDD1 w [place] thick fluid Activity on Discharge: As tolerated Stand Alone Forms: Patient Portal Discharge page Care Plan Goals: Read below Health Concerns: Read below Plan of Treatment: Read below Assessment: Continue Antibiotic as precribed Head elevated 45 degrees all the time Modified diet: NDD1 w nectar thick fluids Follow with speech therapy as outpatient Change long acting Valproic acid to short acting as long acting can not be crushed and patient could not swallow
== END 2023-05-13 13:42 | DRG 871 ==
LOC: HO.ED 11:26 → HO.EDOVER 15:19 → HO.IMC 16:48
PROVIDERS: Admitting Provider Student in an Organized Health Care Education/Training Program; Emergency Provider Emergency Medicine Emergency Medical Services; PCP Emergency Medicine; Visit Provider Student in an Organized Health Care Education/Training Program
DX: A41.9 Sepsis, unspecified organism (principal); G92.8 Other toxic encephalopathy; J69.0 Pneumonitis due to inhalation of food and vomit; J96.01 Acute respiratory failure with hypoxia; J98.11 Atelectasis; R65.20 Severe sepsis without septic shock; G31.84 Mild cognitive impairment of uncertain or unknown etiology; E11.9 Type 2 diabetes mellitus without complications; E03.9 Hypothyroidism, unspecified; R00.0 Tachycardia, unspecified; F20.9 Schizophrenia, unspecified; N40.0 Benign prostatic hyperplasia without lower urinary tract symptoms; E78.5 Hyperlipidemia, unspecified; F41.9 Anxiety disorder, unspecified; Z20.822 Contact with and (suspected) exposure to COVID-19; Z79.890 Hormone replacement therapy; Z79.899 Other long term (current) drug therapy
CPT/HCPCS: 36415; 70450; 71045; 71275; 80048; 80053; 80164; 81001; 82565; 82803; 83605; 83690; 83880; 84439; 84443; 84484; 85007; 85025; 85027; 85610; 85730; 87040; 87147; 87205; 87502; 87635; 92610; 93005; 99285; C1758; J1650; J2543; J3370; Q9967

== ENCOUNTER → 2023-05-10 15:04 | Outpatient (BNV) | payer MEDICARE, MEDICAID, SELFPAY | PROVIDERS: Admitting Provider Student in an Organized Health Care Education/Training Program; Emergency Provider Emergency Medicine Emergency Medical Services; PCP Emergency Medicine; Visit Provider Student in an Organized Health Care Education/Training Program | DX: J96.01 Acute respiratory failure with hypoxia (principal); J98.11 Atelectasis; G93.40 Encephalopathy, unspecified; J18.9 Pneumonia, unspecified organism; I95.9 Hypotension, unspecified | CPT/HCPCS: 99223; 99232; 99233; 99239 ==

== ENCOUNTER 2023-12-21 12:11 | Inpatient (IN) | payer MEDICARE, MEDICAID, SELFPAY ==
[2023-12-21] VITALS (8 sets, daily range): BP systolic 105–160; BP diastolic 56–94; PULSE 102–114; RESP 13–37; TEMP 34.6–36.9; O2SAT 95–98; BMI 26.0
--- NOTE | ~2023-12-21 | CT_ITS ---
EXAMINATION: CT HEAD WITHOUT CONTRAST CLINICAL INFORMATION: Mental status change COMPARISON: Previous head CT April 2023 TECHNIQUE: Contiguous axial imaging was performed from the skull base to vertex without intravenous administration of contrast. This CT examination was performed using dose optimization techniques as appropriate, variously including the following: *Automated exposure control *Adjustment of mA and/or kV according to patient size (this includes techniques or standardized protocols for targeted exams where dose is matched to indication/reason for exam; i.e. extremities or head) *Use of iterative reconstruction technique DLP: 793 mGy-cm FINDINGS: There is no evidence of an extra-axial collection. There is no evidence of intra or extra-axial hemorrhage. The ventricles and extra-axial CSF spaces are prominent suggestive of mild generalized atrophy. There is nonspecific periventricular white matter disease. No mass, mass effect or infarct. No skull fracture. Sinuses are clear. CT/CT head/brain wo IV con IMPRESSION: No acute findings.
--- NOTE | ~2023-12-21 | XR_ITS ---
EXAMINATION: XR CHEST CLINICAL INFORMATION: Mental status change COMPARISON: Previous chest x-ray April 2023 TECHNIQUE: Frontal view of the chest was obtained. FINDINGS: The cardiac and mediastinal contours are stable. The lungs are clear. No pleural effusion or pneumothorax. Degenerative changes of the spine. XR/XR chest 1V IMPRESSION: No evidence for acute disease in the chest.
--- NOTE | 2023-12-21 12:20 | ECG_ITS ---
Test Reason : ALTER MENTAL Blood Pressure : / mmHG Vent. Rate : 109 BPM Atrial Rate : 109 BPM P-R Int : 176 ms QRS Dur : 096 ms QT Int : 362 ms P-R-T Axes : 069 037 074 degrees QTc Int : 487 ms Sinus tachycardia with frequent Premature ventricular complexes Otherwise normal ECG When compared with ECG of 10-MAY-2023 08:06, Premature ventricular complexes are now Present Referred By: Julee Hernadez Electronically Signed By:KIANNA HAMPTON
--- NOTE | 2023-12-21 12:23 | ED_ITS ---
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 Has been nursing facility patient baseline walks and talks for the past 2 days patient is unable to function at his baseline, on arrival to the ED patient is unable to provide meaningful history. No reported fever. Related Data Home Medications ?Medication ?Instructions ?Recorded ?Confirmed aripiprazole lauroxil 882 mg/3.2 882 mg IM QMONTH 09/25/21 05/10/23 mL suspension, ext.rel. IM syringe ([place]) atorvastatin 40 mg tablet 40 mg PO BEDTIME 09/25/21 05/10/23 clozapine 200 mg tablet 200 mg PO BID 09/25/21 05/10/23 loratadine 10 mg tablet 10 mg PO DAILY 09/25/21 05/10/23 lorazepam 1 mg tablet 1 mg PO BID@0900,1800 09/25/21 05/10/23 metoprolol tartrate 50 mg tablet 50 mg PO BID@0900,1800 09/25/21 05/10/23 mirtazapine 30 mg tablet 30 mg PO BEDTIME 09/25/21 05/10/23 multivitamin with minerals 1 tab PO DAILY 09/25/21 05/10/23 tamsulosin 0.4 mg capsule 0.4 mg PO BEDTIME 09/25/21 05/10/23 pantoprazole 40 mg tablet,delayed 40 mg PO DAILY@0630 01/16/22 05/10/23 release amlodipine 5 mg tablet 5 mg PO DAILY 05/10/23 05/10/23 clozapine 50 mg tablet 50 mg PO DAILY 05/10/23 05/10/23 divalproex 500 mg tablet,extended 1,000 mg PO BEDTIME 05/10/23 05/10/23 release 24 hr (Depakote ER) levothyroxine 100 mcg tablet 100 mcg PO DAILY 05/10/23 05/10/23 Previous Rx's ?Medication ?Instructions ?Recorded amoxicillin 400 mg-potassium 10 ml PO BID #100 mL 05/13/23 clavulanate 57 mg/5 mL oral suspension valproic acid (as sodium salt) 250 315 mg (6.3 mL) PO QID 30 days 05/13/23 mg/5 mL (5 mL) oral solution #756 mL Allergies Allergy/AdvReac Type Severity Reaction Status Date / Time azithromycin Allergy Unknown Verified 12/21/23 12:40 Barbiturates Allergy Unknown Verified 12/21/23 12:40 erythromycin base Allergy Unknown Verified 12/21/23 12:40 fluphenazine Allergy Unknown Verified 12/21/23 12:40 haloperidol [From Haldol] Allergy Unknown Verified 12/21/23 12:40 phenobarbital Allergy Unknown Verified 12/21/23 12:40 Review of Systems 2 Review of Systems: Yes Unobtainable due to mental condition [facility] Past Medical History Medical History Presbyopia Unspecified astigmatism, unspecified eye Combined forms of age-related cataract, bilateral Corns and callosities Nail dystrophy Tinea unguium Type 2 diabetes mellitus with other circulatory complications Hallux valgus (acquired), unspecified foot Other seasonal allergic rhinitis Insomnia, unspecified History of falling Slurred speech Suicidal ideations Functional urinary incontinence Personal history of (healed) traumatic fracture Gastro-esophageal reflux disease without esophagitis Benign prostatic hyperplasia without lower urinary tract symptoms Hyperlipidemia, unspecified Essential (primary) hypertension Mild cognitive impairment, so stated Unspecified osteoarthritis, unspecified site Muscle weakness (generalized) Anxiety disorder, unspecified Hypothyroidism, unspecified Ataxic gait Anemia, unspecified Diabetes COVID-19 Schizophrenia Social History Social History Household Members: None Housing: Shelter Do you presently have visiting nurse or other home services: No Unable to assess alcohol history related to: Unable to respond Alcohol intake: never Patient Tobacco Use Status: Tobacco use Unknown Use of substances other than those prescribed or required for medical reasons: Unable to respond Advance Directives: Yes Advance Directives on File: Yes Advance Directives Date on File: 09/25/21 service: No Current occupational status: disabled Physical Exam ED Vital Signs: Vital Signs - 24 hr 12/21/23 12:26 12/21/23 12:41 12/21/23 15:00 Temperature 94.2 F L 97.1 F Pulse Rate 110 H 110 H Pulse Rate [Monitor] 110 H Respiratory Rate 37 H 33 H 25 H Blood Pressure 160/94 H 145/84 H Pulse Oximetry 97 Oxygen Delivery Method Room Air BMI result Body Mass Index 26.0 Vital signs have been reviewed and appear to be correct. Blood pressure elevated. Heart rate elevated. Respiratory rate normal. hypothermia, Oxygen saturation normal. Appearance: Disregard examiner, immobile, unreponsive stupor , catatonic, No acute distress. Head: Normal external exam. Normocephalic. Atraumatic. No Leong signs noted. No raccoon eyes noted Eyes: PERRLA. EOMI. Conjunctiva and sclera normal. Eyelids normal. ENT: TM's Normal. Pharynx normal. Uvula midline. Moist mucous membranes. No trismus noted. No drooling noted. No muffled voice noted. Neck: Normal inspection. Neck supple. FROM. No adenopathy. Thyroid Normal. No meningeal signs. No neck mass noted. CVS: Normal heart rate and rhythm. Heart sound normal. No murmurs noted. Pulses normal throughout. Respiratory: No respiratory distress. Painless inspiration. Breath sounds normal. No wheezes/rales/rhonchi noted. Chest nontender. No accessory muscle usage noted or decreased air movement noted. Abdomen: Soft and nontender. Bowel sounds normal in all 4 quadrants. No distention noted. No organomegaly noted. No visible injury noted. Back: No CVA tenderness. Full range of motion noted. Skin: Skin warm and dry. Normal skin color. Normal skin turgor. No rashes/lesions/lacerations noted. Extremities: No lower extremity edema. Extremities exhibit normal range of motion. Extremities nontender. Neuro: Cranial nerve exam: II-XII are grossly intact No motor deficit. No sensory deficit. Reflexes normal. 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 Hypothermia improved with external rewarming with Randa Hugger. Ceftriaxone IV. Admit to the hospital. Time: 15:16 Medications Administered Discontinued Medications Generic Name Dose Route Start Last Admin Trade Name Freq PRN Reason Stop Dose Admin Sodium Chloride 1,000 mls @ 999 mls/hr 12/21/23 12:20 12/21/23 14:20 Ns IV 12/21/23 13:20 Infused .Q1H1M ONE Infusion Ceftriaxone Sodium 1 gm/ 50 mls @ 100 mls/hr 12/21/23 13:31 12/21/23 14:15 Sodium Chloride IV 12/21/23 14:00 Infused ONCE ONE Infusion Medical Decision Making Differential Diagnosis Differential Diagnoses: The differential diagnosis associated with the presentation includes ( hypothermia, sepsis, UTI, pneumonia, pneumothorax, pleural effusion, severe anemia, electrolyte derangement, hypothyroidism.) Admission/Observation Consideration of admission/observation: Escalation of care including admission/observation considered Consult Healthcare Provider Management of the patient was discussed with: Hospitalist ( Dr. Santo) Lab Data MDM Lab Attestation statement: I reviewed the patient's lab results. 12/21/23 12:50 12/21/23 12:50 Labs: Lab Results 12/21/23 12/21/23 Range/Units 12:50 13:26 WBC 7.7 (4.8-10.8) X10*3/uL RBC 4.27 L (4.60-5.80) X10*6/uL Hgb 12.4 L (14.0-18.0) g/dl Hct 36.9 L (42.0-52.0) % MCV 86.4 (80.0-98.0) fL MCH 29.0 (27.0-33.0) pg MCHC 33.6 (31.0-36.0) g/dl RDW 15.4 (11.0-16.0) % Plt Count 146 L (160-400) X10*3/uL MPV 9.5 (9.4-12.4) fL Immature Gran % (Auto) Cancelled Neut % (Auto) Cancelled Lymph % (Auto) Cancelled [place] % (Auto) Cancelled Eos % (Auto) Cancelled Baso % (Auto) Cancelled Lymph # (Auto) Cancelled [place] # (Auto) Cancelled Eos # (Auto) Cancelled Baso # (Auto) Cancelled Abs Immat Gran (auto) Cancelled Absolute Neuts (auto) Cancelled Absolute Nucleated RBC 0.000 (0.0-0.012) X10*3/uL Nucleated RBC % (auto) 0.0 (0.0-0.2) /100WBC Neutrophils % (Manual) 69 (45-73) % Band Neutrophils % 4 (3-5) % Lymphocytes % (Manual) 24 (20-40) % Monocytes % (Manual) 3 (2-11) % Abs Neuts (Manual) 5.6 (2.0-8.3) X10*3/uL Lymphocytes # (Manual) 1.8 (1.2-4.9) X10*3/uL Monocytes # (Manual) 0.2 (0.1-1.2) X10*3/uL Platelet Estimate SLIGHTLY DECREASED (NORMAL) Plt Morphology Comment NORMAL RBC Morphology NORMAL Sodium 143 (135-145) mmol/L Potassium 3.7 (3.3-5.1) mmol/L Chloride 106 (96-108) mmol/L Carbon Dioxide 23 (22-29) mmol/L Anion Gap 18 (12-20) BUN 19 H (9-16) mg/dL Creatinine 0.78 (0.5-1.4) mg/dL Estim Creat Clear Calc 96.7 Estimated GFR > 60 Random Glucose 119 H (60-115) mg/dL Lactic Acid 1.8 (0.5-2.0) mmol/L Calcium 10.2 D (8.4-10.2) mg/dL Total Bilirubin 0.5 (0.0-1.0) mg/dL Direct Bilirubin 0.2 (0.0-0.5) mg/dL AST 17 (5-37) U/L ALT 24 (0-40) U/L Alkaline Phosphatase 130 H (39-117) U/L Troponin I High Sens 4.8 D (<3.5-35.0) ng/L B-Natriuretic Peptide 37 (<100) pg/mL Total Protein 8.5 H (6.5-8.0) g/dL Albumin 4.7 (3.5-5.0) g/dL Lipase 15 (8-78) U/L TSH 5.84 H (0.32-4.0) uIU/mL Free T4 0.77 (0.71-1.85) ng/dL Urine Color Yellow Urine Appearance Cloudy Urine pH 6.0 (5.0-9.0) Ur Specific [place] 1.015 (1.005-1.025) Urine Protein 30 (1+) H (Neg-Trace) mg/dL Urine Glucose (UA) Negative (Negative) mg/dL Urine Ketones Trace (Negative) mg/dL Urine Blood Moderate (2+) H (Negative) Urine Nitrite Positive H (Negative) Ur Leukocyte Esterase Large (3+) H (Negative) Urine RBC 11-20 H (0-2) /HPF Urine WBC >50 H (0-5) /HPF Ur Squamous Epith Cells 0-2 (0-2) /HPF Urine Bacteria 3+ (None Seen) Hyaline Casts 0-2 (0-2) /LPF Influenza Type A (PCR) NEGATIVE (Negative) Influenza Type B (PCR) NEGATIVE (Negative) RSV RNA Qual (PCR) NEGATIVE (Negative) SARS-CoV-2 RNA (RT-PCR) NEGATIVE (Negative) Independent Interpretation I performed an independent interpretation of an: Plain X-Ray ( chest:no evidence for acute disease in the chest) and CT Scan ( Head: No acute finding.) Radiology Impression Discussion of test interpretation with radiology: I have reviewed the radiologist's reading. Critical Care Time Critical Care Time Critical Care Time: Yes Total Critical Care Time: 60 Attestation: The patient was critically ill with a high probability of imminent or life- threatening deterioration. I spent greater than 30 minutes of discontinuous time evaluating the patient, delivering critical care at the bedside, discussing evaluating data with consultants. Critical care time does not include time spent performing separately billable procedures or teaching. Time spent performing critical care was 60 minutes. Discharge Plan Discharge Clinical Impression: Acute UTI, Altered mental status, Catatonic schizophrenia Patient Disposition: Admitted As Inpatient Print Language: [place]
[2023-12-21 12:58] LABS: Hematocrit 36.9 % (42.0-52.0); Hemoglobin 12.4 g/dl (14.0-18.0); Mean Corpuscular HGB Conc 33.6 g/dl (31.0-36.0); Mean Corpuscular Volume 86.4 fL (80.0-98.0); Mean Platelet Volume 9.5 fL (9.4-12.4); Platelet Count 146 X10*3/uL (160-400); Red Blood Count 4.27 X10*6/uL (4.60-5.80); Red Cell Distribution Width 15.4 % (11.0-16.0); WBC ABN SCTR FOR CBC 1; White Blood Count 7.7 X10*3/uL (4.8-10.8)
--- NOTE | 2023-12-21 13:04 | PC.NURSE ---
Pt JANAE, from SNF staff reporting AMS from baseline. Staff reports baseline AOx4, speaks clearly. On transport over EMS reported agitation, and foul smelling urine, questioning UTI. This RN at bedside, pt tachypnic/hypothermic (rectal) on arrival. Carlos A baum applied. Cultures/labs drawn and sent to lab, tele monitor applied.
[2023-12-21 13:09] LABS: Lactic Acid 1.8 mmol/L (0.5-2.0)
[2023-12-21 13:15] LABS: Alanine Aminotransferase 24 U/L (0-40); Albumin Level 4.7 g/dL (3.5-5.0); Alkaline Phosphatase 130 U/L (39-117); Anion Gap 18 (12-20); Aspartate Amino Transferase 17 U/L (5-37); Bilirubin Direct 0.2 mg/dL (0.0-0.5); Bilirubin Total 0.5 mg/dL (0.0-1.0); Blood Urea Nitrogen 19 mg/dL (9-16); Calcium 10.2 mg/dL (8.4-10.2); Carbon Dioxide 23 mmol/L (22-29); Chloride 106 mmol/L (96-108); Creatinine Clr Calc Pharmacy 96.7; Estimated Glomerular Filt Rate > 60; Glucose Random 119 mg/dL (60-115); Lipase 15 U/L (8-78); Potassium 3.7 mmol/L (3.3-5.1); Sodium 143 mmol/L (135-145); Total Protein 8.5 g/dL (6.5-8.0)
[2023-12-21] MEDS: 0.9 % Sodium Chloride 1,000 ML 999 ML IV (13:16)
[2023-12-21 13:20] LABS: B Type Natriuretic Peptide 37 pg/mL (<100); Troponin-I High Sensitivity 4.8 ng/L (<3.5-35.0)
[2023-12-21 13:26] LABS: Band Neutrophils Percent 4 % (3-5); Lymphocytes Absolute Manual 1.8 X10*3/uL (1.2-4.9); Lymphocytes Percent Manual 24 % (20-40); Monocytes Absolute Manual 0.2 X10*3/uL (0.1-1.2); Monocytes Percent Manual 3 % (2-11); Neutrophils Absolute Manual 5.6 X10*3/uL (2.0-8.3); Neutrophils Percent Manual 69 % (45-73)
[2023-12-21 13:27] LABS: Platelet Estimate SLIGHTLY DECREASED (NORMAL); Platelet Morphology Comment NORMAL; RBC Morphology NORMAL
[2023-12-21 13:31] LABS: Appearance Urine Cloudy; Color Urine Yellow; Glucose Urine UA Negative (Negative); Leukocyte Esterase Urine Large (3+) (Negative); Nitrite Urine Positive (Negative); Specific Gravity - Urine 1.015 (1.005-1.025); UMIC TRIGGER UACC YES; Urine Blood Moderate (2+) (Negative); Urine Ketones Trace mg/dL (Negative); Urine Protein 30 (1+) mg/dL (Neg-Trace)
[2023-12-21 13:35] LABS: TSH reflex Free T4 5.84 uIU/mL (0.32-4.0)
[2023-12-21 13:36] LABS: Bacteria Urine 3+ (None Seen); Hyaline Casts Urine 0-2 /LPF (0-2); Squamous Epithelial Cell Urine 0-2 /HPF (0-2); UACC Culture Trigger YES; WBC Urine >50 /HPF (0-5)
[2023-12-21] MEDS: cefTRIAXone sodium 1 GM in 0.9 % Sodium Chloride 50 ML IV (13:42)
--- NOTE | 2023-12-21 13:51 | PC.NURSE ---
Straight cath placed to collect UA an sent to lab, 560 ml output. cloudy/yellow urine with some sediment. Condom catheter placed back on. ABX/IVF running per OCT. Pt RR has decrease to 16RR korin. Pt resting quietly, in/out of sleep. Call bond within reach. No new orders at the moment.
[2023-12-21 13:55] LABS: Influenza A PCR NEGATIVE (Negative); Influenza B PCR NEGATIVE (Negative); Resp Syncy Virus RNA Qual PCR NEGATIVE (Negative); SARS COV2 PCR INHOUSE NEGATIVE (Negative)
[2023-12-21 15:20] LABS: Free T4 (Free Thyroxine) 0.77 ng/dL (0.71-1.85)
--- NOTE | 2023-12-21 15:50 | PC.NURSE ---
Pt remains nonverbal korin, resting quietly in stretcher, bear huger removed, temp: 97.1 rectally. Call bond within reach. Pt pending admission, no new orders.
--- NOTE | 2023-12-21 16:24 | P.HPHOSP_ITS ---
History of Present Illness Date of Service: 12/21/23 Chief Complaint: altered mental status/UTI 72-year-old male resident of [facility] with a past medical history significant for hypertension BPH GERD hypothyroidism 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 Patient has history of same with acute infection. Staff note that this began earlier this morning and transported to hospital. In the emergency room, urine with active sediment consistent with UTI. Head CT negative; chest x-ray negative. At this time he will be admitted for presumptive UTI and treated with empiric ceftriaxone pending blood and urine cultures Review of Systems 2 Review of Systems: Unable to obtain [facility] Medical History (Updated 12/21/23 @ 16:28 by Ben Santo DO) Presbyopia Unspecified astigmatism, unspecified eye Combined forms of age-related cataract, bilateral Corns and callosities Nail dystrophy Tinea unguium Type 2 diabetes mellitus with other circulatory complications Hallux valgus (acquired), unspecified foot Other seasonal allergic rhinitis Insomnia, unspecified History of falling Slurred speech Suicidal ideations Functional urinary incontinence Personal history of (healed) traumatic fracture Gastro-esophageal reflux disease without esophagitis Benign prostatic hyperplasia without lower urinary tract symptoms Hyperlipidemia, unspecified Essential (primary) hypertension Mild cognitive impairment, so stated Unspecified osteoarthritis, unspecified site Muscle weakness (generalized) Anxiety disorder, unspecified Hypothyroidism, unspecified Ataxic gait Anemia, unspecified Diabetes COVID-19 Schizophrenia Social History Household Members: None Housing: Residential Do you presently have visiting nurse or other home services: No Unable to assess alcohol history related to: Unable to respond Alcohol intake: never Patient Tobacco Use Status: Tobacco use Unknown Use of substances other than those prescribed or required for medical reasons: Unable to respond Advance Directives: Yes Advance Directives on File: Yes Advance Directives Date on File: 09/25/21 service: No Current occupational status: disabled Meds Allergies Allergy/AdvReac Type Severity Reaction Status Date / Time azithromycin Allergy Unknown Verified 12/21/23 12:40 Barbiturates Allergy Unknown Verified 12/21/23 12:40 erythromycin base Allergy Unknown Verified 12/21/23 12:40 fluphenazine Allergy Unknown Verified 12/21/23 12:40 haloperidol [From Haldol] Allergy Unknown Verified 12/21/23 12:40 phenobarbital Allergy Unknown Verified 12/21/23 12:40 Active Medications: Current Medications Acetaminophen (Acetaminophen Supp 650 Mg Supp.Rect) 650 mg ME Q6H PRN PRN Reason: Pain, Mild (Pain Scale 1-3) Enoxaparin Sodium (Enoxaparin Sodium 40 Mg/0.4 Ml Syringe) 40 mg SUBCUT Q24H [facility] Dextrose/Sodium Chloride (D5ns) 1,000 mls @ 100 mls/hr IVCONT .Q10H ANGELLA Ceftriaxone Sodium 1 gm/ (Sodium Chloride) 50 mls @ 100 mls/hr IV Q24H [facility] Ondansetron HCl (Ondansetron Hcl 4 Mg/2 Ml Vial) 4 mg IVPUSH Q8H PRN PRN Reason: Nausea and Vomiting Sodium Chloride (0.9 % Sodium Chloride Flush 3 Ml Syringe) 3 ml IVFLUSH QSHIFT [facility] Home Medications ?Medication ?Instructions ?Recorded ?Confirmed ?Last Taken ?Type aripiprazole lauroxil 882 mg/3.2 882 mg IM QMONTH 09/25/21 05/10/23 02/18/22 History mL suspension, ext.rel. IM syringe ([place]) atorvastatin 40 mg tablet 40 mg PO BEDTIME 09/25/21 05/10/23 02/18/22 History clozapine 200 mg tablet 200 mg PO BID 09/25/21 05/10/23 02/18/22 History loratadine 10 mg tablet 10 mg PO DAILY 09/25/21 05/10/23 02/18/22 History lorazepam 1 mg tablet 1 mg PO BID@0900,1800 09/25/21 05/10/23 02/18/22 History metoprolol tartrate 50 mg tablet 50 mg PO BID@0900,1800 09/25/21 05/10/23 02/18/22 History mirtazapine 30 mg tablet 30 mg PO BEDTIME 09/25/21 05/10/23 02/18/22 History multivitamin with minerals 1 tab PO DAILY 09/25/21 05/10/23 02/18/22 History tamsulosin 0.4 mg capsule 0.4 mg PO BEDTIME 09/25/21 05/10/23 02/18/22 History pantoprazole 40 mg tablet,delayed 40 mg PO DAILY@0630 01/16/22 05/10/23 02/18/22 History release amlodipine 5 mg tablet 5 mg PO DAILY 05/10/23 05/10/23 Unknown History clozapine 50 mg tablet 50 mg PO DAILY 05/10/23 05/10/23 Unknown History divalproex 500 mg tablet,extended 1,000 mg PO BEDTIME 05/10/23 05/10/23 Unknown History release 24 hr (Depakote ER) levothyroxine 100 mcg tablet 100 mcg PO DAILY 05/10/23 05/10/23 Unknown History Physical Exam 2 Vital Signs and Narrative: Vital Signs: Last Vital Signs Temp 97.1 F 12/21/23 15:00 Pulse 104 H 12/21/23 15:49 Resp 17 12/21/23 15:49 BP 149/83 H 12/21/23 15:49 Pulse Ox 96 12/21/23 15:49 O2 Del Method Room Air 12/21/23 15:49 BMI result Body Mass Index 26.0 Const: Other: Awake nonverbal HEENT: Other: Eyes track to voice Resp: Other: Clear to auscultation bilaterally no rales rhonchi or wheezes Cardio: Other: No S4; positive S1-S2; no S3 murmurs rubs or gallops GI: Other: Soft nontender nondistended normoactive bowel sounds Extrem: Other: No edema bilaterally Results Labs 12/21/23 12:50 12/21/23 12:50 Labs: Laboratory Results - last 24 hr 12/21/23 12/21/23 12:50 13:26 MCV 86.4 MCH 29.0 MCHC 33.6 RDW 15.4 Plt Count 146 L MPV 9.5 Immature Gran % (Auto) Cancelled Neut % (Auto) Cancelled Lymph % (Auto) Cancelled [place] % (Auto) Cancelled Eos % (Auto) Cancelled Baso % (Auto) Cancelled Lymph # (Auto) Cancelled [place] # (Auto) Cancelled Eos # (Auto) Cancelled Baso # (Auto) Cancelled Abs Immat Gran (auto) Cancelled Absolute Neuts (auto) Cancelled Absolute Nucleated RBC 0.000 Nucleated RBC % (auto) 0.0 Neutrophils % (Manual) 69 Band Neutrophils % 4 Lymphocytes % (Manual) 24 Monocytes % (Manual) 3 Abs Neuts (Manual) 5.6 Lymphocytes # (Manual) 1.8 Monocytes # (Manual) 0.2 Platelet Estimate SLIGHTLY DECREASED Plt Morphology Comment NORMAL RBC Morphology NORMAL Anion Gap 18 Estim Creat Clear Calc 96.7 Estimated GFR > 60 Random Glucose 119 H Lactic Acid 1.8 Calcium 10.2 D Total Bilirubin 0.5 Direct Bilirubin 0.2 AST 17 ALT 24 Alkaline Phosphatase 130 H Troponin I High Sens 4.8 D B-Natriuretic Peptide 37 Total Protein 8.5 H Albumin 4.7 Lipase 15 TSH 5.84 H Free T4 0.77 Urine Color Yellow Urine Appearance Cloudy Urine pH 6.0 Ur Specific [place] 1.015 Urine Protein 30 (1+) H Urine Glucose (UA) Negative Urine Ketones Trace Urine Blood Moderate (2+) H Urine Nitrite Positive H Ur Leukocyte Esterase Large (3+) H Urine RBC 11-20 H Urine WBC >50 H Ur Squamous Epith Cells 0-2 Urine Bacteria 3+ Hyaline Casts 0-2 Influenza Type A (PCR) NEGATIVE Influenza Type B (PCR) NEGATIVE RSV RNA Qual (PCR) NEGATIVE SARS-CoV-2 RNA (RT-PCR) NEGATIVE Imaging Radiologist's Impressions: Impressions Chest X-Ray 12/21/23 13:33 IMPRESSION: No evidence for acute disease in the chest. Head CT 12/21/23 14:54 IMPRESSION: No acute findings. Assessment and Plan (1) Acute UTI: Status: Acute (2) Catatonic schizophrenia: Status: Acute (3) Essential (primary) hypertension: Status: Acute (4) Type 2 diabetes mellitus with other circulatory complications: Status: Acute Plan 72-year-old male resident of [facility] with a past medical history significant for hypertension BPH GERD hypothyroidism 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 Records states that usually this is related to an acute infection. Urine with active sediment consistent with UTI 1. Active urinary sediment/UTI -ceftriaxone (1) -await blood and urine culture and tailor antibiotics to same -routine daily labs 2. Schizophrenia -patient NPO given catatonic state however will resume Clozaril and other meds related to schizophrenia as soon as clinically able -p.r.n. as indicated -no indication for swallow eval given catatonia. Follow clinical response 3. Hypertension -acceptable control off meds -resume all outpatient meds when able to take p.o. 4. Type 2 diabetes -acceptable control. . . NPO -lispro correctional scale -adjust as clinically indicated when taking p.o. Full code Lovenox Patient requires at least 2 midnights of inpatient stay going forward to treat likely UTI with IV antibiotics given catatonic state. This can not be achieved a lesser acute setting Quality Stroke Does the patient have a stroke diagnosis?: No VTE Prior VTE?: No VTE Risk Level:: Medical - moderate - high VTE Device Contraindication: Treatment Not Indicated VTE Drug Contraindication: N/A - Med Ordered
[2023-12-21] MEDS: Dextrose 5 % and 0.9 % NaCl 1,000 ML 100 ML IVCONT (16:41)
[2023-12-21] MEDS: Enoxaparin Sodium 40 MG/0.4 ML SYRINGE SUBCUT (17:17)
--- NOTE | 2023-12-21 18:05 | PHA.MEDREC ---
Pharmacy Consult ? Medication Reconciliation Pharmacy has completed the medication reconciliation. Med list from [facility].
--- NOTE | 2023-12-21 23:38 | PC.NURSE ---
Addendum entered by Danyell Smith RN 12/22/23 06:16: At 0530 bladder scan =435 ml, no urine output since straight cath was done, Dr. Robles was made aware, Kim cath ordered and inserted aseptically and per protocol with yellow brown urine output, pt tolerated well. Original Note: Pt seen on bed alert,eyes tracking but doesn't answer questions,random twitching of arms noted, maintained on NPO. NO urine output noted since AM, bladder scan =551ml, Dr. Robles was notified. Straight cath done aseptically with 950ml out and bloody dark red at the end of drainage, Dr. Robles was made aware.
[2023-12-22] MEDS: Dextrose 5 % and 0.9 % NaCl 1,000 ML 100 ML IVCONT ×3 (02:14→21:40)
[2023-12-22 03:52] VITALS: BP 135/81; PULSE 102; RESP 18; TEMP 36.1; O2SAT 96
[2023-12-22 06:21] LABS: Alanine Aminotransferase 20 U/L (0-40); Albumin Level 3.8 g/dL (3.5-5.0); Alkaline Phosphatase 107 U/L (39-117); Anion Gap 13 (12-20); Aspartate Amino Transferase 14 U/L (5-37); Bilirubin Total 0.3 mg/dL (0.0-1.0); Blood Urea Nitrogen 16 mg/dL (9-16); Calcium 9.1 mg/dL (8.4-10.2); Carbon Dioxide 21 mmol/L (22-29); Chloride 110 mmol/L (96-108); Creatinine Clr Calc Pharmacy 117.9; Estimated Glomerular Filt Rate > 60; Glucose Random 126 mg/dL (60-115); Potassium 3.8 mmol/L (3.3-5.1); Sodium 140 mmol/L (135-145); Total Protein 6.9 g/dL (6.5-8.0)
[2023-12-22 06:29] LABS: Hematocrit 33.1 % (42.0-52.0); Mean Corpuscular HGB Conc 33.2 g/dl (31.0-36.0); Mean Corpuscular Hemoglobin 28.9 pg (27.0-33.0); Mean Corpuscular Volume 87.1 fL (80.0-98.0); Mean Platelet Volume 10.5 fL (9.4-12.4); Platelet Count 110 X10*3/uL (160-400); Red Cell Distribution Width 15.4 % (11.0-16.0)
[2023-12-22 06:30] LABS: WBC ABN SCTR FOR CBC 1; White Blood Count 6.1 X10*3/uL (4.8-10.8)
[2023-12-22 07:05] VITALS: BP 154/82; PULSE 110; RESP 18; TEMP 36.5; O2SAT 98
[2023-12-22 07:57] LABS: Glucose, Whole Blood 140 mg/dL (60-115)
[2023-12-22 08:50] LABS: Band Neutrophils Percent 1 % (3-5); Lymphocytes Absolute Manual 1.7 X10*3/uL (1.2-4.9); Lymphocytes Percent Manual 28 % (20-40); Monocytes Absolute Manual 0.5 X10*3/uL (0.1-1.2); Monocytes Percent Manual 8 % (2-11); Neutrophils Absolute Manual 3.9 X10*3/uL (2.0-8.3); Neutrophils Percent Manual 63 % (45-73)
[2023-12-22 08:51] LABS: Giant Platelet PRESENT; Macrocytosis 1+ (5-14) /OIF; Platelet Estimate SLIGHTLY DECREASED (NORMAL); Platelet Morphology Comment NOTED; RBC Morphology NOTED; Schistocytes 1+ (0-2) /OIF
--- NOTE | 2023-12-22 10:25 | MHC.CM.PN ---
Patient not able to participate in TECHNICAL SERVICES MANAGER at this time. Left messages for sisters/co-guardians Bing carolyn Andreina. IMM verbally delivered, copy left at bedside. Patient is from [facility] @ [facility]. Guardianship on file. DP: Return to [facility] via BLS.
[2023-12-22 11:21] LABS: Glucose, Whole Blood 124 mg/dL (60-115)
[2023-12-22] MEDS: cefTRIAXone sodium 1 GM in 0.9 % Sodium Chloride 50 ML IV (12:27)
--- NOTE | 2023-12-22 12:30 | PC.NURSE ---
Pt continues to be lethargic. Is able to open eyes to name, does not follow simple commands or speak back when spoken to. MD Santo aware. Pt unable to tolerate PO medications at this time due to safety, aware. IV abx infusing a prescribed. Pt being turned and repositioned in bed every two hours and as needed. Foam dressing applied to bilateral heels and coccyx for protection. All safety measures in place.
--- NOTE | 2023-12-22 12:34 | HO.PM.IMPN ---
Subjective Subjective Date of Service: 12/22/23 Interval History: Essentially no changes overnight. Remains catatonic Review of Systems Unable to obtain Physical Exam Vital Signs: Vital Signs: Last Vital Signs Temp 97.7 F 12/22/23 07:05 Pulse 110 H 12/22/23 07:05 Resp 18 12/22/23 07:05 BP 154/82 H 12/22/23 07:05 Pulse Ox 98 12/22/23 07:05 O2 Del Method Room Air 12/22/23 07:05 BMI result Body Mass Index 26.0 Const: Other: Awake nonverbal HEENT: Other: Eyes track to voice Resp: Other: Clear to auscultation bilaterally no rales rhonchi or wheezes Cardio: Other: No S4; positive S1-S2; no S3 murmurs rubs or gallops GI: Other: Soft nontender nondistended normoactive bowel sounds Extrem: Other: No edema bilaterally Objective Data Active Medications Acetaminophen (Acetaminophen Supp 650 Mg Supp.Rect) 650 mg [place] Q6H PRN PRN Reason: Pain, Mild (Pain Scale 1-3) Amlodipine Besylate (Amlodipine Besylate 10 Mg Tablet) 10 mg PO DAILY [facility]; Protocol Last Admin: 12/22/23 10:06 Dose: Not Given Documented By: ALIREZA Non-Admin Reason: NPO Atorvastatin Calcium (Atorvastatin Calcium 40 Mg Tablet) 40 mg PO BEDTIME [facility] Bisacodyl (Bisacodyl 10 Mg Supp.Rect) 10 mg [place] DAILY PRN PRN Reason: Constipation Clozapine (Clozapine 100 Mg Tablet) 100 mg PO BID [facility] Last Admin: 12/21/23 23:10 Dose: Not Given Documented By: CARLA Non-Admin Reason: NPO Clozapine (Clozapine 25 Mg Tablet) 50 mg PO BID [facility] Last Admin: 12/21/23 23:10 Dose: Not Given Documented By: CARLA Non-Admin Reason: NPO Enoxaparin Sodium (Enoxaparin Sodium 40 Mg/0.4 Ml Syringe) 40 mg SUBCUT Q24H [facility] Last Admin: 12/21/23 17:17 Dose: 40 mg Documented By: DONNA Dextrose/Sodium Chloride (D5ns) 1,000 mls @ 100 mls/hr IVCONT .Q10H [facility] Last Admin: 12/22/23 11:22 Dose: 100 mls/hr Documented By: ALIREZA Ceftriaxone Sodium 1 gm/ (Sodium Chloride) 50 mls @ 100 mls/hr IV Q24H [facility] Last Admin: 12/22/23 12:27 Dose: 100 mls/hr Documented By: ALIREZA Levothyroxine Sodium (Levothyroxine Sodium 88 Mcg Tablet) 88 mcg PO DAILY@0600 [facility] Last Admin: 12/22/23 05:40 Dose: Not Given Documented By: CARLA Non-Admin Reason: NPO Loratadine (Loratadine 10 Mg Tablet) 10 mg PO DAILY [facility] Last Admin: 12/22/23 10:06 Dose: Not Given Documented By: ALIREZA Non-Admin Reason: NPO Magnesium Hydroxide (Milk Of Magnesia 30 Ml Oral.Susp) 30 ml PO DAILY PRN PRN Reason: Constipation Metoprolol Tartrate (Metoprolol Tartrate 50 Mg Tablet) 50 mg PO BID@0900,1800 [facility]; Protocol Last Admin: 12/22/23 10:07 Dose: Not Given Documented By: ALIREZA Non-Admin Reason: NPO Mirtazapine (Mirtazapine 30 Mg Tablet) 30 mg PO BEDTIME [facility] Multivitamins/Vitamin C (Multivitamin Tablet) 1 tab PO DAILY [facility] Last Admin: 12/22/23 10:07 Dose: Not Given Documented By: ALIREZA Non-Admin Reason: NPO Omeprazole (Omeprazole 20 Mg Capsule.Dr) 20 mg PO DAILY@0630 [facility] Last Admin: 12/22/23 05:40 Dose: Not Given Documented By: CARLA Non-Admin Reason: NPO Ondansetron HCl (Ondansetron Hcl 4 Mg/2 Ml Vial) 4 mg IVPUSH Q8H PRN PRN Reason: Nausea and Vomiting Sodium Biphosphate/Sodium Phosphate (Sodium Phosphate,[place]-Dibasic 133 Ml Enema) 118 ml [place] DAILY PRN PRN Reason: Constipation Sodium Chloride (0.9 % Sodium Chloride Flush 3 Ml Syringe) 3 ml IVFLUSH QSHIFT [facility] Last Admin: 12/22/23 09:37 Dose: Not Given Documented By: ALIREZA Non-Admin Reason: IV Running Tamsulosin HCl (Tamsulosin Hcl 0.4 Mg Capsule) 0.4 mg PO BEDTIME [facility] Last Admin: 12/21/23 23:10 Dose: Not Given Documented By: CARLA Non-Admin Reason: NPO Valproic Acid (Valproic Acid (As Sodium Salt) 250 Mg/5 Ml Solution) 500 mg PO BID@1400,2100 ANGE[facility] Valproic Acid (Valproic Acid (As Sodium Salt) 250 Mg/5 Ml Solution) 250 mg PO DAILY [facility] Last Admin: 12/22/23 10:07 Dose: Not Given Documented By: ALIREZA Non-Admin Reason: NPO Labs 12/22/23 05:20 12/22/23 05:20 Labs: Laboratory Results - last 24 hr 12/21/23 12/21/23 12/22/23 12:50 13:26 05:20 MCV 86.4 87.1 MCH 29.0 28.9 MCHC 33.6 33.2 RDW 15.4 15.4 Plt Count 146 L 110 L MPV 9.5 10.5 Immature Gran % (Auto) Cancelled Cancelled Neut % (Auto) Cancelled Cancelled Lymph % (Auto) Cancelled Cancelled Dare % (Auto) Cancelled Cancelled Eos % (Auto) Cancelled Cancelled Baso % (Auto) Cancelled Cancelled Lymph # (Auto) Cancelled Cancelled Dare # (Auto) Cancelled Cancelled Eos # (Auto) Cancelled Cancelled Baso # (Auto) Cancelled Cancelled Abs Immat Gran (auto) Cancelled Cancelled Absolute Neuts (auto) Cancelled Cancelled Absolute Nucleated RBC 0.000 0.000 Nucleated RBC % (auto) 0.0 0.0 Neutrophils % (Manual) 69 63 Band Neutrophils % 4 1 L Lymphocytes % (Manual) 24 28 Monocytes % (Manual) 3 8 Abs Neuts (Manual) 5.6 3.9 Lymphocytes # (Manual) 1.8 1.7 Monocytes # (Manual) 0.2 0.5 Platelet Estimate SLIGHTLY DECREASED SLIGHTLY DECREASED Giant Platelets PRESENT Plt Morphology Comment NORMAL NOTED RBC Morphology NORMAL NOTED Macrocytosis 1+ (5-14) Schistocytes 1+ (0-2) Anion Gap 18 13 Estim Creat Clear Calc 96.7 117.9 Estimated GFR > 60 > 60 POC Glucose Random Glucose 119 H 126 H Lactic Acid 1.8 Calcium 10.2 D 9.1 D Total Bilirubin 0.5 0.3 Direct Bilirubin 0.2 AST 17 14 ALT 24 20 Alkaline Phosphatase 130 H 107 Troponin I High Sens 4.8 D B-Natriuretic Peptide 37 Total Protein 8.5 H 6.9 Albumin 4.7 3.8 Lipase 15 TSH 5.84 H Free T4 0.77 Urine Color Yellow Urine Appearance Cloudy Urine pH 6.0 Ur Specific [place] 1.015 Urine Protein 30 (1+) H Urine Glucose (UA) Negative Urine Ketones Trace Urine Blood Moderate (2+) H Urine Nitrite Positive H Ur Leukocyte Esterase Large (3+) H Urine RBC 11-20 H Urine WBC >50 H Ur Squamous Epith Cells 0-2 Urine Bacteria 3+ Hyaline Casts 0-2 Influenza Type A (PCR) NEGATIVE Influenza Type B (PCR) NEGATIVE RSV RNA Qual (PCR) NEGATIVE SARS-CoV-2 RNA (RT-PCR) NEGATIVE 12/22/23 12/22/23 07:52 11:07 MCV MCH MCHC RDW Plt Count MPV Immature Gran % (Auto) Neut % (Auto) Lymph % (Auto) Dare % (Auto) Eos % (Auto) Baso % (Auto) Lymph # (Auto) Dare # (Auto) Eos # (Auto) Baso # (Auto) Abs Immat Gran (auto) Absolute Neuts (auto) Absolute Nucleated RBC Nucleated RBC % (auto) Neutrophils % (Manual) Band Neutrophils % Lymphocytes % (Manual) Monocytes % (Manual) Abs Neuts (Manual) Lymphocytes # (Manual) Monocytes # (Manual) Platelet Estimate Giant Platelets Plt Morphology Comment RBC Morphology Macrocytosis Schistocytes Anion Gap Estim Creat Clear Calc Estimated GFR POC Glucose 140 H 124 H Random Glucose Lactic Acid Calcium Total Bilirubin Direct Bilirubin AST ALT Alkaline Phosphatase Troponin I High Sens B-Natriuretic Peptide Total Protein Albumin Lipase TSH Free T4 Urine Color Urine Appearance Urine pH Ur Specific [place] Urine Protein Urine Glucose (UA) Urine Ketones Urine Blood Urine Nitrite Ur Leukocyte Esterase Urine RBC Urine WBC Ur Squamous Epith Cells Urine Bacteria Hyaline Casts Influenza Type A (PCR) Influenza Type B (PCR) RSV RNA Qual (PCR) SARS-CoV-2 RNA (RT-PCR) Microbiology Microbiology Results: Microbiology 12/21/23 Unknown Urine Culture - Preliminary Urine Catheterized - Straight Catheter Gram negative aysha Assessment and Plan (1) Acute UTI: Status: Acute (2) Catatonic schizophrenia: Status: Acute (3) Type 2 diabetes mellitus with other circulatory complications: Status: Acute (4) Essential (primary) hypertension: Status: Acute Plan 72-year-old male resident of [facility] with a past medical history significant for hypertension BPH GERD hypothyroidism 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 Records states that usually this is related to an acute infection. Urine with active sediment consistent with UTI 1. Active urinary sediment/UTI -ceftriaxone (2) -preliminary urine culture with Gram-negative rods; blood cultures pending -routine daily labs 2. Schizophrenia -patient NPO given catatonic state however will resume Clozaril and other meds related to schizophrenia as soon as clinically able -p.r.n. as indicated -no indication for swallow eval given catatonia. Follow clinical response 3. Hypertension -acceptable control off meds -resume all outpatient meds when able to take p.o. 4. Type 2 diabetes -acceptable control. . . NPO -lispro correctional scale -adjust as clinically indicated when taking p.o. Full code Lovenox Patient requires ongoing hospitalization for IV antibiotics to treat urinary tract infection escalating his schizophrenia Quality Stroke Does the patient have a stroke diagnosis?: No VTE Prior VTE?: No VTE Risk Level:: Medical - moderate - high VTE Device Contraindication: Treatment Not Indicated VTE Drug Contraindication: N/A - Med Ordered
[2023-12-22 14:49] VITALS: BP 148/84; PULSE 108; RESP 18; TEMP 36.4; O2SAT 97
[2023-12-22 15:53] LABS: Glucose, Whole Blood 122 mg/dL (60-115)
[2023-12-22] MEDS: Enoxaparin Sodium 40 MG/0.4 ML SYRINGE SUBCUT (16:41)
[2023-12-22 19:09] VITALS: BP 160/90; PULSE 120; RESP 18; TEMP 36.4; O2SAT 97
[2023-12-22 20:21] LABS: Glucose, Whole Blood 108 mg/dL (60-115)
[2023-12-23 03:43] VITALS: BP 124/76; PULSE 100; RESP 18; TEMP 36.4; O2SAT 97
[2023-12-23] MEDS: Dextrose 5 % and 0.9 % NaCl 1,000 ML 100 ML IVCONT ×2 (05:58→19:45)
[2023-12-23 06:44] VITALS: BP 150/74; PULSE 95; RESP 16; TEMP 36.6; O2SAT 95
[2023-12-23 07:01] LABS: Glucose, Whole Blood 114 mg/dL (60-115)
[2023-12-23 08:48] LABS: Basophils Absolute Auto 0.2 X10*3/uL (0.0-0.2); Basophils Percent Auto 3.3 % (0-2); Eosinophils Percent Auto 0.2 % (0-4); Hematocrit 34.3 % (42.0-52.0); Hemoglobin 11.3 g/dl (14.0-18.0); Imm Gran Abs Auto 0.02 X10*3/uL (0.00-0.03); Imm Gran Pct Auto 0.3 % (0.0-0.4); Lymphocytes Absolute Auto 1.8 X10*3/uL (1.2-4.9); Lymphocytes Percent Auto 29.5 % (20-40); MANUAL DIFF FLAG SCAN; Mean Corpuscular HGB Conc 32.9 g/dl (31.0-36.0); Mean Corpuscular Hemoglobin 28.6 pg (27.0-33.0); Mean Corpuscular Volume 86.8 fL (80.0-98.0); Mean Platelet Volume 9.6 fL (9.4-12.4); Monocytes Absolute Auto 0.7 X10*3/uL (0.1-1.2); Monocytes Percent Auto 10.9 % (2-11); Neutrophils Absolute Auto 3.4 x10*3/uL (2.0-8.3); Neutrophils Percent Auto 55.8 % (45-73); Platelet Count 145 X10*3/uL (160-400); Red Blood Count 3.95 X10*6/uL (4.60-5.80); Red Cell Distribution Width 15.5 % (11.0-16.0); SCAN SMEAR FLAG 1
[2023-12-23 08:57] LABS: Alanine Aminotransferase 14 U/L (0-40); Albumin Level 3.6 g/dL (3.5-5.0); Alkaline Phosphatase 98 U/L (39-117); Anion Gap 12 (12-20); Aspartate Amino Transferase 11 U/L (5-37); Bilirubin Total 0.3 mg/dL (0.0-1.0); Blood Urea Nitrogen 15 mg/dL (9-16); Calcium 8.7 mg/dL (8.4-10.2); Carbon Dioxide 21 mmol/L (22-29); Chloride 112 mmol/L (96-108); Creatinine Clr Calc Pharmacy 101.9; Estimated Glomerular Filt Rate > 60; Glucose Random 118 mg/dL (60-115); Potassium 3.9 mmol/L (3.3-5.1); Sodium 141 mmol/L (135-145); Total Protein 6.7 g/dL (6.5-8.0)
[2023-12-23 09:54] LABS: SLIDE REVIEW VERIFIED
--- NOTE | 2023-12-23 10:16 | MHC.CLN ---
NUTRITION PATIENT IS NPO DUE TO LETHARGY, CATATONIC SCHIZOPHRENIA. RD TO FOLLOW FOR PO INTAKE/NUTRITIONAL NEEDS.
[2023-12-23 11:31] LABS: Glucose, Whole Blood 103 mg/dL (60-115)
--- NOTE | 2023-12-23 12:31 | HO.PM.IMPN ---
Subjective Subjective Date of Service: 12/23/23 Interval History: Minimally responsive today to verbal stimuli; essentially no improvement over last 24 hours Review of Systems Unable to obtain Physical Exam Vital Signs: Vital Signs: Last Vital Signs Temp 98 F 12/23/23 06:44 Pulse 95 12/23/23 06:44 Resp 16 12/23/23 06:44 BP 150/74 H 12/23/23 06:44 Pulse Ox 95 12/23/23 06:44 O2 Del Method Room Air 12/23/23 06:44 BMI result Body Mass Index 26.0 Const: Other: Awake nonverbal HEENT: Other: Eyes track to voice Resp: Other: Clear to auscultation bilaterally no rales rhonchi or wheezes Cardio: Other: No S4; positive S1-S2; no S3 murmurs rubs or gallops GI: Other: Soft nontender nondistended normoactive bowel sounds Extrem: Other: No edema bilaterally Objective Data Active Medications Acetaminophen (Acetaminophen Supp 650 Mg Supp.Rect) 650 mg [place] Q6H PRN PRN Reason: Pain, Mild (Pain Scale 1-3) Amlodipine Besylate (Amlodipine Besylate 10 Mg Tablet) 10 mg PO DAILY [facility]; Protocol Last Admin: 12/23/23 09:23 Dose: Not Given Documented By: IAN Non-Admin Reason: NPO Atorvastatin Calcium (Atorvastatin Calcium 40 Mg Tablet) 40 mg PO BEDTIME [facility] Last Admin: 12/22/23 21:07 Dose: Not Given Documented By: ELVIN Non-Admin Reason: NPO Bisacodyl (Bisacodyl 10 Mg Supp.Rect) 10 mg [place] DAILY PRN PRN Reason: Constipation Clozapine (Clozapine 100 Mg Tablet) 100 mg PO BID [facility] Last Admin: 12/21/23 23:10 Dose: Not Given Documented By: CARLA Non-Admin Reason: NPO Clozapine (Clozapine 25 Mg Tablet) 50 mg PO BID [facility] Last Admin: 12/21/23 23:10 Dose: Not Given Documented By: CARLA Non-Admin Reason: NPO Enoxaparin Sodium (Enoxaparin Sodium 40 Mg/0.4 Ml Syringe) 40 mg SUBCUT Q24H COUNT [facility] Last Admin: 12/22/23 16:41 Dose: 40 mg Documented By: ALIREZA Dextrose/Sodium Chloride (D5ns) 1,000 mls @ 100 mls/hr IVCONT .Q10H COUNT [facility] Last Admin: 12/23/23 05:58 Dose: 100 mls/hr Documented By: ELVIN Ceftriaxone Sodium 1 gm/ (Sodium Chloride) 50 mls @ 100 mls/hr IV Q24H COUNT [facility] Last Infusion: 12/22/23 13:09 Dose: Infused Documented By: ALIREZA Levothyroxine Sodium (Levothyroxine Sodium 88 Mcg Tablet) 88 mcg PO DAILY@0600 [facility] Last Admin: 12/23/23 05:51 Dose: Not Given Documented By: ELVIN Non-Admin Reason: NPO Loratadine (Loratadine 10 Mg Tablet) 10 mg PO DAILY [facility] Last Admin: 12/23/23 09:24 Dose: Not Given Documented By: IAN Non-Admin Reason: NPO Magnesium Hydroxide (Milk Of Magnesia 30 Ml Oral.Susp) 30 ml PO DAILY PRN PRN Reason: Constipation Metoprolol Tartrate (Metoprolol Tartrate 50 Mg Tablet) 50 mg PO BID@0900,1800 [facility]; Protocol Last Admin: 12/23/23 09:24 Dose: Not Given Documented By: IAN Non-Admin Reason: NPO Mirtazapine (Mirtazapine 30 Mg Tablet) 30 mg PO BEDTIME [facility] Last Admin: 12/22/23 21:07 Dose: Not Given Documented By: ELVIN Non-Admin Reason: NPO Multivitamins/Vitamin C (Multivitamin Tablet) 1 tab PO DAILY [facility] Last Admin: 12/23/23 09:24 Dose: Not Given Documented By: IAN Non-Admin Reason: NPO Omeprazole (Omeprazole 20 Mg Capsule.Dr) 20 mg PO DAILY@0630 [facility] Last Admin: 12/23/23 05:51 Dose: Not Given Documented By: ELVIN Non-Admin Reason: NPO Ondansetron HCl (Ondansetron Hcl 4 Mg/2 Ml Vial) 4 mg IVPUSH Q8H PRN PRN Reason: Nausea and Vomiting Sodium Biphosphate/Sodium Phosphate (Sodium Phosphate,[place]-Dibasic 133 Ml Enema) 118 ml [place] DAILY PRN PRN Reason: Constipation Sodium Chloride (0.9 % Sodium Chloride Flush 3 Ml Syringe) 3 ml IVFLUSH QSHIFT COUNT [facility] Last Admin: 12/23/23 07:24 Dose: Not Given Documented By: IAN Non-Admin Reason: IV Running Tamsulosin HCl (Tamsulosin Hcl 0.4 Mg Capsule) 0.4 mg PO BEDTIME [facility] Last Admin: 12/22/23 21:07 Dose: Not Given Documented By: ELVIN Non-Admin Reason: NPO Valproic Acid (Valproic Acid (As Sodium Salt) 250 Mg/5 Ml Solution) 500 mg PO BID@1400,2100 [facility] Last Admin: 12/22/23 21:12 Dose: Not Given Documented By: ELVIN Non-Admin Reason: NPO Valproic Acid (Valproic Acid (As Sodium Salt) 250 Mg/5 Ml Solution) 250 mg PO DAILY [facility] Last Admin: 12/23/23 09:24 Dose: Not Given Documented By: IAN Non-Admin Reason: NPO Labs 12/23/23 08:16 12/23/23 08:16 Labs: Laboratory Results - last 24 hr 12/22/23 12/22/23 12/23/23 15:46 20:17 06:57 MCV MCH MCHC RDW Plt Count MPV Immature Gran % (Auto) Neut % (Auto) Lymph % (Auto) [place] % (Auto) Eos % (Auto) Baso % (Auto) Lymph # (Auto) [place] # (Auto) Eos # (Auto) Baso # (Auto) Abs Immat Gran (auto) Absolute Neuts (auto) Absolute Nucleated RBC Nucleated RBC % (auto) Smear Tech's Comments Anion Gap Estim Creat Clear Calc Estimated GFR POC Glucose 122 H 108 114 Random Glucose Calcium Total Bilirubin AST ALT Alkaline Phosphatase Total Protein Albumin 12/23/23 12/23/23 08:16 11:08 MCV 86.8 MCH 28.6 MCHC 32.9 RDW 15.5 Plt Count 145 L D MPV 9.6 Immature Gran % (Auto) 0.3 Neut % (Auto) 55.8 Lymph % (Auto) 29.5 [place] % (Auto) 10.9 Eos % (Auto) 0.2 Baso % (Auto) 3.3 H Lymph # (Auto) 1.8 [place] # (Auto) 0.7 Eos # (Auto) 0.0 Baso # (Auto) 0.2 Abs Immat Gran (auto) 0.02 Absolute Neuts (auto) 3.4 Absolute Nucleated RBC 0.000 Nucleated RBC % (auto) 0.0 Smear Tech's Comments VERIFIED Anion Gap 12 Estim Creat Clear Calc 101.9 Estimated GFR > 60 POC Glucose 103 Random Glucose 118 H Calcium 8.7 Total Bilirubin 0.3 AST 11 ALT 14 Alkaline Phosphatase 98 Total Protein 6.7 Albumin 3.6 Microbiology Microbiology Results: Microbiology 12/21/23 Unknown Urine Culture - Final Urine Catheterized - Straight Catheter Carlosncia stsabinartii 12/21/23 12:52 Blood Culture - Preliminary Blood - Venous No growth after 24 hours. 12/21/23 12:50 Blood Culture - Preliminary Blood - Venous No growth after 24 hours. 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 Records states that usually this is related to an acute infection. Urine with active sediment consistent with UTI 1. Active urinary sediment/UTI -ceftriaxone (3).. Providencia sensitive to ceftriaxone -routine daily labs -if no improvement in cognition will need to consider TPN 2. Schizophrenia -patient NPO given catatonic state however will resume Clozaril and other meds related to schizophrenia as soon as clinically able -acceptable control off meds -resume all outpatient meds when able to take p.o. 4. Type 2 diabetes -acceptable control. . . NPO -lispro correctional scale -adjust as clinically indicated when taking p.o. Full code Lovenox Patient requires ongoing hospitalization for IV antibiotics to treat urinary tract infection escalating his schizophrenia Quality Stroke Does the patient have a stroke diagnosis?: No VTE Prior VTE?: No VTE Risk Level:: Medical - moderate - high VTE Device Contraindication: Treatment Not Indicated VTE Drug Contraindication: N/A - Med Ordered
[2023-12-23] MEDS: cefTRIAXone sodium 1 GM in 0.9 % Sodium Chloride 50 ML IV (12:39)
[2023-12-23 15:21] VITALS: BP 138/75; PULSE 90; RESP 20; TEMP 36.2; O2SAT 96
[2023-12-23 16:24] LABS: Glucose, Whole Blood 93 mg/dL (60-115)
[2023-12-23] MEDS: Enoxaparin Sodium 40 MG/0.4 ML SYRINGE SUBCUT (17:10)
[2023-12-23 19:39] VITALS: BP 154/74; PULSE 96; RESP 20; TEMP 36.8; O2SAT 94
[2023-12-23 20:23] LABS: Glucose, Whole Blood 97 mg/dL (60-115)
[2023-12-24 03:17] VITALS: BP 130/72; PULSE 91; RESP 18; TEMP 36.1; O2SAT 95
[2023-12-24] MEDS: Dextrose 5 % and 0.9 % NaCl 1,000 ML 100 ML IVCONT ×2 (05:30→14:19)
[2023-12-24 06:12] LABS: Alanine Aminotransferase 11 U/L (0-40); Albumin Level 3.5 g/dL (3.5-5.0); Alkaline Phosphatase 97 U/L (39-117); Anion Gap 12 (12-20); Aspartate Amino Transferase 10 U/L (5-37); Bilirubin Total 0.3 mg/dL (0.0-1.0); Blood Urea Nitrogen 17 mg/dL (9-16); Calcium 8.4 mg/dL (8.4-10.2); Carbon Dioxide 21 mmol/L (22-29); Chloride 111 mmol/L (96-108); Creatinine Clr Calc Pharmacy 110.9; Estimated Glomerular Filt Rate > 60; Glucose Random 117 mg/dL (60-115); Potassium 3.8 mmol/L (3.3-5.1); Sodium 140 mmol/L (135-145); Total Protein 6.5 g/dL (6.5-8.0)
[2023-12-24 06:47] LABS: Hematocrit 31.5 % (42.0-52.0); Hemoglobin 10.7 g/dl (14.0-18.0); Mean Corpuscular Hemoglobin 29.3 pg (27.0-33.0); Mean Corpuscular Volume 86.3 fL (80.0-98.0); Mean Platelet Volume 10.2 fL (9.4-12.4); Platelet Count 145 X10*3/uL (160-400); Red Blood Count 3.65 X10*6/uL (4.60-5.80); Red Cell Distribution Width 15.5 % (11.0-16.0)
[2023-12-24 06:48] LABS: WBC ABN SCTR FOR CBC 1
[2023-12-24 06:57] VITALS: BP 135/79; PULSE 90; RESP 16; TEMP 36.7; O2SAT 96
[2023-12-24 07:13] LABS: Glucose, Whole Blood 114 mg/dL (60-115)
[2023-12-24 07:22] LABS: Band Neutrophils Percent 1 % (3-5); Basophils Percent Manual 1 % (0-2); Lymphocytes Percent Manual 27 % (20-40); Monocytes Percent Manual 4 % (2-11); Neutrophils Percent Manual 67 % (45-73)
[2023-12-24 07:25] LABS: Platelet Estimate SLIGHTLY DECREASED (NORMAL); Platelet Morphology Comment NORM; RBC Morphology NORMAL
[2023-12-24 07:39] LABS: Basophils Abs Manual 0.1 X10*3/uL (0.0-0.2); Lymphocytes Absolute Manual 1.7 X10*3/uL (1.2-4.9); Monocytes Absolute Manual 0.2 X10*3/uL (0.1-1.2); Neutrophils Absolute Manual 4.2 X10*3/uL (2.0-8.3); White Blood Count 6.2 X10*3/uL (4.8-10.8)
[2023-12-24 09:12] VITALS: BP 135/79; PULSE 90
[2023-12-24] MEDS: Multivitamin TABLET 1 TAB PO (09:12)
[2023-12-24] MEDS: Loratadine 10 MG TABLET PO (09:12)
[2023-12-24] MEDS: amLODIPine Besylate 10 MG TABLET PO (09:12)
[2023-12-24] MEDS: Metoprolol Tartrate 50 MG TABLET PO ×2 (09:12→17:53)
[2023-12-24 11:12] LABS: Glucose, Whole Blood 111 mg/dL (60-115)
[2023-12-24 13:15] LABS: Ammonia 57 umol/L (13-55)
[2023-12-24] MEDS: cefTRIAXone sodium 1 GM in 0.9 % Sodium Chloride 50 ML IV (13:28)
[2023-12-24 15:10] VITALS: BP 122/60; PULSE 74; RESP 18; TEMP 36.3; O2SAT 95
--- NOTE | 2023-12-24 15:38 | P.CNPS_ITS ---
History of Present Illness Date of Service: 12/24/2023 Chief Complaint: UTI Requesting physician: Robert Montejo Discussed with referring provider: Yes Sources of Information: patient interviewed, chart reviewed and crisis/core team assessment reviewed HPI Narrative: Mr. Portillo is a 73 year-old male with hx of schizphrenia who resides at [facility]. He was sent to the ED due to presenting with altered mental status. this group underwriter spoke with with staff who saw him day he was transferred, who reports usually pt walks and talks on his own. Staff reports pt was lying in bed, not taking, VS noticeable for pt being tachycardic. Labs- cbc with normocytic anemia, low plts 145, although this seems to be chronic. CMP without electrolytes imbalances. BUN slightly elevated at 17, creatinine clearance 110.9. LFTs wnl. UA suggestive of UTI- pt started on ceftriaxone. Pt seen in room. Lying in bed, minimally talking. Pt mumbling unintelligible words. At some point he did say, I don't want to talk anymore. Noted to have bilateral resting tremors and involuntary perioral movement. Per staff at facility these movements are new and he has not seen them. He also noted to have waxy flexibility on exam. Pt had similar episodes of confusion in the past here in the hospital secondary to infection. Pt had refused medications, including clozaril and depakote here in the hospital. Staff from [facility] report he refused the day he was sent here to the hospital but otherwise was taking medications as prescribed. Past Psychiatric History: Bryan Santiago, recently moved to [facility]. [facility] Medical History (Updated 12/21/23 @ 16:28 by Ben Santo DO) Presbyopia Unspecified astigmatism, unspecified eye Combined forms of age-related cataract, bilateral Corns and callosities Nail dystrophy Tinea unguium Type 2 diabetes mellitus with other circulatory complications Hallux valgus (acquired), unspecified foot Other seasonal allergic rhinitis Insomnia, unspecified History of falling Slurred speech Suicidal ideations Functional urinary incontinence Personal history of (healed) traumatic fracture Gastro-esophageal reflux disease without esophagitis Benign prostatic hyperplasia without lower urinary tract symptoms Hyperlipidemia, unspecified Essential (primary) hypertension Mild cognitive impairment, so stated Unspecified osteoarthritis, unspecified site Muscle weakness (generalized) Anxiety disorder, unspecified Hypothyroidism, unspecified Ataxic gait Anemia, unspecified Diabetes COVID-19 Schizophrenia Family History: unknown Social History: Has two sisters, Kandice (PHP/guardian) and Andreina (POA). Patient disabled. Has guardianship on file, has Martino on file. Trauma History: unknown Diagnostics Vital Signs (24Hr): Vital Signs - 24 hr 12/23/23 19:39 12/24/23 03:17 12/24/23 06:57 Temperature 98.2 F 97.0 F 98.1 F Pulse Rate 96 91 90 Respiratory Rate 20 18 16 Blood Pressure 154/74 H 130/72 135/79 Pulse Oximetry 94 95 96 Oxygen Delivery Method Room Air Room Air Room Air 12/24/23 09:12 12/24/23 09:12 12/24/23 15:10 Temperature 97.3 F Pulse Rate 90 74 Respiratory Rate 18 Blood Pressure 135/79 135/79 122/60 Pulse Oximetry 95 Oxygen Delivery Method Room Air BMI result Body Mass Index 26.0 Labs 12/24/23 05:19 12/24/23 05:19 Labs: Laboratory Results - last 48 hr 12/22/23 12/22/23 12/23/23 15:46 20:17 06:57 WBC RBC Hgb Hct MCV MCH MCHC RDW Plt Count MPV Immature Gran % (Auto) Neut % (Auto) Lymph % (Auto) Winn % (Auto) Eos % (Auto) Baso % (Auto) Lymph # (Auto) Winn # (Auto) Eos # (Auto) Baso # (Auto) Abs Immat Gran (auto) Absolute Neuts (auto) Absolute Nucleated RBC Nucleated RBC % (auto) Neutrophils % (Manual) Band Neutrophils % Lymphocytes % (Manual) Monocytes % (Manual) Basophils % (Manual) Abs Neuts (Manual) Lymphocytes # (Manual) Monocytes # (Manual) Basophils # (Manual) Platelet Estimate Plt Morphology Comment RBC Morphology Smear Tech's Comments Sodium Potassium Chloride Carbon Dioxide Anion Gap BUN Creatinine Estim Creat Clear Calc Estimated GFR POC Glucose 122 H 108 114 Random Glucose Calcium Total Bilirubin AST ALT Alkaline Phosphatase Ammonia Total Protein Albumin 12/23/23 12/23/23 12/23/23 08:16 11:08 16:09 WBC 6.0 RBC 3.95 L Hgb 11.3 L Hct 34.3 L MCV 86.8 MCH 28.6 MCHC 32.9 RDW 15.5 Plt Count 145 L D MPV 9.6 Immature Gran % (Auto) 0.3 Neut % (Auto) 55.8 Lymph % (Auto) 29.5 Winn % (Auto) 10.9 Eos % (Auto) 0.2 Baso % (Auto) 3.3 H Lymph # (Auto) 1.8 Winn # (Auto) 0.7 Eos # (Auto) 0.0 Baso # (Auto) 0.2 Abs Immat Gran (auto) 0.02 Absolute Neuts (auto) 3.4 Absolute Nucleated RBC 0.000 Nucleated RBC % (auto) 0.0 Neutrophils % (Manual) Band Neutrophils % Lymphocytes % (Manual) Monocytes % (Manual) Basophils % (Manual) Abs Neuts (Manual) Lymphocytes # (Manual) Monocytes # (Manual) Basophils # (Manual) Platelet Estimate Plt Morphology Comment RBC Morphology Smear Tech's Comments VERIFIED Sodium 141 Potassium 3.9 Chloride 112 H Carbon Dioxide 21 L Anion Gap 12 BUN 15 Creatinine 0.74 Estim Creat Clear Calc 101.9 Estimated GFR > 60 POC Glucose 103 93 Random Glucose 118 H Calcium 8.7 Total Bilirubin 0.3 AST 11 ALT 14 Alkaline Phosphatase 98 Ammonia Total Protein 6.7 Albumin 3.6 12/23/23 12/24/23 12/24/23 20:11 05:19 07:10 WBC 6.2 RBC 3.65 L Hgb 10.7 L Hct 31.5 L MCV 86.3 MCH 29.3 MCHC 34.0 RDW 15.5 Plt Count 145 L MPV 10.2 Immature Gran % (Auto) Cancelled Neut % (Auto) Cancelled Lymph % (Auto) Cancelled Winn % (Auto) Cancelled Eos % (Auto) Cancelled Baso % (Auto) Cancelled Lymph # (Auto) Cancelled Winn # (Auto) Cancelled Eos # (Auto) Cancelled Baso # (Auto) Cancelled Abs Immat Gran (auto) Cancelled Absolute Neuts (auto) Cancelled Absolute Nucleated RBC 0.000 Nucleated RBC % (auto) 0.0 Neutrophils % (Manual) 67 Band Neutrophils % 1 L Lymphocytes % (Manual) 27 Monocytes % (Manual) 4 Basophils % (Manual) 1 Abs Neuts (Manual) 4.2 Lymphocytes # (Manual) 1.7 Monocytes # (Manual) 0.2 Basophils # (Manual) 0.1 Platelet Estimate SLIGHTLY DECREASED Plt Morphology Comment NORM RBC Morphology NORMAL Smear Tech's Comments Sodium 140 Potassium 3.8 Chloride 111 H Carbon Dioxide 21 L Anion Gap 12 BUN 17 H Creatinine 0.68 Estim Creat Clear Calc 110.9 Estimated GFR > 60 POC Glucose 97 114 Random Glucose 117 H Calcium 8.4 Total Bilirubin 0.3 AST 10 ALT 11 Alkaline Phosphatase 97 Ammonia Total Protein 6.5 Albumin 3.5 12/24/23 12/24/23 11:08 12:55 WBC RBC Hgb Hct MCV MCH MCHC RDW Plt Count MPV Immature Gran % (Auto) Neut % (Auto) Lymph % (Auto) Winn % (Auto) Eos % (Auto) Baso % (Auto) Lymph # (Auto) Winn # (Auto) Eos # (Auto) Baso # (Auto) Abs Immat Gran (auto) Absolute Neuts (auto) Absolute Nucleated RBC Nucleated RBC % (auto) Neutrophils % (Manual) Band Neutrophils % Lymphocytes % (Manual) Monocytes % (Manual) Basophils % (Manual) Abs Neuts (Manual) Lymphocytes # (Manual) Monocytes # (Manual) Basophils # (Manual) Platelet Estimate Plt Morphology Comment RBC Morphology Smear Tech's Comments Sodium Potassium Chloride Carbon Dioxide Anion Gap BUN Creatinine Estim Creat Clear Calc Estimated GFR POC Glucose 111 Random Glucose Calcium Total Bilirubin AST ALT Alkaline Phosphatase Ammonia 57 H Total Protein Albumin Imaging Radiology Impressions: ITS Impressions Chest X-Ray 12/21/23 13:33 IMPRESSION: No evidence for acute disease in the chest. Head CT 12/21/23 14:54 IMPRESSION: No acute findings. Medications Medications Current Medications Acetaminophen (Acetaminophen Supp 650 Mg Supp.Rect) 650 mg MD Q6H PRN PRN Reason: Pain, Mild (Pain Scale 1-3) Amlodipine Besylate (Amlodipine Besylate 10 Mg Tablet) 10 mg PO DAILY [facility]; Protocol Last Admin: 12/24/23 09:12 Dose: 10 mg Atorvastatin Calcium (Atorvastatin Calcium 40 Mg Tablet) 40 mg PO BEDTIME ANGELLA Last Admin: 12/23/23 21:13 Dose: Not Given Bisacodyl (Bisacodyl 10 Mg Supp.Rect) 10 mg MD DAILY PRN PRN Reason: Constipation Clozapine (Clozapine 100 Mg Tablet) 100 mg PO BID ANGELLA Last Admin: 12/21/23 23:10 Dose: Not Given Clozapine (Clozapine 25 Mg Tablet) 50 mg PO BID ANGELLA Last Admin: 12/21/23 23:10 Dose: Not Given Enoxaparin Sodium (Enoxaparin Sodium 40 Mg/0.4 Ml Syringe) 40 mg SUBCUT Q24H [facility] Last Admin: 12/23/23 17:10 Dose: 40 mg Dextrose/Sodium Chloride (D5ns) 1,000 mls @ 100 mls/hr IVCONT .Q10H [facility] Last Admin: 12/24/23 14:19 Dose: 100 mls/hr Ceftriaxone Sodium 1 gm/ (Sodium Chloride) 50 mls @ 100 mls/hr IV Q24H [facility] Last Infusion: 12/24/23 14:12 Dose: Infused Levothyroxine Sodium (Levothyroxine Sodium 88 Mcg Tablet) 88 mcg PO DAILY@0600 [facility] Last Admin: 12/24/23 05:31 Dose: Not Given Loratadine (Loratadine 10 Mg Tablet) 10 mg PO DAILY [facility] Last Admin: 12/24/23 09:12 Dose: 10 mg Magnesium Hydroxide (Milk Of Magnesia 30 Ml Oral.Susp) 30 ml PO DAILY PRN PRN Reason: Constipation Metoprolol Tartrate (Metoprolol Tartrate 50 Mg Tablet) 50 mg PO BID@0900,1800 [facility]; Protocol Last Admin: 12/24/23 09:12 Dose: 50 mg Mirtazapine (Mirtazapine 30 Mg Tablet) 30 mg PO BEDTIME [facility] Last Admin: 12/23/23 21:13 Dose: Not Given Multivitamins/Vitamin C (Multivitamin Tablet) 1 tab PO DAILY [facility] Last Admin: 12/24/23 09:12 Dose: 1 tab Omeprazole (Omeprazole 20 Mg Capsule.Dr) 20 mg PO DAILY@0630 [facility] Last Admin: 12/24/23 05:32 Dose: Not Given Ondansetron HCl (Ondansetron Hcl 4 Mg/2 Ml Vial) 4 mg IVPUSH Q8H PRN PRN Reason: Nausea and Vomiting Sodium Biphosphate/Sodium Phosphate (Sodium Phosphate,[place]-Dibasic 133 Ml Enema) 118 ml MD DAILY PRN PRN Reason: Constipation Sodium Chloride (0.9 % Sodium Chloride Flush 3 Ml Syringe) 3 ml IVFLUSH QSHIFT [facility] Last Admin: 12/24/23 09:11 Dose: Not Given Tamsulosin HCl (Tamsulosin Hcl 0.4 Mg Capsule) 0.4 mg PO BEDTIME [facility] Last Admin: 12/23/23 21:13 Dose: Not Given Valproic Acid (Valproic Acid (As Sodium Salt) 250 Mg/5 Ml Solution) 500 mg PO BID@1400,2100 [facility] Last Admin: 12/24/23 13:28 Dose: Not Given Valproic Acid (Valproic Acid (As Sodium Salt) 250 Mg/5 Ml Solution) 250 mg PO DAILY [facility] Last Admin: 12/24/23 09:12 Dose: 250 mg Allergies Allergies Allergy/AdvReac Type Severity Reaction Status Date / Time azithromycin Allergy Unknown Verified 12/21/23 12:40 Barbiturates Allergy Unknown Verified 12/21/23 12:40 erythromycin base Allergy Unknown Verified 12/21/23 12:40 fluphenazine Allergy Unknown Verified 12/21/23 12:40 haloperidol [From Haldol] Allergy Unknown Verified 12/21/23 12:40 phenobarbital Allergy Unknown Verified 12/21/23 12:40 Assessment & Plan Assessment & Plan (1) Altered mental status: Status: Acute Code(s): R41.82 - Altered mental status, unspecified (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 Portillo is a 73 year-old male with hx of schizophrenia. He resides at [facility] and was sent to [facility] ED on 12/20 due to pt presenting as more confused, not talking nor walking as he usually is. He was found to have UTI, started on ceftriaxone. Pt had previous admission for AMS in setting of infection. PLAN 1. check ammonia- as depakote can increase ammonia. levels did come back slightly elevated 57, we don't have levels on admission to see if they have dropped as he stopped taking depakote here. Will hold depakote for now and recheck ammonia again tomorrow morning. 2. noted pt used to be on ativan 1mg po BID. will resume this medication- he did have some waxy flexibility. 3. will see pt again tomorrow. 4. in terms of catatonia versus AMS s/s to infection/metabolic--> unclear at this point whether his altered mental status has more to do with underlying infection in combination with elevated ammonia rather than tawny catatonic symptoms. he does have some waxy flexibility on exam. Total time managing care of this patient today ____ minutes.
[2023-12-24 16:05] LABS: Glucose, Whole Blood 93 mg/dL (60-115)
[2023-12-24] MEDS: LORazepam 1 MG TABLET PO ×2 (16:54→19:48)
[2023-12-24] MEDS: Enoxaparin Sodium 40 MG/0.4 ML SYRINGE SUBCUT (16:54)
--- NOTE | 2023-12-24 16:55 | HO.PM.IMPN ---
Subjective Subjective Date of Service: 12/24/23 Interval History: Being monitored for altered mental status, and UTI. Today patient more awake alert , conversing, to by mouth medications, when tried taking review of system patient said do not ask questions, Review of Systems Unable to obtain due to mental status Physical Exam Vital Signs: Vital Signs: Last Vital Signs Temp 97.3 F 12/24/23 15:10 Pulse 74 12/24/23 15:10 Resp 18 12/24/23 15:10 BP 122/60 12/24/23 15:10 Pulse Ox 95 12/24/23 15:10 O2 Del Method Room Air 12/24/23 15:10 BMI result Body Mass Index 26.0 Const: Other: General resting comfortably in no acute distress. Nell oral tremors Neck supple no JVD. CVS regular rate rhythm, Respiratory lungs clear to auscultation, no respiratory distress, no wheeze, no rhonchi. Gastrointestinal abdomen soft, non tender, bowel sounds audible Extremities no edema. Neuro moving all 4 extremity , mild tremors Skin no rash Objective Data Active Medications Acetaminophen (Acetaminophen Supp 650 Mg Supp.Rect) 650 mg SC Q6H PRN PRN Reason: Pain, Mild (Pain Scale 1-3) Amlodipine Besylate (Amlodipine Besylate 10 Mg Tablet) 10 mg PO DAILY [facility]; Protocol Last Admin: 12/24/23 09:12 Dose: 10 mg Documented By: IAN Atorvastatin Calcium (Atorvastatin Calcium 40 Mg Tablet) 40 mg PO BEDTIME [facility] Last Admin: 12/23/23 21:13 Dose: Not Given Documented By: ELVIN Non-Admin Reason: NPO Bisacodyl (Bisacodyl 10 Mg Supp.Rect) 10 mg SC DAILY PRN PRN Reason: Constipation Clozapine (Clozapine 100 Mg Tablet) 100 mg PO BID [facility] Last Admin: 12/21/23 23:10 Dose: Not Given Documented By: CARLA Non-Admin Reason: NPO Clozapine (Clozapine 25 Mg Tablet) 50 mg PO BID [facility] Last Admin: 12/21/23 23:10 Dose: Not Given Documented By: CARLA Non-Admin Reason: NPO Enoxaparin Sodium (Enoxaparin Sodium 40 Mg/0.4 Ml Syringe) 40 mg SUBCUT Q24H [facility] Last Admin: 12/23/23 17:10 Dose: 40 mg Documented By: IAN Dextrose/Sodium Chloride (D5ns) 1,000 mls @ 100 mls/hr IVCONT .Q10H [facility] Last Admin: 12/24/23 14:19 Dose: 100 mls/hr Documented By: IAN Ceftriaxone Sodium 1 gm/ (Sodium Chloride) 50 mls @ 100 mls/hr IV Q24H [facility] Last Infusion: 12/24/23 14:12 Dose: Infused Documented By: IAN Levothyroxine Sodium (Levothyroxine Sodium 88 Mcg Tablet) 88 mcg PO DAILY@0600 [facility] Last Admin: 12/24/23 05:31 Dose: Not Given Documented By: ELVIN Non-Admin Reason: NPO Loratadine (Loratadine 10 Mg Tablet) 10 mg PO DAILY [facility] Last Admin: 12/24/23 09:12 Dose: 10 mg Documented By: IAN Lorazepam (Lorazepam 1 Mg Tablet) 1 mg PO BID [facility] Magnesium Hydroxide (Milk Of Magnesia 30 Ml Oral.Susp) 30 ml PO DAILY PRN PRN Reason: Constipation Metoprolol Tartrate (Metoprolol Tartrate 50 Mg Tablet) 50 mg PO BID@0900,1800 [facility]; Protocol Last Admin: 12/24/23 09:12 Dose: 50 mg Documented By: IAN Mirtazapine (Mirtazapine 30 Mg Tablet) 30 mg PO BEDTIME [facility] Last Admin: 12/23/23 21:13 Dose: Not Given Documented By: ELVIN Non-Admin Reason: NPO Multivitamins/Vitamin C (Multivitamin Tablet) 1 tab PO DAILY [facility] Last Admin: 12/24/23 09:12 Dose: 1 tab Documented By: IAN Omeprazole (Omeprazole 20 Mg Capsule.Dr) 20 mg PO DAILY@0630 [facility] Last Admin: 12/24/23 05:32 Dose: Not Given Documented By: ELVIN Non-Admin Reason: NPO Ondansetron HCl (Ondansetron Hcl 4 Mg/2 Ml Vial) 4 mg IVPUSH Q8H PRN PRN Reason: Nausea and Vomiting Sodium Biphosphate/Sodium Phosphate (Sodium Phosphate,[place]-Dibasic 133 Ml Enema) 118 ml SC DAILY PRN PRN Reason: Constipation Sodium Chloride (0.9 % Sodium Chloride Flush 3 Ml Syringe) 3 ml IVFLUSH QSHIFT [facility] Last Admin: 12/24/23 16:24 Dose: Not Given Documented By: IAN Non-Admin Reason: IV Running Tamsulosin HCl (Tamsulosin Hcl 0.4 Mg Capsule) 0.4 mg PO BEDTIME [facility] Last Admin: 12/23/23 21:13 Dose: Not Given Documented By: ELVIN Non-Admin Reason: NPO Valproic Acid (Valproic Acid (As Sodium Salt) 250 Mg/5 Ml Solution) 500 mg PO BID@1400,2100 [facility] Last Admin: 12/24/23 13:28 Dose: Not Given Documented By: IAN Non-Admin Reason: Patient Refused Valproic Acid (Valproic Acid (As Sodium Salt) 250 Mg/5 Ml Solution) 250 mg PO DAILY [facility] Last Admin: 12/24/23 09:12 Dose: 250 mg Documented By: IAN Labs 12/24/23 05:19 12/24/23 05:19 Labs: Laboratory Results - last 24 hr 12/23/23 12/24/23 12/24/23 20:11 05:19 07:10 MCV 86.3 MCH 29.3 MCHC 34.0 RDW 15.5 Plt Count 145 L MPV 10.2 Immature Gran % (Auto) Cancelled Neut % (Auto) Cancelled Lymph % (Auto) Cancelled [place] % (Auto) Cancelled Eos % (Auto) Cancelled Baso % (Auto) Cancelled Lymph # (Auto) Cancelled [place] # (Auto) Cancelled Eos # (Auto) Cancelled Baso # (Auto) Cancelled Abs Immat Gran (auto) Cancelled Absolute Neuts (auto) Cancelled Absolute Nucleated RBC 0.000 Nucleated RBC % (auto) 0.0 Neutrophils % (Manual) 67 Band Neutrophils % 1 L Lymphocytes % (Manual) 27 Monocytes % (Manual) 4 Basophils % (Manual) 1 Abs Neuts (Manual) 4.2 Lymphocytes # (Manual) 1.7 Monocytes # (Manual) 0.2 Basophils # (Manual) 0.1 Platelet Estimate SLIGHTLY DECREASED Plt Morphology Comment NORM RBC Morphology NORMAL Anion Gap 12 Estim Creat Clear Calc 110.9 Estimated GFR > 60 POC Glucose 97 114 Random Glucose 117 H Calcium 8.4 Total Bilirubin 0.3 AST 10 ALT 11 Alkaline Phosphatase 97 Ammonia Total Protein 6.5 Albumin 3.5 05/07/24 05/07/24 05/07/24 11:08 12:55 15:15 MCV MCH MCHC RDW Plt Count MPV Immature Gran % (Auto) Neut % (Auto) Lymph % (Auto) [place] % (Auto) Eos % (Auto) Baso % (Auto) Lymph # (Auto) [place] # (Auto) Eos # (Auto) Baso # (Auto) Abs Immat Gran (auto) Absolute Neuts (auto) Absolute Nucleated RBC Nucleated RBC % (auto) Neutrophils % (Manual) Band Neutrophils % Lymphocytes % (Manual) Monocytes % (Manual) Basophils % (Manual) Abs Neuts (Manual) Lymphocytes # (Manual) Monocytes # (Manual) Basophils # (Manual) Platelet Estimate Plt Morphology Comment RBC Morphology Anion Gap Estim Creat Clear Calc Estimated GFR POC Glucose 111 93 Random Glucose Calcium Total Bilirubin AST ALT Alkaline Phosphatase Ammonia 57 H Total Protein Albumin Microbiology Microbiology Results: Microbiology 12/21/23 12:52 Blood Culture - Preliminary Blood - Venous No growth after 48 hours. 12/21/23 12:50 Blood Culture - Preliminary Blood - Venous No growth after 48 hours. Assessment and Plan (1) Acute UTI: Status: Acute (2) Type 2 diabetes mellitus with other circulatory complications: Status: Acute (3) Essential (primary) hypertension: Status: Acute Plan 72-year-old male resident of [facility] with a past medical history significant for hypertension BPH GERD hypothyroidism 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 Records states that usually this is related to an acute infection. Urine with active sediment consistent with UTI 1. Active urinary sediment/UTI. -more awake alert this morning -ceftriaxone (3). Urine culture positive for Providencia stuarti sensitive to ceftriaxone. 2. Acute toxic metabolic encephalopathy with underlying Schizophrenia ? catatonia Question due to underlying infection with similar episode in the past due to infection, normal renal function, normal LFTs at baseline patient communicate and ambulate more awake and alert, took by mouth medications/will obtain Speech therapy eval. Continue IV fluids. Seen by psychiatry noted to have elevated ammonia level 57, therefore will continue to hold Depakote Continue Clozaril and other meds related to schizophrenia 3. Hypothyroidism continue Synthroid. 4. Type 2 diabetes -blood sugars stable, NPO -cont. lispro correctional scale -adjust as clinically indicated when taking p.o. 5. BPH continue Flomax Full code Lovenox Patient requires ongoing hospitalization for IV antibiotics to treat urinary tract infection escalating schizophrenia Quality Stroke Does the patient have a stroke diagnosis?: No VTE Prior VTE?: No VTE Risk Level:: Medical - moderate - high VTE Device Contraindication: Treatment Not Indicated VTE Drug Contraindication: N/A - Med Ordered
[2023-12-24 17:53] VITALS: BP 103/59; PULSE 72
[2023-12-24 19:29] VITALS: BP 120/59; PULSE 73; RESP 18; TEMP 36; O2SAT 94
[2023-12-24] MEDS: Mirtazapine 30 MG TABLET PO (19:48)
[2023-12-24] MEDS: Atorvastatin Calcium 40 MG TABLET PO (19:48)
[2023-12-24] MEDS: Tamsulosin HCL 0.4 MG CAPSULE PO (19:49)
[2023-12-24 20:19] LABS: Glucose, Whole Blood 102 mg/dL (60-115)
[2023-12-25] MEDS: Dextrose 5 % and 0.9 % NaCl 1,000 ML 100 ML IVCONT (00:21)
[2023-12-25 04:00] VITALS: BP 108/59; PULSE 62; RESP 16; TEMP 36; O2SAT 95
[2023-12-25] MEDS: Omeprazole 20 MG CAPSULE.DR PO (05:34)
[2023-12-25] MEDS: Levothyroxine Sodium 88 MCG TABLET PO (05:34)
[2023-12-25 06:50] VITALS: BP 140/64; PULSE 66; RESP 18; TEMP 36.9; O2SAT 94
[2023-12-25 06:59] LABS: Glucose, Whole Blood 110 mg/dL (60-115)
[2023-12-25] MEDS: LORazepam 1 MG TABLET PO ×2 (08:16→20:57)
[2023-12-25] MEDS: Loratadine 10 MG TABLET PO (08:16)
[2023-12-25] MEDS: Multivitamin TABLET 1 TAB PO (08:16)
[2023-12-25 08:26] VITALS: BP 102/58
[2023-12-25 10:52] LABS: Ammonia 42 umol/L (13-55)
[2023-12-25 11:00] LABS: Valproate < 12.5 mcg/mL (50.0-100.0)
[2023-12-25 11:15] LABS: Glucose, Whole Blood 89 mg/dL (60-115)
--- NOTE | 2023-12-25 12:38 | P.PNIM_ITS ---
Subjective Subjective Date of Service: 12/25/23 Interval History: Being monitored for altered mental status and UTI. Patient awake alert , answering questions appropriately, seen by speech therapy and they recommend to resume ground mechanical and thin liquid diet, no acute issues overnight. Review of Systems Unable to obtain detailed review of systems since patient choose not want to respond. Physical Exam 2 Vital Signs: Vital Signs: Last Vital Signs Temp 98.5 F 12/25/23 06:50 Pulse 66 12/25/23 06:50 Resp 18 12/25/23 06:50 BP 102/58 L 12/25/23 08:26 Pulse Ox 94 12/25/23 06:50 O2 Del Method Room Air 12/25/23 06:50 BMI result Body Mass Index 26.0 Const: Other: General resting comfortably in no acute distress. Nell oral tremors mild Neck supple no JVD. CVS regular rate rhythm, Respiratory lungs clear to auscultation, no respiratory distress, no wheeze, no rhonchi. Gastrointestinal abdomen soft, non tender, bowel sounds audible Extremities no edema. Neuro moving all 4 extremity , mild perioral tremors, no hand tremors Skin no rash Objective Data Active Medications Acetaminophen (Acetaminophen Supp 650 Mg Supp.Rect) 650 mg MI Q6H PRN PRN Reason: Pain, Mild (Pain Scale 1-3) Amlodipine Besylate (Amlodipine Besylate 10 Mg Tablet) 10 mg PO DAILY [facility]; Protocol Last Admin: 12/25/23 08:26 Dose: Not Given Documented By: SANDRA Non-Admin Reason: Decreased Blood Pressure Atorvastatin Calcium (Atorvastatin Calcium 40 Mg Tablet) 40 mg PO BEDTIME [facility] Last Admin: 12/24/23 19:48 Dose: 40 mg Documented By: JOCELYN Bisacodyl (Bisacodyl 10 Mg Supp.Rect) 10 mg MI DAILY PRN PRN Reason: Constipation Clozapine (Clozapine 100 Mg Tablet) 100 mg PO BID [facility] Last Admin: 12/21/23 23:10 Dose: Not Given Documented By: CARLA Non-Admin Reason: NPO Clozapine (Clozapine 25 Mg Tablet) 50 mg PO BID [facility] Last Admin: 12/21/23 23:10 Dose: Not Given Documented By: CARLA Non-Admin Reason: NPO Enoxaparin Sodium (Enoxaparin Sodium 40 Mg/0.4 Ml Syringe) 40 mg SUBCUT Q24H [facility] Last Admin: 12/24/23 16:54 Dose: 40 mg Documented By: IAN Ceftriaxone Sodium 1 gm/ (Sodium Chloride) 50 mls @ 100 mls/hr IV Q24H [facility] Last Infusion: 12/24/23 14:12 Dose: Infused Documented By: IAN Levothyroxine Sodium (Levothyroxine Sodium 88 Mcg Tablet) 88 mcg PO DAILY@0600 [facility] Last Admin: 12/25/23 05:34 Dose: 88 mcg Documented By: ANTOIC Loratadine (Loratadine 10 Mg Tablet) 10 mg PO DAILY [facility] Last Admin: 12/25/23 08:16 Dose: 10 mg Documented By: SANDRA Lorazepam (Lorazepam 1 Mg Tablet) 1 mg PO BID [facility] Last Admin: 12/25/23 08:16 Dose: 1 mg Documented By: SANDRA Magnesium Hydroxide (Milk Of Magnesia 30 Ml Oral.Susp) 30 ml PO DAILY PRN PRN Reason: Constipation Metoprolol Tartrate (Metoprolol Tartrate 50 Mg Tablet) 50 mg PO BID@0900,1800 [facility]; Protocol Last Admin: 12/25/23 08:26 Dose: Not Given Documented By: SANDRA Non-Admin Reason: Decreased Blood Pressure Mirtazapine (Mirtazapine 30 Mg Tablet) 30 mg PO BEDTIME [facility] Last Admin: 12/24/23 19:48 Dose: 30 mg Documented By: JOCELYN Multivitamins/Vitamin C (Multivitamin Tablet) 1 tab PO DAILY [facility] Last Admin: 12/25/23 08:16 Dose: 1 tab Documented By: SANDRA Omeprazole (Omeprazole 20 Mg Capsule.) 20 mg PO DAILY@0630 [facility] Last Admin: 12/25/23 05:34 Dose: 20 mg Documented By: PHYLICIA Ondansetron HCl (Ondansetron Hcl 4 Mg/2 Ml Vial) 4 mg IVPUSH Q8H PRN PRN Reason: Nausea and Vomiting Sodium Biphosphate/Sodium Phosphate (Sodium Phosphate,Ferry-Dibasic 133 Ml Enema) 118 ml MI DAILY PRN PRN Reason: Constipation Sodium Chloride (0.9 % Sodium Chloride Flush 3 Ml Syringe) 3 ml IVFLUSH QSHIFT [facility] Last Admin: 12/25/23 08:17 Dose: Not Given Documented By: HO.CHARTN Non-Admin Reason: IV Running Tamsulosin HCl (Tamsulosin Hcl 0.4 Mg Capsule) 0.4 mg PO BEDTIME [facility] Last Admin: 12/24/23 19:49 Dose: 0.4 mg Documented By: JOCELYN Labs 12/24/23 05:19 12/24/23 05:19 Labs: Laboratory Results - last 24 hr 12/24/23 12/24/23 12/24/23 12:55 15:15 19:32 POC Glucose 93 102 Ammonia 57 H Valproic Acid 12/25/23 12/25/23 12/25/23 06:50 09:59 11:10 POC Glucose 110 89 Ammonia 42 Valproic Acid < 12.5 L Assessment and Plan (1) Acute UTI: Status: Acute (2) Type 2 diabetes mellitus with other circulatory complications: Status: Acute (3) Essential (primary) hypertension: Status: Acute Plan 72-year-old male resident of [facility] with a past medical history significant for hypertension BPH GERD hypothyroidism, 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 Records states that usually this is related to an acute infection. Urine with active sediment consistent with UTI 1. Active urinary sediment/UTI. -more awake alert this morning, answering appropriately -ceftriaxone (4). Urine culture positive for Providencia stuarti sensitive to ceftriaxone, blood cultures x2 negative. 2. Acute toxic metabolic encephalopathy with underlying Schizophrenia ? catatonia Question due to underlying infection with similar episode in the past due to infection, normal renal function, normal LFTs at baseline patient communicate and ambulate more awake and alert, took by mouth medications/seen by speech cleared to resume baseline diet, will DC IV fluids Seen by psychiatry noted to have elevated ammonia level 57, repeat today is 42, Depakote level less than 12.5, Clozaril level is pending, Depakote on hold Continue Clozaril and other meds related to schizophrenia Being followed by Psychiatry will discuss medication management with them, patient started on Ativan 1 mg b.i.d. on . 3. Hypothyroidism continue Synthroid. 4. Type 2 diabetes -blood sugars stable, -cont. lispro correctional scale -adjust as clinically indicated when taking p.o. 5. BPH continue Flomax Full code Lovenox Patient requires ongoing hospitalization for IV antibiotics to treat urinary tract infection escalating schizophrenia. Quality Stroke Does the patient have a stroke diagnosis?: No VTE Prior VTE?: No VTE Risk Level:: Medical - moderate - high VTE Device Contraindication: Treatment Not Indicated VTE Drug Contraindication: N/A - Med Ordered
--- NOTE | 2023-12-25 12:49 | MHC.CM.PN ---
EMR REVIEWED AND PER MD ROUNDS, PT IS NOT MEDICALLY CLEARED FOR DC ( TX OF UTI) [facility] UPDATED VIA [facility]. CM WILL CONTINUE TO FOLLOW FOR ANY CHANGE TO DC PLAN
[2023-12-25] MEDS: cefTRIAXone sodium 1 GM in 0.9 % Sodium Chloride 50 ML IV (13:11)
[2023-12-25 15:01] VITALS: BP 117/61; PULSE 88; RESP 18; TEMP 36.5; O2SAT 93
[2023-12-25] MEDS: Enoxaparin Sodium 40 MG/0.4 ML SYRINGE SUBCUT (15:57)
[2023-12-25 16:29] LABS: Glucose, Whole Blood 90 mg/dL (60-115)
[2023-12-25] MEDS: Metoprolol Tartrate 50 MG TABLET PO (17:01)
--- NOTE | 2023-12-25 17:02 | PM.PSYCN ---
History of Present Illness Date of Service: 12/25/2023 Chief Complaint: UTI Requesting physician: Robert Montejo Discussed with referring provider: Yes Sources of Information: patient interviewed, chart reviewed and crisis/core team assessment reviewed HPI Narrative: INterim Hx: pt appears much more oriented and talkative than yesterday. He is able to tell this medical technical writer that he is at [facility]. He is not sure why he was brought here, this medical technical writer informed him he is currently being treated for UTI. His ammonia is wnl this morning. Depakote was held. His clozaril restarted at lower dose since he has not taken it for about 4 days now. He currently does not present with overt psychosis or delusional content. He is in agreement to receive treatment. No SI/HI. no behavioral concerns. Past Psychiatric History: Bryan Santiago, recently moved to [facility]. [facility] Medical History (Updated 12/25/23 @ 17:06 by Aaliyah Paige) Presbyopia Unspecified astigmatism, unspecified eye Combined forms of age-related cataract, bilateral Corns and callosities Nail dystrophy Tinea unguium Type 2 diabetes mellitus with other circulatory complications Hallux valgus (acquired), unspecified foot Other seasonal allergic rhinitis Insomnia, unspecified History of falling Slurred speech Suicidal ideations Functional urinary incontinence Personal history of (healed) traumatic fracture Gastro-esophageal reflux disease without esophagitis Benign prostatic hyperplasia without lower urinary tract symptoms Hyperlipidemia, unspecified Essential (primary) hypertension Mild cognitive impairment, so stated Unspecified osteoarthritis, unspecified site Muscle weakness (generalized) Anxiety disorder, unspecified Hypothyroidism, unspecified Ataxic gait Anemia, unspecified Diabetes COVID-19 Schizophrenia Family History: unknown Social History: Has two sisters, Kandice (PHP/guardian) and Andreina (POA). Patient disabled. Has guardianship on file, has Martino on file. Trauma History: unknown Diagnostics Vital Signs (24Hr): Vital Signs - 24 hr 12/24/23 17:53 12/24/23 19:29 12/25/23 04:00 Temperature 96.8 F 96.8 F Pulse Rate 72 73 62 Respiratory Rate 18 16 Blood Pressure 103/59 L 120/59 L 108/59 L Pulse Oximetry 94 95 Oxygen Delivery Method Room Air Room Air 12/25/23 06:50 12/25/23 08:26 12/25/23 15:01 Temperature 98.5 F 97.7 F Pulse Rate 66 88 Respiratory Rate 18 18 Blood Pressure 140/64 H 102/58 L 117/61 Pulse Oximetry 94 93 Oxygen Delivery Method Room Air Room Air BMI result Body Mass Index 26.0 Labs 12/24/23 05:19 12/24/23 05:19 Labs: Laboratory Results - last 48 hr 12/23/23 12/24/23 12/24/23 20:11 05:19 07:10 WBC 6.2 RBC 3.65 L Hgb 10.7 L Hct 31.5 L MCV 86.3 MCH 29.3 MCHC 34.0 RDW 15.5 Plt Count 145 L MPV 10.2 Immature Gran % (Auto) Cancelled Neut % (Auto) Cancelled Lymph % (Auto) Cancelled Carbon % (Auto) Cancelled Eos % (Auto) Cancelled Baso % (Auto) Cancelled Lymph # (Auto) Cancelled Carbon # (Auto) Cancelled Eos # (Auto) Cancelled Baso # (Auto) Cancelled Abs Immat Gran (auto) Cancelled Absolute Neuts (auto) Cancelled Absolute Nucleated RBC 0.000 Nucleated RBC % (auto) 0.0 Neutrophils % (Manual) 67 Band Neutrophils % 1 L Lymphocytes % (Manual) 27 Monocytes % (Manual) 4 Basophils % (Manual) 1 Abs Neuts (Manual) 4.2 Lymphocytes # (Manual) 1.7 Monocytes # (Manual) 0.2 Basophils # (Manual) 0.1 Platelet Estimate SLIGHTLY DECREASED Plt Morphology Comment NORM RBC Morphology NORMAL Sodium 140 Potassium 3.8 Chloride 111 H Carbon Dioxide 21 L Anion Gap 12 BUN 17 H Creatinine 0.68 Estim Creat Clear Calc 110.9 Estimated GFR > 60 POC Glucose 97 114 Random Glucose 117 H Calcium 8.4 Total Bilirubin 0.3 AST 10 ALT 11 Alkaline Phosphatase 97 Ammonia Total Protein 6.5 Albumin 3.5 Valproic Acid 12/24/23 12/24/23 12/24/23 11:08 12:55 15:15 WBC RBC Hgb Hct MCV MCH MCHC RDW Plt Count MPV Immature Gran % (Auto) Neut % (Auto) Lymph % (Auto) Carbon % (Auto) Eos % (Auto) Baso % (Auto) Lymph # (Auto) Carbon # (Auto) Eos # (Auto) Baso # (Auto) Abs Immat Gran (auto) Absolute Neuts (auto) Absolute Nucleated RBC Nucleated RBC % (auto) Neutrophils % (Manual) Band Neutrophils % Lymphocytes % (Manual) Monocytes % (Manual) Basophils % (Manual) Abs Neuts (Manual) Lymphocytes # (Manual) Monocytes # (Manual) Basophils # (Manual) Platelet Estimate Plt Morphology Comment RBC Morphology Sodium Potassium Chloride Carbon Dioxide Anion Gap BUN Creatinine Estim Creat Clear Calc Estimated GFR POC Glucose 111 93 Random Glucose Calcium Total Bilirubin AST ALT Alkaline Phosphatase Ammonia 57 H Total Protein Albumin Valproic Acid 12/24/23 12/25/23 12/25/23 19:32 06:50 09:59 WBC RBC Hgb Hct MCV MCH MCHC RDW Plt Count MPV Immature Gran % (Auto) Neut % (Auto) Lymph % (Auto) Carbon % (Auto) Eos % (Auto) Baso % (Auto) Lymph # (Auto) Carbon # (Auto) Eos # (Auto) Baso # (Auto) Abs Immat Gran (auto) Absolute Neuts (auto) Absolute Nucleated RBC Nucleated RBC % (auto) Neutrophils % (Manual) Band Neutrophils % Lymphocytes % (Manual) Monocytes % (Manual) Basophils % (Manual) Abs Neuts (Manual) Lymphocytes # (Manual) Monocytes # (Manual) Basophils # (Manual) Platelet Estimate Plt Morphology Comment RBC Morphology Sodium Potassium Chloride Carbon Dioxide Anion Gap BUN Creatinine Estim Creat Clear Calc Estimated GFR POC Glucose 102 110 Random Glucose Calcium Total Bilirubin AST ALT Alkaline Phosphatase Ammonia 42 Total Protein Albumin Valproic Acid < 12.5 L 12/25/23 12/25/23 11:10 16:13 WBC RBC Hgb Hct MCV MCH MCHC RDW Plt Count MPV Immature Gran % (Auto) Neut % (Auto) Lymph % (Auto) Carbon % (Auto) Eos % (Auto) Baso % (Auto) Lymph # (Auto) Carbon # (Auto) Eos # (Auto) Baso # (Auto) Abs Immat Gran (auto) Absolute Neuts (auto) Absolute Nucleated RBC Nucleated RBC % (auto) Neutrophils % (Manual) Band Neutrophils % Lymphocytes % (Manual) Monocytes % (Manual) Basophils % (Manual) Abs Neuts (Manual) Lymphocytes # (Manual) Monocytes # (Manual) Basophils # (Manual) Platelet Estimate Plt Morphology Comment RBC Morphology Sodium Potassium Chloride Carbon Dioxide Anion Gap BUN Creatinine Estim Creat Clear Calc Estimated GFR POC Glucose 89 90 Random Glucose Calcium Total Bilirubin AST ALT Alkaline Phosphatase Ammonia Total Protein Albumin Valproic Acid Imaging Radiology Impressions: ITS Impressions Chest X-Ray 12/21/23 13:33 IMPRESSION: No evidence for acute disease in the chest. Head CT 12/21/23 14:54 IMPRESSION: No acute findings. Mental Status Exam Mental Status Exam Narrative: Appearance: wearing hospital gown, good hygiene, in NAD Behavior: cooperative Psychomotor: no agitation or retardation noted Speech: clear, normal rate/rhythm/volume, spontaneous TP: mostly linear TC: more oriented to situation, feeling better Mood: good' Affect: congruent, somewhat constricted range of affect but appropriate Si: denies HI: denies VH/AH: none Delusions: no overt delusional content noted or reported. Insight/judgment: improving from days prior but at baseline he does have HCP or guardian. Memory/cog; alert, oriented to place, month, year, although vaguely oriented as to why he is here, better than yesterday. Medications Medications Current Medications Acetaminophen (Acetaminophen Supp 650 Mg Supp.Rect) 650 mg RI Q6H PRN PRN Reason: Pain, Mild (Pain Scale 1-3) Amlodipine Besylate (Amlodipine Besylate 10 Mg Tablet) 10 mg PO DAILY [facility]; Protocol Last Admin: 12/25/23 08:26 Dose: Not Given Atorvastatin Calcium (Atorvastatin Calcium 40 Mg Tablet) 40 mg PO BEDTIME [facility] Last Admin: 12/24/23 19:48 Dose: 40 mg Bisacodyl (Bisacodyl 10 Mg Supp.Rect) 10 mg RI DAILY PRN PRN Reason: Constipation Clozapine (Clozapine 25 Mg Tablet) 25 mg PO BID [facility] Enoxaparin Sodium (Enoxaparin Sodium 40 Mg/0.4 Ml Syringe) 40 mg SUBCUT Q24H [facility] Last Admin: 12/25/23 15:57 Dose: 40 mg Glucose (Glucose Gel 15 Gm Gel..Gram.) 15 gm PO Q15M PRN; Protocol PRN Reason: per Hypoglycemia Standing Ord. Ceftriaxone Sodium 1 gm/ (Sodium Chloride) 50 mls @ 100 mls/hr IV Q24H [facility] Last Infusion: 12/25/23 13:59 Dose: Infused Dextrose (D10) 250 mls @ 750 mls/hr IV Q15M PRN; Protocol PRN Reason: per Hypoglycemia Standing Ord. Insulin Human Lispro (Insulin Lispro 100 Unit/Ml 3 Ml Vial) 0 unit SUBCUT QIDACHS [facility]; Protocol Last Admin: 12/25/23 16:32 Dose: Not Given Levothyroxine Sodium (Levothyroxine Sodium 88 Mcg Tablet) 88 mcg PO DAILY@0600 [facility] Last Admin: 12/25/23 05:34 Dose: 88 mcg Loratadine (Loratadine 10 Mg Tablet) 10 mg PO DAILY [facility] Last Admin: 12/25/23 08:16 Dose: 10 mg Lorazepam (Lorazepam 1 Mg Tablet) 1 mg PO BID [facility] Last Admin: 12/25/23 08:16 Dose: 1 mg Magnesium Hydroxide (Milk Of Magnesia 30 Ml Oral.Susp) 30 ml PO DAILY PRN PRN Reason: Constipation Metoprolol Tartrate (Metoprolol Tartrate 50 Mg Tablet) 50 mg PO BID@0900,1800 [facility]; Protocol Last Admin: 12/25/23 17:01 Dose: 50 mg Mirtazapine (Mirtazapine 30 Mg Tablet) 30 mg PO BEDTIME [facility] Last Admin: 12/24/23 19:48 Dose: 30 mg Multivitamins/Vitamin C (Multivitamin Tablet) 1 tab PO DAILY [facility] Last Admin: 12/25/23 08:16 Dose: 1 tab Omeprazole (Omeprazole 20 Mg Capsule.Dr) 20 mg PO DAILY@0630 [facility] Last Admin: 12/25/23 05:34 Dose: 20 mg Ondansetron HCl (Ondansetron Hcl 4 Mg/2 Ml Vial) 4 mg IVPUSH Q8H PRN PRN Reason: Nausea and Vomiting Sodium Biphosphate/Sodium Phosphate (Sodium Phosphate,Carbon-Dibasic 133 Ml Enema) 118 ml RI DAILY PRN PRN Reason: Constipation Sodium Chloride (0.9 % Sodium Chloride Flush 3 Ml Syringe) 3 ml IVFLUSH QSHIFT [facility] Last Admin: 12/25/23 15:58 Dose: Not Given Tamsulosin HCl (Tamsulosin Hcl 0.4 Mg Capsule) 0.4 mg PO BEDTIME [facility] Last Admin: 12/24/23 19:49 Dose: 0.4 mg Allergies Allergies Allergy/AdvReac Type Severity Reaction Status Date / Time azithromycin Allergy Unknown Verified 12/21/23 12:40 Barbiturates Allergy Unknown Verified 12/21/23 12:40 erythromycin base Allergy Unknown Verified 12/21/23 12:40 fluphenazine Allergy Unknown Verified 12/21/23 12:40 haloperidol [From Haldol] Allergy Unknown Verified 12/21/23 12:40 phenobarbital Allergy Unknown Verified 12/21/23 12:40 Assessment & Plan Assessment & Plan (1) Altered mental status: Status: Acute Code(s): R41.82 - Altered mental status, unspecified (2) Schizophrenia: Status: Acute Code(s): F20.9 - Schizophrenia, unspecified Plan Pt appears with improved mentation in that he is more oriented to place, month, year. His thought process is more organized and logical although he still somewhat confused as to why he was brought here to the hospital. He does have HCP active in the community. He is taking medications as prescribed. His presentation was more consistent with delirium than catatonia s/s to psychiatric condition. he presented with bilat tremor and perioral involuntary movements here in the hospital at least yesterday when seen- this seems per sister and staff at facility to be new-> It could be related to clozaril-withdrawal (cholinergic withdrawal) dyskinesia, may resolve as clozaril is restarted. other possibility related to hyperammonia. it does seem to be slightly better today. PLAN 1. restart clozaril- clozaril 25mg po BID- first dose tonight (which will be only 25mg for today), then tomorrow he can have 25mg po BID, will continue to titrate by 25mg-50mg daily as he has been on clozaril for several years without complications related to blood dyscrasias. Aim for clozaril dose of 100mg po BID. 2. for now- contiue to hold depakote. 3. psych to follow up tomorrow as well. 5. called his sister, Kandice who is pt's guardian to update her on condition, intervention and tx plan. Total time managing care of this patient today ___35_ minutes.
--- NOTE | 2023-12-25 18:01 | MHC.SL.SWA ---
Risk of Aspiration Due to: Neurological Condition Reduced Cognition Dysphasia Diet Status: UPGRADE from NPO Liquid Consistency and Strategies for Safe Swallow: Liquid Intake Recommendation: Thin Solid Food Consistency: Dietary Recommendations: Grnd/Mech Altered (NDD2) Oral Medication Intake: Whole with Liquid Please contact the pharmacy regarding appropriate crushable or liquid drug formulations that are available whenever modified delivery is recommended. Compensatory Strategies and Precautions to be Taken for Safe Swallow: Sitting Upright (90 deg) Alternate Liquids/Solids Supervision While Eating and Drinking for Safe Swallow: Intermittent Supervision Foods to Avoid: Mixed textures Recommendation for Speech: Outpatient Speech Therapy Inpatient Speech Therapy Comment: Pt presents w/ mild-moderate oropharyngeal dysphagia secondary to edentulous state and difficulty w/ lingual coordination. Recommend UPGRADE to THIN liquids and GROUND/MECH ALTERED solids (NDD2). This is reportedly patient's baseline at SNF. Pills whole w/ water OK. Intermittent supervision. Recommend 1-2 f/u with MEDICAL INFORMATION SPECIALIST to monitor toleration of diet and upgrade if warranted. Recommend continued dysphagia tx at next level of care. Frequency/Duration: 1-2 f/u by MEDICAL INFORMATION SPECIALIST Well Flow Operator Clinican/Clinical Fellow: No Supervisory Statement: I have reviewed and agree with the student/clinical fellow's documentation: N/A Speech Language Pathologist: Neetu Astudillo M.A., CCC-MEDICAL INFORMATION SPECIALIST
[2023-12-25 19:13] VITALS: BP 118/65; PULSE 82; RESP 18; TEMP 36.6; O2SAT 94
[2023-12-25 20:31] LABS: Glucose, Whole Blood 96 mg/dL (60-115)
[2023-12-25] MEDS: cloZAPine 25 MG TABLET PO (20:57)
[2023-12-25] MEDS: Atorvastatin Calcium 40 MG TABLET PO (20:57)
[2023-12-25] MEDS: Tamsulosin HCL 0.4 MG CAPSULE PO (20:57)
[2023-12-25] MEDS: Mirtazapine 30 MG TABLET PO (20:57)
[2023-12-25] MEDS: 0.9 % Sodium Chloride Flush 3 ML SYRINGE IVFLUSH (21:00)
[2023-12-26 04:00] VITALS: BP 119/64; PULSE 86; RESP 16; TEMP 36; O2SAT 95
[2023-12-26] MEDS: Levothyroxine Sodium 88 MCG TABLET PO (05:48)
[2023-12-26 07:30] VITALS: BP 113/63; PULSE 82; RESP 16; TEMP 36.3; O2SAT 93
[2023-12-26 07:37] LABS: Glucose, Whole Blood 91 mg/dL (60-115)
[2023-12-26 07:38] VITALS: BP 113/63; PULSE 82
[2023-12-26] MEDS: Metoprolol Tartrate 50 MG TABLET PO ×2 (07:38→17:43)
[2023-12-26] MEDS: amLODIPine Besylate 10 MG TABLET PO (07:38)
[2023-12-26] MEDS: LORazepam 1 MG TABLET PO ×2 (07:39→20:15)
[2023-12-26] MEDS: Multivitamin TABLET 1 TAB PO (07:39)
[2023-12-26] MEDS: cloZAPine 25 MG TABLET PO ×2 (07:39→20:16)
[2023-12-26] MEDS: 0.9 % Sodium Chloride Flush 3 ML SYRINGE IVFLUSH ×3 (07:39→20:17)
[2023-12-26] MEDS: Loratadine 10 MG TABLET PO (07:39)
--- NOTE | 2023-12-26 09:29 | MHC.SL.SWA ---
Speech Pathologist Impression: Risk of Aspiration Due to: Neurological Condition Reduced Cognition Dysphasia Diet Status: Patient is tolerating current diet of Ground Mechanical (NDD2) with THIN liquids, pills whole in puree or with liquid. This is reportedly patient's baseline at [facility]. SOFTWARE DEVELOPMENT TEST ENGINEER to f/u X1 for continued toleration Liquid Consistency and Strategies for Safe Swallow: Liquid Intake Recommendation: Thin Liquid Intake Strategies: Small Sips Solid Food Consistency: Dietary Recommendations: Grnd/Mech Altered (NDD2) Additional Modifications to Solid Foods: Oral Medication Intake: Whole with Liquid or Puree Please contact the pharmacy regarding appropriate crushable or liquid drug formulations that are available whenever modified delivery is recommended. Compensatory Strategies and Precautions to be Taken for Safe Swallow: Sitting Upright (90 deg) Liquids from Cup Small Bites and Sips Alternate Liquids/Solids Avoid Specific Foods Supervision While Eating and Drinking for Safe Swallow: Intermittent Supervision Foods to Avoid: Tough, difficult to chew solids, mixed consistencies, dry, crumbly consistencies. Swallowing Recommended Treatments: Compens. Strategy Educat. Recommendation for Speech: Outpatient Speech Therapy Inpatient Speech Therapy Comment: Patient seen this morning at breakfast. Patient had already consumed yogurt and was delighted by and drank a cup of black coffee. SOFTWARE DEVELOPMENT TEST ENGINEER offered additional items from breakfast tray (oatmeal, eggs) however patient refused. Patient agreed to take some sips of liquid, as he had several cups of water on tray. Patient then sipped through straw water, producing a timely swallow coordinated with straw sip. Patient also agreed to trials of apple sauce, producing a mildly disorganized oral phase, followed by timely swallow. Patient is tolerating current diet of Ground Mechanical (NDD2) with THIN liquids, pills whole in puree or with liquid. This is reportedly patient's baseline at [facility]. SOFTWARE DEVELOPMENT TEST ENGINEER to f/u X1 for continued toleration. Frequency/Duration: 1-2 f/u by SOFTWARE DEVELOPMENT TEST ENGINEER Date Range for Service Req: Timeline to reassess: Sales Record Clerk Clinican/Clinical Fellow: No Supervisory Statement: I have reviewed and agree with the student/clinical fellow's documentation: N/A Speech Language Pathologist: Sonam Murguia M.A., [facility]-SOFTWARE DEVELOPMENT TEST ENGINEER
[2023-12-26 11:33] LABS: Glucose, Whole Blood 94 mg/dL (60-115)
[2023-12-26] MEDS: cefTRIAXone sodium 1 GM in 0.9 % Sodium Chloride 50 ML IV (12:44)
--- NOTE | 2023-12-26 13:35 | HO.PM.IMPN ---
Subjective Subjective Date of Service: 12/26/23 Interval History: Being followed for UTI and altered mental status Patient awake alert answering questions appropriately tolerating diet no acute issues overnight Kim catheter removed Review of Systems All other system reviewed and negative Physical Exam Vital Signs: Vital Signs: Last Vital Signs Temp 97.4 F 12/26/23 07:30 Pulse 82 12/26/23 07:38 Resp 16 12/26/23 07:30 BP 113/63 12/26/23 07:38 Pulse Ox 93 12/26/23 07:30 O2 Del Method Room Air 12/26/23 07:30 BMI result Body Mass Index 26.0 Const: Other: General resting comfortably in no acute distress. Nell oral tremors Neck supple no JVD. CVS regular rate rhythm, Respiratory lungs clear to auscultation, no respiratory distress, no wheeze, no rhonchi. Gastrointestinal abdomen soft, non tender, bowel sounds audible Extremities no edema. Neuro moving all 4 extremity ,no hand tremors Skin no rash Objective Data Active Medications Acetaminophen (Acetaminophen Supp 650 Mg Supp.Rect) 650 mg [place] Q6H PRN PRN Reason: Pain, Mild (Pain Scale 1-3) Amlodipine Besylate (Amlodipine Besylate 10 Mg Tablet) 10 mg PO DAILY [facility]; Protocol Last Admin: 12/26/23 07:38 Dose: 10 mg Documented By: ALIREZA Atorvastatin Calcium (Atorvastatin Calcium 40 Mg Tablet) 40 mg PO BEDTIME [facility] Last Admin: 12/25/23 20:57 Dose: 40 mg Documented By: MARIA A Bisacodyl (Bisacodyl 10 Mg Supp.Rect) 10 mg [place] DAILY PRN PRN Reason: Constipation Clozapine (Clozapine 25 Mg Tablet) 25 mg PO BID [facility] Last Admin: 12/26/23 07:39 Dose: 25 mg Documented By: ALIREZA Enoxaparin Sodium (Enoxaparin Sodium 40 Mg/0.4 Ml Syringe) 40 mg SUBCUT Q24H [facility] Last Admin: 12/25/23 15:57 Dose: 40 mg Documented By: JOCELYN Glucose (Glucose Gel 15 Gm Gel..Gram.) 15 gm PO Q15M PRN; Protocol PRN Reason: per Hypoglycemia Standing Ord. Ceftriaxone Sodium 1 gm/ (Sodium Chloride) 50 mls @ 100 mls/hr IV Q24H [facility] Last Infusion: 12/26/23 13:14 Dose: Infused Documented By: ALIREZA Dextrose (D10) 250 mls @ 750 mls/hr IV Q15M PRN; Protocol PRN Reason: per Hypoglycemia Standing Ord. Insulin Human Lispro (Insulin Lispro 100 Unit/Ml 3 Ml Vial) 0 unit SUBCUT QIDACHS [facility]; Protocol Last Admin: 12/26/23 12:10 Dose: Not Given Documented By: ALIREZA Non-Admin Reason: No Insulin Coverage Levothyroxine Sodium (Levothyroxine Sodium 88 Mcg Tablet) 88 mcg PO DAILY@0600 [facility] Last Admin: 12/26/23 05:48 Dose: 88 mcg Documented By: MARIA A Loratadine (Loratadine 10 Mg Tablet) 10 mg PO DAILY [facility] Last Admin: 12/26/23 07:39 Dose: 10 mg Documented By: ALIREZA Lorazepam (Lorazepam 1 Mg Tablet) 1 mg PO BID [facility] Last Admin: 12/26/23 07:39 Dose: 1 mg Documented By: ALIREZA Magnesium Hydroxide (Milk Of Magnesia 30 Ml Oral.Susp) 30 ml PO DAILY PRN PRN Reason: Constipation Metoprolol Tartrate (Metoprolol Tartrate 50 Mg Tablet) 50 mg PO BID@0900,1800 [facility]; Protocol Last Admin: 12/26/23 07:38 Dose: 50 mg Documented By: ALIREZA Mirtazapine (Mirtazapine 30 Mg Tablet) 30 mg PO BEDTIME [facility] Last Admin: 12/25/23 20:57 Dose: 30 mg Documented By: MARIA A Multivitamins/Vitamin C (Multivitamin Tablet) 1 tab PO DAILY [facility] Last Admin: 12/26/23 07:39 Dose: 1 tab Documented By: ALIREZA Omeprazole (Omeprazole 20 Mg Capsule.Dr) 20 mg PO DAILY@0630 [facility] Last Admin: 12/26/23 05:49 Dose: Not Given Documented By: MARIA A Non-Admin Reason: Patient Refused Ondansetron HCl (Ondansetron Hcl 4 Mg/2 Ml Vial) 4 mg IVPUSH Q8H PRN PRN Reason: Nausea and Vomiting Sodium Biphosphate/Sodium Phosphate (Sodium Phosphate,[place]-Dibasic 133 Ml Enema) 118 ml [place] DAILY PRN PRN Reason: Constipation Sodium Chloride (0.9 % Sodium Chloride Flush 3 Ml Syringe) 3 ml IVFLUSH QSHIFT [facility] Last Admin: 12/26/23 07:39 Dose: 3 ml Documented By: ALIREZA Tamsulosin HCl (Tamsulosin Hcl 0.4 Mg Capsule) 0.4 mg PO BEDTIME [facility] Last Admin: 12/25/23 20:57 Dose: 0.4 mg Documented By: MARIA A Labs 12/24/23 05:19 12/24/23 05:19 Labs: Laboratory Results - last 24 hr 12/25/23 12/25/23 12/26/23 16:13 20:25 07:33 POC Glucose 90 96 91 12/26/23 11:23 POC Glucose 94 Assessment and Plan (1) Acute UTI: Status: Acute (2) Type 2 diabetes mellitus with other circulatory complications: Status: Acute (3) Essential (primary) hypertension: Status: Acute Plan 72-year-old male resident of [facility] with a past medical history significant for hypertension BPH GERD hypothyroidism, 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 Records states that usually this is related to an acute infection. Urine with active sediment consistent with UTI 1. acute UTI. -no acute events overnight, no fevers, normal WBC -on IV ceftriaxone day 5, Urine culture positive for Providencia stuarti sensitive to ceftriaxone, blood cultures x2 negative. Will transition to by mouth Ceftin 2. Acute toxic metabolic encephalopathy with underlying Schizophrenia ? catatonia Question due to underlying infection with similar episode in the past due to infection, normal renal function, normal LFTs at baseline patient communicate and ambulate Encephalopathy resolved patient likely at baseline Seen by psychiatry noted to have elevated ammonia level 57, repeat today is 42, Depakote level less than 12.5, Clozaril level is pending Being followed closely by Psychiatry they recommend to hold Depakote with concern for hyperammonemia causing confusion Started back on Clozaril dosage being uptitrated as per Psychiatry patient started on Ativan 1 mg b.i.d. on . 3. Hypothyroidism continue Synthroid. 4. Type 2 diabetes -blood sugars stable, continue insulin sliding scale 5. BPH continue Flomax, Kim discontinued Full code Lovenox Patient requires ongoing hospitalization for management of psychiatric medication question cause of metabolic encephalopathy. Quality Stroke Does the patient have a stroke diagnosis?: No VTE Prior VTE?: No VTE Risk Level:: Medical - moderate - high VTE Device Contraindication: Treatment Not Indicated VTE Drug Contraindication: N/A - Med Ordered
--- NOTE | 2023-12-26 14:21 | PC.NURSE ---
IV ceftriaxone finished at 13:14, per MD Montejo hold 13:45 dose of PO Ceftin and start at next dose.
[2023-12-26 15:08] VITALS: BP 120/69; PULSE 71; RESP 16; TEMP 36.2; O2SAT 95
[2023-12-26] MEDS: Enoxaparin Sodium 40 MG/0.4 ML SYRINGE SUBCUT (15:13)
--- NOTE | 2023-12-26 15:49 | PC.NURSE ---
Pt was able to take a few steps to the chair with 2A and a walker. Pt had good effort, tolerated well, pt states he wants to stay up in chair for dinner.
[2023-12-26 16:17] LABS: Glucose, Whole Blood 89 mg/dL (60-115)
[2023-12-26 17:43] VITALS: BP 133/64; PULSE 71
[2023-12-26 18:56] VITALS: BP 114/63; PULSE 71; RESP 18; TEMP 36.6; O2SAT 96
[2023-12-26] MEDS: Atorvastatin Calcium 40 MG TABLET PO (20:14)
[2023-12-26] MEDS: Mirtazapine 30 MG TABLET PO (20:15)
[2023-12-26] MEDS: Tamsulosin HCL 0.4 MG CAPSULE PO (20:15)
[2023-12-26 20:27] LABS: Glucose, Whole Blood 90 mg/dL (60-115)
[2023-12-26] MEDS: Melatonin 3 MG TABLET 6 MG PO (22:59)
[2023-12-27 03:25] VITALS: BP 110/57; PULSE 78; RESP 16; TEMP 36; O2SAT 95
[2023-12-27] MEDS: Omeprazole 20 MG CAPSULE.DR PO (06:16)
[2023-12-27] MEDS: Levothyroxine Sodium 88 MCG TABLET PO (06:16)
[2023-12-27 07:53] LABS: Glucose, Whole Blood 100 mg/dL (60-115)
[2023-12-27 07:55] VITALS: BP 101/53; PULSE 67; RESP 16; TEMP 36.1; O2SAT 94
[2023-12-27] MEDS: 0.9 % Sodium Chloride Flush 3 ML SYRINGE IVFLUSH ×2 (09:03→16:10)
[2023-12-27 09:43] VITALS: BP 101/53; PULSE 67
[2023-12-27] MEDS: Loratadine 10 MG TABLET PO (09:43)
[2023-12-27] MEDS: LORazepam 1 MG TABLET PO (09:43)
[2023-12-27] MEDS: Metoprolol Tartrate 50 MG TABLET PO (09:43)
[2023-12-27] MEDS: Multivitamin TABLET 1 TAB PO (09:43)
[2023-12-27] MEDS: cefuroxime axetiL 250 MG TABLET PO (09:43)
[2023-12-27 09:44] VITALS: BP 101/53
[2023-12-27] MEDS: amLODIPine Besylate 10 MG TABLET PO (09:44)
[2023-12-27] MEDS: cloZAPine 25 MG TABLET PO (09:44)
--- NOTE | 2023-12-27 10:22 | MHC.SL.SWA ---
Speech Pathologist Impression: Risk of aspiration, oral phase dysphagia d/t edentulous state Risk of Aspiration Due to: Neurological Condition Reduced Cognition Dysphasia Diet Status: Patient is tolerating current diet of Ground Mechanical (NDD2) with THIN liquids, pills whole in puree or with liquid. Further ST no longer warranted at this level of care, as this is reportedly patient's baseline at [facility]. Please re-refer if needed. Liquid Consistency and Strategies for Safe Swallow: Liquid Intake Recommendation: Thin Liquid Intake Strategies: Small Sips Solid Food Consistency: Dietary Recommendations: Grnd/Mech Altered (NDD2) Oral Medication Intake: Whole with Liquid Please contact the pharmacy regarding appropriate crushable or liquid drug formulations that are available whenever modified delivery is recommended. Compensatory Strategies and Precautions to be Taken for Safe Swallow: Sitting Upright (90 deg) Liquids from Cup Small Bites and Sips Alternate Liquids/Solids Avoid Specific Foods Supervision While Eating and Drinking for Safe Swallow: Intermittent Supervision Foods to Avoid: Tough, difficult to chew solids, mixed consistencies, dry, crumbly consistencies. Swallowing Recommended Treatments: Compens. Strategy Educat. Recommendation for Speech: D/C Sandstone Inspector Repairer Clinican/Clinical Fellow: Yes: Stephanie Mendez Supervisory Statement: I have reviewed and agree with the student/clinical fellow's documentation: Yes Speech Language Pathologist: Genie Hernandez M.A., CCC-SEX CRIMES DETECTIVE
[2023-12-27 11:22] LABS: Glucose, Whole Blood 124 mg/dL (60-115)
--- NOTE | 2023-12-27 12:41 | PM.PSYCN ---
History of Present Illness Date of Service: 12/27/23 Chief Complaint: UTI Reason for Consult: Interim Hx: pt presents as alert, oriented to place, more complex information about his overall medical treatments is not as clear for him but he appears at baseline. No overt psychosis or delusional content noted or reported. He denies SI/HI. He is taking medications as prescribed. He was restarted on clozaril 2 days ago back on 25mg daily and increase by 25mg/daily as he had not taken it for about 4 days. Much less dyskinesia. mild action tremor noted. HPI Past Psychiatric History: Bryan Santiago, recently moved to [facility]. [facility] Medical History (Updated 12/25/23 @ 17:06 by Aaliyah Paige) Presbyopia Unspecified astigmatism, unspecified eye Combined forms of age-related cataract, bilateral Corns and callosities Nail dystrophy Tinea unguium Type 2 diabetes mellitus with other circulatory complications Hallux valgus (acquired), unspecified foot Other seasonal allergic rhinitis Insomnia, unspecified History of falling Slurred speech Suicidal ideations Functional urinary incontinence Personal history of (healed) traumatic fracture Gastro-esophageal reflux disease without esophagitis Benign prostatic hyperplasia without lower urinary tract symptoms Hyperlipidemia, unspecified Essential (primary) hypertension Mild cognitive impairment, so stated Unspecified osteoarthritis, unspecified site Muscle weakness (generalized) Anxiety disorder, unspecified Hypothyroidism, unspecified Ataxic gait Anemia, unspecified Diabetes COVID-19 Schizophrenia Family History: unknown Social History: Has two sisters, Kandice (PHP/guardian) and Andreina (POA). Patient disabled. Has guardianship on file, has Martino on file. Trauma History: unknown Diagnostics Vital Signs (24Hr): Vital Signs - 24 hr 12/26/23 15:08 12/26/23 17:43 12/26/23 18:56 Temperature 97.2 F 97.9 F Pulse Rate 71 71 71 Respiratory Rate 16 18 Blood Pressure 120/69 133/64 114/63 Pulse Oximetry 95 96 Oxygen Delivery Method Room Air Room Air 12/27/23 03:25 12/27/23 07:55 12/27/23 09:43 Temperature 96.8 F 97.0 F Pulse Rate 78 67 67 Respiratory Rate 16 16 Blood Pressure 110/57 L 101/53 L 101/53 L Pulse Oximetry 95 94 Oxygen Delivery Method Room Air Room Air 12/27/23 09:44 Temperature Pulse Rate Respiratory Rate Blood Pressure 101/53 L Pulse Oximetry Oxygen Delivery Method BMI result Body Mass Index 26.0 Labs 12/24/23 05:19 12/24/23 05:19 Labs: Laboratory Results - last 48 hr 12/25/23 12/25/23 12/26/23 16:13 20:25 07:33 POC Glucose 90 96 91 12/26/23 12/26/23 12/26/23 11:23 16:08 20:14 POC Glucose 94 89 90 12/27/23 12/27/23 07:18 11:14 POC Glucose 100 124 H Imaging Radiology Impressions: ITS Impressions Chest X-Ray 12/21/23 13:33 IMPRESSION: No evidence for acute disease in the chest. Head CT 12/21/23 14:54 IMPRESSION: No acute findings. Mental Status Exam Mental Status Exam Narrative: Appearance: wearing hospital gown, good hygiene, in NAD Behavior: cooperative Psychomotor: no agitation or retardation noted Speech: clear, normal rate/rhythm/volume, spontaneous TP: mostly linear TC: more oriented to situation, feeling better Mood: good' Affect: congruent, somewhat constricted range of affect but appropriate Si: denies HI: denies VH/AH: none Delusions: no overt delusional content noted or reported. Insight/judgment: improving from days prior but at baseline he does have HCP or guardian. Memory/cog; alert, oriented to place, month, year, vaguely situation. Medications Medications Current Medications Acetaminophen (Acetaminophen Supp 650 Mg Supp.Rect) 650 mg [place] Q6H PRN PRN Reason: Pain, Mild (Pain Scale 1-3) Amlodipine Besylate (Amlodipine Besylate 10 Mg Tablet) 10 mg PO DAILY [facility]; Protocol Last Admin: 12/27/23 09:44 Dose: 10 mg Atorvastatin Calcium (Atorvastatin Calcium 40 Mg Tablet) 40 mg PO BEDTIME [facility] Last Admin: 12/26/23 20:14 Dose: 40 mg Bisacodyl (Bisacodyl 10 Mg Supp.Rect) 10 mg [place] DAILY PRN PRN Reason: Constipation Cefuroxime Axetil (Cefuroxime Axetil 250 Mg Tablet) 250 mg PO Q12H [facility] Last Admin: 12/27/23 09:43 Dose: 250 mg Clozapine (Clozapine 25 Mg Tablet) 25 mg PO BID [facility] Last Admin: 12/27/23 09:44 Dose: 25 mg Enoxaparin Sodium (Enoxaparin Sodium 40 Mg/0.4 Ml Syringe) 40 mg SUBCUT Q24H [facility] Last Admin: 12/26/23 15:13 Dose: 40 mg Glucose (Glucose Gel 15 Gm Gel..Gram.) 15 gm PO Q15M PRN; Protocol PRN Reason: per Hypoglycemia Standing Ord. Dextrose (D10) 250 mls @ 750 mls/hr IV Q15M PRN; Protocol PRN Reason: per Hypoglycemia Standing Ord. Insulin Human Lispro (Insulin Lispro 100 Unit/Ml 3 Ml Vial) 0 unit SUBCUT QIDACHS [facility]; Protocol Last Admin: 12/27/23 11:41 Dose: Not Given Levothyroxine Sodium (Levothyroxine Sodium 88 Mcg Tablet) 88 mcg PO DAILY@0600 [facility] Last Admin: 12/27/23 06:16 Dose: 88 mcg Loratadine (Loratadine 10 Mg Tablet) 10 mg PO DAILY [facility] Last Admin: 12/27/23 09:43 Dose: 10 mg Lorazepam (Lorazepam 1 Mg Tablet) 1 mg PO BID [facility] Last Admin: 12/27/23 09:43 Dose: 1 mg Magnesium Hydroxide (Milk Of Magnesia 30 Ml Oral.Susp) 30 ml PO DAILY PRN PRN Reason: Constipation Melatonin (Melatonin 3 Mg Tablet) 6 mg PO BEDTIME PRN PRN Reason: Insomnia Last Admin: 12/26/23 22:59 Dose: 6 mg Metoprolol Tartrate (Metoprolol Tartrate 50 Mg Tablet) 50 mg PO BID@0900,1800 [facility]; Protocol Last Admin: 12/27/23 09:43 Dose: 50 mg Mirtazapine (Mirtazapine 30 Mg Tablet) 30 mg PO BEDTIME [facility] Last Admin: 12/26/23 20:15 Dose: 30 mg Multivitamins/Vitamin C (Multivitamin Tablet) 1 tab PO DAILY [facility] Last Admin: 12/27/23 09:43 Dose: 1 tab Omeprazole (Omeprazole 20 Mg Capsule.Dr) 20 mg PO DAILY@0630 [facility] Last Admin: 12/27/23 06:16 Dose: 20 mg Ondansetron HCl (Ondansetron Hcl 4 Mg/2 Ml Vial) 4 mg IVPUSH Q8H PRN PRN Reason: Nausea and Vomiting Sodium Biphosphate/Sodium Phosphate (Sodium Phosphate,[place]-Dibasic 133 Ml Enema) 118 ml [place] DAILY PRN PRN Reason: Constipation Sodium Chloride (0.9 % Sodium Chloride Flush 3 Ml Syringe) 3 ml IVFLUSH QSHIFT [facility] Last Admin: 12/27/23 09:03 Dose: 3 ml Tamsulosin HCl (Tamsulosin Hcl 0.4 Mg Capsule) 0.4 mg PO BEDTIME [facility] Last Admin: 12/26/23 20:15 Dose: 0.4 mg Allergies Allergies Allergy/AdvReac Type Severity Reaction Status Date / Time azithromycin Allergy Unknown Verified 12/21/23 12:40 Barbiturates Allergy Unknown Verified 12/21/23 12:40 erythromycin base Allergy Unknown Verified 12/21/23 12:40 fluphenazine Allergy Unknown Verified 12/21/23 12:40 haloperidol [From Haldol] Allergy Unknown Verified 12/21/23 12:40 phenobarbital Allergy Unknown Verified 12/21/23 12:40 Assessment & Plan Assessment & Plan (1) Schizophrenia: Status: Acute Code(s): F20.9 - Schizophrenia, unspecified Plan Pt appears with improved mentation in that he is more oriented to place, month, year. His thought process is more organized and logical although he still somewhat confused as to why he was brought here to the hospital. He does have HCP active in the community. He is taking medications as prescribed. His presentation was more consistent with delirium than catatonia s/s to psychiatric condition. he presented with bilat tremor and perioral involuntary movements here in the hospital at least yesterday when seen- this seems per sister and staff at facility to be new-> It could be related to clozaril-withdrawal (cholinergic withdrawal) dyskinesia, may resolve as clozaril is restarted. other possibility related to hyperammonia. it does seem to be slightly better today. PLAN 12/26- pt appears back at his baseline. No overt psychosis or delusional content noted or reported. Can increase clozaril to 50mg po BID and pt should follow up with OP psychiatrist to continue titration of clozaril. Will d/c depakote at this point. No need for inpatient psychiatric level of care. Pt to discharge per primary treatment team dispo. Total time managing care of this patient today ____ minutes.
--- NOTE | 2023-12-27 14:08 | PM.DS ---
DS: Providers Provider Date of Service: 12/27/23 Date of admission: 12/21/23 15:56 Primary care physician: LOYDA RODRIGUES Consults: 12/21/23 22:41 Consult to Psychiatry Routine Consulting Provider: Psych Covering Reason for consultation: Catatonic state Has provider been notified: No DS: Diagnosis Discharge Diagnosis (1) Schizophrenia: Status: Acute DS: Summary Hospital Course Hospital Course: Date of Service: 12/21/23 Chief Complaint: altered mental status/UTI 72-year-old male resident of [facility] with a past medical history significant for hypertension BPH GERD hypothyroidism 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 Patient has history of same with acute infection. Staff note that this began earlier this morning and transported to hospital. In the emergency room, urine with active sediment consistent with UTI. Head CT negative; chest x-ray negative. At this time he will be admitted for presumptive UTI and treated with empiric ceftriaxone pending blood and urine cultures. Hospital course: 72-year-old male resident of [facility] with a past medical history significant for hypertension BPH, GERD, hypothyroidism, cognitive impairment, secondary to schizophrenia presents with altered mental status essentially catatonic state, patient admitted to medical floor with a diagnosis of acute toxic metabolic encephalopathy likely due to UTI, with prior history of similar episodes due to acute infection. 1. Acute UTI, patient admitted to medical floor treated with IV ceftriaxone, urine culture grew Providencia stuarti sensitive to ceftriaxone, blood cultures x2 negative, patient will be discharged home on by mouth Ceftin 250 mg b.i.d. for total 7 days and recommended to resume prophylactic antibiotics after finishing 2 day course of Ceftin. 2. Acute toxic metabolic encephalopathy with underlying Schizophrenia, unclear etiology likely due to infection, however was noted to have elevated ammonia level likely due to Depakote, Depakote was held repeat ammonia level has normalized, psychiatry recommend to discontinue Depakote, there was concern for catatonia but unclear, patient did not have tawny catatonic symptoms, noted to have flexibility on exam, patient now is back to his baseline, answering questions appropriately, since initially patient was NPO Clozaril was held, Clozaril has been restarted currently on 50 mg b.i.d. recommend to follow-up with psychiatry for medication adjustment Continue all other home medications including Ativan 3. Hypothyroidism continue Synthroid. 4. Type 2 diabetes -blood sugars stable, continue home medications. 5. BPH continue Flomax. Time Attestation Discharge Coordination Time (in mins): 40 Quality: Safe Use of Opioids Does Pt have an Active Cancer Diagnosis on the Problem List?: No Quality: Stroke Does the patient have a stroke diagnosis?: No Physical Exam Vital Signs: Vital Signs: Last Vital Signs Temp 97.0 F 12/27/23 07:55 Pulse 67 12/27/23 09:43 Resp 16 12/27/23 07:55 BP 101/53 L 12/27/23 09:44 Pulse Ox 94 12/27/23 07:55 O2 Del Method Room Air 12/27/23 07:55 BMI result Body Mass Index 26.0 Const: Other: General resting comfortably in no acute distress. Neck supple no JVD. CVS regular rate rhythm, Respiratory lungs clear to auscultation, no respiratory distress, no wheeze, no rhonchi. Gastrointestinal abdomen soft, non tender, bowel sounds audible Extremities no edema. Neuro moving all 4 extremity ,no hand tremors Skin no rash DS: Data Data Completed and Pending Labs on day of discharge: Laboratory Results - last 24 hr 12/26/23 12/26/23 12/27/23 16:08 20:14 07:18 POC Glucose 89 90 100 12/27/23 11:14 POC Glucose 124 H Discharge Plan Discharge Anticipated Discharge Date/Time: 12/27/23 13:54 Patient Disposition: Xfer SNF Discharge Diagnosis: Acute toxic metabolic encephalopathy Acute UTI Referrals: [facility] [Outside] - 1 Week LOYDA RODRIGUES [Primary Care Provider] - 1 Week Discharge Medications: New cefuroxime axetil 250 mg Tablet 250 mg PO Q12H Qty: 4 0RF Continued atorvastatin 40 mg Tablet 40 mg PO BEDTIME tamsulosin 0.4 mg Capsule 0.4 mg PO BEDTIME mirtazapine 30 mg Tablet 30 mg PO BEDTIME metoprolol tartrate 50 mg Tablet 50 mg PO BID@0900,1800 lorazepam 1 mg Tablet 1 mg PO BID@0900,1800 multivitamin with minerals Tablet 1 tab PO DAILY loratadine 10 mg Tablet 10 mg PO DAILY Aristada 882 mg/3.2 mL Suspension,Extended Rel Syring 882 mg IM Q28D clozapine 50 mg tablet 50 mg PO BID Rx Instructions: TOTAL DOSE = 150 MG BID acetaminophen 650 mg Suppository 650 mg [place] Q6H PRN (Reason: Fever Or Pain) Rx Instructions: DNE 3 G / 24 HRS guaifenesin 200 mg Tablet 200 mg PO Q6H PRN (Reason: Cough) levothyroxine 88 mcg Tablet 88 mcg PO DAILY@0600 magnesium hydroxide [Milk of Magnesia] 400 mg/5 mL Suspension 30 ml PO DAILY PRN (Reason: Constipation) amlodipine 10 mg Tablet 10 mg PO DAILY bisacodyl 10 mg Suppository 10 mg [place] DAILY PRN (Reason: Constipation) Fleet Enema 19-7 gram/118 mL Enema 118 ml OK DAILY PRN (Reason: Constipation) alum-mag hydroxide-simeth [Mag-Al Plus] 200-200-20 mg/5 mL Suspension 30 ml PO Q6H PRN (Reason: GI upset) Rx Instructions: administer between meals and at bedtime pantoprazole [address] For Susp In Packet 40 mg PO DAILY@0630 Rx Instructions: SPRINKLE OVER 1 TBSP APPLE SAUCE naloxone 4 mg/actuation [place],Non-Aerosol 4 mg INTRANASAL Q3M PRN (Reason: Opioid Overdose) Rx Instructions: spray 1 dose into ONE nostril; alternate nostrils w each dose until help arrives Gvoke PFS 2-Pack Syringe 1 mg/0.2 mL Syringe 1 mg SUBCUT Q20M PRN (Reason: Hypoglycemia) Rx Instructions: until target blood sugar attained acetaminophen 325 mg Tablet 650 mg PO Q6H PRN (Reason: FEVER/PAIN) Discontinued cefuroxime axetil 250 mg Tablet 250 mg PO MOWEFR@0900 clozapine 100 mg Tablet 100 mg PO BID Rx Instructions: TOTAL DOSE = 150 MG BID valproic acid (as sodium salt) 250 mg/5 mL Solution 500 mg PO BID@1400,2100 valproic acid (as sodium salt) 250 mg/5 mL Solution 250 mg PO DAILY Discharge Orders: Discharge Order (Routine); Ordered 12/27/23 Ordered By: Robert Montejo Diet: Diabetic diet Activity on Discharge: As tolerated Stand Alone Forms: Patient Portal Discharge page Print Language: Estonian Care Plan Goals: Acute toxic metabolic encephalopathy resolved, Clozaril resumed at lower dose 50 mg b.i.d., recommend uptitration by psychiatry Discontinue Depakote due to concern for hyperammonemia UTI take Ceftin 250 mg 1 tablet twice daily for 2 more days and then resume Ceftin prophylactic dose Health Concerns: Diabetes mellitus follow blood sugars and diabetic diet Plan of Treatment: Outpatient follow-up with primary care physician and Psychiatry to uptitrate dose of Clozaril Assessment: As above
--- NOTE | 2023-12-27 14:21 | MHC.CM.PN ---
IMM 12/27/23 left at bedside at sisters request. Patient is discharged today. He will return to [facility]. Transportation is booked. 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 Nurse 2 Nurse report provided. All dc info has been sent via [employer].
[2023-12-27 15:13] VITALS: BP 115/63; PULSE 63; RESP 18; TEMP 36.6; O2SAT 93
[2023-12-27] MEDS: Enoxaparin Sodium 40 MG/0.4 ML SYRINGE SUBCUT (16:10)
[2023-12-27 16:14] LABS: Glucose, Whole Blood 83 mg/dL (60-115)
[2023-12-30 05:49] LABS: Clozapine (Clozaril) 58 mcg/L; Norclozapine 53 mcg/L (25-400)
== END 2023-12-27 18:30 | disposition skilled nursing facility (03) | DRG 689 ==
LOC: HO.ED 15:25 → HO.EDOVER 16:07 → HO.S3 16:47
PROVIDERS: Social Worker; Admitting Provider Hospitalist; Emergency Provider Emergency Medicine; PCP Emergency Medicine; Visit Provider Hospitalist
DX: N39.0 Urinary tract infection, site not specified (principal); G92.8 Other toxic encephalopathy; F20.2 Catatonic schizophrenia; I10 Essential (primary) hypertension; N40.0 Benign prostatic hyperplasia without lower urinary tract symptoms; E11.9 Type 2 diabetes mellitus without complications; E03.9 Hypothyroidism, unspecified; Z20.822 Contact with and (suspected) exposure to COVID-19; Z79.890 Hormone replacement therapy; Z79.899 Other long term (current) drug therapy
CPT/HCPCS: 0241U; 36415; 70450; 71045; 80048; 80053; 80076; 80159; 80164; 81001; 82140; 82947; 83605; 83690; 83880; 84439; 84443; 84484; 85007; 85025; 85027; 87040; 87086; 87088; 87186; 92526; 92610; 93005; 99285; C1758; J0696; J1650

== ENCOUNTER → 2023-12-21 12:20 | Outpatient (BNV) | payer MEDICARE, MEDICAID, SELFPAY | PROVIDERS: Admitting Provider Hospitalist; Emergency Provider Emergency Medicine; Visit Provider Internal Medicine | DX: R00.0 Tachycardia, unspecified (principal); R41.82 Altered mental status, unspecified | CPT/HCPCS: 93010 ==

== ENCOUNTER → 2023-12-21 15:56 | Outpatient (BNV) | payer MEDICARE, MEDICAID, SELFPAY | PROVIDERS: Admitting Provider Hospitalist; Emergency Provider Emergency Medicine; Visit Provider Hospitalist | DX: F20.9 Schizophrenia, unspecified (principal); N39.0 Urinary tract infection, site not specified; G93.41 Metabolic encephalopathy | CPT/HCPCS: 99223; 99232; 99233; 99239 ==

== ENCOUNTER → 2023-12-21 15:56 | Outpatient (BNV) | payer MEDICARE, MEDICAID, SELFPAY | PROVIDERS: Admitting Provider Hospitalist; Emergency Provider Emergency Medicine; PCP Emergency Medicine; Visit Provider Social Worker | DX: F20.2 Catatonic schizophrenia (principal); R41.82 Altered mental status, unspecified | CPT/HCPCS: 99232 ==

== ENCOUNTER 2025-01-03 09:00 | Inpatient (IN) | payer MEDICARE, MEDICAID, SELFPAY ==
[2025-01-03] VITALS (7 sets, daily range): BP systolic 124–164; BP diastolic 69–88; PULSE 82–111; RESP 16–26; TEMP 36.1–36.9; O2SAT 94–99; BMI 23.2; BMI 23.3
--- NOTE | ~2025-01-03 | XR_ITS ---
CLINICAL HISTORY: AMS, diminished LS 2 view chest x-ray Comparison: 12/21/2023 Findings: No consolidation or effusion. No significant change in cardiomediastinal silhouette. No acute fracture. IMPRESSION: 1. No acute findings. This document has been electronically signed by: Malini Cooper MD on 01/03/2025 11:01:55
--- NOTE | ~2025-01-03 | CT_ITS ---
CLINICAL HISTORY: AMS CT head without contrast Comparison: 12/21/2023 Findings: No intra-axial mass, midline shift, hydrocephalus, or acute hemorrhage. Mild age-related cerebral hemispheric white matter ischemic changes. There is no sinus or mastoid fluid. The orbits are within normal limits. No skull fracture. Left more than right prominent, subcentimeter nonspecific parotid nodes measuring up to 9 mm in short axis may be reactive. IMPRESSION: 1. No acute intracranial findings. This document has been electronically signed by: Malini Cooper MD on 01/03/2025 10:49:36
--- NOTE | 2025-01-03 09:07 | ED_ITS ---
HPI - General Adult General Chief complaint: Altered Mental Status Stated complaint: SNF STS AMS/LETHARGY/CONFUSED, ?UTI PER EMS Time Seen by Provider: 01/03/25 09:07 Source: EMS, RN notes reviewed and old records reviewed Mode of arrival: EMS Limitations: altered mental status History of Present Illness ED Provider: Corazon HPI narrative: Patient is a 74-year-old male with history of failure to thrive, BPH, depression, dysphagia, HTN, GERD, mild cognitive impairment, anemia, COPD, dementia, HLD, paranoid schizophrenia, T2DM presenting to the emergency department from [facility] with report of altered mental status noted by staff this morning. Per staff report to EMS patient typically awake alert and conversing. This am patient awake and alter but not speaking or following commands. Patient arrived in two urine soaked briefs. Patient unable to provide any history. MD complaint: AMS Related Data Home Medications ?Medication ?Instructions ?Recorded ?Confirmed aripiprazole lauroxil 882 mg/3.2 882 mg IM Q28D 09/25/21 12/21/23 mL suspension, ext.rel. IM syringe ([place]) atorvastatin 40 mg tablet 40 mg PO BEDTIME 09/25/21 12/21/23 loratadine 10 mg tablet 10 mg PO DAILY 09/25/21 12/21/23 lorazepam 1 mg tablet 1 mg PO BID@0900,1800 09/25/21 12/21/23 metoprolol tartrate 50 mg tablet 50 mg PO BID@0900,1800 09/25/21 12/21/23 mirtazapine 30 mg tablet 30 mg PO BEDTIME 09/25/21 12/21/23 multivitamin with minerals 1 tab PO DAILY 09/25/21 12/21/23 tamsulosin 0.4 mg capsule 0.4 mg PO BEDTIME 09/25/21 12/21/23 clozapine 50 mg tablet 50 mg PO BID 05/10/23 12/21/23 acetaminophen 325 mg tablet 650 mg PO Q6H PRN FEVER/PAIN 12/21/23 12/21/23 acetaminophen 650 mg rectal 650 mg WY Q6H PRN Fever Or Pain 12/21/23 12/21/23 suppository aluminum-mag hydroxide-simethicone 30 ml PO Q6H PRN GI upset 12/21/23 12/21/23 200 mg-200 mg-20 mg/5 mL oral susp (Mag-Al Plus) amlodipine 10 mg tablet 10 mg PO DAILY 12/21/23 12/21/23 bisacodyl 10 mg rectal suppository 10 mg WY DAILY PRN Constipation 12/21/23 12/21/23 glucagon 1 mg/0.2 mL subcutaneous 1 mg subcut Q20M PRN Hypoglycemia 12/21/23 12/21/23 syringe (deskwolf PFS 2-Pack) guaifenesin 200 mg tablet 200 mg PO Q6H PRN Cough 12/21/23 12/21/23 levothyroxine 88 mcg tablet 88 mcg PO DAILY@0600 12/21/23 12/21/23 magnesium hydroxide 400 mg/5 mL 30 ml PO DAILY PRN Constipation 12/21/23 12/21/23 oral suspension (Milk of Magnesia) naloxone 4 mg/actuation nasal spray 4 mg intranasal Q3M PRN Opioid 12/21/23 12/21/23 Overdose pantoprazole 40 mg granules 40 mg PO DAILY@0630 12/21/23 12/21/23 delayed-release for susp in packet sodium phosphates 19 gram-7 118 ml WY DAILY PRN Constipation 12/21/23 12/21/23 gram/118 mL enema (Fleet Enema) Previous Rx's ?Medication ?Instructions ?Recorded cefuroxime axetil 250 mg tablet 250 mg PO Q12H #4 tabs 12/27/23 Allergies Allergy/AdvReac Type Severity Reaction Status Date / Time azithromycin Allergy Unknown Verified 01/03/25 09:04 Barbiturates Allergy Unknown Verified 01/03/25 09:04 erythromycin base Allergy Unknown Verified 01/03/25 09:04 fluphenazine Allergy Unknown Verified 01/03/25 09:04 haloperidol [From Haldol] Allergy Unknown Verified 01/03/25 09:04 phenobarbital Allergy Unknown Verified 01/03/25 09:04 Review of Systems 2 Review of Systems: As per HPI. Yes all other systems are reviewed and are negative Constitutional: Constitutional: Reports as per HPI Neurologic: Reports Abnormal speech present and Reports confusion Psychiatric: Psychiatric: Reports confusion [facility] Past Medical History Medical History (Updated 01/03/25 @ 12:24 by Amelia Chandra NP) Presbyopia Unspecified astigmatism, unspecified eye Combined forms of age-related cataract, bilateral Corns and callosities Nail dystrophy Tinea unguium Type 2 diabetes mellitus with other circulatory complications Hallux valgus (acquired), unspecified foot Other seasonal allergic rhinitis Insomnia, unspecified History of falling Slurred speech Suicidal ideations Functional urinary incontinence Personal history of (healed) traumatic fracture Gastro-esophageal reflux disease without esophagitis Benign prostatic hyperplasia without lower urinary tract symptoms Hyperlipidemia, unspecified Essential (primary) hypertension Mild cognitive impairment, so stated Unspecified osteoarthritis, unspecified site Muscle weakness (generalized) Anxiety disorder, unspecified Hypothyroidism, unspecified Ataxic gait Anemia, unspecified Diabetes COVID-19 Schizophrenia Social History Social History Household Members: None Housing: Retirement Unable to assess alcohol history related to: Unable to respond Alcohol intake: never Patient Tobacco Use Status: Tobacco use Unknown Advance Directives: Yes Advance Directives on File: Yes Advance Directives Date on File: 09/25/21 Do you have a plan to hurt others: No Plan service: No Current occupational status: disabled Physical Exam ED Vital Signs: Vital Signs - 24 hr 01/03/25 09:02 01/03/25 10:01 Temperature 98.4 F Pulse Rate 100 96 Respiratory Rate 26 H 16 Blood Pressure 148/81 H 155/88 H Pulse Oximetry 95 96 Oxygen Delivery Method Room Air Room Air BMI result Body Mass Index 23.2 Const Other: not speaking, able to follow some commands, moving all extremities spontaneously General: no acute distress, alert, awake, confusion and poor hygiene Nutritional Appearance: average body habitus Orientation/consciousness: confusion Limitations: altered mental status [facility] Head: Yes normocephalic and Yes atraumatic Ears: external ears normal General nose exam: Normal external nose present and Normal nasal mucous membranes and turbinates present Face and sinus: Yes face symmetric Mouth: oropharynx normal and moist mucous membranes Throat: Yes uvula midline Eyes Alignment and Position: alignment normal and position normal Conjunctivae: conjunctival abnormal bilateral discharge purulent Pupils: Equal, round and reactive pupils present and Pinpoint pupils bilaterally Neck Neck: Yes normal visual inspection, Yes trachea midline and Yes supple Chest Chest palpation & inspection: normal inspection of the chest and normal palpation of entire chest wall Resp Effort & Inspection: normal respiratory effort and able to speak in complete sentences Auscultation: diminished lung sounds diffuse Cardio Rate: regular rate Rhythm: regular rhythm Heart sounds: S1 normal heart sound present and S2 normal heart sound present GI Palpation (GI): Soft to palpation and nontender Auscultation: normoactive bowel sounds Other: baseline urinary incontinence, arrived wearing two urine-soaked briefs with foul odor noted General: Yes no CVA tenderness Back/Spine/Pelvis Back: no CVA tenderness Skin General skin exam: no rashes or lesions noted, elasticity normal and turgor normal Wounds: no wounds Neuro General: moves all extremities, no focal motor deficits, confusion and Unable to assess gait Cranial nerves: Yes Equal, round and reactive pupils present Cognition (Neuro): normal cognition Speech: Abnormal speech present complete aphasia Gait exam (Neuro): Unable to assess gait Motor exam (neuro): 5/5 motor strength present throughout Extrem General: Yes full ROM, Yes no pedal edema and Yes no calf tenderness Psych Appearance: disheveled Speech and movement: Mute speech present Medications Administered Discontinued Medications Generic Name Dose Route Start Last Admin Trade Name Freq PRN Reason Stop Dose Admin Ceftriaxone Sodium 1 gm 01/03/25 09:55 01/03/25 10:10 Ceftriaxone Sodium 1 Gm Vial IVPUSH 01/03/25 09:56 1 gm ONCE ONE Administration Dextrose 25 gm 01/03/25 09:31 01/03/25 09:34 Dextrose 50 % 25 Gm/50 Ml Syringe IVPUSH 01/03/25 09:32 25 gm ONCE ONE Administration Diazepam 5 mg 01/03/25 12:09 01/03/25 12:40 Diazepam 10 Mg/2 Ml Cartridge IVPUSH 01/03/25 12:10 5 mg STAT STA Administration Medical Decision Making Medical Decision Making [facility] Narrative: Patient is a 74-year-old male with history of failure to thrive, BPH, depression, dysphagia, HTN, GERD, mild cognitive impairment, anemia, COPD, dementia, HLD, paranoid schizophrenia, T2DM presenting to the emergency department from [facility] with report of altered mental status noted by staff this morning. On exam patient is awake, A+Ox3, mildly tachycardic, VS otherwise WNL, afebrile, normal neurological exam without focal deficits, physical exam findings as above. POC glucose on arrival 56, D50 ordered. Unable to obtain NIHSS due to aphasia, unable to report visual deficits, awake, alert, moving all extremities spontaneously. Given reported symptoms and physical exam findings, initial differential includes but is not limited to UTI, urosepsis, hypoglycemia or other electrolyte abnormality, drug or alcohol intoxication or withdrawal, viral infection, pneumonia, encephalopathy, CVA/ICH, catatonia or other psychiatric cause. Review of EMR shows urine culture from 12/20 positive for providencia stuartii, patient was admitted at that time. IV ceftriaxone ordered. Labs notable for no leukocytosis, chronic stable anemia, hypoglycemia on arrival which improved with D50, elevated BUN with normal creatinine, normal lactic, no other significant electrolyte abnormalities. Normal blood gas. Viral serology negative. Urine drug screen negative, ethanol 15, suspect this is likely from skin prep with alcohol pad, do not suspect alcohol intoxication as cause of altered mental status. Your notable for 3+ leukocytes, 1+ protein. X-ray chest notable for no evidence of pneumonia. CT head notable for no evidence of ICH. My interpretation is in agreement with the radiologist's interpretation. Will given diazepam for possible catatonia. Case discussed with RANJANA Calvillo Differential Diagnosis Differential Diagnoses: The differential diagnosis associated with the presentation includes as per [facility] Admission/Observation Consideration of admission/observation: Escalation of care including admission/observation considered Consult Healthcare Provider Management of the patient was discussed with: Hospitalist Lab Data [facility] Lab Attestation statement: I reviewed the patient's lab results. as per [facility] 01/03/25 09:33 01/03/25 09:36 Labs: Lab Results 01/03/25 01/03/25 01/03/25 Range/Units 09:30 09:33 09:36 WBC 7.2 (4.8-10.8) X10*3/uL RBC 4.02 L (4.60-5.80) X10*6/uL Hgb 11.6 L (14.0-18.0) g/dl Hct 35.6 L (42.0-52.0) % MCV 88.6 (80.0-98.0) fL MCH 28.9 (27.0-33.0) pg MCHC 32.6 (31.0-36.0) g/dl RDW 15.6 (11.0-16.0) % Plt Count 162 (160-400) X10*3/uL MPV 9.7 (9.4-12.4) fL Immature Gran % (Auto) 0.3 (0.0-0.4) % Neut % (Auto) 62.2 (45-73) % Lymph % (Auto) 27.1 (20-40) % [place] % (Auto) 7.7 (2-11) % Eos % (Auto) 0.0 (0-4) % Baso % (Auto) 2.7 H (0-2) % Lymph # (Auto) 1.9 (1.2-4.9) X10*3/uL [place] # (Auto) 0.6 (0.1-1.2) X10*3/uL Eos # (Auto) 0.0 (0.0-0.4) X10*3/uL Baso # (Auto) 0.2 (0.0-0.2) X10*3/uL Abs Immat Gran (auto) 0.02 (0.00-0.03) X10*3/uL Absolute Neuts (auto) 4.5 (2.0-8.3) x10*3/uL Absolute Nucleated RBC 0.000 (0.0-0.012) X10*3/uL Nucleated RBC % (auto) 0.0 (0.0-0.2) /100WBC PT 11.6 (10.9-12.4) SEC INR 1.0 (0.9-1.1) VBG pH (7.32-7.43) VBG pCO2 mmHg VBG pO2 mmHg VBG HCO3 (22-26) mmol/L VBG O2 Saturation % VBG Base Excess mmol/L Sodium 142 (135-145) mmol/L Potassium 4.0 (3.3-5.1) mmol/L Chloride 110 H (96-108) mmol/L Carbon Dioxide 22 (22-29) mmol/L Anion Gap 14 (12-20) BUN 28 H (9-16) mg/dL Creatinine 0.82 (0.5-1.4) mg/dL Estim Creat Clear Calc 88.0 Estimated GFR > 60 POC Glucose 56 L* (60-115) mg/dL Random Glucose 68 (60-115) mg/dL Lactic Acid 1.2 (0.5-2.0) mmol/L Calcium 9.0 D (8.4-10.2) mg/dL Magnesium 2.0 (1.6-2.6) mg/dL Total Bilirubin 0.4 (0.0-1.0) mg/dL AST 23 (5-37) U/L ALT 22 (0-40) U/L Alkaline Phosphatase 103 (39-117) U/L Ammonia 30 (13-55) umol/L Troponin I High Sens < 2.7 (<3.5-35.0) ng/L Total Protein 7.2 (6.5-8.0) g/dL Albumin 4.0 (3.5-5.0) g/dL Urine Color Urine Appearance Urine pH (5.0-9.0) Ur Specific [place] (1.005-1.025) Urine Protein (Neg-Trace) mg/dL Urine Glucose (UA) (Negative) mg/dL Urine Ketones (Negative) mg/dL Urine Blood (Negative) Urine Nitrite (Negative) Ur Leukocyte Esterase (Negative) Urine RBC (0-2) /HPF Urine WBC (0-5) /HPF Ur Squamous Epith Cells (0-2) /HPF Other Crystals Urine Bacteria (None Seen) Hyaline Casts (0-2) /LPF Urine Opiates Screen (Not Detect) Ur Buprenorphine Scrn (Not Detect) ng/mL Ur Oxycodone Screen (Not Detect) ng/mL Urine Methadone Screen (Not Detect) ng/mL Urine Fentanyl Screen (Not Detect) Ur Barbiturates Screen (Not Detect) Ur Phencyclidine Scrn (Not Detect) Ur Amphetamines Screen (Not Detect) U Benzodiazepines Scrn (Not Detect) Urine Cocaine Screen (Not Detect) U Marijuana (THC) Screen (Not Detect) Ethyl Alcohol 15 mg/dL Influenza Type A (PCR) NEGATIVE (Negative) Influenza Type B (PCR) NEGATIVE (Negative) RSV RNA Qual (PCR) NEGATIVE (Negative) SARS-CoV-2 RNA (RT-PCR) NEGATIVE (Negative) 01/03/25 01/03/25 01/03/25 Range/Units 09:37 09:41 10:01 WBC (4.8-10.8) X10*3/uL RBC (4.60-5.80) X10*6/uL Hgb (14.0-18.0) g/dl Hct (42.0-52.0) % MCV (80.0-98.0) fL MCH (27.0-33.0) pg MCHC (31.0-36.0) g/dl RDW (11.0-16.0) % Plt Count (160-400) X10*3/uL MPV (9.4-12.4) fL Immature Gran % (Auto) (0.0-0.4) % Neut % (Auto) (45-73) % Lymph % (Auto) (20-40) % [place] % (Auto) (2-11) % Eos % (Auto) (0-4) % Baso % (Auto) (0-2) % Lymph # (Auto) (1.2-4.9) X10*3/uL [place] # (Auto) (0.1-1.2) X10*3/uL Eos # (Auto) (0.0-0.4) X10*3/uL Baso # (Auto) (0.0-0.2) X10*3/uL Abs Immat Gran (auto) (0.00-0.03) X10*3/uL Absolute Neuts (auto) (2.0-8.3) x10*3/uL Absolute Nucleated RBC (0.0-0.012) X10*3/uL Nucleated RBC % (auto) (0.0-0.2) /100WBC PT (10.9-12.4) SEC INR (0.9-1.1) VBG pH 7.40 (7.32-7.43) VBG pCO2 39 mmHg VBG pO2 41 mmHg VBG HCO3 25 (22-26) mmol/L VBG O2 Saturation 62.0 % VBG Base Excess 0.4 mmol/L Sodium (135-145) mmol/L Potassium (3.3-5.1) mmol/L Chloride (96-108) mmol/L Carbon Dioxide (22-29) mmol/L Anion Gap (12-20) BUN (9-16) mg/dL Creatinine (0.5-1.4) mg/dL Estim Creat Clear Calc Estimated GFR POC Glucose 164 H (60-115) mg/dL Random Glucose (60-115) mg/dL Lactic Acid (0.5-2.0) mmol/L Calcium (8.4-10.2) mg/dL Magnesium (1.6-2.6) mg/dL Total Bilirubin (0.0-1.0) mg/dL AST (5-37) U/L ALT (0-40) U/L Alkaline Phosphatase (39-117) U/L Ammonia (13-55) umol/L Troponin I High Sens (<3.5-35.0) ng/L Total Protein (6.5-8.0) g/dL Albumin (3.5-5.0) g/dL Urine Color Yellow Urine Appearance Cloudy Urine pH 8.5 (5.0-9.0) Ur Specific [place] 1.015 (1.005-1.025) Urine Protein 30 (1+) H (Neg-Trace) mg/dL Urine Glucose (UA) Negative (Negative) mg/dL Urine Ketones 15 (Negative) mg/dL Urine Blood Negative (Negative) Urine Nitrite Negative (Negative) Ur Leukocyte Esterase Large (3+) H (Negative) Urine RBC 0-2 (0-2) /HPF Urine WBC 21-50 (0-5) /HPF Ur Squamous Epith Cells 0-2 (0-2) /HPF Other Crystals Present Urine Bacteria 2+ (None Seen) Hyaline Casts 0-2 (0-2) /LPF Urine Opiates Screen Not Detected (Not Detect) Ur Buprenorphine Scrn Not Detected (Not Detect) ng/mL Ur Oxycodone Screen Not Detected (Not Detect) ng/mL Urine Methadone Screen Not Detected (Not Detect) ng/mL Urine Fentanyl Screen Not Detected (Not Detect) Ur Barbiturates Screen Not Detected (Not Detect) Ur Phencyclidine Scrn Not Detected (Not Detect) Ur Amphetamines Screen Not Detected (Not Detect) U Benzodiazepines Scrn Not Detected (Not Detect) Urine Cocaine Screen Not Detected (Not Detect) U Marijuana (THC) Screen Not Detected (Not Detect) Ethyl Alcohol mg/dL Influenza Type A (PCR) (Negative) Influenza Type B (PCR) (Negative) RSV RNA Qual (PCR) (Negative) SARS-CoV-2 RNA (RT-PCR) (Negative) 01/03/25 Range/Units 11:32 WBC (4.8-10.8) X10*3/uL RBC (4.60-5.80) X10*6/uL Hgb (14.0-18.0) g/dl Hct (42.0-52.0) % MCV (80.0-98.0) fL MCH (27.0-33.0) pg MCHC (31.0-36.0) g/dl RDW (11.0-16.0) % Plt Count (160-400) X10*3/uL MPV (9.4-12.4) fL Immature Gran % (Auto) (0.0-0.4) % Neut % (Auto) (45-73) % Lymph % (Auto) (20-40) % [place] % (Auto) (2-11) % Eos % (Auto) (0-4) % Baso % (Auto) (0-2) % Lymph # (Auto) (1.2-4.9) X10*3/uL [place] # (Auto) (0.1-1.2) X10*3/uL Eos # (Auto) (0.0-0.4) X10*3/uL Baso # (Auto) (0.0-0.2) X10*3/uL Abs Immat Gran (auto) (0.00-0.03) X10*3/uL Absolute Neuts (auto) (2.0-8.3) x10*3/uL Absolute Nucleated RBC (0.0-0.012) X10*3/uL Nucleated RBC % (auto) (0.0-0.2) /100WBC PT (10.9-12.4) SEC INR (0.9-1.1) VBG pH (7.32-7.43) VBG pCO2 mmHg VBG pO2 mmHg VBG HCO3 (22-26) mmol/L VBG O2 Saturation % VBG Base Excess mmol/L Sodium (135-145) mmol/L Potassium (3.3-5.1) mmol/L Chloride (96-108) mmol/L Carbon Dioxide (22-29) mmol/L Anion Gap (12-20) BUN (9-16) mg/dL Creatinine (0.5-1.4) mg/dL Estim Creat Clear Calc Estimated GFR POC Glucose 96 (60-115) mg/dL Random Glucose (60-115) mg/dL Lactic Acid (0.5-2.0) mmol/L Calcium (8.4-10.2) mg/dL Magnesium (1.6-2.6) mg/dL Total Bilirubin (0.0-1.0) mg/dL AST (5-37) U/L ALT (0-40) U/L Alkaline Phosphatase (39-117) U/L Ammonia (13-55) umol/L Troponin I High Sens (<3.5-35.0) ng/L Total Protein (6.5-8.0) g/dL Albumin (3.5-5.0) g/dL Urine Color Urine Appearance Urine pH (5.0-9.0) Ur Specific [place] (1.005-1.025) Urine Protein (Neg-Trace) mg/dL Urine Glucose (UA) (Negative) mg/dL Urine Ketones (Negative) mg/dL Urine Blood (Negative) Urine Nitrite (Negative) Ur Leukocyte Esterase (Negative) Urine RBC (0-2) /HPF Urine WBC (0-5) /HPF Ur Squamous Epith Cells (0-2) /HPF Other Crystals Urine Bacteria (None Seen) Hyaline Casts (0-2) /LPF Urine Opiates Screen (Not Detect) Ur Buprenorphine Scrn (Not Detect) ng/mL Ur Oxycodone Screen (Not Detect) ng/mL Urine Methadone Screen (Not Detect) ng/mL Urine Fentanyl Screen (Not Detect) Ur Barbiturates Screen (Not Detect) Ur Phencyclidine Scrn (Not Detect) Ur Amphetamines Screen (Not Detect) U Benzodiazepines Scrn (Not Detect) Urine Cocaine Screen (Not Detect) U Marijuana (THC) Screen (Not Detect) Ethyl Alcohol mg/dL Influenza Type A (PCR) (Negative) Influenza Type B (PCR) (Negative) RSV RNA Qual (PCR) (Negative) SARS-CoV-2 RNA (RT-PCR) (Negative) Independent Interpretation I performed an independent interpretation of an: Plain X-Ray and CT Scan Interpretation: Chest x-ray without evidence of pneumonia. CT head without evidence of ICH. Radiology Impression Discussion of test interpretation with radiology: I have reviewed the radiologist's reading. Radiologist Impression: CLINICAL HISTORY: AMS, diminished LS 2 view chest x-ray Comparison: 12/21/2023 Findings: No consolidation or effusion. No significant change in cardiomediastinal silhouette. No acute fracture. IMPRESSION: 1. No acute findings. CT head without contrast Comparison: 12/21/2023 Findings: No intra-axial mass, midline shift, hydrocephalus, or acute hemorrhage. Mild age-related cerebral hemispheric white matter ischemic changes. There is no sinus or mastoid fluid. The orbits are within normal limits. No skull fracture. Left more than right prominent, subcentimeter nonspecific parotid nodes measuring up to 9 mm in short axis may be reactive. IMPRESSION: 1. No acute intracranial findings. External Record Review External record reviewed: Inpatient record, Office record and Outpatient record Prescription Management I considered prescription management with: Antibiotic Discharge Plan Discharge Clinical Impression: Altered mental status Patient Disposition: Admitted As Inpatient Prescriptions: No Action atorvastatin 40 mg Tablet 40 mg PO BEDTIME tamsulosin 0.4 mg Capsule 0.4 mg PO BEDTIME mirtazapine 30 mg Tablet 30 mg PO BEDTIME metoprolol tartrate 50 mg Tablet 50 mg PO BID@0900,1800 lorazepam 1 mg Tablet 1 mg PO BID@0900,1800 multivitamin with minerals Tablet 1 tab PO DAILY loratadine 10 mg Tablet 10 mg PO DAILY Aristada 882 mg/3.2 mL Suspension,Extended Rel Syring 882 mg IM Q28D clozapine 50 mg tablet 50 mg PO BID Rx Instructions: TOTAL DOSE = 150 MG BID acetaminophen 650 mg Suppository 650 mg WY Q6H PRN (Reason: Fever Or Pain) Rx Instructions: DNE 3 G / 24 HRS guaifenesin 200 mg Tablet 200 mg PO Q6H PRN (Reason: Cough) levothyroxine 88 mcg Tablet 88 mcg PO DAILY@0600 magnesium hydroxide [Milk of Magnesia] 400 mg/5 mL Suspension 30 ml PO DAILY PRN (Reason: Constipation) amlodipine 10 mg Tablet 10 mg PO DAILY bisacodyl 10 mg Suppository 10 mg WY DAILY PRN (Reason: Constipation) Fleet Enema 19-7 gram/118 mL Enema 118 ml WY DAILY PRN (Reason: Constipation) alum-mag hydroxide-simeth [Mag-Al Plus] 200-200-20 mg/5 mL Suspension 30 ml PO Q6H PRN (Reason: GI upset) Rx Instructions: administer between meals and at bedtime pantoprazole [address] For Susp In Packet 40 mg PO DAILY@0630 Rx Instructions: SPRINKLE OVER 1 TBSP APPLE SAUCE naloxone 4 mg/actuation [place],Non-Aerosol 4 mg INTRANASAL Q3M PRN (Reason: Opioid Overdose) Rx Instructions: spray 1 dose into ONE nostril; alternate nostrils w each dose until help arrives Gvoke PFS 2-Pack Syringe 1 mg/0.2 mL Syringe 1 mg SUBCUT Q20M PRN (Reason: Hypoglycemia) Rx Instructions: until target blood sugar attained acetaminophen 325 mg Tablet 650 mg PO Q6H PRN (Reason: FEVER/PAIN) cefuroxime axetil 250 mg Tablet 250 mg PO Q12H Qty: 4 0RF Referrals: LOYDA RODRIGUES [Primary Care Provider] - Print Language: Arabic
--- NOTE | 2025-01-03 09:21 | ECG_ITS ---
Test Reason : ams Blood Pressure : */* mmHG Vent. Rate : 97 BPM Atrial Rate : 97 BPM P-R Int : 192 ms QRS Dur : 96 ms QT Int : 366 ms P-R-T Axes : 76 45 69 degrees QTcB Int : 464 ms Sinus rhythm with Premature atrial complexes with Aberrant conduction Otherwise normal ECG When compared with ECG of 21-Dec-2023 12:38, Premature ventricular complexes are no longer Present Aberrant conduction is now Present Referred By: Amelia Chandra Electronically Signed By: Benedicto Lorenzo
[2025-01-03] MEDS: Dextrose 50 % 25 GM/50 ML SYRINGE IVPUSH ×2 (09:34→16:55)
--- NOTE | 2025-01-03 09:37 | PC.NURSE ---
late entry: [facility] as [facility] alert. per EMS, RN was doing morning rounds when he was noted to have an increase in AMS/more lethargic than usual. per EMS, staff at facility reports that patient is usually alert and oriented x 4 but according to patient's chart, he has a hx of mild cognitive impairment as well as dementia. baseline mentation unknown at this time. staff at facility found patient responsive to painful stimuli only which is unusual for him. upon ED arrival - pt seemingly obtunded but in no apparent distress. resting with eyes closed. responsive to painful stimuli when sternal rub is performed. unable to answer questions/follow commands appropriately. pt changed into hospital attire - pt found to be in two soaked briefs with strong smelling urine. no skin abnormalities noted throughout. vss and up to date. nsr on the nuclear monitoring technician. on RA w/o difficulty. 18gIV in the left hand via EMS - patent/intact. additional 18gIV placed in the right AC - labs obtained/sent to lab. ekg performed by tech. 14fr straight catheterization performed - 250ml of clear, dark yellow, foul smelling urine noted immediately post output. POC obtained displaying 54mg/dL. amp of D50 administered per provider order. repeat blood glucose improvement noted. XR/CT scans completed. plan of care ongoing.
[2025-01-03 09:41] LABS: MANUAL DIFF FLAG NO
[2025-01-03 09:45] LABS: VBG Base Excess 0.4 mmol/L; VBG HCO3 25 mmol/L (22-26); VBG pCO2 39 mmHg; VBG pO2 41 mmHg
[2025-01-03 09:47] LABS: Venous Blood Gas Refer to POC result
[2025-01-03 09:53] LABS: Ammonia 30 umol/L (13-55)
[2025-01-03 09:55] LABS: Appearance Urine Cloudy; Color Urine Yellow; Glucose Urine UA Negative (Negative); Leukocyte Esterase Urine Large (3+) (Negative); Nitrite Urine Negative (Negative); PH 8.5 (5.0-9.0); Specific Gravity - Urine 1.015 (1.005-1.025); UMIC TRIGGER UACC YES; Urine Blood Negative (Negative); Urine Ketones 15 mg/dL (Negative); Urine Protein 30 (1+) mg/dL (Neg-Trace)
[2025-01-03 09:57] LABS: Alanine Aminotransferase 22 U/L (0-40); Alkaline Phosphatase 103 U/L (39-117); Anion Gap 14 (12-20); Aspartate Amino Transferase 23 U/L (5-37); Bilirubin Total 0.4 mg/dL (0.0-1.0); Blood Urea Nitrogen 28 mg/dL (9-16); Carbon Dioxide 22 mmol/L (22-29); Chloride 110 mmol/L (96-108); Estimated Glomerular Filt Rate > 60; Ethanol 15 mg/dL; Glucose Random 68 mg/dL (60-115); Sodium 142 mmol/L (135-145); Total Protein 7.2 g/dL (6.5-8.0)
[2025-01-03 09:58] LABS: Basophils Absolute Auto 0.2 X10*3/uL (0.0-0.2); Basophils Percent Auto 2.7 % (0-2); Hematocrit 35.6 % (42.0-52.0); Hemoglobin 11.6 g/dl (14.0-18.0); Imm Gran Abs Auto 0.02 X10*3/uL (0.00-0.03); Imm Gran Pct Auto 0.3 % (0.0-0.4); Lymphocytes Absolute Auto 1.9 X10*3/uL (1.2-4.9); Lymphocytes Percent Auto 27.1 % (20-40); Mean Corpuscular HGB Conc 32.6 g/dl (31.0-36.0); Mean Corpuscular Hemoglobin 28.9 pg (27.0-33.0); Mean Corpuscular Volume 88.6 fL (80.0-98.0); Mean Platelet Volume 9.7 fL (9.4-12.4); Monocytes Absolute Auto 0.6 X10*3/uL (0.1-1.2); Monocytes Percent Auto 7.7 % (2-11); Neutrophils Absolute Auto 4.5 x10*3/uL (2.0-8.3); Neutrophils Percent Auto 62.2 % (45-73); Platelet Count 162 X10*3/uL (160-400); Red Blood Count 4.02 X10*6/uL (4.60-5.80); Red Cell Distribution Width 15.6 % (11.0-16.0); White Blood Count 7.2 X10*3/uL (4.8-10.8)
[2025-01-03 10:00] LABS: Lactic Acid 1.2 mmol/L (0.5-2.0); Prothrombin Time 11.6 SEC (10.9-12.4)
[2025-01-03 10:00] LABS: Amphetamine Screen Urine Not Detected (Not Detect); Barbiturates, Urine Not Detected (Not Detect); Benzodiazepines Screen Urine Not Detected (Not Detect); Buprenorphine Scr Not Detected (Not Detect); Cannabinoid Screen Urine Not Detected (Not Detect); Cocaine Screen Urine Not Detected (Not Detect); Fentanyl, urine Not Detected (Not Detect); Methadone Screen, Urine Not Detected (Not Detect); Opiate Screen Urine Not Detected (Not Detect); Oxycodone Screen Urine Not Detected (Not Detect); Phencyclidine Screen Urine Not Detected (Not Detect)
[2025-01-03 10:05] LABS: Troponin-I High Sensitivity < 2.7 ng/L (<3.5-35.0)
[2025-01-03 10:06] LABS: Glucose, Whole Blood 56 mg/dL (60-115)
[2025-01-03 10:06] LABS: Glucose, Whole Blood 164 mg/dL (60-115)
--- OUTSIDE RECORDS SUMMARY | 2025-01-03 10:06 | XMS_ITS | Encounter Summary ---
Author Organization [employer] Address [address] [place] [address] Care Team Providers Care Agricultural Equipment Design Engineer Name Role Phone Nick Bañuelos MD Primary Care Provider [phone] Encounter Details Date Type Department Care Team (Latest Contact Info) Description 12/06/2024 Lab Requisition [facility] - Main Lab [address] [facility] [employer] [place] [address] Nick Bañuelos MD [address] [place] [address] Schizoaffective disorder, unspecified (CMS/HCC V24, CMS/[facility] V28) Social History Tobacco Use Types Packs/Day Years Used Date Smoking Tobacco: Never Assessed Sex and Gender Information Value Date Recorded Sex Assigned at Not on file Legal Sex Male 3:51 PM EST Gender Identity Not on file Sexual Orientation Not on file documented as of this encounter Plan of Treatment Not on file documented as of this encounter Visit Diagnoses Diagnosis Schizoaffective disorder, unspecified (CMS/HCC V24, CMS/[facility] V28) documented in this encounter Care Teams Agricultural Equipment Design Engineer Relationship Specialty Start Date End Date Nick Bañuelos MD [address] [place] [address] PCP - General Family Medicine 07/01/24 documented as of this encounter
--- OUTSIDE RECORDS SUMMARY | 2025-01-03 10:06 | XMS_ITS | Encounter Summary ---
Author Organization [facility] Address [address] [place] [address] Care Team Providers Care Abstract Clerk Name Role Phone Nick Bañuelos MD Primary Care Provider [phone] Encounter Details Date Type Department Care Team (Latest Contact Info) Description 07/18/2024 Lab Requisition [facility] - Main Lab [address] [place] [address] Nick Bañuelos MD [facility] [place] [address] Schizoaffective disorder, unspecified (CMS/[facility] V24, CMS/[facility] V28) Social History Tobacco Use Types Packs/Day Years Used Date Smoking Tobacco: Never Assessed Sex and Gender Information Value Date Recorded Sex Assigned at Not on file Legal Sex Male 3:51 PM EST Gender Identity Not on file Sexual Orientation Not on file documented as of this encounter Plan of Treatment Not on file documented as of this encounter Procedures Procedure Name Priority Date/Time Associated Diagnosis Comments WBC COUNT WITH ABSOLUTE NEUTROPHIL Routine 07/20/2024 6:34 AM EST Schizoaffective disorder, unspecified ([facility]) documented in this encounter Results * Wbc count with absolute neutrophil (07/20/2024 6:34 AM EST) WBC 7.6 4.8 - 10.8 K/mcL LAB HEMETOLOGY METHOD 07/20/2024 11:32 AM EST [facility] LAB Neutrophils Absolute 4.23 1.50 - 7.00 K/mcL LAB HEMETOLOGY METHOD 07/20/2024 11:32 AM EST [facility] Neutrophils Relative 56.0 % LAB HEMETOLOGY METHOD 07/20/2024 11:32 AM EST [facility] Blood Venous blood specimen / Unknown Venipuncture / Unknown 07/20/2024 6:34 AM EST 07/20/2024 10:26 AM EST Nick Bañuelos MD LAB BLOOD ORDERABLES Final R esult [facility] [address] [place] [address], documented in this encounter Visit Diagnoses Diagnosis Schizoaffective disorder, unspecified (CMS/HCC V24, CMS/HCC V28) documented in this encounter Additional Health Concerns Infection Onset Date Last Indicated Resolved Time Respiratory Rule-Out 08/18/2024 08/18/2024 025 12:47 PM EST Influenza 08/18/2024 08/18/2024 09/11/2024 7:0 7 PM EST documented as of this encounter Care Teams Abstract Clerk Relationship Specialty Start Date End Date Nick Bañuelos MD [address] [place] [address] PCP - General Family Medicine 07/01/24 documented as of this encounter
--- OUTSIDE RECORDS SUMMARY | 2025-01-03 10:06 | XMS_ITS | Encounter Summary ---
Author Organization [employer] Address [address] [place] [address] Care Team Providers Care Elastic Cutter Name Role Phone Nick Bañuelos MD Primary Care Provider Encounter Details Date Type Department Care Team (Latest Contact Info) Description 09/12/[address] [facility] - Main Lab 299 [facility] [place] [address] Nick Bañuelos MD [address] [place] [address] Schizoaffective disorder, unspecified (CMS/HCC V24, CMS/[facility] V28) Social History Tobacco Use Types Packs/Day [...] Diagnoses Diagnosis Schizoaffective disorder, unspecified (CMS/HCC V24, CMS/[facility] V28) documented in this encounter Care Teams Elastic Cutter Relationship Specialty Start Date End Date Nick Bañuelos MD [address] [place] [address] PCP - General Family Medicine 07/01/24 documented as of this encounter
--- OUTSIDE RECORDS SUMMARY | 2025-01-03 10:06 | XMS_ITS | Encounter Summary ---
Author Organization [facility] Address [address] [place] [address] Care Team Providers Care Sales Training Coordinator Name Role Phone Nick Bañuelos MD Primary Care Provider [phone] Encounter Details Date Type Department Care Team (Late st Contact Info) Description 09/23/2024 Lab Requisition [facility] - Main Lab [address] [facility] [place] [address] Nick Bañuelos MD [address] [place] [address] Other correction (current) drug therapy Social History Tobacco Use Types Packs/Day Years [...] Procedure Name Priority Date/Time Associated Diagnosis Comments MANUAL DIFFERENTIAL - SYSMEX WAM Routine 09/23/2024 8:55 AM EST Other correction (current) drug therapy CBC WITH AUTO DIFFERENTIAL Routine 09/23/2024 8:55 AM EST Other termite renewal inspector (current) drug therapy CBC AND DIFFERENTIAL Routine 09/23/2024 8:55 AM EST Other correction (current) drug therapy documented in this encounter Results * (ABNORMAL) Manual differential (09/23/2024 8:55 AM EST) Neutrophils % 58.0 % LAB HEMETOLOGY METHOD 09/23/2024 11:13 AM EST [facility] Lymphocytes % 30.0 % LAB HEMETOLOGY METHOD 09/23/2024 11:13 AM [facility] Monocytes % 9.0 % LAB HEMETOLOGY METHOD 09/23/2024 11:13 AM [facility] Eosinophils % 0.0 % LAB HEMETOLOGY METHOD 09/23/2024 11:13 AM [facility] Basophils % 3.0 % LAB HEMETOLOGY METHOD 09/23/2024 11:13 AM [facility] Neutrophils Absolute Manual 4.29 1.50 - 7.00 K/mcL LAB HEMETOLOGY METHOD 09/23/2024 11:13 AM [facility] Lymphocytes Absolute 2.22 1.00 - 5.00 K/mcL LAB HEMETOLOGY METHOD 09/23/2024 11:13 AM [facility] Monocytes Absolute Manual 0.67 0.20 - 1.00 K/mcL LAB HEMETOLOGY METHOD 09/23/2024 11:13 AM [facility] Eosinophils Absolute Manual 0.00 0.00 - 0.50 K/mcL LAB HEMETOLOGY METHOD 09/23/2024 11:13 AM [facility] Basophils Absolute Manual 0.22(H) 0.00 - 0.20 K/mcL LAB HEMETOLOGY METHOD 09/23/2024 11:13 AM [facility] Rbc Morphology Present( A) Consistent with indices, Normal for [place] LAB HEMETOLOGY METHOD 09/23/2024 11:13 AM [facility] Platelet Morphology - WAM See Note(A) Normal LAB HEMETOLOGY METHOD 09/23/2024 11:13 AM [facility] LAB Comment:PLT: Normal Blood Venous blood specimen / Unknown Venipuncture / Unknown 09/23/2024 8:55 AM EST 09/23/2024 9:39 AM EST us Nick Bañuelos MD LAB BLOOD ORDERABLES Final R esult [facility] [address] [place] [address], * (ABNORMAL) CBC auto differential (09/23/2024 8:55 AM EST) [facility] Signature WBC 7.4 4.8 - 10.8 K/mcL LAB HEMETOLOGY METHOD 09/23/2024 11:13 AM [facility] RBC 3.50(L) 4.50 - 5.50 M/mcL LAB HEMETOLOGY METHOD 09/23/2024 11:13 AM [facility] Hemoglobin 9.7(L) 13.5 - 17.5 g/dL LAB HEMETOLOGY METHOD 09/23/2024 11:13 AM [facility] Hematocrit 29.6(L) 42.0 - 54.0 % LAB HEMETOLOGY METHOD 09/23/2024 11:13 AM [facility] MCV 84.8 79.0 - 98.0 FL LAB HEMETOLOGY METHOD 09/23/2024 11:13 AM [facility] MCH 27.8 27.0 - 32.0 pcg LAB HEMETOLOGY METHOD 09/23/2024 11:13 AM [facility] LAB MCHC 32.8 32.0 - 37.0 g/dL LAB HEMETOLOGY METHOD 09/23/2024 11:13 AM [facility] RDW 15.0 11.0 - 15.0 % LAB HEMETOLOGY METHOD 09/23/2024 11:13 AM [facility] Platelets 170 130 - 400 K/mcL LAB HEMETOLOGY METHOD 09/23/2024 11:13 AM [facility] MPV 10.1 7.0 - 11.0 FL LAB HEMETOLOGY METHOD 09/23/2024 11:13 AM [facility] NRBC 0.0 <1.0 % LAB HEMETOLOGY METHOD 09/23/2024 11:13 AM EST [facility] NRBC Absolute 0.00 <0.10 K/mcL LAB HEMETOLOGY METHOD 09/23/2024 11:13 AM EST [facility] Blood Venous blood specimen / Unknown Venipuncture / Unknown 09/23/2024 8:55 AM EST 09/23/2024 9:39 AM EST us Nick Bañuelos MD LAB BLOOD ORDERABLES Final R esult [facility] [address] [place] [address], documented in this encounter Visit Diagnoses Diagnosis Other termite renewal inspector (current) drug therapy documented in this encounter Care Teams Sales Training Coordinator Relationship Specialty Start Date End Date Nick Bañuelos MD [address] [place] [address] PCP - General Family Medicine 07/01/24 documented as of this encounter
--- OUTSIDE RECORDS SUMMARY | 2025-01-03 10:06 | XMS_ITS | Encounter Summary ---
Author Organization [employer] Address [address] [place] [address] Care Team Providers Care Miscellaneous Machine Operator Name Role Phone Nick Bañuelos MD Primary Care Provider [phone] Encounter Details Date Type Department Care Team (Late st Contact Info) Description 07/01/2024 Lab Requisition [facility] - Main Lab [address] [facility] [place] [address] Nick Bañuelos MD [address] [place] [address] Schizophrenia, unspecified (CMS/HCC V24, CMS/HCC V28); Hypothyroidism, unspecified; Anemia, unspecified Social History Tobacco Use Types Packs/Day Years [...] Comments WBC COUNT WITH ABSOLUTE NEUTROPHIL Routine 07/01/2024 7:45 AM EST Schizophrenia, unspecified (CMS/HCC) Hypothyroidism, unspecified Anemia, unspecified THYROID STIMULATING HORMONE WITH REFLEX TO FREE T4 AND FREE T3 Routine 07/01/2024 7:45 AM EST Schizophrenia, unspecified (CMS/HCC) Hypothyroidism, unspecified Anemia, unspecified FREE THYROXINE WITH REFLEX TO FREE TRIIODOTHYRONINE Routine 07/01/2024 7:45 AM EST Schizophrenia, unspecified (CMS/HCC) Hypothyroidism, unspecified Anemia, unspecified IRON AND TIBC Routine 07/01/2024 7:45 AM EST Schizophrenia, unspecified (CMS/HCC) Hypothyroidism, unspecified Anemia, unspecified COMPLETE BLOOD COUNT Routine 07/01/2024 7:45 AM EST Schizophrenia, unspecified (CMS/HCC) Hypothyroidism, unspecified Anemia, unspecified TRIIODOTHYRONINE FREE Routine 07/01/2024 7:45 AM EST Schizophrenia, unspecified (CMS/HCC) Hypothyroidism, unspecified Anemia, unspecified FERRITIN Routine 07/01/2024 7:45 AM EST Schizophrenia, unspecified (CMS/HCC) Hypothyroidism, unspecified Anemia, unspecified BASIC METABOLIC PANEL Routine 07/01/2024 7:45 AM EST Schizophrenia, unspecified (CMS/HCC) Hypothyroidism, unspecified Anemia, unspecified documented in this encounter Results * (ABNORMAL) Basic metabolic panel (07/01/2024 7:45 AM EST) Sodium 140 133 - 145 mmol/L LAB CHEMISTRY METHOD 07/01/2024 6:54 PM [facility] Potassium 4.1 3.5 - 5.5 mmol/L LAB CHEMISTRY METHOD 07/01/2024 6:54 PM [facility] Chloride 110 96 - 110 mmol/L LAB CHEMISTRY METHOD 07/01/2024 6:54 PM [facility] CO2 19(L) 21 - 32 mmol/L LAB CHEMISTRY METHOD 07/01/2024 6:54 PM [facility] Anion Gap 11 3 - 11 LAB CHEMISTRY METHOD 07/01/2024 6:54 PM [facility] Glucose 94 70 - 100 mg/dL LAB CHEMISTRY METHOD 07/01/2024 6:54 PM [facility] BUN 27(H) 5 - 25 mg/dL LAB CHEMISTRY METHOD 07/01/2024 6:54 PM [facility] Creatinine 0.92 0.70 - 1.30 mg/dL LAB CHEMISTRY METHOD 07/01/2024 6:54 PM [facility] eGFR 88 >=60 mL/min/1. 73m2 LAB CHEMISTRY METHOD 07/01/2024 6:54 PM EST [facility] LAB Comment:Calculation based on the??Chronic Kidney Disease Epidemiology Collaboration (CKD-EPI) equation refit??without adjustment for race. BUN/Creatinine Ratio 29.3 LAB CHEMISTRY METHOD 07/01/2024 6:54 PM [facility] Calcium 9.6 8.5 - 10.5 mg/dL LAB CHEMISTRY METHOD 07/01/2024 6:54 PM [facility] Blood Venous blood specimen / Unknown Venipuncture / Unknown 07/01/2024 7:45 AM EST 07/01/2024 9:04 AM EST Nick Bañuelos MD LAB BLOOD ORDERABLES Final R esult Performing Organization Address [facility]/ZIP Co de Phone Number [facility] LAB [address] [place] [address], [place] [phone] * Triiodothyronine free (07/01/2024 7:45 AM EST) T3, Free 277 230 - 420 pcg/dL LAB CHEMISTRY METHOD 07/01/2024 1:15 PM [facility] Blood Venous blood specimen / Unknown Venipuncture / Unknown 07/01/2024 7:45 AM EST 07/01/2024 9:04 AM EST Nick Bañuelos MD LAB BLOOD ORDERABLES Final R esult [facility] [address] [place] [address], [place] [phone] * Free thyroxine with reflex to free triiodothyronine (07/01/2024 7:45 AM EST) Free T4 1.41 0.70 - 1.80 ng/dL LAB CHEMISTRY METHOD 07/01/2024 12:49 PM EST [facility] Blood Venous blood specimen / Unknown Venipuncture / Unknown 07/01/2024 7:45 AM EST 07/01/2024 9:04 AM EST us Nick Bañuelos MD LAB BLOOD ORDERABLES Final R esult [facility] [address] [place] [address], [place] [phone] * (ABNORMAL) Iron and TIBC (07/01/2024 7:45 AM EST) Iron 58 50 - 160 mcg/dL LAB CHEMISTRY METHOD 07/01/2024 1:34 PM EST [facility] TIBC 386 250 - 450 mcg/dL LAB CHEMISTRY METHOD 07/01/2024 1:34 PM EST [facility] Iron Saturation 15(L) 20 - 50 % LAB CHEMISTRY METHOD 07/01/2024 1:34 PM EST [facility] Blood Venous blood specimen / Unknown Venipuncture / Unknown 07/01/2024 7:45 AM EST 07/01/2024 9:04 AM EST Nick Bañuelos MD LAB BLOOD ORDERABLES Final R esult [facility] [address] [place] [address], [place] [phone] * Ferritin (07/01/2024 7:45 AM EST) Ferritin 61 26 - 388 ng/mL LAB CHEMISTRY METHOD 07/01/2024 1:34 PM EST [facility] Blood Venous blood specimen / Unknown Venipuncture / Unknown 07/01/2024 7:45 AM EST 07/01/2024 9:04 AM EST us Nick Bañuelos MD LAB BLOOD ORDERABLES Final R esult Performing Organization Address City/[facility]/ZIP Co de Phone Number [facility] [address] [place] [address], * Wbc count with absolute neutrophil (07/01/2024 7:45 AM EST) WBC 6.6 4.8 - 10.8 K/mcL LAB HEMETOLOGY METHOD 07/01/2024 10:41 AM EST [facility] Neutrophils Absolute 3.07 1.50 - 7.00 K/[facility] LAB HEMETOLOGY METHOD 07/01/2024 10:41 AM EST [facility] Neutrophils Relative 46.6 % LAB HEMETOLOGY METHOD 07/01/2024 10:41 AM EST [facility] Blood Venous blood specimen / Unknown Venipuncture / Unknown 07/01/2024 7:45 AM EST 07/01/2024 9:04 AM EST Nick Bañuelos MD LAB BLOOD ORDERABLES Final R esult Performing Organization Address [facility] Co de Phone Number [facility] [address] [place] [address], [place] [phone] * (ABNORMAL) Thyroid stimulating hormone with reflex to free t4 and free t3 (07/01/2024 7:45 AM EST) TSH 5.40(H) 0.40 - 4.00 mcIU/mL LAB CHEMISTRY METHOD 07/01/2024 11:37 AM EST [facility] Blood Venous blood specimen / Unknown Venipuncture / Unknown 07/01/2024 7:45 AM EST 07/01/2024 9:04 AM EST Nick Bañuelos MD LAB BLOOD ORDERABLES Final R esult Performing Organization Address City/[facility]/ZIP Co de Phone Number [facility] [address] [place] [address], [place] [phone] * (ABNORMAL) Complete blood count (07/01/2024 7:45 AM EST) [facility] WBC 6.6 4.8 - 10.8 K/mcL LAB HEMETOLOGY METHOD 07/01/2024 10:41 AM [facility] RBC 3.70(L) 4.50 - 5.50 M/mcL LAB HEMETOLOGY METHOD 07/01/2024 10:41 AM [facility] Hemoglobin 10.4(L) 13.5 - 17.5 g/dL LAB HEMETOLOGY METHOD 07/01/2024 10:41 AM [facility] Hematocrit 32.4(L) 42.0 - 54.0 % LAB HEMETOLOGY METHOD 07/01/2024 10:41 AM [facility] MCV 88.0 79.0 - 98.0 FL LAB HEMETOLOGY METHOD 07/01/2024 10:41 AM [facility] MCH 28.3 27.0 - 32.0 pcg LAB HEMETOLOGY METHOD 07/01/2024 10:41 AM [facility] MCHC 32.1 32.0 - 37.0 g/dL LAB HEMETOLOGY METHOD 07/01/2024 10:41 AM [facility] RDW 15.5(H) 11.0 - 15.0 % LAB HEMETOLOGY METHOD 07/01/2024 10:41 AM [facility] Platelets 134 130 - 400 K/mcL LAB HEMETOLOGY METHOD 07/01/2024 10:41 AM [facility] MPV 10.4 7.0 - 11.0 FL LAB HEMETOLOGY METHOD 07/01/2024 10:41 AM [facility] NRBC 0.0 <1.0 % LAB HEMETOLOGY METHOD 07/01/2024 10:41 AM [facility] NRBC Absolute 0.00 <0.10 K/mcL LAB HEMETOLOGY METHOD 07/01/2024 10:41 AM EST [facility] Blood Venous blood specimen / Unknown Venipuncture / Unknown 07/01/2024 7:45 AM EST 07/01/2024 9:04 AM EST us Nick Bañuelos MD LAB BLOOD ORDERABLES Final R esult [facility] [address] [place] [address], documented in this encounter Visit Diagnoses Diagnosis Schizophrenia, unspecified (CMS/HCC V24, CMS/HCC V28) Hypothyroidism, unspecified Anemia, unspecified documented in this encounter Additional Health Concerns Infection Onset Date Last Indicated Resolved Time Respiratory Rule-Out 08/18/2024 08/18/2024 025 12:47 PM EST Influenza 08/18/2024 08/18/2024 09/11/2024 7:07 PM EST documented as of this encounter Care Teams Miscellaneous Machine Operator Relationship Specialty Start Date End Date Nick Bañuelos MD [address] [place] [address] PCP - General Family Medicine 07/01/24 documented as of this encounter
--- OUTSIDE RECORDS SUMMARY | 2025-01-03 10:06 | XMS_ITS | Encounter Summary ---
Author Organization [employer] Address [address] [place] [address] Care Team Providers Care Physician/Internist Name Role Phone Nick Bañuelos MD Primary Care Provider [phone] Encounter Details Date Type Department Care Team (Late st Contact Info) Description 10/28/[address] [facility] [address] [facility] [place] [address] Nick Bañuelos MD [facility] [place] [address] Hypokalemia Social History Tobacco Use Types Packs/Day Years [...] Procedure Name Priority Date/Time Associated Diagnosis Comments BASIC METABOLIC PANEL Routine 10/29/2024 5:39 AM EDT Hypokalemia documented in this encounter Results * (ABNORMAL) Basic metabolic panel (10/29/2024 5:39 AM EDT) Sodium 137 133 - 145 mmol/L LAB CHEMISTRY METHOD 10/29/2024 10:11 AM EDT [facility] Potassium 3.8 3.5 - 5.5 mmol/L LAB CHEMISTRY METHOD 10/29/2024 10:11 AM EDT [facility] Chloride 104 96 - 110 mmol/L LAB CHEMISTRY METHOD 10/29/2024 10:11 AM EDT [facility] CO2 25 21 - 32 mmol/L LAB CHEMISTRY METHOD 10/29/2024 10:11 AM T [facility] Anion Gap 8 3 - 11 LAB CHEMISTRY METHOD 10/29/2024 10:11 AM [facility] Glucose 115(H) 70 - 100 mg/dL LAB CHEMISTRY METHOD 10/29/2024 10:11 AM [facility] BUN 51(H) 5 - 25 mg/dL LAB CHEMISTRY METHOD 10/29/2024 10:11 AM [facility] Creatinine 1.06 0.70 - 1.30 mg/dL LAB CHEMISTRY METHOD 10/29/2024 10:11 AM [facility] LAB eGFR 74 >=60 mL/min/1. 73m2 LAB CHEMISTRY METHOD 10/29/2024 10:11 AM [facility] LAB Comment:Calculation based on the??Chronic Kidney Disease Epidemiology Collaboration (CKD-EPI) equation refit??without adjustment for race. BUN/Creatinine Ratio 48.1 LAB CHEMISTRY METHOD 10/29/2024 10:11 AM [facility] Calcium 9.2 8.5 - 10.5 mg/dL LAB CHEMISTRY METHOD 10/29/2024 10:11 AM [facility] Blood Venous blood specimen / Unknown Venipuncture / Unknown 10/29/2024 5:39 AM EDT 10/29/2024 9:30 AM EDT Nick Bañuelos MD LAB BLOOD ORDERABLES Final R esult [facility] [address] [place] [address], documented in this encounter Visit Diagnoses Diagnosis Hypokalemia Hypopotassemia documented in this encounter Care Teams Physician/Internist Relationship Specialty Start Date End Date Nick Bañuelos MD [address] [place] [address] PCP - General Family Medicine 07/01/24 documented as of this encounter
--- OUTSIDE RECORDS SUMMARY | 2025-01-03 10:06 | XMS_ITS | Encounter Summary ---
Author Organization [employer] Address [address] [place] [address] Care Team Providers Care Size Mixer Name Role Phone Nick Bañuelos MD Primary Care Provider [phone] Encounter Details Date Type Department Care Team (Latest Contact Info) Description 10/24/2024 Lab Requisition [facility] - Main Lab [address] [place] [address] Nick Bañuelos MD [facility] [address] Schizophrenia, unspecified (CMS/[facility] V24, CMS/[facility] V28); Encounter for other preprocedural examination Social History Tobacco Use Types Packs/Day Years [...] Comments WBC COUNT WITH ABSOLUTE NEUTROPHIL Routine 10/24/2024 7:05 AM EST Schizophrenia, unspecified (CMS/HCC) Encounter for other preprocedural examination CREATININE, SERUM Routine 10/24/2024 7:0 5 AM EST Schizophrenia, unspecified (CMS/HCC) Encounter for other preprocedural examination documented in this encounter Results * Creatinine (10/24/2024 7:05 AM EST) Creatinine 0.87 0.70 - 1.30 mg/dL LAB CHEMISTRY METHOD 10/24/2024 11:34 AM EST [facility] eGFR 91 >=60 mL/min/1. 73m2 LAB CHEMISTRY METHOD 10/24/2024 11:34 AM EST [facility] Comment:Calculation based on the??Chronic Kidney Disease Epidemiology Collaboration (CKD-EPI) equation refit??without adjustment for race. Blood Venous blood specimen / Unknown Venipuncture / Unknown 10/24/2024 7:05 AM EST 10/24/2024 10:50 AM EST Nick Bañuelos MD LAB BLOOD ORDERABLES Final R esult Performing Organization Address City/[facility]/ZIP Co de Phone Number [facility] [address] [place] [address], [place] [phone] * Wbc count with absolute neutrophil (10/24/2024 7:05 AM EST) WBC 6.2 4.8 - 10.8 K/mcL LAB HEMETOLOGY METHOD 10/24/2024 11:27 AM EST [facility] Neutrophils Absolute 3.03 1.50 - 7.00 K/[facility] LAB HEMETOLOGY METHOD 10/24/2024 11:27 AM EST [facility] Neutrophils Relative 49.0 % LAB HEMETOLOGY METHOD 10/24/2024 11:27 AM EST [facility] Blood Venous blood specimen / Unknown Venipuncture / Unknown 10/24/2024 7:05 AM EST 10/24/2024 10:19 AM EST Nick Bañuelos MD LAB BLOOD ORDERABLES Final R esult Performing Organization Address City/[facility]/ZIP Co de Phone Number [facility] [address] [place] [address], [place] [phone] documented in this encounter Visit Diagnoses Diagnosis Schizophrenia, unspecified (CMS/HCC V24, CMS/[facility] V28) Encounter for other preprocedural examination documented in this encounter Care Teams Size Mixer Relationship Specialty Start Date End Date Nick Bañuelos MD [address] [place] [address] PCP - General Family Medicine 07/01/24 documented as of this encounter
--- OUTSIDE RECORDS SUMMARY | 2025-01-03 10:06 | XMS_ITS | Encounter Summary ---
Author Organization [facility] Address [address] [place] [address] Care Team Providers Care Puff Iron Operator Name Role Phone Nick Bañuelos MD Primary Care Provider [phone] Encounter Details Date Type Department Care Team (Late st Contact Info) Description 07/31/2024 Lab Requisition [facility] - Main Lab [address] [place] [address] Nick Bañuelos MD [address] [place] [address] Weakness; Altered mental status, unspecified Social History Tobacco Use Types Packs/Day [...] Procedure Name Priority Date/Time Associated Diagnosis Comments URINALYSIS WITH REFLEX MICROSCOPIC AND CULTURE Routine 07/30/2024 5:00 AM EST Weakness Altered mental status, unspecified URINALYSIS WITH REFLEX MICROSCOPIC AND CULTURE Routine 07/30/2024 5:00 AM EST Weakness Altered mental status, unspecified CULTURE URINE Routine 07/30/2024 5:00 AM EST Weakness Altered mental status, unspecified documented in this encounter Results * (ABNORMAL) Culture urine (07/30/2024 5:00 AM EST) Culture, Urine >100,000 CFU/mL Klebsiella pneumoniae ssp pneumoniae(A) GERRY 08/02/2024 10:47 AM EST [facility] ([facility]) [facility] Comment: This is an edited result. Previous organism was Gram negative bacilli on 08/01/2024 at 0745 EST. Urine Urine specimen obtained by clean catch procedure / Unknown 07/30/2024 5:00 AM EST 07/31/2024 10:25 AM EST Narrative Organism Antibiotic Method Susceptibility Klebsiella pneumoniae ssp pneumoniae Amoxicillin/Clavulanate GERRY <=2 ug/ml: Susceptible Klebsiella pneumoniae ssp pneumoniae Ampicillin/Sulbactam GERRY 4 ug/ml: Susceptible Klebsiella pneumoniae ssp pneumoniae Piperacillin/Tazobactam GERRY 16 ug/ml: Intermediate Klebsiella pneumoniae ssp pneumoniae Cefazolin (Urine) GERRY 2 ug/ml: Susceptible Klebsiella pneumoniae ssp pneumoniae Cefoxitin GERRY 16 ug/ml: Intermediate Klebsiella pneumoniae ssp pneumoniae Ceftazidime GERRY <=0.5 ug/ml: Susceptible Klebsiella pneumoniae ssp pneumoniae Ceftriaxone GERRY <=0.25 ug/ml: Susceptible Klebsiella pneumoniae ssp pneumoniae Cefepime GERRY <=0.12 ug/ml: Susceptible Klebsiella pneumoniae ssp pneumoniae Meropenem GERRY <=0.25 ug/ml: Susceptible Klebsiella pneumoniae ssp pneumoniae Amikacin GERRY <=1 ug/ml: Susceptible Klebsiella pneumoniae ssp pneumoniae Gentamicin GERRY <=1 ug/ml: Susceptible Klebsiella pneumoniae ssp pneumoniae Ciprofloxacin GERRY >=4 ug/ml: Resistant Klebsiella pneumoniae ssp pneumoniae Levofloxacin GERRY 4 ug/ml: Resistant Klebsiella pneumoniae ssp pneumoniae Nitrofurantoin GERRY 128 ug/ml: Resistant Klebsiella pneumoniae ssp pneumoniae Trimethoprim/Sulfamethoxazo le GERRY 80 ug/ml: Resistant us Nick Bañuelos MD LAB MICROBIOLOGY - GENERAL O RDERABLES Final Result [facility] [address] [place] [address], [place] [phone] * (ABNORMAL) Urinalysis with reflex microscopic and culture (07/30/2024 5:00 AM EST) Specific [place] Urine 1.017 1.003 - 1.030 LAB URINALYSIS - AUTOMATED METHOD 07/31/2024 10:25 AM EST [facility] pH, Urine 5.5 5.0 - 8.0 pH LAB URINALYSIS - AUTOMATED METHOD 07/31/2024 10:25 AM EST [facility] Leukocytes, Urine Moderate(A) Negative LAB URINALYSIS - AUTOMATED METHOD 07/31/2024 10:25 AM [facility] Nitrite, Urine Positive(A) Negative LAB URINALYSIS - AUTOMATED METHOD 07/31/2024 10:25 AM [facility] Protein, Urine 100(A) <=Trace mg/dL LAB URINALYSIS - AUTOMATED METHOD 07/31/2024 10:25 AM [facility] Glucose, Urine Negative Negative mg/dL LAB URINALYSIS - AUTOMATED METHOD 07/31/2024 10:25 AM [facility] Ketones, Urine 15(A) Negative mg/dL LAB URINALYSIS - AUTOMATED METHOD 07/31/2024 10:25 AM [facility] Urobilinogen , Urine 0.2 0.2 - 1.0 mg/dL LAB URINALYSIS - AUTOMATED METHOD 07/31/2024 10:25 AM [facility] Bilirubin, Urine Negative Negative LAB URINALYSIS - AUTOMATED METHOD 07/31/2024 10:25 AM [facility] Blood, Urine Small(A) Negative LAB URINALYSIS - AUTOMATED METHOD 07/31/2024 10:25 AM [facility] RBC, Urine 2.8 0 - 4 /HPF LAB URINALYSIS - AUTOMATED METHOD 07/31/2024 10:25 AM [facility] WBC, Urine 161.6(H) 0 - 4 /HPF LAB URINALYSIS - AUTOMATED METHOD 07/31/2024 10:25 AM [facility] Squamous Epithelial, Urine 8 0 - 60 /LPF LAB URINALYSIS - AUTOMATED METHOD 07/31/2024 10:25 AM [facility] Bacteria, Urine Many(A) Negative /HPF LAB URINALYSIS - AUTOMATED METHOD 07/31/2024 10:25 AM [facility] Hyaline Casts, Urine 3.8(H) 0 - 3 /LPF LAB URINALYSIS - AUTOMATED METHOD 07/31/2024 10:25 AM EST [facility] Urine Urine specimen obtained by clean catch procedure / Unknown 07/30/2024 5:00 AM EST 07/31/2024 9:44 AM EST us Nick Bañuelos MD LAB URINE ORDERABLES Final R esult [facility] [address] [place] [address], documented in this encounter Visit Diagnoses Diagnosis Weakness Other malaise and fatigue Altered mental status, unspecified documented in this encounter Additional Health Concerns Infection Onset Date Last Indicated Resolved Time Respiratory Rule-Out 08/18/2024 08/18/2024 025 12:47 PM EST Influenza 08/18/2024 08/18/2024 09/11/2024 7:07 PM EST documented as of this encounter Care Teams Puff Iron Operator Relationship Specialty Start Date End Date Nick Bañuelos MD [address] [place] [address] PCP - General Family Medicine 07/01/24 documented as of this encounter
--- OUTSIDE RECORDS SUMMARY | 2025-01-03 10:06 | XMS_ITS | Encounter Summary ---
Author Organization [facility] Address [address] [place] [address] Care Team Providers Care Graphic Production Artist Name Role Phone iNck Bañuelos MD Primary Care Provider Encounter Details Date Type Department Care Team (Late st Contact Info) Description 08/19/2024 Lab Requisition [facility] [address] [place] [address] Nick Bañuelos MD [address] [place] [address] Acute cough Social History Tobacco Use Types Packs/Day Years [...] Procedure Name Priority Date/Time Associated Diagnosis Comments [id number], RSV, FLU A AND B QUALITATIVE RT-PCR, LOCAL REFERENCE LAB Routine 08/18/2024 5:00 PM EST Acute cough documented in this encounter Results * (ABNORMAL) [id number], RSV, Influenza A and B qualitative RT-PCR (08/18/2024 5:00 PM EST) SARS COV-2 Not Detected Not Detected LAB MOLECULAR DIAGNOSTICS METHOD 08/19/2024 12:47 PM EST [facility] ([facility]) [facility] Comment: Disclaimer: The manner in which this information is used to guide patient care is the responsibility of the healthcare provider. Testing was performed using the [employer] Alinity m SARS-CoV-2 test. This test has been authorized by FDA under an Emergency Use Authorization (EUA). This test is only authorized for the duration of time the declaration that circumstances exist justifying the authorization of the emergency use of in vitro diagnostic tests for detection of SARS-CoV-2 virus and/or diagnosis of COVID-19 infection under section 564(b)(1) of the Act, 21 U.S.C. 360bbb- 3(b)(1), unless the authorization is terminated or revoked sooner. Fact sheet for Healthcare Providers can be found at: https://www.fda.gov/media/864198/download Fact sheet for Patients can be found at: https://www.fda.gov/media/200544/download Influenza A PCR Detected(A ) Not Detected LAB MOLECULAR DIAGNOSTICS METHOD 08/19/2024 12:47 PM EST [facility] Influenza B PCR Not Detected Not Detected LAB MOLECULAR DIAGNOSTICS METHOD 08/19/2024 12:47 PM [facility] RSV PCR Not Detected Not Detected LAB MOLECULAR DIAGNOSTICS METHOD 08/19/2024 12:47 PM [facility] Swab Nasopharyngeal structure / Unknown 08/18/2024 5:00 PM EST 08/19/2024 9:28 AM EST Nick Bañuelos MD LAB MICROBIOLOGY - GENERAL O RDERABLES Final Result [facility] [address] [place] [address], documented in this encounter Visit Diagnoses Diagnosis Acute cough documented in this encounter Additional Health Concerns Infection Onset Date Last Indicated Resolved Time Respiratory Rule-Out 08/18/2024 08/18/2024 025 12:47 PM EST Influenza 08/18/2024 08/18/2024 09/11/2024 7:07 PM EST documented as of this encounter Care Teams Graphic Production Artist Relationship Specialty Start Date End Date Nick Bañuelos MD [address] [place] [address] PCP - General Family Medicine 07/01/24 documented as of this encounter
--- OUTSIDE RECORDS SUMMARY | 2025-01-03 10:06 | XMS_ITS | Encounter Summary ---
Author Organization [facility] Address [address] [place] [address] Care Team Providers Care Plant Care Worker Name Role Phone Nick Bañuelos MD Primary Care Provider Encounter Details Date Type Department Care Team (Latest Contact Info) Description 06/20/2024 Lab Requisition [facility] - Main Lab [address] [facility] [place] [address] Nick Bañuelos MD [address] [place] [address] Schizoaffective disorder, unspecified (CMS/[facility] V24, CMS/[facility] V28) Social History Tobacco Use Types Packs/Day [...] encounter Visit Diagnoses Diagnosis Schizoaffective disorder, unspecified (CMS/[facility] V24, [facility] V28) documented in this encounter Additional Health Concerns Infection Onset Date Last Indicated Resolved Time Respiratory Rule-Out 08/18/2024 08/18/2024 025 12:47 PM EST Influenza 08/18/2024 08/18/2024 09/11/2024 7:07 PM EST documented as of this encounter Care Teams Plant Care Worker Relationship Specialty Start Date End Date Nick Bañuelos MD [address] [place] [address] PCP - General Family Medicine 07/01/24 documented as of this encounter
--- OUTSIDE RECORDS SUMMARY | 2025-01-03 10:06 | XMS_ITS | Encounter Summary ---
Author Organization [facility] Address [address] [place] [address] Care Team Providers Care Senior Commissary Agent Name Role Phone Nick Bañuelos MD Primary Care Provider [phone] Encounter Details Date Type Department Care Team (Late st Contact Info) Description 09/14/2024 Lab Requisition [facility] - Main Lab [address] [facility] [place] [address] Nick Bañuelos MD [address] [place] [id number] Other mcc (current) drug therapy; Schizoaffective disorder, unspecified (CMS/HCC V24, CMS/HCC V28) Social History Tobacco Use Types Packs/Day Years Used Date Smoking Tobacco: Never Assessed Sex and Gender Information Value Date Recorded Sex Assigned at Not on file Legal Sex Male 3:51 PM EST Gender Identity Not on file Sexual Orientation Not on file documented as of this encounter Plan of Treatment Not on file documented as of this encounter Visit Diagnoses Diagnosis Other equipment operator intermodal yard (current) drug therapy Schizoaffective disorder, unspecified (CMS/HCC V24, CMS/HCC V28) documented in this encounter Care Teams Senior Commissary Agent Relationship Specialty Start Date End Date Nick Bañuelos MD [address] [place] [address] PCP - General Family Medicine 07/01/24 documented as of this encounter
--- OUTSIDE RECORDS SUMMARY | 2025-01-03 10:06 | XMS_ITS | Encounter Summary ---
Author Organization [employer] Address [address] [place] [address] Care Team Providers Care Woolen Tester Name Role Phone Nick Bañuelos MD Primary Care Provider [phone] Encounter Details Date Type Department Care Team (Late st Contact Info) Description 10/28/2024 Lab Requisition [facility] Lab [address] [place] [address] Nick Bañuelos MD [address] [place] [address] Benign prostatic hyperplasia with lower urinary tract symptoms Social History Tobacco Use Types Packs/Day Years [...] URINALYSIS WITH REFLEX MICROSCOPIC AND CULTURE Routine 10/27/2024 2:15 PM EDT Benign prostatic hyperplasia with lower urinary tract symptoms GAGE URINE CULTURE TUBE Routine 10/27/2024 2:15 PM EDT Benign prostatic hyperplasia with lower urinary tract symptoms URINALYSIS WITH REFLEX MICROSCOPIC AND CULTURE Routine 10/27/2024 2:15 PM EDT Benign prostatic hyperplasia with lower urinary tract symptoms documented in this encounter Results * (ABNORMAL) Urinalysis with reflex microscopic and culture (10/27/2024 2:15 PM EDT) Specific [place] Urine 1.019 1.003 - 1.030 LAB URINALYSIS - AUTOMATED METHOD 10/28/2024 11:33 AM EDT [facility] pH, Urine 6.0 5.0 - 8.0 pH LAB URINALYSIS - AUTOMATED METHOD 10/28/2024 11:33 AM [facility] Leukocytes, Urine Negative Negative LAB URINALYSIS - AUTOMATED METHOD 10/28/2024 11:33 AM [facility] Nitrite, Urine Negative Negative LAB URINALYSIS - AUTOMATED METHOD 10/28/2024 11:33 AM [facility] Protein, Urine Trace <=Trace mg/dL LAB URINALYSIS - AUTOMATED METHOD 10/28/2024 11:33 AM [facility] Glucose, Urine Negative Negative mg/dL LAB URINALYSIS - AUTOMATED METHOD 10/28/2024 11:33 AM [facility] Ketones, Urine 40(A) Negative mg/dL LAB URINALYSIS - AUTOMATED METHOD 10/28/2024 11:33 AM [facility] Urobilinogen, Urine 0.2 0.2 - 1.0 mg/dL LAB URINALYSIS - AUTOMATED METHOD 10/28/2024 11:33 AM [facility] Bilirubin, Urine Negative Negative LAB URINALYSIS - AUTOMATED METHOD 10/28/2024 11:33 AM [facility] Blood, Urine Negative Negative LAB URINALYSIS - AUTOMATED METHOD 10/28/2024 11:33 AM [facility] Urine Urine specimen obtained by clean catch procedure / Unknown 10/27/2024 2:15 PM EDT 10/28/2024 11:03 AM EDT us Nick Bañuelos MD LAB URINE ORDERABLES Final R esult [facility] [address] [place] [address], * Gage urine culture tube (10/27/2024 2:15 PM EDT) Extra Tube Hold for add-ons. 10/28/2024 1:02 PM EDT [facility] Comment:Auto resulted. Urine Urine specimen obtained by clean catch procedure / Unknown 10/27/2024 2:15 PM EDT 10/28/2024 11:03 AM EDT us Nick Bañuelos MD LAB URINE ORDERABLES Final R esult [facility] [address] [place] [address], documented in this encounter Visit Diagnoses Diagnosis Benign prostatic hyperplasia with lower urinary tract symptoms documented in this encounter Care Teams Woolen Tester Relationship Specialty Start Date End Date Nick Bañuelos MD [address] [place] [address] PCP - General Family Medicine 07/01/24 documented as of this encounter
--- OUTSIDE RECORDS SUMMARY | 2025-01-03 10:06 | XMS_ITS | Encounter Summary ---
Author Organization [employer] Address [address] [place] [address] Care Team Providers Care Head Of Maintenance Name Role Phone Nick Bañuelos MD Primary Care Provider [phone] Encounter Details Date Type Department Care Team (Latest Contact Info) Description 12/07/2024 Lab Requisition [facility] - Main Lab [address] [facility] [place] [address] Nick Bañuelos MD [address] [place] [address] Schizoaffective disorder, unspecified (CMS/HCC V24, CMS/[facility] V28) Social History Tobacco Use [...] Diagnoses Diagnosis Schizoaffective disorder, unspecified (CMS/HCC V24, CMS/[facility] V28) documented in this encounter Care Teams Head Of Maintenance Relationship Specialty Start Date End Date Nick Bañuelos MD [address] [place] [address] PCP - General Family Medicine 07/01/24 documented as of this encounter
--- OUTSIDE RECORDS SUMMARY | 2025-01-03 10:06 | XMS_ITS | Encounter Summary ---
Author Organization [employer] Address [address] [place] [address] Care Team Providers Care Poultry Packer Name Role Phone Nick Bañuelos MD Primary Care Provider [phone] Encounter Details Date Type Department Care Team (Late st Contact Info) Description 11/12/2024 Lab Requisition [facility] - Main Lab [address] [place] [address] Nick Bañuelos MD [address] [place] [address] Schizophrenia, unspecified (CMS/HCC V24, CMS/HCC V28) Social History [...] Procedure Name Priority Date/Time Associated Diagnosis Comments RBC MORPHOLOGY REVIEW Routine 11/12/2024 7:41 AM EDT Schizophrenia, unspecified CBC WITH AUTO DIFFERENTIAL Routine 11/12/2024 7:41 AM EDT Schizophrenia, unspecified CBC AND DIFFERENTIAL Routine 11/12/2024 7:41 AM EDT Schizophrenia, unspecified documented in this encounter Results * (ABNORMAL) RBC morphology review (11/12/2024 7:41 AM EDT) Rbc Morphology Consistent with indices Consistent with indices, Normal for [place] LAB HEMETOLOGY METHOD 11/12/2024 10:[address] [facility] Platelet Morphology - [place] See Note(A) Normal LAB HEMETOLOGY METHOD 11/12/2024 10:30 AM EDT [facility] Comment:PLT: Normal Blood Venous blood specimen / Unknown Venipuncture / Unknown 11/12/2024 7:41 AM EDT 11/12/2024 9:06 AM EDT us Nick Bañuelos MD LAB BLOOD ORDERABLES Final R esult [facility] [address] [place] [address], [place] [phone] * (ABNORMAL) CBC auto differential (11/12/2024 7:41 AM EDT) WBC 7.4 4.8 - 10.8 K/mcL LAB HEMETOLOGY METHOD 11/12/2024 10:30 AM EDT [facility] RBC 3.30(L) 4.50 - 5.50 M/mcL LAB HEMETOLOGY METHOD 11/12/2024 10:30 AM EDT [facility] Hemoglobin 9.5(L) 13.5 - 17.5 g/dL LAB HEMETOLOGY METHOD 11/12/2024 10:30 AM EDT [facility] Hematocrit 29.6(L) 42.0 - 54.0 % LAB HEMETOLOGY METHOD 11/12/2024 10:30 AM EDT [facility] MCV 89.4 79.0 - 98.0 FL LAB HEMETOLOGY METHOD 11/12/2024 10:30 AM EDT [facility] MCH 28.7 27.0 - 32.0 pcg LAB HEMETOLOGY METHOD 11/12/2024 10:30 AM EDT [facility] MCHC 32.1 32.0 - 37.0 g/dL LAB HEMETOLOGY METHOD [facility] RDW 15.9(H) 11.0 - 15.0 % LAB HEMETOLOGY METHOD 11/12/2024 10:30 AM T [facility] Platelets 204 130 - 400 K/mcL LAB HEMETOLOGY METHOD 11/12/2024 10:30 AM [facility] MPV 10.1 7.0 - 11.0 FL LAB HEMETOLOGY METHOD 11/12/2024 10:30 AM [facility] NRBC 0.0 <1.0 % LAB HEMETOLOGY METHOD 11/12/2024 10:[facility] NRBC Absolute 0.00 <0.10 K/mcL LAB HEMETOLOGY METHOD 11/12/2024 10:30 AM [facility] Neutrophils Relative 56.7 % LAB HEMETOLOGY METHOD 11/12/2024 10:30 AM [facility] Lymphocytes Relative 33.1 % LAB HEMETOLOGY METHOD 11/12/2024 10:30 AM [facility] Monocytes Relative 9.5 % LAB HEMETOLOGY METHOD 11/12/2024 10:30 AM [facility] Eosinophils Relative 0.0 % LAB HEMETOLOGY METHOD 11/12/2024 10:30 AM [facility] Basophils Relative 0.4 % LAB HEMETOLOGY METHOD 11/12/2024 10:30 AM [facility] Immature Granulocytes Relative 0.3 % LAB HEMETOLOGY METHOD 11/12/2024 10:30 AM [facility] Neutrophils Absolute 4.20 1.50 - 7.00 K/mcL LAB HEMETOLOGY METHOD 11/12/2024 10:30 AM [facility] Lymphocytes Absolute 2.45 1.00 - 5.00 K/mcL LAB HEMETOLOGY METHOD 11/12/2024 10:30 AM [facility] Monocytes Absolute 0.70 0.20 - 1.00 K/mcL LAB HEMETOLOGY METHOD 11/12/2024 10:30 AM EDT [facility] Eosinophils Absolute 0.00 0.00 - 0.50 K/mcL LAB HEMETOLOGY METHOD 11/12/2024 10:30 AM EDT [facility] Basophils Absolute 0.03 0.00 - 0.20 K/[facility] LAB HEMETOLOGY METHOD 11/12/2024 10:30 AM EDT [facility] Immature Granulocytes Absolute 0.02 0.00 - 0.03 K/[facility] LAB HEMETOLOGY METHOD 11/12/2024 10:30 AM EDT [facility] Blood Venous blood specimen / Unknown Venipuncture / Unknown 11/12/2024 7:41 AM EDT 11/12/2024 9:06 AM EDT Nick Bañuelos MD LAB BLOOD ORDERABLES Final R esult [facility] [address] [place] [address], documented in this encounter Visit Diagnoses Diagnosis Schizophrenia, unspecified (CMS/HCC V24, CMS/HCC V28) documented in this encounter Care Teams Poultry Packer Relationship Specialty Start Date End Date Nick Bañuelos MD [address] [place] [address] PCP - General Family Medicine 07/01/24 documented as of this encounter
--- OUTSIDE RECORDS SUMMARY | 2025-01-03 10:06 | XMS_ITS | Encounter Summary ---
Author Organization [employer] Address [address] [place] [address] Care Team Providers Care Stage Producer Name Role Phone Nick Bañuelos MD Primary Care Provider Encounter Details Date Type Department Care Team (Late st Contact Info) Description 11/14/2024 Lab Requisition [facility] - Main Lab [address] [facility] [place] [address] Nick Bañuelos MD [facility] [address] Anemia, unspecified Social History Tobacco Use Types Packs/Day Years Used Date Smoking Tobacco: Never Assessed Sex and Gender Information Value Date Recorded Sex Assigned at Not on file Legal Sex Male 3:51 PM EST Gender Identity Not on file Sexual Orientation Not on file documented as of this encounter Plan of Treatment Not on file documented as of this encounter Visit Diagnoses Diagnosis Anemia, unspecified documented in this encounter Care Teams Stage Producer Relationship Specialty Start Date End Date Nick Bañuelos MD [address] [place] [address] PCP - General Family Medicine 07/01/24 documented as of this encounter
--- OUTSIDE RECORDS SUMMARY | 2025-01-03 10:06 | XMS_ITS | Encounter Summary ---
Author Organization [employer] Address [address] [place] [address] Care Team Providers Care Sexual Assault Counsellor Name Role Phone Nick Bañuelos MD Primary Care Provider [phone] Encounter Details Date Type Department Care Team (Latest Contact Info) Description 01/03/2025 Lab Requisition [facility] - Main Lab [address] [facility] [place] [address] Nick Bañuelos MD [address] [place] [address] Schizoaffective disorder, unspecified ([facility] V24, [facility] V28) Social History Tobacco Use Types Packs/Day Years Used Date Smoking Tobacco: Never Assessed Sex and Gender Information Value Date Recorded Sex Assigned at Not on file Legal Sex Male 3:51 PM EST Gender Identity Not on file Sexual Orientation Not on file documented as of this encounter Plan of Treatment Scheduled Orders Name Type Priority Associated Diagnoses Orde r Schedule Wbc count with absolute neutrophil Lab Routine Schizoaffective disorder, unspecified ([facility] V24, CMS/[facility] V28) Ordered: 01/03/2025 documented as of this encounter Visit Diagnoses Diagnosis Schizoaffective disorder, unspecified ([facility] V24, [facility] V28) documented in this encounter Care Teams Sexual Assault Counsellor Relationship Specialty Start Date End Date Nick Bañuelos MD [address] [place] [address] PCP - General Family Medicine 07/01/24 documented as of this encounter
--- OUTSIDE RECORDS SUMMARY | 2025-01-03 10:06 | XMS_ITS | Encounter Summary ---
Author Organization [employer] Address [address] [place] [address] Care Team Providers Care Dairy Farm Operator Name Role Phone Nick Bañuelos MD Primary Care Provider Encounter Details Date Type Department Care Team (Late st Contact Info) Description 07/31/2024 Lab Requisition [facility] - Main Lab [address] [place] [address] Nick Bañuelos MD [address], [place] [id number] Altered mental status, unspecified; Hypokalemia; Anemia, unspecified Social History Tobacco Use Types [...] Procedure Name Priority Date/Time Associated Diagnosis Comments COMPLETE BLOOD COUNT Routine 07/31/2024 8:20 AM EST Altered mental status, unspecified Hypokalemia Anemia, unspecified AMMONIA Routine 07/31/2024 8:20 AM EST Altered mental status, unspecified Hypokalemia Anemia, unspecified BASIC METABOLIC PANEL Routine 07/31/2024 8:20 AM EST Altered mental status, unspecified Hypokalemia Anemia, unspecified documented in this encounter Results * Ammonia (07/31/2024 8:20 AM EST) Ammonia 27 11 - 35 mcmol/L LAB CHEMISTRY METHOD 07/31/2024 9:31 AM EST [facility] Blood Venous blood specimen / Unknown Venipuncture / Unknown 07/31/2024 8:20 AM EST 07/31/2024 9:01 AM EST us Nick Bañuelos MD LAB BLOOD ORDERABLES Final R esult [facility] [address] [place] [address], * Basic metabolic panel (07/31/2024 8:20 AM EST) Sodium 142 133 - 145 mmol/L LAB CHEMISTRY METHOD 07/31/2024 10:09 AM [facility] Potassium 3.9 3.5 - 5.5 mmol/L LAB CHEMISTRY METHOD 07/31/2024 10:09 AM [facility] Chloride 108 96 - 110 mmol/L LAB CHEMISTRY METHOD 07/31/2024 10:09 AM [facility] CO2 26 21 - 32 mmol/L LAB CHEMISTRY METHOD 07/31/2024 10:09 AM [facility] Anion Gap 8 3 - 11 LAB CHEMISTRY METHOD 07/31/2024 10:09 AM [facility] Glucose 89 70 - 100 mg/dL LAB CHEMISTRY METHOD 07/31/2024 10:09 AM [facility] BUN 24 5 - 25 mg/dL LAB CHEMISTRY METHOD 07/31/2024 10:09 AM [facility] Creatinine 0.80 0.70 - 1.30 mg/dL LAB CHEMISTRY METHOD 07/31/2024 10:09 AM [facility] LAB eGFR 93 >=60 mL/min/1. 73m2 LAB CHEMISTRY METHOD 07/31/2024 10:09 AM [facility] LAB Comment:Calculation based on the??Chronic Kidney Disease Epidemiology Collaboration (CKD-EPI) equation refit??without adjustment for race. BUN/Creatinine Ratio 30.0 LAB CHEMISTRY METHOD 07/31/2024 10:09 AM [facility] Calcium 9.2 8.5 - 10.5 mg/dL LAB CHEMISTRY METHOD 07/31/2024 10:09 AM [facility] Blood Venous blood specimen / Unknown Venipuncture / Unknown 07/31/2024 8:20 AM EST 07/31/2024 9:01 AM EST Nick Bañuelos MD LAB BLOOD ORDERABLES Final R esult [facility] [address] [place] [address], * (ABNORMAL) Complete blood count (07/31/2024 8:20 AM EST) WBC 7.5 4.8 - 10.8 K/mcL LAB HEMETOLOGY METHOD 07/31/2024 9:49 AM [facility] RBC 4.30(L) 4.50 - 5.50 M/mcL LAB HEMETOLOGY METHOD 07/31/2024 9:49 AM [facility] Hemoglobin 12.1(L) 13.5 - 17.5 g/dL LAB HEMETOLOGY METHOD 07/31/2024 9:49 AM [facility] Hematocrit 36.4(L) 42.0 - 54.0 % LAB HEMETOLOGY METHOD 07/31/2024 9:49 AM [facility] MCV 85.0 79.0 - 98.0 FL LAB HEMETOLOGY METHOD 07/31/2024 9:49 AM [facility] MCH 28.3 27.0 - 32.0 pcg LAB HEMETOLOGY METHOD 07/31/2024 9:49 AM [facility] LAB MCHC 33.2 32.0 - 37.0 g/dL LAB HEMETOLOGY METHOD 07/31/2024 9:49 AM [facility] RDW 14.8 11.0 - 15.0 % LAB HEMETOLOGY METHOD 07/31/2024 9:49 AM EST [facility] Platelets 198 130 - 400 K/mcL LAB HEMETOLOGY METHOD 07/31/2024 9:49 AM EST [facility] MPV 9.7 7.0 - 11.0 FL LAB HEMETOLOGY METHOD 07/31/2024 9:49 AM EST [facility] NRBC 0.0 <1.0 % LAB HEMETOLOGY METHOD 07/31/2024 9:49 AM EST [facility] NRBC Absolute 0.00 <0.10 K/mcL LAB HEMETOLOGY METHOD 07/31/2024 9:49 AM EST [facility] Blood Venous blood specimen / Unknown Venipuncture / Unknown 07/31/2024 8:20 AM EST 07/31/2024 9:01 AM EST us Nick Bañuelos MD LAB BLOOD ORDERABLES Final R esult [facility] [address] [place] [address], documented in this encounter Visit Diagnoses Diagnosis Altered mental status, unspecified Hypokalemia Hypopotassemia Anemia, unspecified documented in this encounter Additional Health Concerns Infection Onset Date Last Indicated Resolved Time Respiratory Rule-Out 08/18/2024 08/18/2024 025 12:47 PM EST Influenza 08/18/2024 08/18/2024 09/11/2024 7:07 PM EST documented as of this encounter Care Teams Dairy Farm Operator Relationship Specialty Start Date End Date Nick Bañuelos MD [address] [place] [address] PCP - General Family Medicine 07/01/24 documented as of this encounter
--- OUTSIDE RECORDS SUMMARY | 2025-01-03 10:06 | XMS_ITS | Encounter Summary ---
Author Organization [employer] Address [address] [place] [address] Care Team Providers Care Sql Report Writer Name Role Phone Nick Bañuelos MD Primary Care Provider [phone] Encounter Details Date Type Department Care Team (Late st Contact Info) Description 11/17/2024 Lab Requisition [facility] - Main Lab [address] [facility] [place] [address] Nick Bañuelos MD [address] [place] [address] Anemia, unspecified Social History Tobacco Use Types [...] Procedure Name Priority Date/Time Associated Diagnosis Comments IRON AND TIBC Routine 11/17/2024 8:00 AM EDT Anemia, unspecified COMPLETE BLOOD COUNT Routine 11/17/2024 8:00 AM EDT Anemia, unspecified FERRITIN Routine 11/17/2024 8:00 AM EDT Anemia, unspecified documented in this encounter Results * Ferritin (11/17/2024 8:00 AM EDT) Ferritin 91 26 - 388 ng/mL LAB CHEMISTRY METHOD 11/17/2024 11:00 AM EDT [facility] Blood Venous blood specimen / Unknown Venipuncture / Unknown 11/17/2024 8:00 AM EDT 11/17/2024 8:56 AM EDT Nick Bañuelos MD LAB BLOOD ORDERABLES Final R esult [facility] [address] [place] [address], [place] [phone] * (ABNORMAL) Iron and TIBC (11/17/2024 8:00 AM EDT) Pathologist [facility] Iron 41(L) 50 - 160 mcg/dL LAB CHEMISTRY METHOD 11/17/2024 10:59 AM EDT [facility] TIBC 364 250 - 450 mcg/dL LAB CHEMISTRY METHOD 11/17/2024 10:59 AM EDT [facility] Iron Saturation 11(L) 20 - 50 % LAB CHEMISTRY METHOD 11/17/2024 10:59 AM EDT [facility] Blood Venous blood specimen / Unknown Venipuncture / Unknown 11/17/2024 8:00 AM EDT 11/17/2024 8:56 AM EDT Nick Bañuelos MD LAB BLOOD ORDERABLES Final R esult Performing Organization Address City/[facility]/ZIP Co de Phone Number [facility] [address] [place] [address], [place] [phone] * (ABNORMAL) Complete blood count (11/17/2024 8:00 AM EDT) WBC 6.7 4.8 - 10.8 K/mcL LAB HEMETOLOGY METHOD 11/17/2024 10:07 AM EDT [facility] RBC 3.30(L) 4.50 - 5.50 M/[facility] LAB HEMETOLOGY METHOD 11/17/2024 10:07 AM EDT [facility] Hemoglobin 9.6(L) 13.5 - 17.5 g/dL LAB HEMETOLOGY METHOD 11/17/2024 10:07 AM EDT [facility] Hematocrit 29.2(L) 42.0 - 54.0 % LAB HEMETOLOGY METHOD 11/17/2024 10:07 AM EDT [facility] MCV 89.3 79.0 - 98.0 FL LAB HEMETOLOGY METHOD 11/17/2024 10:07 AM EDT [facility] MCH 29.4 27.0 - 32.0 pcg LAB HEMETOLOGY METHOD 11/17/2024 10:07 AM EDT [facility] MCHC 32.9 32.0 - 37.0 g/dL LAB HEMETOLOGY METHOD 11/17/2024 10:07 AM [facility] RDW 16.4(H) 11.0 - 15.0 % LAB HEMETOLOGY METHOD 11/17/2024 10:07 AM [facility] Platelets 208 130 - 400 K/mcL LAB HEMETOLOGY METHOD 11/17/2024 10:07 AM EDT [facility] MPV 10.8 7.0 - 11.0 FL LAB HEMETOLOGY METHOD 11/17/2024 10:07 AM T [facility] NRBC 0.0 <1.0 % LAB HEMETOLOGY METHOD 11/17/2024 10:07 AM [facility] NRBC Absolute 0.00 <0.10 K/mcL LAB HEMETOLOGY METHOD 11/17/2024 10:07 AM [facility] Blood Venous blood specimen / Unknown Venipuncture / Unknown 11/17/2024 8:00 AM EDT 11/17/2024 8:56 AM EDT us Nick Bañuelos MD LAB BLOOD ORDERABLES Final R esult [facility] [address] [place] [address], documented in this encounter Visit Diagnoses Diagnosis Anemia, unspecified documented in this encounter Care Teams Sql Report Writer Relationship Specialty Start Date End Date Nick Bañuelos MD [address] [place] [address] PCP - General Family Medicine 07/01/24 documented as of this encounter
--- OUTSIDE RECORDS SUMMARY | 2025-01-03 10:06 | XMS_ITS | Encounter Summary ---
Author Organization [facility] Address [address] [place] [address] Care Team Providers Care Nursing Home Administrator Name Role Phone Nick Bañuelos MD Primary Care Provider [phone] Encounter Details Date Type Department Care Team (Late st Contact Info) Description 12/11/2024 Lab Requisition [facility] - Main Lab [address] [place] [address] Nick Bañuelos MD [address] [place] [address] Schizophrenia, unspecified (CMS/[facility] V24, CMS/[facility] V28) Social History Tobacco Use [...] Comments WBC COUNT WITH ABSOLUTE NEUTROPHIL Routine 12/11/2024 5:40 AM EDT Schizophrenia, unspecified (CMS/[facility] V24, CMS/[facility] V28) documented in this encounter Results * Wbc count with absolute neutrophil (12/11/2024 5:40 AM EDT) WBC 8.3 4.8 - 10.8 K/mcL LAB HEMETOLOGY METHOD 12/11/2024 10:13 AM EDT [facility] LAB Comment:reviewed Neutrophils Absolute 4.74 1.50 - 7.00 K/mcL LAB HEMETOLOGY METHOD 12/11/2024 10:13 AM T [facility] Neutrophils Relative 57.2 % LAB HEMETOLOGY METHOD 12/11/2024 10:13 AM EDT [facility] Blood Venous blood specimen / Unknown Venipuncture / Unknown 12/11/2024 5:40 AM EDT 12/11/2024 8:41 AM EDT Nick Bañuelos MD LAB BLOOD ORDERABLES Final R esult [facility] [address] [place] [address], documented in this encounter Visit Diagnoses Diagnosis Schizophrenia, unspecified (CMS/HCC V24, CMS/HCC V28) documented in this encounter Care Teams Nursing Home Administrator Relationship Specialty Start Date End Date Nick Bañuelos MD [address] [place] [address] PCP - General Family Medicine 07/01/24 documented as of this encounter
--- OUTSIDE RECORDS SUMMARY | 2025-01-03 10:06 | XMS_ITS | Clinical Summary ---
Author Organization [address] [facility] Address [address] [place] [address] Phone Care Team Providers Care Steel Spar Operator Name Role Phone Nick Bañuelos MD Primary Care Provider Encounters Date Type Department Care Team Description 01/03/2025 Lab Requisition [facility] [address] [place] [phone] Nick Bañuelos MD Schizoaffective disorder, unspecified ([facility] V24, [facility] V28) 12/11/2024 Lab Requisition [facility] [address] [place] [phone] Nick Bañuelos MD Schizophrenia, unspecified ([facility] V24, [facility] V28) 12/07/2024 Lab Requisition [facility] [address] [place] [phone] Nick Bañuelos MD Schizoaffective disorder, unspecified ([facility] V24, [facility] V28) 12/06/2024 Lab Requisition [facility] [address] [place] [phone] Nick Bañuelos MD Schizoaffective disorder, unspecified ([facility] V24, [facility] V28) 11/17/2024 Lab Requisition [facility] [address] [place] [phone] Nick Bañuelos MD Anemia, unspecified 11/14/2024 Lab Requisition [facility] [address] [place] [phone] Nick Bañuelos MD Anemia, unspecified 11/12/2024 Lab Requisition [facility] [address] [place] [phone] Nick Bañuelos MD Schizophrenia, unspecified ([facility] V24, [facility] V28) 10/29/2024 Lab Requisition [facility] [address] [place] [phone] Nick Bañuelos MD Pneumonitis due to inhalation of food and vomit ([facility] V24, [facility] V28) 10/28/2024 Lab Requisition [facility] [address] [place] [phone] Nick Bañuelos MD Hypokalemia 10/28/2024 Lab Requisition [facility] [address] [place] [phone] Nick Bañuelos MD Benign prostatic hyperplasia with lower urinary tract symptoms 10/27/2024 Lab Requisition [facility] [address] [place] [phone] Nick Bañuelos MD Type 2 diabetes mellitus without complications ([facility] V2, [facility] V2); Hypoglycemia, unspecified 10/24/2024 Lab Requisition [facility] [address] [place] [phone] Nick Bañuelos MD Schizophrenia, unspecified ([facility] V2, [facility] V2); Encounter for other preprocedural examination from Last 3 Months Social History Tobacco Use Types Packs/Day Years Used Date Smoking Tobacco: Never Assessed Sex and Gender Information Value Date Recorded Sex Assigned at Not on file Legal Sex Male 3:51 PM EST Gender Identity Not on file Sexual Orientation Not on file Plan of Treatment Health Maintenance Due Date Last Done Comments Diabetes: Annual Foot Exam 1961 Diabetes: Annual Retina Eye Exam 1961 Zoster Vaccines (1 of 2) 2001 RSV Immunization Adult Patients (1 - Risk 60-74 years 1-dose series) 2011 DTaP,Tdap,and Td Vaccines (2 - Td or Tdap) 06/12/2018 06/12/2008 Abdominal Aortic Aneurysm (AAA) Screen 07/18/2022 Cholesterol Screening (Lipid Panel) 07/18/2022 Colorectal Cancer Screening: Colonoscopy 07/18/2022 Depression Screening 07/18/2022 Falls Risk Assessment 07/18/2022 Hepatitis C Screening 07/18/2022 Medicare Annual Wellness Visit 07/18/2022 Social Influencers of Health Screening 07/18/2022 COVID-19 Vaccine ( season) 2024 01/04/2022, 06/08/2021, 10/07/2020, Additional history exists Diabetes: Annual Urine Albumin-Creatinine Ratio (uACR) 10/13/2024 Diabetes: Blood Sugar Control Test (HGBA1C) 10/13/2024 Pneumococcal Vaccine: 50+ Years (3 of 3 - PCV20 or PCV21) 12/07/2024 12/08/2019, 06/01/2011, 04/22/2011, Additional history exists Influenza Vaccine (Season Ended) 2025 06/26/2021, 06/01/2011, 05/10/2011, Additional history exists Diabetes: Annual GFR (Glomerular Filtration Rate) 10/29/2025 10/29/2024, 10/29/2024, 10/27/2024, Additional history exists Hypertension/CHF/CAD Annual BMP Blood Test 10/29/2025 10/29/2024, 10/29/2024, 10/27/2024, Additional history exists HIB Vaccines Aged Out No longer eligi ble based on patient's age to complete this topic HPV Vaccines Aged Out No longer eligi ble based on patient's age to complete this topic Hepatitis A Vaccines Aged Out No long er eligible based on patient's age to complete this topic Hepatitis B Vaccines Aged Out No long er eligible based on patient's age to complete this topic IPV Vaccines Aged Out No longer eligi ble based on patient's age to complete this topic MMR Vaccines Aged Out No longer eligi ble based on patient's age to complete this topic Meningococcal ACWY Vaccine Aged Out N o longer eligible based on patient's age to complete this topic Meningococcal B Vaccine Aged Out No l onger eligible based on patient's age to complete this topic RSV Immunization Patients Under 20 months Aged Out No longer eligible based on patient's age to complete this topic Varicella Vaccines Aged Out No longer eligible based on patient's age to complete this topic Procedures Procedure Name Priority Date/Time Associated Diagnosis Comments WBC COUNT WITH ABSOLUTE NEUTROPHIL Routine 12/11/2024 5:40 AM EDT Schizophrenia, unspecified (CMS/[facility] V24, [facility] V28) FERRITIN Routine 11/17/2024 8:00 AM EDT Anemia, unspecified IRON AND TIBC Routine 11/17/2024 8:00 AM EDT Anemia, unspecified COMPLETE BLOOD COUNT Routine 11/17/2024 8:00 AM EDT Anemia, unspecified RBC MORPHOLOGY REVIEW Routine 11/12/2024 7:41 AM EDT Schizophrenia, unspecified CBC WITH AUTO DIFFERENTIAL Routine 11/12/2024 7:41 AM EDT Schizophrenia, unspecified CBC AND DIFFERENTIAL Routine 11/12/2024 7:41 AM EDT Schizophrenia, unspecified BASIC METABOLIC PANEL Routine 10/29/2024 1:04 PM EDT Pneumonitis due to inhalation of food and vomit ([facility]) COMPLETE BLOOD COUNT Routine 10/29/2024 1:04 PM EDT Pneumonitis due to inhalation of food and vomit ([facility]) BASIC METABOLIC PANEL Routine 10/29/2024 5:39 AM EDT Hypokalemia URINALYSIS WITH REFLEX MICROSCOPIC AND CULTURE Routine 10/27/2024 2:15 PM EDT Benign prostatic hyperplasia with lower urinary tract symptoms GAGE URINE CULTURE TUBE Routine 10/27/2024 2:15 PM EDT Benign prostatic hyperplasia with lower urinary tract symptoms URINALYSIS WITH REFLEX MICROSCOPIC AND CULTURE Routine 10/27/2024 2:15 PM EDT Benign prostatic hyperplasia with lower urinary tract symptoms AMMONIA Routine 10/27/2024 1:02 PM EDT Type 2 diabetes mellitus without complications ([facility]/HCC) Hypoglycemia, unspecified BASIC METABOLIC PANEL Routine 10/27/2024 1:02 PM EDT Type 2 diabetes mellitus without complications ([facility]) Hypoglycemia, unspecified COMPLETE BLOOD COUNT Routine 10/27/2024 1:02 PM EDT Type 2 diabetes mellitus without complications ([facility]) Hypoglycemia, unspecified CREATININE, SERUM Routine 10/24/2024 7:0 5 AM EST Schizophrenia, unspecified ([facility]) Encounter for other preprocedural examination WBC COUNT WITH ABSOLUTE NEUTROPHIL Routine 10/24/2024 7:05 AM EST Schizophrenia, unspecified ([facility]) Encounter for other preprocedural examination from Last 3 Months Results * Wbc count with absolute neutrophil (12/11/2024 5:40 AM EDT) Only the most recent of2 resultswithin the time period is included. WBC 8.3 4.8 - 10.8 K/mcL LAB HEMETOLOGY METHOD 12/11/2024 10:13 AM EDT [facility] Comment:reviewed Neutrophils Absolute 4.74 1.50 - 7.00 K/mcL LAB HEMETOLOGY METHOD 12/11/2024 10:13 AM EDT [facility] Neutrophils Relative 57.2 % LAB HEMETOLOGY METHOD 12/11/2024 10:13 AM EDT [facility] Blood Venous blood specimen / Unknown Venipuncture / Unknown 12/11/2024 5:40 AM EDT 12/11/2024 8:41 AM EDT us Nick Bañuelos MD LAB BLOOD ORDERABLES Final R esult [facility] [address] [place] [address], [place] [phone] * (ABNORMAL) Iron and TIBC (11/17/2024 8:00 AM EDT) [facility] Iron 41(L) 50 - 160 mcg/dL LAB [...] Final R esult [facility] [address] [place] [address], [place] [phone] * (ABNORMAL) Complete blood count (11/17/2024 8:00 AM EDT) Only the most recent of3 resultswithin the time period is included. [facility] WBC 6.7 4.8 - 10.8 K/mcL LAB HEMETOLOGY METHOD 11/17/2024 10:07 AM EDT [facility] RBC 3.30(L) 4.50 - 5.50 M/mcL LAB HEMETOLOGY METHOD 11/17/2024 10:07 AM EDT [...] 11/17/2024 10:07 AM EDT [facility] RDW 16.4(H) 11.0 - 15.0 % LAB HEMETOLOGY METHOD 11/17[facility]2024 10:[facility] Platelets 208 130 - 400 K/mcL LAB HEMETOLOGY METHOD 11/17/2024 10:07 AM EDT [facility] MPV 10.8 7.0 - 11.0 FL LAB HEMETOLOGY METHOD 11/17/2024 10:07 AM EDT [facility] NRBC 0.0 <1.0 % LAB HEMETOLOGY METHOD 11/17/2024 10:07 AM [facility] NRBC Absolute 0.00 <0.10 K/mcL LAB HEMETOLOGY METHOD 11/17/2024 10:07 AM [facility] Blood Venous blood specimen / Unknown Venipuncture / Unknown 11/17/2024 8:00 AM EDT 11/17/2024 8:56 AM EDT us Nick Bañuelos MD LAB BLOOD ORDERABLES Final R esult [facility] [address] [place] [address], * Ferritin (11/17/2024 8:00 AM EDT) Ferritin 91 26 - 388 ng/mL LAB CHEMISTRY METHOD 11/17/2024 11:00 AM EDT [facility] Blood Venous blood specimen / Unknown Venipuncture / Unknown 11/17/2024 8:00 AM EDT 11/17/2024 8:56 AM EDT Nick Bañuelos MD LAB BLOOD ORDERABLES Final R esult Performing Organization Address City/[facility]/ZIP Co de Phone Number [facility] [address] [place] [address], [place] [phone] * (ABNORMAL) RBC morphology review (11/12/2024 7:41 AM EDT) Rbc Morphology Consistent with indices Consistent with indices, Normal for [place] LAB HEMETOLOGY METHOD 11/12/2024 10:30 AM EDT [facility] Platelet Morphology - WAM See Note(A) Normal LAB HEMETOLOGY METHOD 11/12/2024 10:30 AM EDT [facility] Comment:PLT: Normal Blood Venous blood specimen / Unknown Venipuncture / Unknown 11/12/2024 7:41 AM EDT 11/12/2024 9:06 AM EDT Nick Bañuelos MD LAB BLOOD ORDERABLES Final R esult Performing Organization Address City/[facility]/ZIP Co de Phone Number [facility] [address] [place] [address], [place] [phone] * (ABNORMAL) CBC auto differential (11/12/2024 7:41 AM EDT) WBC 7.4 4.8 - 10.8 K/mcL LAB HEMETOLOGY METHOD 11/12/2024 10:30 AM EDT [facility] RBC 3.30(L) 4.50 - 5.50 M/[facility] LAB HEMETOLOGY METHOD 11/12/2024 10:30 AM EDT [facility] Hemoglobin 9.5(L) 13.5 - 17.5 g/dL LAB HEMETOLOGY METHOD 11/12/2024 10:30 AM [facility] Hematocrit 29.6(L) 42.0 - 54.0 % LAB HEMETOLOGY METHOD 11/12/2024 10:30 AM [facility] MCV 89.4 79.0 - 98.0 FL LAB HEMETOLOGY METHOD 11/12/2024 10:30 AM [facility] MCH 28.7 27.0 - 32.0 pcg LAB HEMETOLOGY METHOD 11/12/2024 10:30 AM [facility] MCHC 32.1 32.0 - 37.0 g/dL LAB HEMETOLOGY METHOD 11/12/2024 10:30 AM [facility] RDW 15.9(H) 11.0 - 15.0 % LAB HEMETOLOGY METHOD 11/12/2024 10:30 AM [facility] Platelets 204 130 - 400 K/mcL LAB HEMETOLOGY METHOD 11/12/2024 10:30 AM [facility] MPV 10.1 7.0 - 11.0 FL LAB HEMETOLOGY METHOD 11/12/2024 10:30 AM [facility] NRBC 0.0 <1.0 % LAB HEMETOLOGY METHOD 11/12/2024 10:30 AM [facility] NRBC Absolute 0.00 <0.10 K/mcL LAB HEMETOLOGY METHOD 11/12/2024 10:30 AM [facility] Neutrophils Relative 56.7 % LAB HEMETOLOGY METHOD 11/12/2024 10:30 AM [facility] Lymphocytes Relative 33.1 % LAB HEMETOLOGY METHOD 11/12/2024 10:30 AM [facility] Monocytes Relative 9.5 % LAB HEMETOLOGY METHOD 11/12/2024 10:30 AM EDT [facility] Eosinophils Relative 0.0 % LAB HEMETOLOGY METHOD 11/12/2024 10:30 AM EDT [facility] Basophils Relative 0.4 % LAB HEMETOLOGY METHOD 11/12/2024 10:30 AM EDT [facility] Immature Granulocytes Relative 0.3 % LAB HEMETOLOGY METHOD 11/12/2024 10:30 AM EDT [facility] Neutrophils Absolute 4.20 1.50 - 7.00 K/mcL LAB HEMETOLOGY METHOD 11/12/2024 10:30 AM EDT [facility] Lymphocytes Absolute 2.45 1.00 - 5.00 K/mcL LAB HEMETOLOGY METHOD 11/12/2024 10:30 AM EDT [facility] Monocytes Absolute 0.70 0.20 - 1.00 K/mcL LAB HEMETOLOGY METHOD 11/12/2024 10:30 AM EDT [facility] Eosinophils Absolute 0.00 0.00 - 0.50 K/mcL LAB HEMETOLOGY METHOD 11/12/2024 10:30 AM EDT [facility] Basophils Absolute 0.03 0.00 - 0.20 K/mcL LAB HEMETOLOGY METHOD 11/12/2024 10:30 AM EDT [facility] Immature Granulocytes Absolute 0.02 0.00 - 0.03 K/mcL LAB HEMETOLOGY METHOD 11/12/2024 10:30 AM EDT [facility] Blood Venous blood specimen / Unknown Venipuncture / Unknown 11/12/2024 7:41 AM EDT 11/12/2024 9:06 AM EDT us Nick Bañuelos MD LAB BLOOD ORDERABLES Final R esult [facility] [address] [place] [address], [place] [phone] * (ABNORMAL) Basic metabolic panel (10/29/2024 1:04 PM EDT) Only the most recent of3 resultswithin the time period is included. Sodium 138 133 - 145 mmol/L LAB CHEMISTRY METHOD 10/29/2024 3:51 PM [facility] Potassium 4.3 3.5 - 5.5 mmol/L LAB CHEMISTRY METHOD 10/29/2024 3:51 PM [facility] Comment:Hemolysis present Chloride 107 96 - 110 mmol/L LAB CHEMISTRY METHOD 10/29/2024 3:51 PM [facility] CO2 17(L) 21 - 32 mmol/L LAB CHEMISTRY METHOD 10/29/2024 3:51 PM [facility] Anion Gap 14(H) 3 - 11 LAB CHEMISTRY METHOD 10/29/2024 3:51 PM [facility] Glucose 133(H) 70 - 100 mg/dL LAB CHEMISTRY METHOD 10/29/2024 3:51 PM [facility] BUN 48(H) 5 - 25 mg/dL LAB CHEMISTRY METHOD 10/29/2024 3:51 PM [facility] Creatinine 1.08 0.70 - 1.30 mg/dL LAB CHEMISTRY METHOD 10/29/2024 3:51 PM [facility] eGFR 72 >=60 mL/min/1. 73m2 LAB CHEMISTRY METHOD 10/29/2024 3:51 PM [facility] Comment:Calculation based on the??Chronic Kidney Disease Epidemiology Collaboration (CKD-EPI) equation refit??without adjustment for race. BUN/Creatinine Ratio 44.4 LAB CHEMISTRY METHOD 10/29/2024 3:51 PM [facility] Calcium 9.3 8.5 - 10.5 mg/dL LAB CHEMISTRY METHOD 10/29/2024 3:51 PM [facility] Blood Venous blood specimen / Unknown Venipuncture / Unknown 10/29/2024 1:04 PM EDT 10/29/2024 2:28 PM EDT us Nick Bañuelos MD LAB BLOOD ORDERABLES Final R esult [facility] [address] [place] [address], [place] [phone] * (ABNORMAL) Urinalysis with reflex microscopic and culture (10/27/2024 2:15 PM EDT) Specific [place] Urine 1.019 1.003 - 1.030 LAB URINALYSIS - AUTOMATED METHOD 10/28/2024 11:33 AM [facility] pH, Urine 6.0 5.0 - 8.0 pH LAB URINALYSIS - AUTOMATED METHOD 10/28/2024 11:33 AM [facility] Leukocytes, Urine Negative Negative LAB URINALYSIS - AUTOMATED METHOD 10/28/2024 11:33 AM [facility] Nitrite, Urine Negative Negative LAB URINALYSIS - AUTOMATED METHOD 10/28/2024 11:33 AM [facility] Protein, Urine Trace <=Trace mg/dL LAB URINALYSIS - AUTOMATED METHOD 10/28/2024 11:33 AM [facility] Glucose, Urine Negative Negative mg/dL LAB URINALYSIS - AUTOMATED METHOD 10/28/2024 11:33 AM [facility] Ketones, Urine 40(A) Negative mg/dL LAB URINALYSIS - AUTOMATED METHOD 10/28/2024 11:33 AM [facility] Urobilinogen, Urine 0.2 0.2 - 1.0 mg/dL LAB URINALYSIS - AUTOMATED METHOD 10/28/2024 11:33 AM [facility] Bilirubin, Urine Negative Negative LAB URINALYSIS - AUTOMATED METHOD 10/28/2024 11:33 AM EDT [facility] Blood, Urine Negative Negative LAB URINALYSIS - AUTOMATED METHOD 10/28/2024 11:33 AM EDT [facility] Urine Urine specimen obtained by clean catch procedure / Unknown 10/27/2024 2:15 PM EDT 10/28/2024 11:03 AM EDT Nick Bañuelos MD LAB URINE ORDERABLES Final R esult Performing Organization Address City/[facility]/ZIP Co de Phone Number [facility] [address] [place] [address], [place] [phone] * Gage urine culture tube (10/27/2024 2:15 PM EDT) Extra Tube Hold for add-ons. 10/28/2024 1:02 PM EDT [facility] Comment:Auto resulted. Urine Urine specimen obtained by clean catch procedure / Unknown 10/27/2024 2:15 PM EDT 10/28/2024 11:03 AM EDT us Nick Bañuelos MD LAB URINE ORDERABLES Final R esult Performing Organization Address City/[facility]/ZIP Co de Phone Number [facility] [address] [place] [address], [place] [phone] * Ammonia (10/27/2024 1:02 PM EDT) Ammonia 24 11 - 35 mcmol/L LAB CHEMISTRY METHOD 10/27/2024 2:57 PM EDT [facility] Blood Venous blood specimen / Unknown Venipuncture / Unknown 10/27/2024 1:02 PM EDT 10/27/2024 2:18 PM EDT us Nick Bañuelos MD LAB BLOOD ORDERABLES Final R esult [facility] [address] [place] [address], [place] [phone] * Creatinine (10/24/2024 7:05 AM EST) Creatinine 0.87 0.70 - 1.30 mg/dL LAB CHEMISTRY METHOD 10/24/2024 11:34 AM EST [facility] eGFR 91 >=60 mL/min/1. 73m2 LAB CHEMISTRY METHOD 10/24/2024 11:34 AM EST [facility] Comment:Calculation based on the??Chronic Kidney Disease Epidemiology Collaboration (CKD-EPI) equation refit??without adjustment for race. Blood Venous blood specimen / Unknown Venipuncture / Unknown 10/24/2024 7:05 AM EST 10/24/2024 10:50 AM EST Nick Bañuelos MD LAB BLOOD ORDERABLES Final R esult [facility] [address] [place] [address], [place] [phone] from Last 3 Months Insurance MEDICAID - [place] MEDICARE Care Teams Steel Spar Operator Relationship Specialty Start Date End Date Nick Bañuelos MD [address] [place] [address] PCP - General Family Medicine 07/01/24
--- OUTSIDE RECORDS SUMMARY | 2025-01-03 10:06 | XMS_ITS | Encounter Summary ---
Author Organization [facility] Address [address] [place] [address] Care Team Providers Care Protein Specialist Name Role Phone Nick Bañuelos MD Primary Care Provider Encounter Details Date Type Department Care Team (Latest Contact Info) Description 08/14/2024 Lab Requisition [facility] [address] [place] [address] Nick Bañuelos MD [facility] [place] [address] Schizoaffective disorder, unspecified (CMS/[facility] V24, CMS/[facility] V28) Social History Tobacco Use [...] Comments WBC COUNT WITH ABSOLUTE NEUTROPHIL Routine 08/17/2024 6:10 AM EST Schizoaffective disorder, unspecified ([facility]) documented in this encounter Results * Wbc count with absolute neutrophil (08/17/2024 6:10 AM EST) WBC 7.2 4.8 - 10.8 K/mcL LAB HEMETOLOGY METHOD 08/17/2024 1:[address] [facility] Neutrophils Absolute 4.27 1.50 - 7.00 K/mcL LAB HEMETOLOGY METHOD 08/17/2024 1:[address] [facility] Neutrophils Relative 59.2 % LAB HEMETOLOGY METHOD 08/17/2024 1:[address] [facility] Blood Venous blood specimen / Unknown Venipuncture / Unknown 08/17/2024 6:10 AM EST 08/17/2024 10:41 AM EST Nick Bañuelos MD LAB BLOOD ORDERABLES Final R esult [facility] [address] [place] [address], documented in this encounter Visit Diagnoses Diagnosis Schizoaffective disorder, unspecified (CMS/HCC V24, CMS/HCC V28) documented in this encounter Additional Health Concerns Infection Onset Date Last Indicated Resolved Time Respiratory Rule-Out 08/18/2024 08/18/2024 025 12:47 PM EST Influenza 08/18/2024 08/18/2024 09/11/2024 7:07 PM EST documented as of this encounter Care Teams Protein Specialist Relationship Specialty Start Date End Date Nick Bañuelos MD [address] [place] [address] PCP - General Family Medicine 07/01/24 documented as of this encounter
--- OUTSIDE RECORDS SUMMARY | 2025-01-03 10:06 | XMS_ITS | Encounter Summary ---
Author Organization [employer] Address [address] [place] [address] Care Team Providers Care Direct Mail Manager Name Role Phone Nikc Bañuelos MD Primary Care Provider [phone]- [phone] Encounter Details Date Type Department Care Team (Latest Contact Info) Description 10/27/2024 Lab Requisition [facility] Lab [address] [place] [address] Nick Bañuelos MD [facility] [place] [address] Type 2 diabetes mellitus without complications (CMS/HCC V24, CMS/HCC V28); Hypoglycemia, unspecified Social History Tobacco Use Types Packs/Day [...] Associated Diagnosis Comments COMPLETE BLOOD COUNT Routine 10/27/2024 1:02 PM EDT Type 2 diabetes mellitus without complications ([facility]/HCC) Hypoglycemia, unspecified AMMONIA Routine 10/27/2024 1:02 PM EDT Type 2 diabetes mellitus without complications (CMS/HCC) Hypoglycemia, unspecified BASIC METABOLIC PANEL Routine 10/27/2024 1:02 PM EDT Type 2 diabetes mellitus without complications ([facility]) Hypoglycemia, unspecified documented in this encounter Results * Ammonia (10/27/2024 1:02 PM EDT) Ammonia 24 11 - 35 mcmol/L LAB CHEMISTRY METHOD 10/27/2024 2:57 PM EDT [facility] Blood Venous blood specimen / Unknown Venipuncture / Unknown 10/27/2024 1:02 PM EDT 10/27/2024 2:18 PM EDT us Nick Bañuelos MD LAB BLOOD ORDERABLES Final R esult [facility] [address] [place] [address], [place] [phone] * (ABNORMAL) Basic metabolic panel (10/27/2024 1:02 PM EDT) Sodium 143 133 - 145 mmol/L LAB CHEMISTRY METHOD 10/27/2024 3:20 PM [facility] Potassium 3.9 3.5 - 5.5 mmol/L LAB CHEMISTRY METHOD 10/27/2024 3:20 PM [facility] Chloride 108 96 - 110 mmol/L LAB CHEMISTRY METHOD 10/27/2024 3:20 PM [facility] CO2 20(L) 21 - 32 mmol/L LAB CHEMISTRY METHOD 10/27/2024 3:20 PM [facility] Anion Gap 15(H) 3 - 11 LAB CHEMISTRY METHOD 10/27/2024 3:20 PM [facility] Glucose 73 70 - 100 mg/dL LAB CHEMISTRY METHOD 10/27/2024 3:20 PM [facility] BUN 34(H) 5 - 25 mg/dL LAB CHEMISTRY METHOD 10/27/2024 3:20 PM [facility] Creatinine 0.89 0.70 - 1.30 mg/dL LAB CHEMISTRY METHOD 10/27/2024 3:20 PM [facility] LAB eGFR 90 >=60 mL/min/1. 73m2 LAB CHEMISTRY METHOD 10/27/2024 3:20 PM [facility] LAB Comment:Calculation based on the??Chronic Kidney Disease Epidemiology Collaboration (CKD-EPI) equation refit??without adjustment for race. BUN/Creatinine Ratio 38.2 LAB CHEMISTRY METHOD 10/27/2024 3:20 PM EDT [facility] Calcium 9.1 8.5 - 10.5 mg/dL LAB CHEMISTRY METHOD 10/27/2024 3:20 PM EDT [facility] Blood Venous blood specimen / Unknown Venipuncture / Unknown 10/27/2024 1:02 PM EDT 10/27/2024 2:18 PM EDT us Nick Bañuelos MD LAB BLOOD ORDERABLES Final R esult [facility] [address] [place] [address], [place] [phone] * (ABNORMAL) Complete blood count (10/27/2024 1:02 PM EDT) WBC 9.7 4.8 - 10.8 K/mcL LAB HEMETOLOGY METHOD 10/27/2024 2:39 PM EDT [facility] RBC 4.50 4.50 - 5.50 M/mcL LAB HEMETOLOGY METHOD 10/27/2024 2:39 PM EDT [facility] Hemoglobin 12.8(L) 13.5 - 17.5 g/dL LAB HEMETOLOGY METHOD 10/27/2024 2:39 PM EDT [facility] Hematocrit 38.4(L) 42.0 - 54.0 % LAB HEMETOLOGY METHOD 10/27/2024 2:39 PM EDT [facility] MCV 85.7 79.0 - 98.0 FL LAB HEMETOLOGY METHOD 10/27/2024 2:39 PM EDT [facility] MCH 28.6 27.0 - 32.0 pcg LAB HEMETOLOGY METHOD 10/27/2024 2:39 PM EDT [facility] MCHC 33.3 32.0 - 37.0 g/dL LAB HEMETOLOGY METHOD 10/27/2024 2:39 PM EDT [facility] RDW 16.5(H) 11.0 - 15.0 % LAB HEMETOLOGY METHOD 10/27/2024 2:39 PM EDT [facility] Platelets 176 130 - 400 K/mcL LAB HEMETOLOGY METHOD 10/27/2024 2:39 PM EDT [facility] MPV 10.6 7.0 - 11.0 FL LAB HEMETOLOGY METHOD 10/27/2024 2:39 PM EDT [facility] NRBC 0.0 <1.0 % LAB HEMETOLOGY METHOD 10/27/2024 2:39 PM EDT [facility] NRBC Absolute 0.00 <0.10 K/mcL LAB HEMETOLOGY METHOD 10/27/2024 2:39 PM EDT [facility] Blood Venous blood specimen / Unknown Venipuncture / Unknown 10/27/2024 1:02 PM EDT 10/27/2024 2:18 PM EDT Nick Bañuelos MD LAB BLOOD ORDERABLES Final R esult [facility] [address] [place] [address], documented in this encounter Visit Diagnoses Diagnosis Type 2 diabetes mellitus without complications (CMS/HCC V24, CMS/HCC V28) Hypoglycemia, unspecified documented in this encounter Care Teams Direct Mail Manager Relationship Specialty Start Date End Date Nick Bañuelos MD [address] [place] [address] PCP - General Family Medicine 07/01/24 documented as of this encounter
--- OUTSIDE RECORDS SUMMARY | 2025-01-03 10:06 | XMS_ITS | Encounter Summary ---
Author Organization [employer] Address [address] [place] [address] Care Team Providers Care Transition Teacher Name Role Phone Nick Bañuelos MD Primary Care Provider [phone] Encounter Details Date Type Department Care Team (Late st Contact Info) Description 10/29/2024 Lab Requisition [facility] Lab [address] [place] [address] Nick Bañuelos MD [address] [place] [address] Pneumonitis due to inhalation of food and vomit (CMS/HCC V24, CMS/HCC V28) Social History Tobacco [...] Associated Diagnosis Comments COMPLETE BLOOD COUNT Routine 10/29/2024 1:04 PM EDT Pneumonitis due to inhalation of food and vomit (CMS/HCC) BASIC METABOLIC PANEL Routine 10/29/2024 1:04 PM EDT Pneumonitis due to inhalation of food and vomit (CMS/HCC) documented in this encounter Results * (ABNORMAL) Basic metabolic panel (10/29/2024 1:04 PM EDT) Sodium 138 133 - 145 mmol/L LAB CHEMISTRY METHOD 10/29/2024 3:[address] [facility] Potassium 4.3 3.5 - 5.5 mmol/L LAB CHEMISTRY METHOD 10/29/2024 3:51 PM EDT [facility] LAB Comment:Hemolysis present Chloride 107 96 - 110 mmol/L LAB CHEMISTRY METHOD 10/29/2024 3:51 PM [facility] CO2 17(L) 21 - 32 mmol/L LAB CHEMISTRY METHOD 10/29/2024 3:51 PM [facility] Anion Gap 14(H) 3 - 11 LAB CHEMISTRY METHOD 10/29/2024 3:51 PM [facility] Glucose 133(H) 70 - 100 mg/dL LAB CHEMISTRY METHOD 10/29/2024 3:51 PM [facility] BUN 48(H) 5 - 25 mg/dL LAB CHEMISTRY METHOD 10/29/2024 3:51 PM [facility] Creatinine 1.08 0.70 - 1.30 mg/dL LAB CHEMISTRY METHOD 10/29/2024 3:51 PM [facility] LAB eGFR 72 >=60 mL/min/1. 73m2 LAB CHEMISTRY METHOD 10/29/2024 3:51 PM [facility] LAB Comment:Calculation based on the??Chronic Kidney Disease Epidemiology Collaboration (CKD-EPI) equation refit??without adjustment for race. BUN/Creatinine Ratio 44.4 LAB CHEMISTRY METHOD 10/29/2024 3:51 PM [facility] Calcium 9.3 8.5 - 10.5 mg/dL LAB CHEMISTRY METHOD 10/29/2024 3:51 PM [facility] Blood Venous blood specimen / Unknown Venipuncture / Unknown 10/29/2024 1:04 PM EDT 10/29/2024 2:28 PM EDT us Nick Bañuelos MD LAB BLOOD ORDERABLES Final R esult [facility] [address] [place] [address], * (ABNORMAL) Complete blood count (10/29/2024 1:04 PM EDT) [facility] WBC 10.0 4.8 - 10.8 K/mcL LAB HEMETOLOGY METHOD 10/29/2024 2:54 PM EDT [facility] RBC 4.40(L) 4.50 - 5.50 M/mcL LAB HEMETOLOGY METHOD 10/29/2024 2:54 PM EDT [facility] Hemoglobin 12.7(L) 13.5 - 17.5 g/dL LAB HEMETOLOGY METHOD 10/29/2024 2:54 PM EDT [facility] Hematocrit 41.0(L) 42.0 - 54.0 % LAB HEMETOLOGY METHOD [facility]24 [facility] MCV 92.3 79.0 - 98.0 FL LAB HEMETOLOGY METHOD 10/29/2024 2:54 [facility] MCH 28.6 27.0 - 32.0 pcg LAB HEMETOLOGY METHOD 10/29/2024 2:54 [facility] MCHC 31.0(L) 32.0 - 37.0 g/dL LAB HEMETOLOGY METHOD 10/29/2024 2:54 PM [facility] RDW 17.0(H) 11.0 - 15.0 % LAB HEMETOLOGY METHOD 10/29/2024 2:54 PM EDT [facility] Platelets 154 130 - 400 K/mcL LAB HEMETOLOGY METHOD 10/29/2024 2:54 [facility] MPV 10.5 7.0 - 11.0 FL LAB HEMETOLOGY METHOD 10/29/2024 2:54 [facility] NRBC 0.0 <1.0 % LAB HEMETOLOGY METHOD 10/29/2024 2:54 PM EDT [facility] NRBC Absolute 0.00 <0.10 K/[facility] LAB HEMETOLOGY METHOD 10/29/2024 2:54 PM EDT [facility] Blood Venous blood specimen / Unknown Venipuncture / Unknown 10/29/2024 1:04 PM EDT 10/29/2024 2:28 PM EDT us Nick Bañuelos MD LAB BLOOD ORDERABLES Final R esult [facility] [address] [place] [address], documented in this encounter Visit Diagnoses Diagnosis Pneumonitis due to inhalation of food and vomit (CMS/HCC V24, CMS/HCC V28) documented in this encounter Care Teams Transition Teacher Relationship Specialty Start Date End Date Nick Bañuelos MD [address] [place] [address] PCP - General Family Medicine 07/01/24 documented as of this encounter
[2025-01-03] MEDS: cefTRIAXone sodium 1 GM VIAL IVPUSH (10:10)
[2025-01-03 10:13] LABS: Bacteria Urine 2+ (None Seen); Hyaline Casts Urine 0-2 /LPF (0-2); Other Crystals Urine Present; RBC Urine 0-2 /HPF (0-2); Squamous Epithelial Cell Urine 0-2 /HPF (0-2); UACC Culture Trigger YES; WBC Urine 21-50 /HPF (0-5)
[2025-01-03 10:44] LABS: Influenza A PCR NEGATIVE (Negative); Influenza B PCR NEGATIVE (Negative); Resp Syncy Virus RNA Qual PCR NEGATIVE (Negative); SARS COV2 PCR INHOUSE NEGATIVE (Negative)
--- NOTE | 2025-01-03 11:21 | PC.NURSE ---
Report received. Taken over care at this time.
[2025-01-03 11:35] LABS: Glucose, Whole Blood 96 mg/dL (60-115)
[2025-01-03] MEDS: diazePAM 10 MG/2 ML CARTRIDGE 5 MG IVPUSH (12:40)
--- NOTE | 2025-01-03 12:43 | PM.IMHP ---
History of Present Illness Date of Service: 01/03/25 Attending physician on admission: Omari Monson Chief Complaint: AMS Pt is a 74-year-old male resident of [facility] with a PMH significant for?HTN, HLD, hypothyroidism, cognitive impairment, dysphagia, failure to thrive, GERD, BPH, anxiety, schizophrenia, and hx of catatonia who presents to the ED from SNF for evaluation of AMS. Pt apparently found by staff altered from baseline with increased lethargy and and responsive to painful stimuli only. Report is normally A&O x4. In the ED pt was found to be hypoglycemic at 56 and responded well to D50. Pt mentating much better at time of this interview and exam. Pt alert to name and date, but not to place and unaware of exactly why he was brought to the hospital. The pt overall reports feeling ?fine? and has no acute medical complaints. Reports he has not been eating or drinking normally for the past 3 days because he has not felt hungry?. No nausea, vomiting, abdominal pain. Denies diarrhea. Denies any significant musculoskeletal pain. No SOB or difficulty breathing. No chest pain/pressure, palpitations. In the ED pt was afebrile but tachycardic up to 100, tachypneic up to 26, and hypertensive up to 155/88. Labs were significant for initial hypoglycemia of 56 and BUN elevated at 28, otherwise grossly unremarkable and around baseline for pt. No leukocytosis. Stable normocytic anemia of 11.6/35.6. No significant electrolyte abnormalities. Creatinine WNL. Hepatic WNL. Ammonia WNL at 30. Troponin negative. VBG reassuring. UA concerning for acute UTI. Tox screen negative, tested negative for flu, COVID, RSV. CTA of head negative for acute intracranial findings. CXR showed no acute cardiopulmonary process. EKG demonstrated sinus rhythm with PACs and aberrant conduction, similar to prior. Pt was treated in the ED with dextrose 25 g IV, diet has been 5 mg IV, and ceftriaxone. Pt is admitted to the hospital for treatment and further evaluation of acute metabolic encephalopathy in the setting of hypoglycemia and UTI with sepsis. Review of Systems Review of Systems: Negative except for that which is stated in the HPI. [facility] Medical History Presbyopia Unspecified astigmatism, unspecified eye Combined forms of age-related cataract, bilateral Corns and callosities Nail dystrophy Tinea unguium Type 2 diabetes mellitus with other circulatory complications Hallux valgus (acquired), unspecified foot Other seasonal allergic rhinitis Insomnia, unspecified History of falling Slurred speech Suicidal ideations Functional urinary incontinence Personal history of (healed) traumatic fracture Gastro-esophageal reflux disease without esophagitis Benign prostatic hyperplasia without lower urinary tract symptoms Hyperlipidemia, unspecified Essential (primary) hypertension Mild cognitive impairment, so stated Unspecified osteoarthritis, unspecified site Muscle weakness (generalized) Anxiety disorder, unspecified Hypothyroidism, unspecified Ataxic gait Anemia, unspecified Diabetes COVID-19 Schizophrenia Social History Household Members: None Housing: Care Home Unable to assess alcohol history related to: Unable to respond Alcohol intake: never Patient Tobacco Use Status: Never used Tobacco Advance Directives Date on File: 09/25/21 service: No Current occupational status: disabled Meds Allergies Allergy/AdvReac Type Severity Reaction Status Date / Time azithromycin Allergy Unknown Verified 01/03/25 09:04 Barbiturates Allergy Unknown Verified 01/03/25 09:04 erythromycin base Allergy Unknown Verified 01/03/25 09:04 fluphenazine Allergy Unknown Verified 01/03/25 09:04 haloperidol [From Haldol] Allergy Unknown Verified 01/03/25 09:04 phenobarbital Allergy Unknown Verified 01/03/25 09:04 Home Medications ?Medication ?Instructions ?Recorded ?Confirmed ?Last Taken ?Type atorvastatin 40 mg tablet 40 mg PO BEDTIME 09/25/21 01/03/25 02/18/22 History loratadine 10 mg tablet 10 mg PO DAILY 09/25/21 01/03/25 02/18/22 History lorazepam 1 mg tablet 1 mg PO BID@0900,1800 09/25/21 01/03/25 02/18/22 History metoprolol tartrate 50 mg tablet 25 mg PO BID@0900,1800 09/25/21 01/03/25 02/18/22 History mirtazapine 30 mg tablet 30 mg PO BEDTIME 09/25/21 01/03/25 02/18/22 History multivitamin with minerals 1 tab PO DAILY 09/25/21 01/03/25 02/18/22 History tamsulosin 0.4 mg capsule 0.4 mg PO BEDTIME 09/25/21 01/03/25 02/18/22 History acetaminophen 325 mg tablet 650 mg PO Q6H PRN FEVER/PAIN 12/21/23 01/03/25 Unknown History bisacodyl 10 mg rectal suppository 10 mg ID DAILY PRN Constipation 12/21/23 01/03/25 Unknown History glucagon 1 mg/0.2 mL subcutaneous 1 mg subcut Q20M PRN Hypoglycemia 12/21/23 01/03/25 Unknown History syringe ([employer] PFS 2-Pack) levothyroxine 88 mcg tablet 88 mcg PO DAILY@0600 12/21/23 01/03/25 Unknown History magnesium hydroxide 400 mg/5 mL 30 ml PO DAILY PRN Constipation 12/21/23 01/03/25 Unknown History oral suspension (Milk of Magnesia) naloxone 4 mg/actuation nasal spray 4 mg intranasal Q3M PRN Opioid 12/21/23 01/03/25 Unknown History Overdose sodium phosphates 19 gram-7 118 ml ID DAILY PRN Constipation 12/21/23 01/03/25 Unknown History gram/118 mL enema (Fleet Enema) aripiprazole lauroxil 882 mg/3.2 882 mg IM Q28D 01/03/25 01/03/25 Unknown History mL suspension, ext.rel. IM syringe ascorbic acid (vitamin C) 500 mg 500 mg PO DAILY 01/03/25 01/03/25 Unknown History tablet (Vitamin C) clozapine 100 mg tablet 100 mg PO BID 01/03/25 01/03/25 01/02/25 History clozapine 25 mg tablet 25 mg PO BEDTIME 01/03/25 01/03/25 01/02/25 History famotidine 40 mg tablet 40 mg PO BEDTIME 01/03/25 01/03/25 Unknown History ferrous sulfate 325 mg (65 mg 325 mg PO DAILY 01/03/25 01/03/25 Unknown History iron) tablet,delayed release ipratropium 0.5 mg-albuterol 3 mg 3 ml inhalation Q4H PRN Shortness 01/03/25 01/03/25 Unknown History (2.5 mg base)/3 mL nebulization Of Breath Or Wheezing soln Physical Exam Vital Signs and Narrative: Vital Signs: Last Vital Signs Temp 98.4 F 01/03/25 09:02 Pulse 96 01/03/25 10:01 Resp 16 01/03/25 10:01 BP 155/88 H 01/03/25 10:01 Pulse Ox 96 01/03/25 10:01 O2 Del Method Room Air 01/03/25 10:01 BMI result Body Mass Index 23.2 General: Alert and oriented to self and time, not to place or situation. In no acute distress. Resp: CTA bilaterally CVS: S1, S2, RRR GI: +BS, NT, no distention Skin: Warm, dry Neuro: Cranial nerves II-XII grossly intact bilaterally. Motor grossly intact bilaterally Extremities: No edema Psych: Calm and cooperative, mildly confused Results Labs 01/03/25 09:33 01/03/25 09:36 Labs: Laboratory Results - last 24 hr 01/03/25 01/03/25 01/03/25 09:30 09:33 09:36 MCV 88.6 MCH 28.9 MCHC 32.6 RDW 15.6 Plt Count 162 MPV 9.7 Immature Gran % (Auto) 0.3 Neut % (Auto) 62.2 Lymph % (Auto) 27.1 Roane % (Auto) 7.7 Eos % (Auto) 0.0 Baso % (Auto) 2.7 H Lymph # (Auto) 1.9 Roane # (Auto) 0.6 Eos # (Auto) 0.0 Baso # (Auto) 0.2 Abs Immat Gran (auto) 0.02 Absolute Neuts (auto) 4.5 Absolute Nucleated RBC 0.000 Nucleated RBC % (auto) 0.0 PT 11.6 INR 1.0 VBG pH VBG pCO2 VBG pO2 VBG HCO3 VBG O2 Saturation VBG Base Excess Anion Gap 14 Estim Creat Clear Calc 88.0 Estimated GFR > 60 POC Glucose 56 L* Random Glucose 68 Lactic Acid 1.2 Calcium 9.0 D Magnesium 2.0 Total Bilirubin 0.4 AST 23 ALT 22 Alkaline Phosphatase 103 Ammonia 30 Total Protein 7.2 Albumin 4.0 Urine Color Urine Appearance Urine pH Ur Specific Carlton Urine Protein Urine Glucose (UA) Urine Ketones Urine Blood Urine Nitrite Ur Leukocyte Esterase Urine RBC Urine WBC Ur Squamous Epith Cells Other Crystals Urine Bacteria Hyaline Casts Urine Opiates Screen Ur Buprenorphine Scrn Ur Oxycodone Screen Urine Methadone Screen Urine Fentanyl Screen Ur Barbiturates Screen Ur Phencyclidine Scrn Ur Amphetamines Screen U Benzodiazepines Scrn Urine Cocaine Screen U Marijuana (THC) Screen Ethyl Alcohol 15 Influenza Type A (PCR) NEGATIVE Influenza Type B (PCR) NEGATIVE RSV RNA Qual (PCR) NEGATIVE SARS-CoV-2 RNA (RT-PCR) NEGATIVE 01/03/25 01/03/25 01/03/25 09:37 09:41 10:01 MCV MCH MCHC RDW Plt Count MPV Immature Gran % (Auto) Neut % (Auto) Lymph % (Auto) Roane % (Auto) Eos % (Auto) Baso % (Auto) Lymph # (Auto) Roane # (Auto) Eos # (Auto) Baso # (Auto) Abs Immat Gran (auto) Absolute Neuts (auto) Absolute Nucleated RBC Nucleated RBC % (auto) PT INR VBG pH 7.40 VBG pCO2 39 VBG pO2 41 VBG HCO3 25 VBG O2 Saturation 62.0 VBG Base Excess 0.4 Anion Gap Estim Creat Clear Calc Estimated GFR POC Glucose 164 H Random Glucose Lactic Acid Calcium Magnesium Total Bilirubin AST ALT Alkaline Phosphatase Ammonia Total Protein Albumin Urine Color Yellow Urine Appearance Cloudy Urine pH 8.5 Ur Specific Carlton 1.015 Urine Protein 30 (1+) H Urine Glucose (UA) Negative Urine Ketones 15 Urine Blood Negative Urine Nitrite Negative Ur Leukocyte Esterase Large (3+) H Urine RBC 0-2 Urine WBC 21-50 Ur Squamous Epith Cells 0-2 Other Crystals Present Urine Bacteria 2+ Hyaline Casts 0-2 Urine Opiates Screen Not Detected Ur Buprenorphine Scrn Not Detected Ur Oxycodone Screen Not Detected Urine Methadone Screen Not Detected Urine Fentanyl Screen Not Detected Ur Barbiturates Screen Not Detected Ur Phencyclidine Scrn Not Detected Ur Amphetamines Screen Not Detected U Benzodiazepines Scrn Not Detected Urine Cocaine Screen Not Detected U Marijuana (THC) Screen Not Detected Ethyl Alcohol Influenza Type A (PCR) Influenza Type B (PCR) RSV RNA Qual (PCR) SARS-CoV-2 RNA (RT-PCR) 01/03/25 11:32 MCV MCH MCHC RDW Plt Count MPV Immature Gran % (Auto) Neut % (Auto) Lymph % (Auto) Roane % (Auto) Eos % (Auto) Baso % (Auto) Lymph # (Auto) Roane # (Auto) Eos # (Auto) Baso # (Auto) Abs Immat Gran (auto) Absolute Neuts (auto) Absolute Nucleated RBC Nucleated RBC % (auto) PT INR VBG pH VBG pCO2 VBG pO2 VBG HCO3 VBG O2 Saturation VBG Base Excess Anion Gap Estim Creat Clear Calc Estimated GFR POC Glucose 96 Random Glucose Lactic Acid Calcium Magnesium Total Bilirubin AST ALT Alkaline Phosphatase Ammonia Total Protein Albumin Urine Color Urine Appearance Urine pH Ur Specific Carlton Urine Protein Urine Glucose (UA) Urine Ketones Urine Blood Urine Nitrite Ur Leukocyte Esterase Urine RBC Urine WBC Ur Squamous Epith Cells Other Crystals Urine Bacteria Hyaline Casts Urine Opiates Screen Ur Buprenorphine Scrn Ur Oxycodone Screen Urine Methadone Screen Urine Fentanyl Screen Ur Barbiturates Screen Ur Phencyclidine Scrn Ur Amphetamines Screen U Benzodiazepines Scrn Urine Cocaine Screen U Marijuana (THC) Screen Ethyl Alcohol Influenza Type A (PCR) Influenza Type B (PCR) RSV RNA Qual (PCR) SARS-CoV-2 RNA (RT-PCR) Assessment and Plan (1) Acute UTI: Status: Acute (2) Acute metabolic encephalopathy: Status: Acute (3) Hypoglycemia: Status: Acute Plan Pt is a 74-year-old male resident of [facility] with a PMH significant for?HTN, HLD, hypothyroidism, cognitive impairment, dysphagia, failure to thrive, GERD, BPH, anxiety, schizophrenia, and hx of catatonia who presents to the ED from SNF for evaluation of AMS. Pt is admitted to the hospital for treatment and further evaluation of acute metabolic encephalopathy in the setting of hypoglycemia and UTI with sepsis. Acute metabolic encephalopathy Pt found by SNF staff with AMS, lethargy, responsive to painful stimuli only Multifactorial: Secondary to acute UTI and hypoglycemia Currently mentation appears improved, unclear if completely back to baseline Treat as below Monitor mentation Acute UTI with sepsis UA concerning for acute UTI with positive leukocyte esterase, WBCs 20 1-50, 2+ bacteria Meets sepsis criteria with tachycardia and tachypnea; lactic acid WNL, no hypotension Will treat with ceftriaxone, started 01/03/2025 Follow urine cultures Hypoglycemia Patient's initial POC 56 at time of presentation Improved and stabilized after D50 Secondary to poor p.o. intake A1c borderline at 5.8, pt not on diabetic meds Monitor POCs Hx of dysphagia Chopped/advanced (NDD3) diet, thin liquids Ensure supplement t.i.d. HLD Continue statin HTN Continue metoprolol BPH Continue tamsulosin Mood disorder Continue clozapine, lorazepam, and mirtazapine Full Code, based on review of past medical records and documents from SNF. Attempted to contact guardian but was unable to reach her to either update her or verify code status. Attending:?Dr. Monson DVT Prophylaxis: Lovenox Pt will require a hospitalization of at least two nights for treatment of acute metabolic encephalopathy in the setting of hypoglycemia and UTI with sepsis. Pt will require hospital level of care for IV antibiotics and close monitoring of mentation. Quality Stroke Does the patient have a stroke diagnosis?: No VTE Prior VTE?: No VTE Risk Level:: Medical - moderate - high VTE Device Contraindication: Treatment Not Indicated VTE Drug Contraindication: N/A - Med Ordered
--- NOTE | 2025-01-03 13:32 | PHA.MEDREC ---
Addendum entered by Yennifer Smith RPh 01/03/25 18:31: Reviewed by [facility] Original Note: Pharmacy Consult ? Medication Reconciliation Pharmacy has completed the medication reconciliation. List from [facility].
[2025-01-03 13:56] LABS: Estimated Average Glucose 120 mg/dL; Hemoglobin A1C 120.9439 umol/L; Hemoglobin A1c % 5.8 % (<6.0); Total Hemoglobin (HGBA1C) 3057.4751 umol/L
[2025-01-03] MEDS: Lactated Ringers 1,000 ML 999 ML IV (14:10)
[2025-01-03] MEDS: Enoxaparin Sodium 40 MG/0.4 ML SYRINGE SUBCUT (14:15)
--- NOTE | 2025-01-03 15:09 | PC.NURSE ---
Informed RADHA Calvert that pt. still needs PO medication and was held d/t pt. sleeping and not staying awake long enough.
[2025-01-03] MEDS: Metoprolol Tartrate 25 MG TABLET PO (16:05)
[2025-01-03] MEDS: cloZAPine 100 MG TABLET PO (16:06)
[2025-01-03 16:55] LABS: Glucose, Whole Blood 70 mg/dL (60-115)
[2025-01-03] MEDS: 0.9 % Sodium Chloride Flush 3 ML SYRINGE IVFLUSH (17:07)
[2025-01-03] MEDS: Dextrose 5 % and Lactated Ring 1,000 ML 50 ML IVCONT (17:07)
[2025-01-03 17:28] LABS: Glucose, Whole Blood 168 mg/dL (60-115)
[2025-01-03] MEDS: cloZAPine 25 MG TABLET PO (19:19)
[2025-01-03] MEDS: Atorvastatin Calcium 40 MG TABLET PO (19:19)
[2025-01-03] MEDS: LORazepam 1 MG TABLET PO (19:19)
[2025-01-03] MEDS: Tamsulosin HCL 0.4 MG CAPSULE PO (19:19)
[2025-01-03] MEDS: Mirtazapine 30 MG TABLET PO (19:19)
[2025-01-03] MEDS: Famotidine 20 MG TABLET 40 MG PO (19:19)
[2025-01-03 19:44] LABS: Glucose, Whole Blood 117 mg/dL (60-115)
[2025-01-04 03:43] VITALS: BP 144/76; PULSE 91; RESP 18; TEMP 36.5; O2SAT 97
[2025-01-04] MEDS: Levothyroxine Sodium 88 MCG TABLET PO (05:18)
--- NOTE | 2025-01-04 05:28 | PC.NURSE ---
pt was inc. of large amount of urine with hematuria notified
[2025-01-04 07:10] VITALS: BP 160/84; PULSE 94; RESP 18; TEMP 36.2; O2SAT 97
[2025-01-04] MEDS: Loratadine 10 MG TABLET PO (07:19)
[2025-01-04] MEDS: cloZAPine 100 MG TABLET PO ×2 (07:19→20:43)
[2025-01-04] MEDS: LORazepam 1 MG TABLET PO ×2 (07:20→17:58)
[2025-01-04] MEDS: Metoprolol Tartrate 25 MG TABLET PO ×2 (07:20→17:58)
[2025-01-04] MEDS: Ferrous Sulfate 324 MG TABLET.DR PO (07:21)
[2025-01-04] MEDS: Multivitamin TABLET 1 TAB PO (07:21)
[2025-01-04] MEDS: cefTRIAXone sodium 1 GM VIAL IVPUSH (07:21)
[2025-01-04] MEDS: Ascorbic Acid 500 MG TABLET PO (07:21)
[2025-01-04 07:22] VITALS: BP 143/65; PULSE 53; RESP 16; TEMP 36.2; O2SAT 99
[2025-01-04 07:23] LABS: Glucose, Whole Blood 90 mg/dL (60-115)
[2025-01-04 08:06] VITALS: BP 139/79
--- NOTE | 2025-01-04 08:27 | P.PNIM_ITS ---
Subjective Subjective Date of Service: 01/04/25 Interval History: uti Review of Systems menatl status seems improving denies any abd pain or fevers Review of Systems: Yes all other systems are reviewed and are negative Physical Exam 2 Vital Signs: Vital Signs: Last Vital Signs Temp 97.2 F 01/04/25 07:22 Pulse 53 01/04/25 07:22 Resp 16 01/04/25 07:22 BP 139/79 01/04/25 08:06 Pulse Ox 99 01/04/25 07:22 O2 Del Method Room Air 01/04/25 07:22 BMI result Body Mass Index 23.3 General: Alert and oriented to self and time, says in hospital . Resp: CTA bilaterally CVS: S1, S2, RRR GI: +BS, NT, no distention Skin: Warm, dry Neuro: moves all extermities. Extremities: No edema Psych: Calm and cooperative, mildly confused Objective Data Active Medications Acetaminophen (Acetaminophen 325 Mg Tablet) 650 mg PO Q6H PRN PRN Reason: Pain, Mild 1-3,fever,headache Albuterol/Ipratropium (Albuterol/Iprat 2.5/0.5mg 3 Ml Ampul.Neb) 3 ml INHALE Q4H PRN PRN Reason: Shortness Of Breath Or Wheezing Ascorbic Acid (Ascorbic Acid 500 Mg Tablet) 500 mg PO DAILY [facility] Last Admin: 01/04/25 07:21 Dose: 500 mg Documented By: JOCELYN Atorvastatin Calcium (Atorvastatin Calcium 40 Mg Tablet) 40 mg PO BEDTIME [facility] Last Admin: 01/03/25 19:19 Dose: 40 mg Documented By: JOCELYN Bisacodyl (Bisacodyl 10 Mg Supp.Rect) 10 mg MN DAILY PRN PRN Reason: Constipation Calcium Carbonate (Calcium Carbonate 750 Mg Tab.Chew) 750 mg PO Q4H PRN PRN Reason: Heartburn Ceftriaxone Sodium (Ceftriaxone Sodium 1 Gm Vial) 1 gm IVPUSH Q24H [facility] Last Admin: 01/04/25 07:21 Dose: 1 gm Documented By: JOCELYN Clozapine (Clozapine 100 Mg Tablet) 100 mg PO BID [facility] Last Admin: 01/04/25 07:19 Dose: 100 mg Documented By: JOCELYN Clozapine (Clozapine 25 Mg Tablet) 25 mg PO BEDTIME [facility] Last Admin: 01/03/25 19:19 Dose: 25 mg Documented By: JOCELYN Dextrose (Dextrose 50 % 25 Gm/50 Ml Syringe) 25 gm IVPUSH Q15M PRN; Protocol PRN Reason: per Hypoglycemia Standing Ord. Last Admin: 01/03/25 16:55 Dose: 25 gm Documented By: JOHN Enoxaparin Sodium (Enoxaparin Sodium 40 Mg/0.4 Ml Syringe) 40 mg SUBCUT Q24H [facility] Last Admin: 01/03/25 14:15 Dose: 40 mg Documented By: JOANIE Famotidine (Famotidine 20 Mg Tablet) 40 mg PO BEDTIME [facility] Last Admin: 01/03/25 19:19 Dose: 40 mg Documented By: JOCELYN Ferrous Sulfate (Ferrous Sulfate 324 Mg Tablet.Dr) 324 mg PO DAILY [facility] Last Admin: 01/04/25 07:21 Dose: 324 mg Documented By: JOCELYN Glucose (Glucose Gel 15 Gm Gel..Gram.) 15 gm PO Q15M PRN; Protocol PRN Reason: per Hypoglycemia Standing Ord. Dextrose/Lactated Ringer's (D5lr) 1,000 mls @ 50 mls/hr IVCONT .Q20H [facility] Last Admin: 01/03/25 17:07 Dose: 50 mls/hr Documented By: CALLUM Levothyroxine Sodium (Levothyroxine Sodium 88 Mcg Tablet) 88 mcg PO DAILY@0600 [facility] Last Admin: 01/04/25 05:18 Dose: 88 mcg Documented By: LAITH Loratadine (Loratadine 10 Mg Tablet) 10 mg PO DAILY [facility] Last Admin: 01/04/25 07:19 Dose: 10 mg Documented By: JOCELYN Lorazepam (Lorazepam 1 Mg Tablet) 1 mg PO BID@0900,1800 [facility] Last Admin: 01/04/25 07:20 Dose: 1 mg Documented By: JOCELYN Magnesium Hydroxide (Milk Of Magnesia 30 Ml Oral.Susp) 30 ml PO DAILY PRN PRN Reason: Constipation Melatonin (Melatonin 3 Mg Tablet) 6 mg PO BEDTIME PRN PRN Reason: Insomnia Metoprolol Tartrate (Metoprolol Tartrate 25 Mg Tablet) 25 mg PO BID@0900,1800 [facility]; Protocol Last Admin: 01/04/25 07:20 Dose: 25 mg Documented By: JOCELYN Mirtazapine (Mirtazapine 30 Mg Tablet) 30 mg PO BEDTIME [facility] Last Admin: 01/03/25 19:19 Dose: 30 mg Documented By: JOCELYN Multivitamins/Vitamin C (Multivitamin Tablet) 1 tab PO DAILY [facility] Last Admin: 01/04/25 07:21 Dose: 1 tab Documented By: JOCELYN Sodium Biphosphate/Sodium Phosphate (Sodium Phosphate,Major-Dibasic 133 Ml Enema) 118 ml MN DAILY PRN PRN Reason: Constipation Sodium Chloride (0.9 % Sodium Chloride Flush 3 Ml Syringe) 3 ml IVFLUSH QSHIFT [facility] Last Admin: 01/04/25 07:20 Dose: Not Given Documented By: JOCELYN Non-Admin Reason: IV Running Tamsulosin HCl (Tamsulosin Hcl 0.4 Mg Capsule) 0.4 mg PO BEDTIME [facility] Last Admin: 01/03/25 19:19 Dose: 0.4 mg Documented By: JOCELYN Labs 01/03/25 09:33 01/04/25 12:36 Labs: Laboratory Results - last 24 hr 01/03/25 01/03/25 01/03/25 09:30 09:33 09:36 MCV 88.6 MCH 28.9 MCHC 32.6 RDW 15.6 Plt Count 162 MPV 9.7 Immature Gran % (Auto) 0.3 Neut % (Auto) 62.2 Lymph % (Auto) 27.1 Major % (Auto) 7.7 Eos % (Auto) 0.0 Baso % (Auto) 2.7 H Lymph # (Auto) 1.9 Major # (Auto) 0.6 Eos # (Auto) 0.0 Baso # (Auto) 0.2 Abs Immat Gran (auto) 0.02 Absolute Neuts (auto) 4.5 Absolute Nucleated RBC 0.000 Nucleated RBC % (auto) 0.0 PT 11.6 INR 1.0 VBG pH VBG pCO2 VBG pO2 VBG HCO3 VBG O2 Saturation VBG Base Excess Anion Gap 14 Estim Creat Clear Calc 88.0 Estimated GFR > 60 POC Glucose 56 L* Random Glucose 68 Estimat Average Glucose 120 Hemoglobin A1c % 5.8 Lactic Acid 1.2 Calcium 9.0 D Magnesium 2.0 Total Bilirubin 0.4 AST 23 ALT 22 Alkaline Phosphatase 103 Ammonia 30 Total Protein 7.2 Albumin 4.0 Urine Color Urine Appearance Urine pH Ur Specific [place] Urine Protein Urine Glucose (UA) Urine Ketones Urine Blood Urine Nitrite Ur Leukocyte Esterase Urine RBC Urine WBC Ur Squamous Epith Cells Other Crystals Urine Bacteria Hyaline Casts Urine Opiates Screen Ur Buprenorphine Scrn Ur Oxycodone Screen Urine Methadone Screen Urine Fentanyl Screen Ur Barbiturates Screen Ur Phencyclidine Scrn Ur Amphetamines Screen U Benzodiazepines Scrn Urine Cocaine Screen U Marijuana (THC) Screen Ethyl Alcohol 15 Influenza Type A (PCR) NEGATIVE Influenza Type B (PCR) NEGATIVE RSV RNA Qual (PCR) NEGATIVE SARS-CoV-2 RNA (RT-PCR) NEGATIVE 01/03/25 01/03/25 01/03/25 09:37 09:41 10:01 MCV MCH MCHC RDW Plt Count MPV Immature Gran % (Auto) Neut % (Auto) Lymph % (Auto) Major % (Auto) Eos % (Auto) Baso % (Auto) Lymph # (Auto) Major # (Auto) Eos # (Auto) Baso # (Auto) Abs Immat Gran (auto) Absolute Neuts (auto) Absolute Nucleated RBC Nucleated RBC % (auto) PT INR VBG pH 7.40 VBG pCO2 39 VBG pO2 41 VBG HCO3 25 VBG O2 Saturation 62.0 VBG Base Excess 0.4 Anion Gap Estim Creat Clear Calc Estimated GFR POC Glucose 164 H Random Glucose Estimat Average Glucose Hemoglobin A1c % Lactic Acid Calcium Magnesium Total Bilirubin AST ALT Alkaline Phosphatase Ammonia Total Protein Albumin Urine Color Yellow Urine Appearance Cloudy Urine pH 8.5 Ur Specific [place] 1.015 Urine Protein 30 (1+) H Urine Glucose (UA) Negative Urine Ketones 15 Urine Blood Negative Urine Nitrite Negative Ur Leukocyte Esterase Large (3+) H Urine RBC 0-2 Urine WBC 21-50 Ur Squamous Epith Cells 0-2 Other Crystals Present Urine Bacteria 2+ Hyaline Casts 0-2 Urine Opiates Screen Not Detected Ur Buprenorphine Scrn Not Detected Ur Oxycodone Screen Not Detected Urine Methadone Screen Not Detected Urine Fentanyl Screen Not Detected Ur Barbiturates Screen Not Detected Ur Phencyclidine Scrn Not Detected Ur Amphetamines Screen Not Detected U Benzodiazepines Scrn Not Detected Urine Cocaine Screen Not Detected U Marijuana (THC) Screen Not Detected Ethyl Alcohol Influenza Type A (PCR) Influenza Type B (PCR) RSV RNA Qual (PCR) SARS-CoV-2 RNA (RT-PCR) 05/18/25 05/18/25 05/18/25 11:32 16:50 17:24 MCV MCH MCHC RDW Plt Count MPV Immature Gran % (Auto) Neut % (Auto) Lymph % (Auto) Major % (Auto) Eos % (Auto) Baso % (Auto) Lymph # (Auto) Major # (Auto) Eos # (Auto) Baso # (Auto) Abs Immat Gran (auto) Absolute Neuts (auto) Absolute Nucleated RBC Nucleated RBC % (auto) PT INR VBG pH VBG pCO2 VBG pO2 VBG HCO3 VBG O2 Saturation VBG Base Excess Anion Gap Estim Creat Clear Calc Estimated GFR POC Glucose 96 70 168 H Random Glucose Estimat Average Glucose Hemoglobin A1c % Lactic Acid Calcium Magnesium Total Bilirubin AST ALT Alkaline Phosphatase Ammonia Total Protein Albumin Urine Color Urine Appearance Urine pH Ur Specific [place] Urine Protein Urine Glucose (UA) Urine Ketones Urine Blood Urine Nitrite Ur Leukocyte Esterase Urine RBC Urine WBC Ur Squamous Epith Cells Other Crystals Urine Bacteria Hyaline Casts Urine Opiates Screen Ur Buprenorphine Scrn Ur Oxycodone Screen Urine Methadone Screen Urine Fentanyl Screen Ur Barbiturates Screen Ur Phencyclidine Scrn Ur Amphetamines Screen U Benzodiazepines Scrn Urine Cocaine Screen U Marijuana (THC) Screen Ethyl Alcohol Influenza Type A (PCR) Influenza Type B (PCR) RSV RNA Qual (PCR) SARS-CoV-2 RNA (RT-PCR) 01/03/25 01/04/25 19:28 07:20 MCV MCH MCHC RDW Plt Count MPV Immature Gran % (Auto) Neut % (Auto) Lymph % (Auto) Major % (Auto) Eos % (Auto) Baso % (Auto) Lymph # (Auto) Major # (Auto) Eos # (Auto) Baso # (Auto) Abs Immat Gran (auto) Absolute Neuts (auto) Absolute Nucleated RBC Nucleated RBC % (auto) PT INR VBG pH VBG pCO2 VBG pO2 VBG HCO3 VBG O2 Saturation VBG Base Excess Anion Gap Estim Creat Clear Calc Estimated GFR POC Glucose 117 H 90 Random Glucose Estimat Average Glucose Hemoglobin A1c % Lactic Acid Calcium Magnesium Total Bilirubin AST ALT Alkaline Phosphatase Ammonia Total Protein Albumin Urine Color Urine Appearance Urine pH Ur Specific [place] Urine Protein Urine Glucose (UA) Urine Ketones Urine Blood Urine Nitrite Ur Leukocyte Esterase Urine RBC Urine WBC Ur Squamous Epith Cells Other Crystals Urine Bacteria Hyaline Casts Urine Opiates Screen Ur Buprenorphine Scrn Ur Oxycodone Screen Urine Methadone Screen Urine Fentanyl Screen Ur Barbiturates Screen Ur Phencyclidine Scrn Ur Amphetamines Screen U Benzodiazepines Scrn Urine Cocaine Screen U Marijuana (THC) Screen Ethyl Alcohol Influenza Type A (PCR) Influenza Type B (PCR) RSV RNA Qual (PCR) SARS-CoV-2 RNA (RT-PCR) Microbiology Microbiology Results: Microbiology 01/03/25 Unknown Urine Culture - Preliminary Urine clean catch - Clean Catch Midstream Gram negative aysha Assessment and Plan (1) Hypoglycemia: Status: Acute (2) Acute UTI: Status: Acute Plan 74-year-old male resident of [facility] with a PMH significant for?HTN, HLD, hypothyroidism, cognitive impairment, dysphagia, failure to thrive, GERD, BPH, anxiety, schizophrenia, and hx of catatonia who presents to the ED from SNF for evaluation of AMS. Pt is admitted to the hospital for treatment and further evaluation of acute metabolic encephalopathy in the setting of hypoglycemia and UTI with sepsis. Acute metabolic encephalopathy Mental status is improving Multifactorial: Secondary to acute UTI and hypoglycemia Encouraged for p.o. intake, continue antibiotics, p.o. hydration Monitor mentation Acute UTI with sepsis UA concerning for acute UTI with positive leukocyte esterase, WBCs 20 1-50, 2+ bacteria Meets sepsis criteria with tachycardia and tachypnea; lactic acid WNL, no hypotension Will treat with ceftriaxone, started 01/03/2025 Follow urine cultures Hypoglycemia Fingersticks are mostly in 100s range A1c borderline at 5.8, pt not on diabetic meds Monitor POCs Hx of dysphagia Chopped/advanced (NDD3) diet, thin liquids Ensure supplement t.i.d. Continue IV fluid D5 LR at 70 mL/hour until speech evaluation. HLD Continue statin HTN Continue metoprolol BPH Continue tamsulosin Mood disorder Continue clozapine, lorazepam, and mirtazapine ongoing need : Acute metabolic encephalopathy, UTI, decreased p.o. intake-need IV fluid, speech evaluation, IV antibiotics, close monitoring mental status and fingersticks. Quality Stroke Does the patient have a stroke diagnosis?: No VTE Prior VTE?: No VTE Risk Level:: Medical - moderate - high VTE Device Contraindication: Treatment Not Indicated VTE Drug Contraindication: N/A - Med Ordered
--- NOTE | 2025-01-04 09:29 | MHC.CM.PN ---
IMM DELIVERED TO HCP GIGI VIA TELEPHONE. WHITE COPY LEFT AT BEDSIDE , WILL GO BACK TO FACILITY WITH PT. 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 PT WILL RETURN THERE ON DC VIA BLS. CM WILL CONTINUE TO FOLLOW FOR PLAN.
--- NOTE | 2025-01-04 10:27 | MHC.CLN ---
NUTRIITON DIET=PUREE WITH ENSURE TID. SUPPLEMENT PROVIDES 1050 KCALS, [address] TO MONITOR WEEKLY.
--- NOTE | 2025-01-04 10:41 | MHC.SLORD ---
Speech Language Pathology Order Status: Pt seen for bedside swallow evaluation, pt refusing all PO. Pt currently on diet with thin liquids. MD consulted, PARTS COUNTERMAN to attempt swallow evaluation later today when pt more willing to participate.
[2025-01-04 11:28] LABS: Glucose, Whole Blood 99 mg/dL (60-115)
[2025-01-04] MEDS: Dextrose 5 % and Lactated Ring 1,000 ML 50 ML IVCONT (11:45)
[2025-01-04] MEDS: Enoxaparin Sodium 40 MG/0.4 ML SYRINGE SUBCUT (11:47)
[2025-01-04 13:10] LABS: Anion Gap 12 (12-20); Blood Urea Nitrogen 22 mg/dL (9-16); Carbon Dioxide 23 mmol/L (22-29); Chloride 111 mmol/L (96-108); Estimated Glomerular Filt Rate > 60; Glucose Random 92 mg/dL (60-115); Potassium 3.8 mmol/L (3.3-5.1); Sodium 142 mmol/L (135-145)
[2025-01-04 15:32] VITALS: BP 139/90; PULSE 97; RESP 18; TEMP 36.5; O2SAT 96
[2025-01-04 16:13] LABS: Glucose, Whole Blood 96 mg/dL (60-115)
[2025-01-04 19:15] VITALS: BP 139/93; PULSE 101; RESP 18; TEMP 36.6; O2SAT 93
[2025-01-04 20:33] LABS: Glucose, Whole Blood 130 mg/dL (60-115)
[2025-01-04] MEDS: Atorvastatin Calcium 40 MG TABLET PO (20:43)
[2025-01-04] MEDS: Famotidine 20 MG TABLET 40 MG PO (20:43)
[2025-01-04] MEDS: cloZAPine 25 MG TABLET PO (20:43)
[2025-01-04] MEDS: Mirtazapine 30 MG TABLET PO (20:44)
[2025-01-04] MEDS: Tamsulosin HCL 0.4 MG CAPSULE PO (20:44)
[2025-01-05 03:21] VITALS: BP 141/73; PULSE 87; RESP 18; TEMP 36.2; O2SAT 95
[2025-01-05] MEDS: Dextrose 5 % and Lactated Ring 1,000 ML 70 ML IVCONT (04:16)
[2025-01-05] MEDS: Levothyroxine Sodium 88 MCG TABLET PO (05:12)
[2025-01-05 07:36] LABS: Glucose, Whole Blood 101 mg/dL (60-115)
[2025-01-05 07:48] VITALS: BP 152/86; PULSE 92; RESP 20; TEMP 36.7; O2SAT 97
[2025-01-05] MEDS: Ascorbic Acid 500 MG TABLET PO (07:48)
[2025-01-05] MEDS: cloZAPine 100 MG TABLET PO (07:48)
[2025-01-05] MEDS: Ferrous Sulfate 324 MG TABLET.DR PO (07:48)
[2025-01-05] MEDS: Loratadine 10 MG TABLET PO (07:48)
[2025-01-05] MEDS: Multivitamin TABLET 1 TAB PO (07:48)
[2025-01-05] MEDS: Metoprolol Tartrate 25 MG TABLET PO (07:48)
[2025-01-05] MEDS: LORazepam 1 MG TABLET PO (07:48)
[2025-01-05] MEDS: 0.9 % Sodium Chloride Flush 3 ML SYRINGE IVFLUSH (07:50)
--- NOTE | 2025-01-05 09:49 | P.DS_ITS ---
DS: Providers Provider Date of Service: 01/05/25 Date of admission: 01/03/25 12:44 Date of discharge: 01/05/25 Primary care physician: LOYDA RODRIGUES DS: Diagnosis Discharge Diagnosis (1) Hypoglycemia: Status: Acute (2) Acute UTI: Status: Acute DS: Summary Hospital Course Hospital Course: History and physical as per admitting provider. Pt is a 74-year-old male resident of [facility] with a PMH significant for?HTN, HLD, hypothyroidism, cognitive impairment, dysphagia, failure to thrive, GERD, BPH, anxiety, schizophrenia, and hx of catatonia who presents to the ED from SNF for evaluation of AMS. Pt apparently found by staff altered from baseline with increased lethargy and and responsive to painful stimuli only. Report is normally A&O x4. In the ED pt was found to be hypoglycemic at 56 and responded well to D50. Pt mentating much better at time of this interview and exam. Pt alert to name and date, but not to place and unaware of exactly why he was brought to the hospital. The pt overall reports feeling ?fine? and has no acute medical complaints. Reports he has not been eating or drinking normally for the past 3 days because he has not felt hungry?. No nausea, vomiting, abdominal pain. Denies diarrhea. Denies any significant musculoskeletal pain. No SOB or difficulty breathing. No chest pain/pressure, palpitations. In the ED pt was afebrile but tachycardic up to 100, tachypneic up to 26, and hypertensive up to 155/88. Labs were significant for initial hypoglycemia of 56 and BUN elevated at 28, otherwise grossly unremarkable and around baseline for pt. No leukocytosis. Stable normocytic anemia of 11.6/35.6. No significant electrolyte abnormalities. Creatinine WNL. Hepatic WNL. Ammonia WNL at 30. Troponin negative. VBG reassuring. UA concerning for acute UTI. Tox screen negative, tested negative for flu, COVID, RSV. CTA of head negative for acute intracranial findings. CXR showed no acute cardiopulmonary process. EKG demonstrated sinus rhythm with PACs and aberrant conduction, similar to prior. Pt was treated in the ED with dextrose 25 g IV, diet has been 5 mg IV, and ceftriaxone. Pt is admitted to the hospital for treatment and further evaluation of acute metabolic encephalopathy in the setting of hypoglycemia and UTI with sepsis. 74-year-old man resident of [facility] admitted with acute metabolic encephalopathy secondary to UTI and sepsis. Patient treated with IV Rocephin, urine culture came back positive for Proteus. Can continue treatment with Ceftin for a few more days a total 5 day treatment. At this time patient is at his baseline mental status and will be transferred back to [facility]. Hypoglycemia. Had some borderline blood sugars less than 100. A1c 5.8, not on diabetic meds. Hx of dysphagia, Chopped/advanced (NDD3) diet, thin liquids, Ensure supplement t.i.d., Continue IV fluid D5 LR at 70 mL/hour until speech evaluation. HLD Continue statin HTN Continue metoprolol BPH Continue tamsulosin Mood disorder Continue clozapine, lorazepam, and mirtazapine Time Attestation Discharge Coordination Time (in mins): 45 Quality: Safe Use of Opioids Does Pt have an Active Cancer Diagnosis on the Problem List?: No Quality: Stroke Does the patient have a stroke diagnosis?: No Physical Exam Vital Signs: Vital Signs: Last Vital Signs Temp 98.0 F 01/05/25 07:48 Pulse 92 01/05/25 07:48 Resp 20 01/05/25 07:48 BP 152/86 H 01/05/25 07:48 Pulse Ox 97 01/05/25 07:48 O2 Del Method Room Air 01/05/25 07:48 BMI result Body Mass Index 23.3 Appearing in no acute distress head is normocephalic atraumatic eyes pupils are PERRLA sclera is anicteric mouth throat mucous membranes are intact and moist neck is supple no lymphadenopathy, no JVD noted lung sounds are clear to auscultation heart regular rate rhythm, clear S1, S2 positive bowel sounds, abdomen is soft, nontender neuro patient is alert x3, no focal deficits DS: Data Data Completed and Pending Labs on day of discharge: Laboratory Results - last 24 hr 01/04/25 01/04/25 01/04/25 11:23 12:36 16:08 Sodium 142 Potassium 3.8 Chloride 111 H Carbon Dioxide 23 Anion Gap 12 BUN 22 H Creatinine 0.76 Estim Creat Clear Calc 95.0 Estimated GFR > 60 POC Glucose 99 96 Random Glucose 92 Calcium 9.0 01/04/25 01/05/25 20:29 07:31 Sodium Potassium Chloride Carbon Dioxide Anion Gap BUN Creatinine Estim Creat Clear Calc Estimated GFR POC Glucose 130 H 101 Random Glucose Calcium Preliminary micro results at discharge 01/03/25 09:33 Blood Culture - Preliminary Blood - Venous No growth after 24 hours. 01/03/25 09:33 Blood Culture - Preliminary Blood - Venous No growth after 24 hours. Discharge Plan Discharge Anticipated Discharge Date/Time: 01/05/25 09:42 Patient Disposition: Xfer [facility] Discharge Diagnosis: Acute metabolic encephalopathy Proteus UTI Hypoglycemia Referrals: [facility] [Outside] - 1 Week ([facility]UMPT[facility] OF [facility]) LOYDA RODRIGUES [Primary Care Provider] - Discharge Medications: New cefuroxime axetil 500 mg tablet 500 mg PO BID Qty: 6 0RF Continued atorvastatin 40 mg Tablet 40 mg PO BEDTIME tamsulosin 0.4 mg Capsule 0.4 mg PO BEDTIME mirtazapine 30 mg Tablet 30 mg PO BEDTIME metoprolol tartrate 50 mg Tablet 25 mg PO BID@0900,1800 lorazepam 1 mg Tablet 1 mg PO BID@0900,1800 multivitamin with minerals Tablet 1 tab PO DAILY loratadine 10 mg Tablet 10 mg PO DAILY levothyroxine 88 mcg Tablet 88 mcg PO DAILY@0600 magnesium hydroxide [Milk of Magnesia] 400 mg/5 mL Suspension 30 ml PO DAILY PRN (Reason: Constipation) bisacodyl 10 mg Suppository 10 mg DC DAILY PRN (Reason: Constipation) Fleet Enema 19-7 gram/118 mL Enema 118 ml DC DAILY PRN (Reason: Constipation) naloxone 4 mg/actuation [place],Non-Aerosol 4 mg INTRANASAL Q3M PRN (Reason: Opioid Overdose) Rx Instructions: spray 1 dose into ONE nostril; alternate nostrils w each dose until help arrives Gvoke PFS 2-Pack Syringe 1 mg/0.2 mL Syringe 1 mg SUBCUT Q20M PRN (Reason: Hypoglycemia) Rx Instructions: until target blood sugar attained acetaminophen 325 mg Tablet 650 mg PO Q6H PRN (Reason: FEVER/PAIN) Rx Instructions: DNE 3 G / 24 HRS ipratropium-albuterol 0.5 mg-3 mg(2.5 mg base)/3 mL Solution For Nebulization 3 ml INHALATION Q4H PRN (Reason: Shortness Of Breath Or Wheezing) clozapine 100 mg Tablet 100 mg PO BID famotidine 40 mg Tablet 40 mg PO BEDTIME ascorbic acid (vitamin C) [Vitamin C] 500 mg Tablet 500 mg PO DAILY clozapine 25 mg Tablet 25 mg PO BEDTIME Rx Instructions: with evening 100 mg dose ferrous sulfate 325 mg (65 mg iron) Tablet,Delayed Release (Dr/Ec) 325 mg PO DAILY aripiprazole lauroxil 882 mg/3.2 mL Suspension,Extended Rel Syring 882 mg IM Q28D Discharge Orders: Discharge Order (Routine); Ordered 01/05/25 Ordered By: Angela Titus Diet: Advance to usual diet Activity on Discharge: As tolerated Stand Alone Forms: Patient Portal Discharge page Print Language: Mauritian Care Plan Goals: Complete course of antibiotics for UTI Health Concerns: Acute metabolic encephalopathy Proteus UTI Hypoglycemia Plan of Treatment: Follow up with primary care provider as needed Take all medications as prescribed Assessment: See discharge summary
--- NOTE | 2025-01-05 10:32 | MHC.CM.PN ---
DP: PT HAS BEEN MEDICALLY CLEARED FOR RETURN TO [facility]. BLS TRANSPORT BOOKED FOR 12 NOON. RN/CENTER UPDATED. MESSAGE LEFT FOR GUARDIAN GIGI MARMOLEJO.
[2025-01-05] MEDS: cefTRIAXone sodium 1 GM VIAL IVPUSH (10:58)
[2025-01-05 11:20] LABS: Glucose, Whole Blood 124 mg/dL (60-115)
--- NOTE | 2025-01-05 12:15 | MHC.SLORD ---
Speech Language Pathology Order Status: Pt to be discharged at noon today. Per conversation w/ hospitalist, pt does not need to be seen by MATERIALS AND PROCESSES MANAGER here prior to d/c. Pt recommended to be re-evaluated by MATERIALS AND PROCESSES MANAGER at [facility] to determine safest and least restrictive diet. MATERIALS AND PROCESSES MANAGER communicated this directly w/ [facility] who confirmed MATERIALS AND PROCESSES MANAGER in house at their facility.
== END 2025-01-05 13:24 | disposition home or self-care (01) | DRG 871 ==
LOC: HO.ED 12:56 → HO.EDOVER 13:04 → HO.S3 14:07
PROVIDERS: Internal Medicine; Registered Nurse Emergency; Admitting Provider Student in an Organized Health Care Education/Training Program; Emergency Provider Emergency Medicine; PCP Emergency Medicine; Visit Provider Nurse Practitioner Acute Care
DX: A41.9 Sepsis, unspecified organism (principal); G93.41 Metabolic encephalopathy; F20.0 Paranoid schizophrenia; N39.0 Urinary tract infection, site not specified; G31.84 Mild cognitive impairment of uncertain or unknown etiology; N40.0 Benign prostatic hyperplasia without lower urinary tract symptoms; I10 Essential (primary) hypertension; B96.4 Proteus (mirabilis) (morganii) as the cause of diseases classified elsewhere; E11.649 Type 2 diabetes mellitus with hypoglycemia without coma; R13.10 Dysphagia, unspecified; E78.5 Hyperlipidemia, unspecified; Z20.822 Contact with and (suspected) exposure to COVID-19; Z79.890 Hormone replacement therapy; Z79.899 Other long term (current) drug therapy
CPT/HCPCS: 0241U; 36415; 70450; 71046; 80048; 80053; 80307; 81001; 81003; 82140; 82803; 82947; 83036; 83605; 83735; 84484; 85025; 85610; 87040; 87086; 87088; 87186; 93005; 99285; J0696; J1650; J3360; J7120

== ENCOUNTER → 2025-01-03 09:21 | Outpatient (BNV) | payer MEDICARE, MEDICAID, SELFPAY | PROVIDERS: Emergency Provider Emergency Medicine; PCP Emergency Medicine; Visit Provider Radiology Diagnostic Radiology | DX: R41.82 Altered mental status, unspecified (principal); M62.81 Muscle weakness (generalized) | CPT/HCPCS: 70450; 71046 ==

== ENCOUNTER → 2025-01-03 09:21 | Outpatient (BNV) | payer MEDICARE, MEDICAID, SELFPAY | PROVIDERS: Admitting Provider Student in an Organized Health Care Education/Training Program; Emergency Provider Emergency Medicine; PCP Emergency Medicine; Visit Provider Internal Medicine Cardiovascular Disease | DX: I49.1 Atrial premature depolarization (principal); I45.9 Conduction disorder, unspecified | CPT/HCPCS: 93010 ==

== ENCOUNTER → 2025-01-03 12:44 | Outpatient (BNV) | payer MEDICARE, MEDICAID, SELFPAY | PROVIDERS: Admitting Provider Student in an Organized Health Care Education/Training Program; Emergency Provider Emergency Medicine; PCP Emergency Medicine; Visit Provider Student in an Organized Health Care Education/Training Program | DX: E16.2 Hypoglycemia, unspecified (principal); N39.0 Urinary tract infection, site not specified | CPT/HCPCS: 99223; 99232; 99239 ==